=== PATIENT | male | born 1945 | race Caucasian/White ===

== ENCOUNTER → 2016-09-07 | Outpatient (CLI) | payer MEDICARE ==
--- NOTE | 2016-09-07 11:40 | MR ---
EXAMINATION TYPE: MR knee LT wo con DATE OF EXAM: 09/07/2016 11:31 AM COMPARISON: Outside left knee x-ray August 23, 2016. HISTORY: Left knee pain per order. Outer knee pain for 3 months after fall injury per patient. TECHNIQUE: Multiplanar, multisequence images of the knee is performed without IV contrast. FINDINGS: MEDIAL MENISCUS: Anterior and posterior horns are intact without tear. LATERAL MENISCUS: Anterior and posterior horns are intact without tear. CRUCIATE LIGAMENTS: The anterior and posterior cruciate ligaments are intact and unremarkable. COLLATERAL LIGAMENTS: The medial collateral ligament and lateral collateral ligament complex are inta ct and unremarkable. EXTENSOR MECHANISM: Visualized quadriceps and patellar tendons are intact. Some spurring from superio r anterior patellar pole at distal quadriceps tendon attachment is seen. Some increased signal is see n in distal quadriceps tendon and proximal patellar tendon. EFFUSION: No significant suprapatellar joint effusion. POPLITEAL CYST: There is small to moderate size popliteal/pizano cyst measuring 4.1 cm on long axis on sagittal image 26. Fluid is somewhat ill-defined inferiorly. 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 Articular cartilage is fairly well-maintained medial and lateral tibiofemoral compartments. BONE MARROW SIGNAL: No focal abnormal marrow signal is appreciated. OTHER: No additional significant abnormality is appreciated. IMPRESSION: 1. No meniscal or ligamentous tear is seen. 2. Small to moderate-sized possible leaking popliteal cyst. 3. 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 Consider focal osteochondral defect or injury. 4. Mild distal quadriceps and proximal patellar tendinosis/tendinitis.
== END | disposition home or self-care (01) ==
LOC: RADMRIMAIN 10:53
PROVIDERS: ATTEND Orthopaedic Surgery
DX: M25.862 Other specified joint disorders, left knee (principal); M22.42 Chondromalacia patellae, left knee; M25.562 Pain in left knee

== ENCOUNTER → 2016-11-30 | Outpatient (CLI) | payer MEDICARE ==
[2016-11-30 13:24] LABS: Basophils # (A) 0.1 k/uL (0-0.2); Basophils % (A) 1 %; CH 31.2; CHCM 33.6; Eosinophils # (A) 0.1 k/uL (0-0.7); Eosinophils % (A) 2 %; HDW 3.24; Luc # (Auto) 0.15; Luc % (Auto) 2; Lymphocytes # (A) 1.1 k/uL (1.0-4.8); Lymphocytes % (A) 14 %; MCH 31.1 pg (25.0-35.0); MCHC 33.3 g/dL (31.0-37.0); MCV 93.5 fL (80.0-100.0); Mean Platelet Volume 8.6; Monocytes # (A) 0.4 k/uL (0-1.0); Monocytes % (A) 5 %; Neutrophils # (A) 6.1 k/uL (1.3-7.7); Neutrophils % (A) 77 %; RBC 4.81 m/uL (4.30-5.90); WBC (Perox) 8.12
[2016-11-30 13:48] LABS: ALT 46 U/L (21-72); AST 31 U/L (17-59); Alkaline Phosphatase 59 U/L (38-126); Anion Gap 10 mmol/L; Blood Urea Nitrogen 33 mg/dL (9-20); Calcium 10.4 mg/dL (8.4-10.2); Carbon Dioxide 26 mmol/L (22-30); Chloride 103 mmol/L (98-107); Glucose 125 mg/dL (74-99); Non-African American GFR(MDRD) >60 (>60 ml/min/1.73 sqM); Sodium 139 mmol/L (137-145); Total Bilirubin 0.9 mg/dL (0.2-1.3); Total Protein 7.3 g/dL (6.3-8.2)
[2016-11-30 13:50] LABS: Potassium 4.9 mmol/L (3.5-5.1)
[2016-11-30 18:21] LABS: Hemoglobin A1C 5.9 % (4.2-6.1)
== END | disposition home or self-care (01) ==
LOC: LABWHC1 12:37
PROVIDERS: ATTEND Internal Medicine
DX: E11.21 Type 2 diabetes mellitus with diabetic nephropathy (principal)
CPT/HCPCS: 36415; 80053; 83036; 85025

== ENCOUNTER 2016-12-20 08:05 | Day surgery (SDC) | payer MEDICARE ==
[2016-12-13 15:14] VITALS: BMI 39.9
[~2016-12-20 08:05] MED LIST: LACTATED RINGERS 1,000 ML IV SCH
[2016-12-20] MEDS: FLURBIPROFEN 0.03% OPHTH DROPS 2.5 ML BTL OP ONE ×3 (09:20→09:41)
[2016-12-20] MEDS ORDERED: LIDOCAINE 1% 20 ML VIAL (10MG/ML) FOR IV START INTRADERMA ONE (09:22)
[2016-12-20] MEDS: PHENYLEPHRINE 10% OPHTH DROPS 5 ML BTL OP ONE ×3 (09:24→09:44)
[2016-12-20] MEDS: CYCLOPENTOLATE 1% OPHTH SOLN 2 ML BTL OP ONE ×3 (09:26→09:48)
[2016-12-20 09:34] LABS: Glucose,Whole Blood 204 mg/dL (75-99)
[2016-12-20 09:37] VITALS: RESP 16; TEMP 98
[2016-12-20] MEDS ORDERED: MIDAZOLAM 2 MG/2 ML VIAL ONE (10:02)
[2016-12-20] MEDS ORDERED: fentaNYL (PF) 50 MCG/ML 2 ML AMP ONE (10:02)
[2016-12-20] MEDS ORDERED: PROPOFOL 10 MG/ML 20 ML VIAL IV ONE (10:02)
[2016-12-20] MEDS ORDERED: EPINEPHrine (PF) 0.5 ML in BALANCED SALT IRRIG SOLN COMB2 500 ML IRRIGATION ONE (10:03)
[2016-12-20] MEDS ORDERED: HYALURONATE SODIUM INTRAOCULAR 1 EACH SYRINGE (10MG/ML) INTRAOCULA ONE (10:08)
[2016-12-20] MEDS ORDERED: BALANCED SALT IRRIG SOLN COMB2 15 ML IRRIG.SOLN IRRIGATION ONE (10:08)
--- NOTE | 2016-12-20 10:27 | P.OP ---
Date of Procedure: 12/20/16 Preoperative Diagnosis: Postoperative Diagnosis: Procedure(s) Performed: PREOPERATIVE DIAGNOSIS: Cataract, right eye. POSTOPERATIVE DIAGNOSIS: Cataract, right eye. OPERATION: Phacoemulsification cataract, right eye. DESCRIPTION OF PROCEDURE: The patient was taken to the preoperative holding area. Intravenous Propofol was given so as to bring about adequate sedation. The following mixture was given for local anesthesia: 5 mL of 2% lidocaine, 5 mL of 0.75% Marcaine, and 1 mL of Wydase. Approximately 4 mL was injected in the retrobulbar space of the surgical eye. Additional 1 mL was then directed to the temporal area of the surgical eye. This was performed to allow adequate neurological block of the facial muscles. The patient was revived and then taken into the operative room. The patient was prepped and draped in the usual sterile manner for the operative eye. A lid speculum was put into position. The conjunctiva was resected back from the limbus in the 12 o'clock position. Bleeding was controlled with electrocautery. A #69 blade was then used and a half-thickness scleral incision approximately 1-mm posterior to the limbus was made on bare sclera. This was shelved in the clear cornea using a crescent knife. Next a 15-degree blade was used to make a stab incision at the 3 o' clock position at the corneolimbal interface. Keratome blade was then used and the superior wound was extended into the anterior chamber. Viscoelastic was injected into the anterior chamber and to maintain its form. Next, a cystotome was used and a continuous anterior capsulotomy was made without difficulty. Hydrodissection using a blunt cannula and BSS was performed. Phaco probe was then employed and a groove extending from 12 to 6 o'clock in the lens was created. A Regis wand was used through the stab incision so as to perform a divide and conquer technique. Next an irrigation aspiration probe was utilized and any residual cortex was removed from the eye. Again, viscoelastic was injected into the anterior chamber. An Jesús posterior chamber lens implant was placed in the cartridge and injected into the anterior chamber without difficulty. The Optizen labsey hook was utilized to spin the lens into position and this was again performed without any difficulty. The irrigation and aspiration probe was again employed and any residual viscoelastic was removed from the eye. Then BSS was injected into the limbal stab incision and the anterior chamber re-inflated. The conjunctiva was reapproximated using electrocautery. One drop of 0.25% Timoptic was placed over the corneal along with TobraDex ophthalmic ointment. Two sterile patches and a Cisneros eye shield were taped into position. The patient was transported to the recovery room in stable condition. Implants: Pathology: none sent Condition: stable Disposition: same day Indications for Procedure: Operative Findings: Description of Procedure:
[2016-12-20 10:31] VITALS: PULSE 66
[2016-12-20] MEDS ORDERED: IBUPROFEN 200 MG TAB PO STA (10:36)
[2016-12-20] MEDS ORDERED: IBUPROFEN 600 MG TAB PO STA (10:36)
[2016-12-20 10:47] LABS: Glucose,Whole Blood 163 mg/dL (75-99)
[2016-12-20 10:57] VITALS: BP 165/65
[2016-12-20] MEDS ORDERED: GENTAMICIN/PREDNISOL AC OPHTH OINT 3.5GM OPHTHALMIC ONE (23:00)
[2016-12-20] MEDS ORDERED: BUPIVACAINE (PF) 0.75% 5 ML, LIDOCAINE 4% (PF) 5 ML, HYALURONIDASE, HUMAN RECOMB 150 UNIT MISCELLANE ONE ×3 (23:00)
[2016-12-20] MEDS ORDERED: TIMOLOL 0.5% OPHTH SOLN (PF) 0.2 ML DROPERETTE OP ONE (23:00)
== END 2016-12-20 11:39 | disposition home or self-care (01) ==
LOC: OR 08:05
PROVIDERS: ATTEND Ophthalmology
DX: H26.9 Unspecified cataract (principal); I25.10 Atherosclerotic heart disease of native coronary artery without angina pectoris; I10 Essential (primary) hypertension; I48.91 Unspecified atrial fibrillation; I47.2 Ventricular tachycardia; N42.9 Disorder of prostate, unspecified; E11.9 Type 2 diabetes mellitus without complications; Z79.84 Long term (current) use of oral hypoglycemic drugs; Z79.82 Long term (current) use of aspirin; Z79.891 Long term (current) use of opiate analgesic; Z79.899 Other long term (current) drug therapy; Z91.013 Allergy to seafood; Z91.09 Other allergy status, other than to drugs and biological substances
CPT/HCPCS: 66984; V2632; J2001; J2250; J3470; J0171; J3010; J2704

== ENCOUNTER 2017-01-31 12:14 | Day surgery (SDC) | payer MEDICARE ==
[2017-01-25 11:51] VITALS: BMI 40.6
[2017-01-31] MEDS: CYCLOPENTOLATE 1% OPHTH SOLN 2 ML BTL OP ONE ×3 (12:48→13:08)
[2017-01-31] MEDS: PHENYLEPHRINE 10% OPHTH DROPS 5 ML BTL OP ONE ×3 (12:51→13:11)
[2017-01-31] MEDS: FLURBIPROFEN 0.03% OPHTH DROPS 2.5 ML BTL OP ONE ×3 (12:53→13:14)
[2017-01-31 12:55] VITALS: PULSE 66; RESP 16; TEMP 98
[2017-01-31] MEDS ORDERED: LIDOCAINE 1% 20 ML VIAL (10MG/ML) FOR IV START INTRADERMA ONE (12:57)
[2017-01-31 12:59] LABS: Glucose,Whole Blood 177 mg/dL (75-99)
[2017-01-31] MEDS ORDERED: MIDAZOLAM 2 MG/2 ML VIAL ONE (13:42)
[2017-01-31] MEDS ORDERED: fentaNYL (PF) 50 MCG/ML 2 ML AMP ONE (13:42)
[2017-01-31] MEDS ORDERED: PROPOFOL 10 MG/ML 20 ML VIAL IV ONE (13:42)
[2017-01-31] MEDS ORDERED: EPINEPHrine (PF) 0.5 ML in BALANCED SALT IRRIG SOLN COMB2 500 ML IRRIGATION ONE (13:46)
[2017-01-31] MEDS ORDERED: HYALURONATE SODIUM INTRAOCULAR 1 EACH SYRINGE (10MG/ML) INTRAOCULA ONE (13:49)
[2017-01-31] MEDS ORDERED: BALANCED SALT IRRIG SOLN COMB2 15 ML IRRIG.SOLN IRRIGATION ONE (13:49)
[2017-01-31] MEDS ORDERED: TETRACAINE 0.5% OPHTH (PF) DROPS 4 ML BTL LEFT EYE ONE (13:53)
--- NOTE | 2017-01-31 14:11 | P.OP ---
Date of Procedure: 01/31/17 Preoperative Diagnosis: Postoperative Diagnosis: Procedure(s) Performed: PREOPERATIVE DIAGNOSIS: Cataract, left eye. POSTOPERATIVE DIAGNOSIS: Cataract, left eye. OPERATION: Phacoemulsification cataract, left eye. DESCRIPTION OF PROCEDURE: The patient was taken to the preoperative holding area. Intravenous Propofol was given so as to bring about adequate sedation. The following mixture was given for local anesthesia: 5 mL of 2% lidocaine, 5 mL of 0.75% Marcaine, and 1 mL of Wydase. Approximately 4 mL was injected in the retrobulbar space of the surgical eye. Additional 1 mL was then directed to the temporal area of the surgical eye. This was performed to allow adequate neurological block of the facial muscles. The patient was revived and then taken into the operative room. The patient was prepped and draped in the usual sterile manner for the operative eye. A lid speculum was put into position. The conjunctiva was resected back from the limbus in the 12 o'clock position. Bleeding was controlled with electrocautery. A #69 blade was then used and a half-thickness scleral incision approximately 1-mm posterior to the limbus was made on bare sclera. This was shelved in the clear cornea using a crescent knife. Next a 15-degree blade was used to make a stab incision at the 3 o' clock position at the corneolimbal interface. Keratome blade was then used and the superior wound was extended into the anterior chamber. Viscoelastic was injected into the anterior chamber and to maintain its form. Next, a cystotome was used and a continuous anterior capsulotomy was made without difficulty. Hydrodissection using a blunt cannula and BSS was performed. Phaco probe was then employed and a groove extending from 12 to 6 o'clock in the lens was created. A Regis wand was used through the stab incision so as to perform a divide and conquer technique. Next an irrigation aspiration probe was utilized and any residual cortex was removed from the eye. Again, viscoelastic was injected into the anterior chamber. An Jesús posterior chamber lens implant was placed in the cartridge and injected into the anterior chamber without difficulty. The Jianshuey hook was utilized to spin the lens into position and this was again performed without any difficulty. The irrigation and aspiration probe was again employed and any residual viscoelastic was removed from the eye. Then BSS was injected into the limbal stab incision and the anterior chamber re-inflated. The conjunctiva was reapproximated using electrocautery. One drop of 0.25% Timoptic was placed over the corneal along with TobraDex ophthalmic ointment. Two sterile patches and a Cisneros eye shield were taped into position. The patient was transported to the recovery room in stable condition. Implants: Pathology: none sent Condition: stable Disposition: same day Indications for Procedure: Operative Findings: Description of Procedure:
[2017-01-31 14:28] VITALS: BP 152/70
[2017-01-31] MEDS ORDERED: BUPIVACAINE (PF) 0.75% 5 ML, LIDOCAINE 4% (PF) 5 ML, HYALURONIDASE, HUMAN RECOMB 150 UNIT MISCELLANE ONE ×3 (23:00)
[2017-01-31] MEDS ORDERED: TIMOLOL 0.5% OPHTH SOLN (PF) 0.2 ML DROPERETTE OP ONE (23:00)
[2017-01-31] MEDS ORDERED: GENTAMICIN/PREDNISOL AC OPHTH OINT 3.5GM OPHTHALMIC ONE (23:00)
== END 2017-01-31 14:53 | disposition home or self-care (01) ==
LOC: OR 12:14
PROVIDERS: ATTEND Ophthalmology
DX: H26.9 Unspecified cataract (principal); I25.10 Atherosclerotic heart disease of native coronary artery without angina pectoris; I49.9 Cardiac arrhythmia, unspecified; I10 Essential (primary) hypertension; I48.91 Unspecified atrial fibrillation; E11.9 Type 2 diabetes mellitus without complications; C61 Malignant neoplasm of prostate; Z79.84 Long term (current) use of oral hypoglycemic drugs; Z79.82 Long term (current) use of aspirin; Z79.899 Other long term (current) drug therapy
CPT/HCPCS: 66984; V2632; J2001; J2250; J3470; J0171; J3010; J2704

== ENCOUNTER → 2017-09-11 | Outpatient (CLI) | payer MEDICARE ==
[2017-09-11 14:47] LABS: ALT 36 U/L (21-72); AST 23 U/L (17-59); Albumin 4.1 g/dL (3.5-5.0); Alkaline Phosphatase 62 U/L (38-126); Anion Gap 11 mmol/L; Blood Urea Nitrogen 22 mg/dL (9-20); Calcium 10.4 mg/dL (8.4-10.2); Carbon Dioxide 28 mmol/L (22-30); Chloride 102 mmol/L (98-107); Glucose 183 mg/dL (74-99); Potassium 4.8 mmol/L (3.5-5.1); Sodium 141 mmol/L (137-145); Total Bilirubin 0.7 mg/dL (0.2-1.3); Total Protein 6.4 g/dL (6.3-8.2)
[2017-09-11 15:21] LABS: Basophils % (A) 1 %; Eosinophils # (A) 0.1 k/uL (0-0.7); Eosinophils % (A) 2 %; HCT 38.6 % (39.0-53.0); HGB 12.1 gm/dL (13.0-17.5); Hypochromasia Slight; Lymphocytes # (A) 0.9 k/uL (1.0-4.8); Lymphocytes % (A) 13 %; MCH 27.9 pg (25.0-35.0); MCHC 31.3 g/dL (31.0-37.0); MCV 89.2 fL (80.0-100.0); Mean Platelet Volume 8.5; Monocytes # (A) 0.4 k/uL (0-1.0); Monocytes % (A) 6 %; Neutrophils # (A) 5.6 k/uL (1.3-7.7); Neutrophils % (A) 79 %; Platelet Count 191 k/uL (150-450); RBC 4.33 m/uL (4.30-5.90); RDW 15.4 % (11.5-15.5); WBC 7.1 k/uL (3.8-10.6)
[2017-09-11 23:01] LABS: Hemoglobin A1C 7.4 % (4.0-6.0)
== END | disposition home or self-care (01) ==
LOC: LABWHC1 13:50
PROVIDERS: ATTEND Internal Medicine
DX: E11.21 Type 2 diabetes mellitus with diabetic nephropathy (principal)
CPT/HCPCS: 36415; 80053; 83036; 85025

== ENCOUNTER → 2017-10-17 | Outpatient (CLI) | payer MEDICARE ==
--- NOTE | 2017-10-17 09:42 | XR ---
EXAMINATION TYPE: XR chest 2V DATE OF EXAM: 10/17/2017 COMPARISON: 07/28/2014 TECHNIQUE: PA and lateral views submitted. HISTORY: Shortness of breath FINDINGS: Heart is prominent there is atherosclerotic change aorta. Small bilateral pleural effusions. Mild kristina tral interstitial prominence. Biapical pleural thickening. Arthropathy of the shoulders. Hypertrophic and degenerative change of the spine. IMPRESSION: 1. Correlate for mild venous congestion with small bilateral pleural effusions. Interstitial pneumoni tis also the differential diagnosis.
== END | disposition home or self-care (01) ==
LOC: RADXRMAIN 09:20
PROVIDERS: ATTEND Internal Medicine
DX: J06.9 Acute upper respiratory infection, unspecified (principal)
CPT/HCPCS: 71046

== ENCOUNTER 2017-10-28 20:12 | Emergency (ER) | payer MEDICARE ==
[2017-10-28 20:32] VITALS: BP 180/77; PULSE 70; RESP 18; TEMP 99.3
--- NOTE | 2017-10-28 21:39 | XR ---
EXAMINATION TYPE: XR foot complete RT DATE OF EXAM: 10/28/2017 CLINICAL HISTORY: Injury with pain. TECHNIQUE: Frontal, lateral, and oblique images of the right foot are obtained. COMPARISON: None FINDINGS: There is acute transverse minimally displaced fracture at base of fifth metatarsal. There is roughly 2 mm separation. The joint spaces in the right foot appear within normal limits. Moderate diffuse subcutaneous edema is present. Moderate size inferior calcaneal spur is seen. There is small er superior calcaneal spur with ossification along the distal Achilles tendon. IMPRESSION: There is acute mildly displaced transverse fracture base of fifth metatarsal (Ty type fracture). (Initial encounter closed type posttraumatic fracture).
--- NOTE | 2017-10-28 22:14 | ED ---
General Adult HPI - General Chief complaint: Extremity Injury, Lower Stated complaint: foot pain Time Seen by Provider: 10/28/17 21:19 Source: patient, RN notes reviewed Mode of arrival: wheelchair Limitations: physical limitation - History of Present Illness Initial comments: 72-year-old male presents to the emergency department for a chief complaint of right foot pain. Patient states he stood up from the couch and took 3 steps and felt the pain in the lateral side of his right foot. Patient denies falling to the ground. Patient denies any other injuries. Patient denies twisting the foot or standing/stepping on it strangely. Patient is a diabetic. Patient has no other complaints at this time. Patient denies any shortness of breath, chest pain, pain in the knee or hip. Patient has no pain in the ankle. - Related Data Home Medications Medication Instructions Recorded Confirmed RX: Tamsulosin HCl [Flomax] 0.4 mg PO HS 09/25/14 01/31/17 RX: glipiZIDE XL [Glucotrol XL] 10 mg PO DAILY 09/25/14 01/31/17 RX: Baclofen [Lioresal] 10 mg PO BID 05/28/15 01/31/17 RX: Finasteride 5 mg PO DAILY 05/28/15 01/31/17 RX: Acetaminophen-Codeine 300-30mg 1 tab PO TID PRN 03/21/16 01/31/17 [Tylenol w/codeine #3] RX: Aspirin 81 mg PO DAILY 03/21/16 01/31/17 RX: Atorvastatin [Lipitor] 40 mg PO DAILY 03/21/16 01/31/17 RX: Flecainide [Tambocor] 50 mg PO BID 03/21/16 01/31/17 RX: Lisinopril [Zestril] 10 mg PO DAILY 03/21/16 01/31/17 RX: Metoprolol Tartrate [Lopressor] 25 mg PO BID 03/21/16 01/31/17 RX: Triamterene-Hctz 37.5-25Mg 1 cap PO DAILY 03/21/16 01/31/17 [Dyazide 37.5-25 Capsule] RX: metFORMIN HCL [metFORMIN HCL 1,000 mg PO AC-SUPPER 03/21/16 01/31/17 ER] Nitrofurantoin Monohyd/M-Cryst 100 mg PO DAILY 12/13/16 01/31/17 [Macrobid] Allergies Allergy/AdvReac Type Severity Reaction Status Date / Time Iodine and Iodide Containing Allergy Rash/Hives Verified 10/28/17 20:32 Produc shellfish derived [Shellfish] Allergy Rash/Hives Verified 10/28/17 20:32 Review of Systems ROS Statement: Those systems with pertinent positive or pertinent negative responses have been documented in the HPI. ROS Other: All systems not noted in ROS Statement are negative. Past Medical History Past Medical History: Atrial Fibrillation, Coronary Artery Disease (CAD), Diabetes Mellitus, Hypertension, Prostate Disorder Additional Past Medical History / Comment(s): enlarged prostate with stones, prostatitis in past and recently-on abx, episode of v-tach 20 yrs ago, mild CAD , NIDDM type II, 2007 syncope, chronic back pain, stomach ulcers in past, back pain, History of Any Multi-Drug Resistant Organisms: None Reported Past Surgical History: Appendectomy, Cholecystectomy, Heart Catheterization, Orthopedic Surgery Additional Past Surgical History / Comment(s): tibia plateau fracture right leg with plates/screws, 05/29/15 cardiac cath with mild CAD. Past Anesthesia/Blood Transfusion Reactions: No Reported Reaction Past Psychological History: No Psychological Hx Reported Smoking Status: Former smoker Past Alcohol Use History: None Reported Past Drug Use History: None Reported - Past Family History Mother Additional Family Medical History / Comment(s): Bowel problems and possible lung cancer. Mother in her 80's. She did not go to the doctors much. Brother(s) Family Medical History: Cancer Father Family Medical History: Cancer Additional Family Medical History / Comment(s): Father had palpitations. He at about age 78yrs. General Exam Limitations: physical limitation Respiratory exam: Present: normal lung sounds bilaterally. Absent: respiratory distress, wheezes, rales, rhonchi, stridor Cardiovascular Exam: Present: regular rate, normal rhythm, normal heart sounds. Absent: systolic murmur, diastolic murmur, rubs, gallop, clicks Extremities exam: Present: full ROM, tenderness (Of the lateral aspect of the right foot.), normal capillary refill, other (Right ankle and knee nontender and patient has full range of motion. Patient has full range of motion of the right foot. There is significant tenderness on the lateral aspect of the right foot. There is slight swelling as well. Capillary refill less than 2 seconds in all digits in the right foot. Pedal pulse 2+. Patient has intact sensation of the right foot. Neurovascular intact) Course Vital Signs 10/28/17 20:26 Temperature 99.3 F Pulse Rate 70 Respiratory 18 Rate Blood Pressure 180/77 O2 Sat by Pulse 98 Oximetry Procedures - Procedures Initial comment: Neurovascular intact before splint application Indication: Ty fracture of the right lower extremity Type: Short leg Wounds: no abrasions or lacerations underneath splint Neurovascular status: patient has sensation and movement of digits extending outside the splint, there is no cyanosis, capillary refill < 2 seconds Follow-up: patient given number for orthopedics and instructed to phone to make an appointment. Patient aware he can return to the Emergency Department if any difficulties. Medical Decision Making - Medical Decision Making 72-year-old male presents to the emergency department for pain in the lateral side of the right foot. No pain in the ankle or knee. No pain in the calf. Patient states she was walking when he heard a crack. He denies twisting his ankle or falling. X-ray of the foot demonstrates an acute mildly displaced transverse fracture base of the fifth metatarsal. This is a Ty-type fracture. A short leg cast was applied to the right foot. Patient should be nonweightbearing. He was given a prescription for crutches. He is to follow up with orthopedics in one to 2 days. He should also follow up with his primary care provider. He is to return to the emergency department if he has any worsening symptoms. He was educated that he can loosen the Marco Antonio wrap if it is too tight as well as readjust it if it is causing any uncomfortable pressure. Patient states he has Tylenol 3 at home and does not want anything else for pain. He was told to keep the foot elevated to help with the throbbing pain. Disposition Clinical Impression: Ty fracture Disposition: HOME SELF-CARE Condition: Good Instructions: Foot Fracture in Adults (ED) Additional Instructions: Please follow up with orthopedics in one to 2 days. Please feel free to loosen the rapid if it is too tight or uncomfortable as discussed. Please take Tylenol for pain relief. Keeping the foot elevated will help with the throbbing pain as well. Please remain non-weightbearing on the affected foot. Please return to the emergency department if you have any worsening symptoms. Referrals: José Busby MD [Primary Care Provider] - 1-2 days Sahil Shore MD [STAFF PHYSICIAN] - 1-2 days Time of Disposition: 22:13
== END 2017-10-28 22:28 | disposition home or self-care (01) ==
LOC: EC 20:12
DX: S92.351A Displaced fracture of fifth metatarsal bone, right foot, initial encounter for closed fracture (principal); I48.91 Unspecified atrial fibrillation; I25.10 Atherosclerotic heart disease of native coronary artery without angina pectoris; E11.9 Type 2 diabetes mellitus without complications; I10 Essential (primary) hypertension; N42.9 Disorder of prostate, unspecified; Z87.891 Personal history of nicotine dependence; Z79.82 Long term (current) use of aspirin; Z79.84 Long term (current) use of oral hypoglycemic drugs; Z79.899 Other long term (current) drug therapy; Z91.013 Allergy to seafood; Z88.8 Allergy status to other drugs, medicaments and biological substances; Z98.890 Other specified postprocedural states; X58.XXXA Exposure to other specified factors, initial encounter; Y93.01 Activity, walking, marching and hiking
CPT/HCPCS: 99283

== ENCOUNTER → 2017-11-03 | Outpatient (CLI) | payer MEDICARE ==
[2017-11-03 12:48] LABS: ALT 34 U/L (21-72); AST 21 U/L (17-59); Cholesterol 80 mg/dL (<200); HDL Cholesterol 35 mg/dL (40-60); LDL Cholesterol,Calculated 11 mg/dL (0-99); Triglycerides 171 mg/dL (<150)
== END | disposition home or self-care (01) ==
LOC: LABWHC1 11:48
PROVIDERS: ATTEND Nurse Practitioner Adult Health
DX: E78.2 Mixed hyperlipidemia (principal)
CPT/HCPCS: 36415; 80061; 84450; 84460

== ENCOUNTER → 2018-07-03 | Outpatient (CLI) | payer MEDICARE ==
[2018-07-03 12:02] LABS: Anisocytosis Slight; Basophils % (A) 0 %; Eosinophils # (A) 0.1 k/uL (0-0.7); Eosinophils % (A) 2 %; HCT 27.4 % (39.0-53.0); Hypochromasia Marked; Lymphocytes # (A) 0.6 k/uL (1.0-4.8); Lymphocytes % (A) 11 %; MCH 22.1 pg (25.0-35.0); MCHC 29.2 g/dL (31.0-37.0); MCV 75.6 fL (80.0-100.0); Mean Platelet Volume 7.5; Microcytosis Slight; Monocytes # (A) 0.3 k/uL (0-1.0); Monocytes % (A) 5 %; Neutrophils # (A) 4.8 k/uL (1.3-7.7); Neutrophils % (A) 80 %; Platelet Count 156 k/uL (150-450); Poikilocytosis Slight; RBC 3.62 m/uL (4.30-5.90); RDW 18.2 % (11.5-15.5); WBC 5.9 k/uL (3.8-10.6)
[2018-07-03 13:25] LABS: Erythrocyte Sedimentation Rate 21 mm/hr (0-15)
[2018-07-03 17:18] LABS: HIV 1 AB Non-Reactive (Non-Reactive); HIV AB P24 Non-Reactive (Non-Reactive); HIV P24 AG Non-Reactive (Non-Reactive)
[2018-07-06 09:47] LABS: Lyme IgG/IgM 0.1 Index
[2018-07-07 13:37] LABS: Lysozyme, Serum or Body Fluid 9.5 mcg/mL (5.0-11.0)
== END | disposition home or self-care (01) ==
LOC: LABWHC1 10:57
PROVIDERS: ATTEND Ophthalmology
DX: E11.3293 Type 2 diabetes mellitus with mild nonproliferative diabetic retinopathy without macular edema, bilateral (principal)
CPT/HCPCS: 36415; 82164; 85025; 85549; 85652; 86140; 86480; 86618; 86780; 87390

== ENCOUNTER → 2018-07-20 | Outpatient (CLI) | payer MEDICARE ==
--- NOTE | 2018-07-23 01:14 | MR ---
EXAMINATION TYPE: MR brain/orbits wo/w con DATE OF EXAM: 07/20/2018 COMPARISON: None HISTORY: optic neuropathy, disturbance of left eye vision TECHNIQUE: Multiplanar, multisequence images of the brain and brainstem is performed without and with IV contras t, utilizing 11.5 mL intravenous Gadavist . FINDINGS: There is mild cerebral cortical atrophy. There is no mass effect nor midline shift. There i s no sign of intracranial hemorrhage. There are multiple scattered foci of abnormal increased signal at the lee-white matter junction of both cerebral hemispheres on the T2 and FLAIR images. Total numb ers approximately 20 and these measure up to 6 mm. These are more concentrated in the frontal and par ietal lobes. The ventricles of normal size. Sella turcica appears normal. Corpus callosum appears nor mal. There is no evidence of cortical infarct. The globes are symmetric. There is no evidence of retro-orbital mass. The optic nerves have fairly no rmal signal pattern. There is no evidence of a mass. The contrast images show no pathologic orbital e nhancement. Contrast images show no cerebral pathologic parenchymal enhancement. The pituitary stock appears normal. Optic chiasm is normal. IMPRESSION: Cerebral atrophy. Multiple scattered white matter lesions probably related to chronic sma ll vessel ischemia. No evidence of orbital mass. No orbital abnormality identified.
== END | disposition home or self-care (01) ==
LOC: RADMRIMAIN 11:31
PROVIDERS: ATTEND Ophthalmology
DX: G31.9 Degenerative disease of nervous system, unspecified (principal); R90.89 Other abnormal findings on diagnostic imaging of central nervous system; H46.02 Optic papillitis, left eye
CPT/HCPCS: 82565; 84520; 70543; 70553; 36415; A9585

== ENCOUNTER → 2018-09-17 | Outpatient (CLI) | payer MEDICARE ==
[2018-09-17 18:39] LABS: Anion Gap 7.1 mmol/L (4.00-12.00); Calcium 8.7 mg/dL (8.7-10.3); Carbon Dioxide 26.9 mmol/L (21.6-31.8); Potassium 5.1 mmol/L (3.5-5.5)
== END ==
LOC: LABWHC1 13:21
PROVIDERS: ATTEND Nurse Practitioner Adult Health
DX: I10 Essential (primary) hypertension (principal)
CPT/HCPCS: 36415; 80048; 83735

== ENCOUNTER 2018-09-20 09:50 | Inpatient (IN) | payer MEDICARE ==
--- NOTE | 2018-09-20 10:38 | ED ---
General Adult HPI - General Chief complaint: Shortness of Breath Stated complaint: water retention Time Seen by Provider: 09/20/18 10:14 Source: patient Mode of arrival: wheelchair Limitations: no limitations - History of Present Illness Initial comments: This patient is a 73-year-old man who presents to be evaluated for bilateral lower extremity edema. The patient relates that this had been present for about one month. He states that he has been seeing his primary physician (Dr. Busby), and that he had been there in the clinic today and then was directed to come over here from the clinic. The patient relates that he has been taking Lasix for the edema without significant improvement. In addition to the leg swelling he has had some exertional dyspnea if he walks very far. He occasionally has some muscle cramping which has been going on since starting the Lasix. He states that it can affect the lower extremities and he also has had it though less commonly in the upper extremities. Patient denies chest pains. 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 Onset/Timin -: month(s) - Related Data Home Medications Medication Instructions Recorded Confirmed Tamsulosin HCl [Flomax] 0.4 mg PO HS 09/25/14 09/20/18 glipiZIDE XL [Glucotrol XL] 10 mg PO DAILY 09/25/14 09/20/18 Finasteride 5 mg PO DAILY 05/28/15 09/20/18 Aspirin 81 mg PO DAILY 03/21/16 09/20/18 Atorvastatin [Lipitor] 40 mg PO DAILY 03/21/16 09/20/18 Lisinopril [Zestril] 10 mg PO DAILY 03/21/16 09/20/18 Metoprolol Tartrate [Lopressor] 25 mg PO BID 03/21/16 09/20/18 metFORMIN HCL [metFORMIN HCL ER] 1,000 mg PO AC-SUPPER 03/21/16 09/20/18 Carisoprodol [Soma] 350 mg PO BID 09/20/18 09/20/18 Omeprazole 20 mg PO DAILY 09/20/18 09/20/18 Potassium Chloride ER [K-Dur 10] 20 meq PO DAILY 09/20/18 09/20/18 Sulfamethox-Tmp 800-160Mg [Bactrim 0.5 tab PO DAILY 09/20/18 09/20/18 DS 800-160 mg] Warfarin [Coumadin] 7.5 mg PO SUMOTUWETHSA 09/20/18 09/20/18 Warfarin [Coumadin] 10 mg PO FR 09/20/18 09/20/18 Previous Rx's Medication Instructions Recorded Ferrous Sulfate [Feosol] 325 mg PO BID #60 tab 09/24/18 Furosemide [Lasix] 60 mg PO BID #90 tablet 09/24/18 HYDROcodone/APAP 10-325MG [[place] 1 each PO Q6H PRN #7 tab 09/24/18 10-325] Allergies Allergy/AdvReac Type Severity Reaction Status Date / Time Iodine and Iodide Containing Allergy Rash/Hives Verified 09/20/18 11:11 Produc shellfish derived [Shellfish] Allergy Rash/Hives Verified 09/20/18 11:11 Review of Systems ROS Statement: Those systems with pertinent positive or pertinent negative responses have been documented in the HPI. ROS Other: All systems not noted in ROS Statement are negative. Constitutional: Denies: fever, chills, weakness Respiratory: Denies: cough, dyspnea, wheezes Cardiovascular: Reports: dyspnea on exertion, edema. Denies: chest pain, palpi tations, orthopnea, syncope Gastrointestinal: Denies: abdominal pain, vomiting, diarrhea Genitourinary: Denies: dysuria, hematuria Musculoskeletal: Reports: myalgia (Muscle cramps). Denies: back pain Skin: Denies: rash Neurological: Denies: headache, weakness, numbness Past Medical History Past Medical History: Atrial Fibrillation, Coronary Artery Disease (CAD), Diabetes Mellitus, Hypertension, Prostate Disorder Additional Past Medical History / Comment(s): enlarged prostate with stones, prostatitis in past and recently-on abx, episode of v-tach 20 yrs ago, mild CAD, NIDDM type II, 2008 syncope, chronic back pain, stomach ulcers in past, back pain, History of Any Multi-Drug Resistant Organisms: None Reported Past Surgical History: Appendectomy, Cholecystectomy, Heart Catheterization, Orthopedic Surgery Additional Past Surgical History / Comment(s): tibia plateau fracture right leg with plates/screws, 05/29/15 cardiac cath with mild CAD. Past Anesthesia/Blood Transfusion Reactions: No Reported Reaction Past Psychological History: No Psychological Hx Reported Smoking Status: Former smoker Past Alcohol Use History: None Reported Past Drug Use History: None Reported - Past Family History Mother Additional Family Medical History / Comment(s): Bowel problems and possible lung cancer. Mother in her 80's. She did not go to the doctors much. Brother(s) Family Medical History: Cancer Father Family Medical History: Cancer Additional Family Medical History / Comment(s): Father had palpitations. He at about age 78yrs. General Exam Limitations: no limitations General appearance: alert, in no apparent distress Head exam: Present: atraumatic, normocephalic Eye exam: Present: normal appearance. Absent: scleral icterus, conjunctival injection ENT exam: Present: normal oropharynx Respiratory exam: Present: normal lung sounds bilaterally. Absent: respiratory distress, wheezes, rales, rhonchi, stridor Cardiovascular Exam: Present: regular rate, normal rhythm, normal heart sounds. Absent: systolic murmur, diastolic murmur, rubs, gallop GI/Abdominal exam: Present: soft. Absent: distended, tenderness, guarding, r ebound, rigid Extremities exam: Present: normal capillary refill, pedal edema (Bilateral lower extremity edema to above the knees). Absent: calf tenderness Back exam: Present: normal inspection. Absent: CVA tenderness (R), CVA tenderness (L) Neurological exam: Present: alert Skin exam: Present: warm, dry, intact, normal color. Absent: rash Course Vital Signs 09/20/18 09/20/18 10:05 13:28 Temperature 99.2 F Pulse Rate 76 79 Respiratory 16 16 Rate Blood Pressure 139/93 148/56 O2 Sat by Pulse 100 100 Oximetry - Reevaluation(s) Reevaluation #1: 09/20/18 11:48 Further history reveals that the patient has had some underlying anemia going back, he believes about 5-[address] Busby had foulness on incidental labs, and had him follow with gastroenterology. He did have upper and lower endoscopy that did not reveal any bleeding at that time. He has not subsequently noticed any bloody stools or any dark tarry stools. The patient does take Coumadin for his atrial fibrillation. EKG Findings - EKG Results: EKG: interpreted by MENDEL, sinus rhythm (Sinus rhythm with one premature supraventricular complex, Rate approximate 75 bpm), normal axis, normal QRS, normal ST/T, no acute changes Medical Decision Making - Medical Decision Making Case discussed with the [facility] physician group doctor, who will admit patient for transfusion and further workup of this is profound anemia. - Lab Data Result diagrams: 09/24/18 08:05 09/24/18 08:05 Lab Results 09/20/18 09/20/18 09/20/18 Range/Units 10:55 10:55 10:55 WBC 8.2 (3.8-10.6) k/uL RBC 2.69 L (4.30-5.90) m/uL Hgb 5.5 L* (13.0-17.5) gm/dL Hct 18.8 L* (39.0-53.0) % MCV 69.7 L (80.0-100.0) fL MCH 20.3 L (25.0-35.0) pg MCHC 29.1 L (31.0-37.0) g/dL RDW 18.7 H (11.5-15.5) % Plt Count 268 (150-450) k/uL Neutrophils % 85 % Lymphocytes % 7 % Monocytes % 4 % Eosinophils % 2 % Basophils % 0 % Neutrophils # 7.0 (1.3-7.7) k/uL Lymphocytes # 0.6 L (1.0-4.8) k/uL Monocytes # 0.3 (0-1.0) k/uL Eosinophils # 0.2 (0-0.7) k/uL Basophils # 0.0 (0-0.2) k/uL Hypochromasia Marked Poikilocytosis Slight Anisocytosis Slight Microcytosis Marked PT (9.0-12.0) sec INR (<1.2) APTT (22.0-30.0) sec Sodium 134 L (137-145) mmol/L Potassium 5.0 (3.5-5.1) mmol/L Chloride 99 (98-107) mmol/L Carbon Dioxide 23 (22-30) mmol/L Anion Gap 12 mmol/L BUN 27 H (9-20) mg/dL Creatinine 1.07 (0.66-1.25) mg/dL Est GFR (CKD-EPI)AfAm 80 (>60 ml/min/1.73 sqM) Est GFR (CKD-EPI)NonAf 70 (>60 ml/min/1.73 sqM) Glucose 229 H (74-99) mg/dL Calcium 9.0 (8.4-10.2) mg/dL Magnesium 2.0 (1.6-2.3) mg/dL Total Bilirubin 0.2 (0.2-1.3) mg/dL AST 13 L (17-59) U/L ALT 33 (21-72) U/L Alkaline Phosphatase 63 (38-126) U/L Troponin I (0.000-0.034) ng/mL NT-Pro-B Natriuret Pep 1910 pg/mL Total Protein 5.5 L (6.3-8.2) g/dL Albumin 3.3 L (3.5-5.0) g/dL Urine Color Urine Appearance (Clear) Urine pH (5.0-8.0) Ur Specific [place] (1.001-1.035) Urine Protein (Negative) Urine Glucose (UA) (Negative) Urine Ketones (Negative) Urine Blood (Negative) Urine Nitrite (Negative) Urine Bilirubin (Negative) Urine Urobilinogen (<2.0) mg/dL Ur Leukocyte Esterase (Negative) Urine RBC (0-5) /hpf Urine WBC (0-5) /hpf Urine WBC Clumps (None) /hpf Ur Squamous Epith Cells (0-4) /hpf Urine Bacteria (None) /hpf Urine Mucus (None) /hpf Stool Occult Blood (Negative) Blood Type Blood Type Confirm Blood Type Recheck Antibody Screen Crossmatch Spec Expiration Date 09/20/18 09/20/18 09/20/18 Range/Units 10:55 10:55 10:55 WBC (3.8-10.6) k/uL RBC (4.30-5.90) m/uL Hgb (13.0-17.5) gm/dL Hct (39.0-53.0) % MCV (80.0-100.0) fL MCH (25.0-35.0) pg MCHC (31.0-37.0) g/dL RDW (11.5-15.5) % Plt Count (150-450) k/uL Neutrophils % % Lymphocytes % % Monocytes % % Eosinophils % % Basophils % % Neutrophils # (1.3-7.7) k/uL Lymphocytes # (1.0-4.8) k/uL Monocytes # (0-1.0) k/uL Eosinophils # (0-0.7) k/uL Basophils # (0-0.2) k/uL Hypochromasia Poikilocytosis Anisocytosis Microcytosis PT 17.9 H (9.0-12.0) sec INR 1.8 H (<1.2) APTT 29.9 (22.0-30.0) sec Sodium (137-145) mmol/L Potassium (3.5-5.1) mmol/L Chloride (98-107) mmol/L Carbon Dioxide (22-30) mmol/L Anion Gap mmol/L BUN (9-20) mg/dL Creatinine (0.66-1.25) mg/dL Est GFR (CKD-EPI)AfAm (>60 ml/min/1.73 sqM) Est GFR (CKD-EPI)NonAf (>60 ml/min/1.73 sqM) Glucose (74-99) mg/dL Calcium (8.4-10.2) mg/dL Magnesium (1.6-2.3) mg/dL Total Bilirubin (0.2-1.3) mg/dL AST (17-59) U/L ALT (21-72) U/L Alkaline Phosphatase (38-126) U/L Troponin I 0.027 (0.000-0.034) ng/mL NT-Pro-B Natriuret Pep pg/mL Total Protein (6.3-8.2) g/dL Albumin (3.5-5.0) g/dL Urine Color Urine Appearance (Clear) Urine pH (5.0-8.0) Ur Specific [place] (1.001-1.035) Urine Protein (Negative) Urine Glucose (UA) (Negative) Urine Ketones (Negative) Urine Blood (Negative) Urine Nitrite (Negative) Urine Bilirubin (Negative) Urine Urobilinogen (<2.0) mg/dL Ur Leukocyte Esterase (Negative) Urine RBC (0-5) /hpf Urine WBC (0-5) /hpf Urine WBC Clumps (None) /hpf Ur Squamous Epith Cells (0-4) /hpf Urine Bacteria (None) /hpf Urine Mucus (None) /hpf Stool Occult Blood (Negative) Blood Type Blood Type Confirm AB Positive Blood Type Recheck Antibody Screen Crossmatch Spec Expiration Date 09/20/18 09/20/18 09/20/18 Range/Units 11:46 11:46 11:46 WBC (3.8-10.6) k/uL RBC (4.30-5.90) m/uL Hgb (13.0-17.5) gm/dL Hct (39.0-53.0) % MCV (80.0-100.0) fL MCH (25.0-35.0) pg MCHC (31.0-37.0) g/dL RDW (11.5-15.5) % Plt Count (150-450) k/uL Neutrophils % % Lymphocytes % % Monocytes % % Eosinophils % % Basophils % % Neutrophils # (1.3-7.7) k/uL Lymphocytes # (1.0-4.8) k/uL Monocytes # (0-1.0) k/uL Eosinophils # (0-0.7) k/uL Basophils # (0-0.2) k/uL Hypochromasia Poikilocytosis Anisocytosis Microcytosis PT (9.0-12.0) sec INR (<1.2) APTT (22.0-30.0) sec Sodium (137-145) mmol/L Potassium (3.5-5.1) mmol/L Chloride (98-107) mmol/L Carbon Dioxide (22-30) mmol/L Anion Gap mmol/L BUN (9-20) mg/dL Creatinine (0.66-1.25) mg/dL Est GFR (CKD-EPI)AfAm (>60 ml/min/1.73 sqM) Est GFR (CKD-EPI)NonAf (>60 ml/min/1.73 sqM) Glucose (74-99) mg/dL Calcium (8.4-10.2) mg/dL Magnesium (1.6-2.3) mg/dL Total Bilirubin (0.2-1.3) mg/dL AST (17-59) U/L ALT (21-72) U/L Alkaline Phosphatase (38-126) U/L Troponin I (0.000-0.034) ng/mL NT-Pro-B Natriuret Pep pg/mL Total Protein (6.3-8.2) g/dL Albumin (3.5-5.0) g/dL Urine Color Light Yellow Urine Appearance Cloudy (Clear) Urine pH 6.0 (5.0-8.0) Ur Specific [place] 1.010 (1.001-1.035) Urine Protein Negative (Negative) Urine Glucose (UA) Negative (Negative) Urine Ketones Negative (Negative) Urine Blood Negative (Negative) Urine Nitrite Positive (Negative) Urine Bilirubin Negative (Negative) Urine Urobilinogen <2.0 (<2.0) mg/dL Ur Leukocyte Esterase Large H (Negative) Urine RBC 5 (0-5) /hpf Urine WBC >182 H (0-5) /hpf Urine WBC Clumps Few H (None) /hpf Ur Squamous Epith Cells <1 (0-4) /hpf Urine Bacteria Few H (None) /hpf Urine Mucus Rare H (None) /hpf Stool Occult Blood Positive (Negative) Blood Type AB Positive Blood Type Confirm Blood Type Recheck CABO Indicated Antibody Screen NEGATIVE Crossmatch See Detail Spec Expiration Date 09/23/2018 - 2245 Critical Care Time Critical Care Time: Yes (30 minutes) Disposition Clinical Impression: Anemia Disposition: ADMITTED IP TO THIS [facility] Condition: Fair
[2018-09-20 11:09] LABS: Anisocytosis Slight; Basophils % (A) 0 %; Eosinophils # (A) 0.2 k/uL (0-0.7); Eosinophils % (A) 2 %; Hypochromasia Marked; Lymphocytes # (A) 0.6 k/uL (1.0-4.8); Lymphocytes % (A) 7 %; MCH 20.3 pg (25.0-35.0); MCHC 29.1 g/dL (31.0-37.0); MCV 69.7 fL (80.0-100.0); Mean Platelet Volume 7.4; Microcytosis Marked; Monocytes # (A) 0.3 k/uL (0-1.0); Monocytes % (A) 4 %; Neutrophils % (A) 85 %; Platelet Count 268 k/uL (150-450); Poikilocytosis Slight; RBC 2.69 m/uL (4.30-5.90); RDW 18.7 % (11.5-15.5); WBC 8.2 k/uL (3.8-10.6)
[2018-09-20 11:15] LABS: HCT 18.8 % (39.0-53.0)
[2018-09-20 11:16] LABS: HGB 5.5 gm/dL (13.0-17.5)
[2018-09-20 11:20] LABS: INR 1.8 (<1.2); Partial Thromboplastin Time 29.9 sec (22.0-30.0); Prothrombin Time 17.9 sec (9.0-12.0)
--- NOTE | 2018-09-20 11:22 | XR ---
EXAMINATION TYPE: XR chest 2V DATE OF EXAM: 09/20/2018 COMPARISON: Chest x-ray October 17, 2017 HISTORY: Increasing leg swelling and shortness of breath TECHNIQUE: Frontal and lateral views of the chest are obtained. FINDINGS: Overlying EKG leads are seen. There is no focal air space opacity, pleural effusion, or pne umothorax seen. The cardiac silhouette size is enlarged. Mild central vascular congestion is felt pr esent on current study. The osseous structures are intact. IMPRESSION: Correlate for CHF exacerbation as there is cardiomegaly with suspected mild central vasc ular congestion similar to prior study.
[2018-09-20 11:25] LABS: Albumin 3.3 g/dL (3.5-5.0); Total Bilirubin 0.2 mg/dL (0.2-1.3); Total Protein 5.5 g/dL (6.3-8.2)
[2018-09-20] MEDS ORDERED: ACETAMINOPHEN TAB 325 MG TAB PO PRN (11:52)
[2018-09-20] MEDS ORDERED: NALOXONE 0.4 MG/ML 1 ML VIAL IV PRN (11:52)
[2018-09-20 12:24] LABS: Appearance,Urine Cloudy (Clear); Bacteria,Urine Few /hpf; Bilirubin,Urine Negative (Negative); Blood,Urine Negative (Negative); Color,Urine Light Yellow; Glucose,Urine (UA) Negative (Negative); Ketones,Urine Negative (Negative); Leukocyte Esterase,Urine Large (Negative); Mucus,Urine Rare /hpf; Nitrite,Urine Positive (Negative); Protein,Urine Negative (Negative); RBC,Urine 5 /hpf (0-5); Squamous Epithelial Cell,Urine <1 /hpf (0-4); Urobilinogen,Urine <2.0 mg/dL (<2.0); WBC,Urine >182 /hpf (0-5)
[2018-09-20] MEDS ORDERED: KETOROLAC 30 MG/ML 1 ML VIAL IVP STA (12:46)
[2018-09-20 15:15] VITALS: BMI 39.5
--- NOTE | 2018-09-20 15:30 | P.HPIM ---
History of Present Illness H&P Date: 09/20/18 Chief Complaint: Lower extremity swelling, shortness of breath 73-year-old male with PMH of atrial fibrillation, CAD, diabetes mellitus, hypertension, history of V. tach, history of prostatitis presents to the ED for shortness of breath and lower extremity swelling. Patient reports lower extremity swelling has been ongoing for the past 1 month. Patient reports never experiencing this previously. Patient states that the edema is not position dependent and does not resolve with lower extremity elevation. His edema is associated with cramping bilaterally in the lower extremities. He has tried Lasix through his PCP and metalozone without relief. He has tried potassium supplements for the cramping which has not given him relief. Along with his lower extremity swelling, patient complains of exertional shortness of breath. Patient is unable to effectively describe his exercise tolerance in the past but complains that he feels short of breath even taking a few steps. He denies any orthopnea. He denies any history of CHF. Patient does report a history of V. tach and A. fib for which he follows Dr. Madison. Patient reports a history of anemia that was discovered 4-5 months ago through his PCP. Patient reports having a hemoglobin around 7, underwent colonoscopy and EGD in April per patient which was normal. Patient reports seeing Dr. Percy Estrada for the above procedures. Of note, patient reports history of gastric ulcer and anemia 25-30 years ago, EGD at that time revealed a gastric ulcer. Patient denies any melena or gross blood in his stool. He also denies any hematuria or any obvious signs of bleeding. He denies any headaches, nausea, vomiting, fever, cough, chest pain, palpitations, changes in urination or bowel habits. No changes in appetite or weight. No numbness, weakness or tingling of the extremities. In the ED, CBC showed a severe anemia with a hemoglobin of 5.5. INR was 1.8. Troponin was 0.027. BNP was 1910. UA showed large leukocyte esterase. Chest x -ray shows CHF exacerbation cardiomegaly. Patient is admitted for severe anemia , requiring blood transfusion. Review of Systems All systems: negative Past Medical History Past Medical History: Atrial Fibrillation, Coronary Artery Disease (CAD), Diabetes Mellitus, Hypertension, Prostate Disorder Additional Past Medical History / Comment(s): enlarged prostate with stones, prostatitis in past and recently-on abx, episode of v-tach 20 yrs ago, mild CAD , NIDDM type II, 2008 syncope, chronic back pain, stomach ulcers in past, back pain, History of Any Multi-Drug Resistant Organisms: None Reported Past Surgical History: Appendectomy, Cholecystectomy, Heart Catheterization, Orthopedic Surgery Additional Past Surgical History / Comment(s): tibia plateau fracture right leg with plates/screws, 05/29/15 cardiac cath with mild CAD. Past Anesthesia/Blood Transfusion Reactions: No Reported Reaction Past Psychological History: No Psychological Hx Reported Smoking Status: Former smoker Past Alcohol Use History: None Reported Past Drug Use History: None Reported - Past Family History Mother Additional Family Medical History / Comment(s): Bowel problems and possible lung cancer. Mother in her 80's. She did not go to the doctors much. Brother(s) Family Medical History: Cancer Father Family Medical History: Cancer Additional Family Medical History / Comment(s): Father had palpitations. He at about age 78yrs. Medications and Allergies Home Medications Medication Instructions Recorded Confirmed Type Tamsulosin HCl [Flomax] 0.4 mg PO HS 09/25/14 09/20/18 History glipiZIDE XL [Glucotrol XL] 10 mg PO DAILY 09/25/14 09/20/18 History Finasteride 5 mg PO DAILY 05/28/15 09/20/18 History Aspirin 81 mg PO DAILY 03/21/16 09/20/18 History Atorvastatin [Lipitor] 40 mg PO DAILY 03/21/16 09/20/18 History Lisinopril [Zestril] 10 mg PO DAILY 03/21/16 09/20/18 History Metoprolol Tartrate [Lopressor] 25 mg PO BID 03/21/16 09/20/18 History metFORMIN HCL [metFORMIN HCL ER] 1,000 mg PO AC-SUPPER 03/21/16 09/20/18 History Carisoprodol [Soma] 350 mg PO BID 09/20/18 09/20/18 History Furosemide [Lasix] 40 mg PO BID 09/20/18 09/20/18 History Omeprazole 20 mg PO DAILY 09/20/18 09/20/18 History Potassium Chloride ER [K-Dur 10] 20 meq PO DAILY 09/20/18 09/20/18 History Sulfamethox-Tmp 800-160Mg [Bactrim 0.5 tab PO DAILY 09/20/18 09/20/18 History DS 800-160 mg] Warfarin [Coumadin] 7.5 mg PO SUMOTUWETHSA 09/20/18 09/20/18 History Warfarin [Coumadin] 10 mg PO FR 09/20/18 09/20/18 History Allergies Allergy/AdvReac Type Severity Reaction Status Date / Time Iodine and Iodide Containing Allergy Rash/Hives Verified 09/20/18 11:11 Produc shellfish derived [Shellfish] Allergy Rash/Hives Verified 09/20/18 11:11 Physical Exam Vitals: Vital Signs Temp Pulse Resp BP Pulse Ox 09/20/18 13:28 79 16 148/56 100 09/20/18 10:05 99.2 F 76 16 139/93 100 Intake and Output 09/19/18 09/20/18 09/20/18 22:59 06:59 14:59 Other: Weight 121.563 kg General: [non toxic], [no distress], [appears at stated age] Derm: [warm], [dry] Head: [atraumatic], [normocephalic], [symmetric] Eyes: [EOMI], [no lid lag], [pale conjunctiva] Mouth: [no lip lesion], [mucus membranes moist] Cardiovascular: [S1S2 reg], [no murmur], [positive DP pulse bilateral] Lungs: [CTA bilateral], [no rhonchi, no rales] , [no accessory muscle use] Abdominal: [soft], [ nontender to palpation], [no guarding], [no appreciable organomegaly] Ext: [no gross muscle atrophy], [2+ lower edema], [no contractures] Neuro: [ CN II-XI grossly intact], [no focal neuro deficits] Psych: [Alert], [oriented], [appropriate affect] Results CBC & Chem 7: 09/20/18 10:55 09/20/18 10:55 Labs: Abnormal Lab Results - Last 24 Hours (Table) 09/20/18 09/20/18 09/20/18 Range/Units 10:55 10:55 10:55 RBC 2.69 L (4.30-5.90) m/uL Hgb 5.5 L* (13.0-17.5) gm/dL Hct 18.8 L* (39.0-53.0) % MCV 69.7 L (80.0-100.0) fL MCH 20.3 L (25.0-35.0) pg MCHC 29.1 L (31.0-37.0) g/dL RDW 18.7 H (11.5-15.5) % Lymphocytes # 0.6 L (1.0-4.8) k/uL PT 17.9 H (9.0-12.0) sec INR 1.8 H (<1.2) Sodium 134 L (137-145) mmol/L BUN 27 H (9-20) mg/dL Glucose 229 H (74-99) mg/dL AST 13 L (17-59) U/L Total Protein 5.5 L (6.3-8.2) g/dL Albumin 3.3 L (3.5-5.0) g/dL Ur Leukocyte Esterase (Negative) Urine WBC (0-5) /hpf Urine WBC Clumps (None) /hpf Urine Bacteria (None) /hpf Urine Mucus (None) /hpf Crossmatch 09/20/18 09/20/18 Range/Units 11:46 11:46 RBC (4.30-5.90) m/uL Hgb (13.0-17.5) gm/dL Hct (39.0-53.0) % MCV (80.0-100.0) fL MCH (25.0-35.0) pg MCHC (31.0-37.0) g/dL RDW (11.5-15.5) % Lymphocytes # (1.0-4.8) k/uL PT (9.0-12.0) sec INR (<1.2) Sodium (137-145) mmol/L BUN (9-20) mg/dL Glucose (74-99) mg/dL AST (17-59) U/L Total Protein (6.3-8.2) g/dL Albumin (3.5-5.0) g/dL Ur Leukocyte Esterase Large H (Negative) Urine WBC >182 H (0-5) /hpf Urine WBC Clumps Few H (None) /hpf Urine Bacteria Few H (None) /hpf Urine Mucus Rare H (None) /hpf Crossmatch See Detail Thrombosis Risk Factor Assmnt - Choose All That Apply Any of the Below Risk Factors Present?: Yes Each Factor Represents 1 point: Obesity (BMI >25) Other Risk Factors: Yes Each Risk Factor Represents 2 Points: Age 61-74 years Thrombosis Risk Factor Assessment Total Risk Factor Score: 3 Thrombosis Risk Factor Assessment Level: Moderate Risk Assessment and Plan Assessment: Assessment and Plan 1. Dyspnea 2. Symptomatic anemia 3. Lower extremity edema 4. Atrial fibrillation with history of ventricular tachycardia 5. History of prostatitis 6. History of CAD 7. Diabetes mellitus 8. Hypertension 9. DVT and GI prophylaxis 1. Patient's shortness of breath is likely secondary to symptomatic anemia with possible component of CHF, rule out ACS. Hemoglobin 5.5, we will transfuse the patient today. BNP is 1910, elevated from baseline of 500's in 2016. Chest x-ray shows central vascular congestion with signs of CHF. Start Lasix 40 mg IV twice a day. Will follow echocardiogram results. Troponin is 0.027, EKG showing sinus rhythm. Will trend 2 Troponins and EKG to rule out ACS. Oxygen per nasal cannula to maintain an oxygen saturation greater than 92% . 2. Hemoglobin is 5.5, microcytic. Likely chronic blood loss from use of Coumadin. Patient reported EGD and colonoscopy in April which was negative. FOBT is positive. Will transfuse 2 units of PRBC. Hold Coumadin, heparin. Gastroenterology consulted for further recommendations. Daily CBC. 3. Likely secondary to probable CHF or anemia. Continue Lasix 40 mg IV twice a day. Transfuse 2 units PRBC. Strict ins and outs. Daily weights. Will continue to monitor her clinical progression. 4. Recent Holter monitor with Dr. Madison. Continue metoprolol 25 mg by mouth twice a day. Hold anticoagulation due to possible GI bleed. Telemetry monitoring. Potassium greater than 4 and magnesium greater than 2. 5. Continue Bactrim one half tablet by mouth daily. 6. Stable. Hold aspirin due to possible GI bleed. Continue Lipitor 40 mg by mouth daily. Continue beta kelley. 7. [id number] glucose 229. Start insulin sliding scale. Hypoglycemic precautions. Regular Accu-Cheks. Diabetic diet. 8. BP 148/87. Continue metoprolol and lisinopril. Her vitals, adjust medications as necessary. 9. SCD boots only. Protonix 40 mg IV daily. Patient admitted for symptomatic anemia, possible CHF exacerbation. Gastroenterology on consult. To be transfused 2 units PRBC.
--- NOTE | 2018-09-20 16:14 | ECHOF ---
Referral Reason:edema, exertional dyspnea MEASUREMENTS -------- HEIGHT: 175.3 cm WEIGHT: 121.6 kg BP: 148/56 RVIDd: 2.9 cm (< 3.3) IVSd: 1.1 cm (0.6 - 1.1) LVIDd: 5.7 cm (3.9 - 5.3) LVPWd: 1.1 cm (0.6 - 1.1) IVSs: 1.4 cm LVIDs: 3.8 cm LVPWs: 1.4 cm LAESV Index (A-L): 34.33 ml/m Ao Diam: 3.3 cm (2.0 - 3.7) AV Cusp: 1.9 cm (1.5 - 2.6) LA Diam: 3.9 cm (2.7 - 3.8) MV E Darvin: 1.80 m/s MV DecT: 161 ms MV A Darvin: 0.73 m/s MV E/A Ratio: 2.48 AV maxP.00 mmHg AV meanP.57 mmHg RAP: 10.00 mmHg RVSP: 75.88 mmHg MV EF SLOPE: 86.23 mm/s (70 - 150) MV EXCURSION: 1.99 cm (> 18.000) FINDINGS -------- Sinus rhythm. This was a technically adequate study. The left ventricular size is normal. There is borderline concentric left ventricular hypertrophy. Overall left ventricular systolic function is normal with, an EF between 55 - 60 %. The right ventricle is normal in size and function. LA is moderately dilated 34-39 ml/m2 RA appears enlarged. Aortic valve is trileaflet and is mildly thickened. Trace to mild aortic regurgitation. There is no evidence of aortic stenosis. The mitral valve leaflets are mildly thickened. [id number] mitral regurgitation is present. Moderate tricuspid regurgitation present. There is severe pulmonary hypertension. The right ventr icular systolic pressure, as measured by Doppler, is 75.88mmHg. Trace/mild (physiologic) pulmonic regurgitation. The aortic root size is normal. The IVC is dilated with normal collapse. There is no pericardial effusion. CONCLUSIONS -------- 1. Sinus rhythm. 2. This was a technically adequate study. 3. The left ventricular size is normal. 4. There is borderline concentric left ventricular hypertrophy. 5. Overall left ventricular systolic function is normal with, an EF between 55 - 60 %. 6. LA is moderately dilated 34-39 ml/m2 7. RA appears enlarged. 8. Aortic valve is trileaflet and is mildly thickened. 9. Trace to mild aortic regurgitation. 10. There is no evidence of aortic stenosis. 11. The mitral valve leaflets are mildly thickened. 12. Vyqg-eh-prodvixo mitral regurgitation is present. 13. Moderate tricuspid regurgitation present. 14. There is severe pulmonary hypertension. 15. The right ventricular systolic pressure, as measured by Doppler, is 75.88mmHg. 16. Trace/mild (physiologic) pulmonic regurgitation. 17. The aortic root size is normal. 18. The IVC is dilated with normal collapse. 19. There is no pericardial effusion. LABORER STORES: Carlos Short RDCS
[2018-09-20 16:18] LABS: Glucose,Whole Blood 115 mg/dL (75-99)
[2018-09-20] MEDS: SODIUM CHLORIDE 0.9% 1,000 ML IV SCH (17:39)
[2018-09-20] MEDS: METOPROLOL TARTRATE 25 MG TAB PO SCH (20:36)
[2018-09-20] MEDS: HYDROcodone/APAP 5-325MG 1 EACH TAB PO PRN (20:36)
[2018-09-20] MEDS: TAMSULOSIN 0.4 MG CAP.ER.24H PO SCH (20:36)
[2018-09-20] MEDS: FUROSEMIDE 10 MG/ML 4 ML VIAL IV SCH (20:37)
[2018-09-20 20:50] LABS: Glucose,Whole Blood 128 mg/dL (75-99)
[2018-09-21 05:45] LABS: Glucose,Whole Blood 178 mg/dL (75-99)
[2018-09-21 07:07] LABS: Anisocytosis Moderate; Basophils % (A) 1 %; Eosinophils # (A) 0.3 k/uL (0-0.7); Eosinophils % (A) 4 %; Hypochromasia Marked; Lymphocytes # (A) 0.6 k/uL (1.0-4.8); Lymphocytes % (A) 11 %; MCH 21.6 pg (25.0-35.0); MCHC 30.2 g/dL (31.0-37.0); MCV 71.3 fL (80.0-100.0); Mean Platelet Volume 8.6; Microcytosis Marked; Monocytes # (A) 0.3 k/uL (0-1.0); Monocytes % (A) 5 %; Neutrophils # (A) 4.7 k/uL (1.3-7.7); Neutrophils % (A) 78 %; Platelet Count 252 k/uL (150-450); Poikilocytosis Moderate; RBC 2.77 m/uL (4.30-5.90); RDW 20.1 % (11.5-15.5); WBC 6.1 k/uL (3.8-10.6)
[2018-09-21 07:10] LABS: ALT 36 U/L (21-72); AST 23 U/L (17-59); Albumin 3.3 g/dL (3.5-5.0); Alkaline Phosphatase 64 U/L (38-126); Anion Gap 9 mmol/L; Blood Urea Nitrogen 22 mg/dL (9-20); Calcium 8.9 mg/dL (8.4-10.2); Carbon Dioxide 24 mmol/L (22-30); Chloride 100 mmol/L (98-107); Glucose 150 mg/dL (74-99); Potassium 4.7 mmol/L (3.5-5.1); Sodium 133 mmol/L (137-145); Total Bilirubin 0.5 mg/dL (0.2-1.3); Total Protein 5.5 g/dL (6.3-8.2)
[2018-09-21 07:12] LABS: HCT 19.8 % (39.0-53.0)
[2018-09-21] MEDS: SULFAMETHOX-TMP 800-160MG 1 EACH TAB PO SCH (08:38)
[2018-09-21] MEDS: ATORVASTATIN 40 MG TAB PO SCH (08:38)
[2018-09-21] MEDS: LISINOPRIL 10 MG TAB PO SCH (08:38)
[2018-09-21] MEDS: FINASTERIDE 5 MG TAB PO SCH (08:38)
[2018-09-21] MEDS: METOPROLOL TARTRATE 25 MG TAB PO SCH ×2 (08:39→20:50)
[2018-09-21] MEDS: FUROSEMIDE 10 MG/ML 4 ML VIAL IV SCH ×2 (08:39→20:51)
[2018-09-21] MEDS: PANTOPRAZOLE 40 MG/10 ML VIAL IV SCH (08:39)
[2018-09-21] MEDS: MORPHINE SULFATE 2 MG/ML SYRINGE IV PRN ×4 (09:09→20:51)
[2018-09-21] MEDS: HYDROcodone/APAP 5-325MG 1 EACH TAB PO PRN ×4 (09:09→22:44)
[2018-09-21 11:16] LABS: Glucose,Whole Blood 238 mg/dL (75-99)
[2018-09-21 11:24] LABS: Iron Saturation 4.18 (15.00-50.00)
--- NOTE | 2018-09-21 11:30 | P.PN ---
Subjective Progress Note Date: 09/21/18 Principal diagnosis: symptomatically anemia Patient was seen and examined. No acute events overnight. Transfuse 1 unit of blood overnight hemoglobin from 5.5-6. Patient denies any chest pain, shortness of breath or palpitations. Lost around 1 kg overnight. Continues to complain of cramping in the right lower extremity.he does complain of fluttering sensation in his chest. States that he saw Dr. Madison in the past. Underwent Holter monitor, pending diagnostic read. Objective - Vital Signs Vital signs: Vital Signs Temp 98.2 F 09/21/18 08:00 Pulse 88 09/21/18 08:00 Resp 17 09/21/18 08:00 BP 167/71 09/21/18 08:00 Pulse Ox 96 09/21/18 08:42 Intake & Output 09/20/18 09/21/18 09/21/18 18:59 06:59 18:59 Intake Total 430 260 Output Total 2350 Balance 430 -2350 260 Weight 121.563 kg 120.2 kg Intake: IV 20 Invasive Line 1 10 Invasive Line 2 10 Oral 120 240 Blood Product 310 Rc As-1 Unit 310 [id number] Output: Urine 2350 Other: Voiding Method Urinal Urinal - Exam General: [non toxic], [no distress], [appears at stated age] Derm: [warm], [dry] Head: [atraumatic], [normocephalic], [symmetric] Eyes: [EOMI], [no lid lag], [pale conjunctiva] Mouth: [no lip lesion], [mucus membranes moist] Cardiovascular: [S1S2 reg], [no murmur], [positive DP pulse bilateral] Lungs: [CTA bilateral], [no rhonchi, no rales] , [no accessory muscle use] Abdominal: [soft], [ nontender to palpation], [no guarding], [no appreciable organomegaly] Ext: [no gross muscle atrophy], [2+ lowerextremity edema], [no contractures] Neuro: [no focal neuro deficits] Psych: [Alert], [oriented], [appropriate affect] - Labs CBC & Chem 7: 09/21/18 06:03 09/21/18 06:03 Labs: Abnormal Lab Results - Last 24 Hours (Table) 09/20/18 09/20/18 09/20/18 Range/Units 10:55 10:55 11:46 RBC (4.30-5.90) m/uL Hgb (13.0-17.5) gm/dL Hct (39.0-53.0) % MCV (80.0-100.0) fL MCH (25.0-35.0) pg MCHC (31.0-37.0) g/dL RDW (11.5-15.5) % Lymphocytes # (1.0-4.8) k/uL PT 17.9 H (9.0-12.0) sec INR 1.8 H (<1.2) Sodium 134 L (137-145) mmol/L BUN 27 H (9-20) mg/dL Glucose 229 H (74-99) mg/dL POC Glucose (mg/dL) (75-99) mg/dL AST 13 L (17-59) U/L Total Protein 5.5 L (6.3-8.2) g/dL Albumin 3.3 L (3.5-5.0) g/dL Ur Leukocyte Esterase (Negative) Urine WBC (0-5) /hpf Urine WBC Clumps (None) /hpf Urine Bacteria (None) /hpf Urine Mucus (None) /hpf Crossmatch See Detail 09/20/18 09/20/18 09/20/18 Range/Units 11:46 16:13 20:48 RBC (4.30-5.90) m/uL Hgb (13.0-17.5) gm/dL Hct (39.0-53.0) % MCV (80.0-100.0) fL MCH (25.0-35.0) pg MCHC (31.0-37.0) g/dL RDW (11.5-15.5) % Lymphocytes # (1.0-4.8) k/uL PT (9.0-12.0) sec INR (<1.2) Sodium (137-145) mmol/L BUN (9-20) mg/dL Glucose (74-99) mg/dL POC Glucose (mg/dL) 115 H 128 H (75-99) mg/dL AST (17-59) U/L Total Protein (6.3-8.2) g/dL Albumin (3.5-5.0) g/dL Ur Leukocyte Esterase Large H (Negative) Urine WBC >182 H (0-5) /hpf Urine WBC Clumps Few H (None) /hpf Urine Bacteria Few H (None) /hpf Urine Mucus Rare H (None) /hpf Crossmatch 09/21/18 09/21/18 09/21/18 Range/Units 05:41 06:03 06:03 RBC 2.77 L (4.30-5.90) m/uL Hgb 6.0 L* (13.0-17.5) gm/dL Hct 19.8 L* (39.0-53.0) % MCV 71.3 L (80.0-100.0) fL MCH 21.6 L (25.0-35.0) pg MCHC 30.2 L (31.0-37.0) g/dL RDW 20.1 H (11.5-15.5) % Lymphocytes # 0.6 L (1.0-4.8) k/uL PT (9.0-12.0) sec INR (<1.2) Sodium 133 L (137-145) mmol/L BUN 22 H (9-20) mg/dL Glucose 150 H (74-99) mg/dL POC Glucose (mg/dL) 178 H (75-99) mg/dL AST (17-59) U/L Total Protein 5.5 L (6.3-8.2) g/dL Albumin 3.3 L (3.5-5.0) g/dL Ur Leukocyte Esterase (Negative) Urine WBC (0-5) /hpf Urine WBC Clumps (None) /hpf Urine Bacteria (None) /hpf Urine Mucus (None) /hpf Crossmatch 09/21/18 Range/Units 11:15 RBC (4.30-5.90) m/uL Hgb (13.0-17.5) gm/dL Hct (39.0-53.0) % MCV (80.0-100.0) fL MCH (25.0-35.0) pg MCHC (31.0-37.0) g/dL RDW (11.5-15.5) % Lymphocytes # (1.0-4.8) k/uL PT (9.0-12.0) sec INR (<1.2) Sodium (137-145) mmol/L BUN (9-20) mg/dL Glucose (74-99) mg/dL POC Glucose (mg/dL) 238 H (75-99) mg/dL AST (17-59) U/L Total Protein (6.3-8.2) g/dL Albumin (3.5-5.0) g/dL Ur Leukocyte Esterase (Negative) Urine WBC (0-5) /hpf Urine WBC Clumps (None) /hpf Urine Bacteria (None) /hpf Urine Mucus (None) /hpf Crossmatch Assessment and Plan Assessment: Assessment and Plan 1. Dyspnea 2. Symptomatic anemia 3. Lower extremity edema 4. Atrial fibrillation with history of ventricular tachycardia 5. History of prostatitis 6. History of CAD 7. Diabetes mellitus 8. Hypertension 9. DVT and GI prophylaxis 1. Patient's shortness of breath is likely secondary to symptomatic anemia with possible component of CHF, rule out ACS. Hemoglobin 5.5 to 6.0, we will transfuse the patient today. BNP is 1910, elevated from baseline of 500's in 2016. Chest x-ray shows central vascular congestion with signs of CHF. Continue Lasix 40 mg IV twice a day. Echocardiogram shows normal EF with severe pulmonary hypertension. Troponin is 0.027, EKG showing sinus rhythm. Will trend Troponins and EKG to rule out ACS. Oxygen per nasal cannula to maintain an oxygen saturation greater than 92%. 2. Hemoglobin is 5.5 to 6.0, microcytic. Likely chronic blood loss from use of Coumadin. Patient reported EGD and colonoscopy in April which was negative. FOBT is positive. Will transfuse 2 units of PRBC. Hold Coumadin, heparin. Gastroenterology consulted for further recommendations. Daily CBC. 3. Likely secondary to severe anemia. Continue Lasix 40 mg IV twice a day. Transfuse 2 units PRBC. Strict ins and outs. Daily weights. Will continue to monitor her clinical progression. 4. Recent Holter monitor with Dr. Madison. Continue metoprolol 25 mg by mouth twice a day. Hold anticoagulation due to possible GI bleed. Telemetry monitoring. Potassium greater than 4 and magnesium greater than 2. Follow cardiology consult. 5. UA shows large leukocyte esterase. Continue Bactrim one half tablet by mouth daily. 6. Stable. Hold aspirin due to possible GI bleed. Continue Lipitor 40 mg by mouth daily. Continue beta kelley. 7. Tknji-ew-oujw glucose 238. Start insulin sliding scale. Hypoglycemic precautions. Regular Accu-Cheks. Diabetic diet. 8. BP 167/71. Continue metoprolol and lisinopril. Her vitals, adjust medications as necessary. 9. SCD boots only. Protonix 40 mg IV daily. Patient admitted for symptomatic anemia. Transfuse 1 unit PRBC. Gastroenterology consult.
--- NOTE | 2018-09-21 12:17 | P.CONS ---
History of Present Illness - Reason for Consult Consult date: 09/21/18 Anemia Requesting physician: Yana Francois - Chief Complaint Lower extremity edema dyspnea with exertion - History of Present Illness 73-year-old male with a history of remote bleeding peptic ulcer disease greater than 30 years ago, anemia, GERD, diabetes, hypertension, cholecystectomy atrial fibrillation maintained on warfarin admitted with bilateral lower extremity edema 1 month. Admission hemoglobin 5.5. MCV 69. Platelet 268. White count 8.2. Previous hemoglobin in June was 8 and in February 2018 was 11.7. INR 1.8. BUN 31. Creatinine 1.3. Received 1 unit of blood secondary no blood is scheduled today. Denies abdominal pain. Patient was placed on warfarin 6 weeks ago for atrial fibrillation. Guaiac stool positive. EGD colonoscopy performed in April 2018 in [place] by his [id number] Dr. Ray with unremarkable findings evidence of colonic diverticulosis. Patient has been taking 800 mg of Motrin sometimes on a daily basis for arthritic back pain. He is also been taking Tums on a daily basis with some mild indigestion lately. No excessive aspirin or EtOH. Denies overt bleeding such as hematemesis hematochezia melena. Previous EGD colonoscopy in the past for evaluation of iron deficiency anemia. Review of Systems Constitutional: Denies fever, chills, sweats, weight gain, or loss. HEENT: Negative for migraines, blurred vision or loss, earaches, drainage, tinnitus, oral mucosal lesions, dysphagia, or odynophagia. Cardiac: Negative for chest pain, arrhythmias, or palpitation. Respiratory: Negative for shortness of breath, hemoptysis, cough, or sputum production. Gastrointestinal: See HPI for pertinent findings. Genitourinary: Negative for hematuria, urgency, frequency, polyuria, dysuria, or penile discharge. Musculoskeletal: Negative for muscle aches, swelling, arthritis, and arthralgias. Neurologic: Negative for stroke or TIA. Endocrine: Negative for thyroid problems. Skin: Negative for rash or itching. Psychiatric: Negative history for depression and anxiety Past Medical History Past Medical History: Atrial Fibrillation, Coronary Artery Disease (CAD), Diabetes Mellitus, Hypertension, Prostate Disorder Additional Past Medical History / Comment(s): enlarged prostate with stones, prostatitis in past and recently-on abx, episode of v-tach 20 yrs ago, mild CAD , NIDDM type II, 2007 syncope, chronic back pain, stomach ulcers in past, back pain, Last Myocardial Infarction Date:: 05/28/15 History of Any Multi-Drug Resistant Organisms: None Reported Past Surgical History: Appendectomy, Cholecystectomy, Heart Catheterization, Orthopedic Surgery Additional Past Surgical History / Comment(s): tibia plateau fracture right leg with plates/screws, 05/29/15 cardiac cath with mild CAD. Past Anesthesia/Blood Transfusion Reactions: No Reported Reaction Past Psychological History: No Psychological Hx Reported Smoking Status: Former smoker Past Alcohol Use History: None Reported Past Drug Use History: None Reported - Past Family History Mother Additional Family Medical History / Comment(s): Bowel problems and possible lung cancer. Mother in her 80's. She did not go to the doctors much. Brother(s) Family Medical History: Cancer Father Family Medical History: Cancer Additional Family Medical History / Comment(s): Father had palpitations. He at about age 78yrs. Medications and Allergies Home Medications Medication Instructions Recorded Confirmed Type Tamsulosin HCl [Flomax] 0.4 mg PO HS 09/25/14 09/20/18 History glipiZIDE XL [Glucotrol XL] 10 mg PO DAILY 09/25/14 09/20/18 History Finasteride 5 mg PO DAILY 05/28/15 09/20/18 History Aspirin 81 mg PO DAILY 03/21/16 09/20/18 History Atorvastatin [Lipitor] 40 mg PO DAILY 03/21/16 09/20/18 History Lisinopril [Zestril] 10 mg PO DAILY 03/21/16 09/20/18 History Metoprolol Tartrate [Lopressor] 25 mg PO BID 03/21/16 09/20/18 History metFORMIN HCL [metFORMIN HCL ER] 1,000 mg PO AC-SUPPER 03/21/16 09/20/18 History Carisoprodol [Soma] 350 mg PO BID 09/20/18 09/20/18 History Furosemide [Lasix] 40 mg PO BID 09/20/18 09/20/18 History Omeprazole 20 mg PO DAILY 09/20/18 09/20/18 History Potassium Chloride ER [K-Dur 10] 20 meq PO DAILY 09/20/18 09/20/18 History Sulfamethox-Tmp 800-160Mg [Bactrim 0.5 tab PO DAILY 09/20/18 09/20/18 History DS 800-160 mg] Warfarin [Coumadin] 7.5 mg PO SUMOTUWETHSA 09/20/18 09/20/18 History Warfarin [Coumadin] 10 mg PO FR 09/20/18 09/20/18 History Allergies Allergy/AdvReac Type Severity Reaction Status Date / Time Iodine and Iodide Containing Allergy Rash/Hives Verified 09/20/18 11:11 Produc shellfish derived [Shellfish] Allergy Rash/Hives Verified 09/20/18 11:11 Physical Exam Vitals: Vital Signs Temp Pulse Pulse Resp BP BP Pulse Ox 09/21/18 08:00 98.2 F 88 17 167/71 99 09/21/18 04:00 97.6 F 83 18 149/65 99 09/20/18 23:44 74 18 09/20/18 23:43 97.7 F 74 18 151/62 98 09/20/18 21:30 151/70 09/20/18 20:00 98.1 F 99 18 190/70 99 09/20/18 16:39 98.0 F 90 14 174/61 09/20/18 16:09 99.2 F 92 16 165/77 09/20/18 16:00 98.4 F 90 14 160/72 99 09/20/18 15:59 98.5 F 90 16 160/72 09/20/18 15:07 98.6 F 70 18 148/87 98 09/20/18 13:28 79 16 148/56 100 09/20/18 10:05 99.2 F 76 16 139/93 100 Intake and Output 09/20/18 09/21/18 09/21/18 22:59 06:59 14:59 Intake Total 430 260 Output Total 1200 1150 Balance -770 -1150 260 Intake: IV 20 Invasive Line 1 10 Invasive Line 2 10 Oral 120 240 Blood Product 310 Rc As-1 Unit 310 [id number] Output: Urine 1200 1150 Other: Voiding Method Urinal Urinal Weight 120.2 kg General appearance: The patient is alert, oriented, in no acute distress. HET: Head is normocephalic and atraumatic. Pupils are equal and reactive. Oropharynx is clear without lesions. Neck: Supple without lymphadenopathy. Trachea midline. Heart: S1 S2. Lungs: No crackles or wheezes are heard. Abdomen: Soft, nontender, nondistended with bowel sounds. No peritoneal signs. No palpable organomegaly or masses. Extremities: Normal skin color and turgor. No cyanosis, rash, ulceration, clubbing, or edema. Radial and pedal pulses are 2/4 bilaterally. Neurological: No focal deficits. Strength and sensation are grossly intact. Results CBC & Chem 7: 09/21/18 06:03 09/21/18 06:03 Labs: Abnormal Lab Results - Last 24 Hours (Table) 09/20/18 09/20/18 09/20/18 Range/Units 10:55 10:55 10:55 RBC 2.69 L (4.30-5.90) m/uL Hgb 5.5 L* (13.0-17.5) gm/dL Hct 18.8 L* (39.0-53.0) % MCV 69.7 L (80.0-100.0) fL MCH 20.3 L (25.0-35.0) pg MCHC 29.1 L (31.0-37.0) g/dL RDW 18.7 H (11.5-15.5) % Lymphocytes # 0.6 L (1.0-4.8) k/uL PT 17.9 H (9.0-12.0) sec INR 1.8 H (<1.2) Sodium 134 L (137-145) mmol/L BUN 27 H (9-20) mg/dL Glucose 229 H (74-99) mg/dL POC Glucose (mg/dL) (75-99) mg/dL AST 13 L (17-59) U/L Total Protein 5.5 L (6.3-8.2) g/dL Albumin 3.3 L (3.5-5.0) g/dL Ur Leukocyte Esterase (Negative) Urine WBC (0-5) /hpf Urine WBC Clumps (None) /hpf Urine Bacteria (None) /hpf Urine Mucus (None) /hpf Crossmatch 09/20/18 09/20/18 09/20/18 Range/Units 11:46 11:46 16:13 RBC (4.30-5.90) m/uL Hgb (13.0-17.5) gm/dL Hct (39.0-53.0) % MCV (80.0-100.0) fL MCH (25.0-35.0) pg MCHC (31.0-37.0) g/dL RDW (11.5-15.5) % Lymphocytes # (1.0-4.8) k/uL PT (9.0-12.0) sec INR (<1.2) Sodium (137-145) mmol/L BUN (9-20) mg/dL Glucose (74-99) mg/dL POC Glucose (mg/dL) 115 H (75-99) mg/dL AST (17-59) U/L Total Protein (6.3-8.2) g/dL Albumin (3.5-5.0) g/dL Ur Leukocyte Esterase Large H (Negative) Urine WBC >182 H (0-5) /hpf Urine WBC Clumps Few H (None) /hpf Urine Bacteria Few H (None) /hpf Urine Mucus Rare H (None) /hpf Crossmatch See Detail 09/20/18 09/21/18 09/21/18 Range/Units 20:48 05:41 06:03 RBC 2.77 L (4.30-5.90) m/uL Hgb 6.0 L* (13.0-17.5) gm/dL Hct 19.8 L* (39.0-53.0) % MCV 71.3 L (80.0-100.0) fL MCH 21.6 L (25.0-35.0) pg MCHC 30.2 L (31.0-37.0) g/dL RDW 20.1 H (11.5-15.5) % Lymphocytes # 0.6 L (1.0-4.8) k/uL PT (9.0-12.0) sec INR (<1.2) Sodium (137-145) mmol/L BUN (9-20) mg/dL Glucose (74-99) mg/dL POC Glucose (mg/dL) 128 H 178 H (75-99) mg/dL AST (17-59) U/L Total Protein (6.3-8.2) g/dL Albumin (3.5-5.0) g/dL Ur Leukocyte Esterase (Negative) Urine WBC (0-5) /hpf Urine WBC Clumps (None) /hpf Urine Bacteria (None) /hpf Urine Mucus (None) /hpf Crossmatch 09/21/18 Range/Units 06:03 RBC (4.30-5.90) m/uL Hgb (13.0-17.5) gm/dL Hct (39.0-53.0) % MCV (80.0-100.0) fL MCH (25.0-35.0) pg MCHC (31.0-37.0) g/dL RDW (11.5-15.5) % Lymphocytes # (1.0-4.8) k/uL PT (9.0-12.0) sec INR (<1.2) Sodium 133 L (137-145) mmol/L BUN 22 H (9-20) mg/dL Glucose 150 H (74-99) mg/dL POC Glucose (mg/dL) (75-99) mg/dL AST (17-59) U/L Total Protein 5.5 L (6.3-8.2) g/dL Albumin 3.3 L (3.5-5.0) g/dL Ur Leukocyte Esterase (Negative) Urine WBC (0-5) /hpf Urine WBC Clumps (None) /hpf Urine Bacteria (None) /hpf Urine Mucus (None) /hpf Crossmatch Assessment and Plan (1) Symptomatic anemia Narrative/Plan: 73-year-old male with a history of atrial fibrillation maintained on warfarin presents with acute symptomatic acute blood loss iron deficiency anemia possible small bowel source possible peptic ulcer disease with history of NSAID therapy EGD colonoscopy April 2018 unremarkable evidence of colonic diverticulosis. Current Visit: Yes Status: Acute Code(s): D64.9 - ANEMIA, UNSPECIFIED SNOMED Code(s): 095088291 (2) Warfarin-induced coagulopathy Current Visit: Yes Status: Acute Code(s): D68.32 - HEMORRHAGIC DISORD D/T EXTRINSIC CIRCULATING ANTICOAGULANTS; T45.515A - ADVERSE EFFECT OF ANTICOAGULANTS, INITIAL ENCOUNTER SNOMED Code(s): 82832666 (3) Atrial fibrillation Current Visit: Yes Status: Acute Code(s): I48.91 - UNSPECIFIED ATRIAL FIBRILLATION SNOMED Code(s): 81453291 (4) Acute blood loss anemia Current Visit: Yes Status: Acute Code(s): D62 - ACUTE POSTHEMORRHAGIC ANEMIA SNOMED Code(s): 707616667 Plan: 1. Warfarin on hold. PT/INR in a.m. CBC monitoring. Protonix 40 mg daily. We'll proceed with EGD possible small bowel capsule endoscopy in a.m. Clear liquid diet tonight. Blood transfusion as indicated. The banking attorney has discussed the risks, benefits and alternative therapies for the above-mentioned procedure and for both sedation/analgesia as well as necessary blood product administration, if indicated, as they pertain to this patient. The patient has indicated understanding and acceptance of the risks and procedures discussed. Thank you for this kind referral and the opportunity to participate in the care of your patient. This consultation was discussed with Dr. Newell. The impression and plan of care have been directed as dictated.
[2018-09-21] MEDS: guaiFENesin 600 MG TABLET.ER PO SCH ×2 (13:18→20:50)
[2018-09-21] MEDS: SODIUM CHLORIDE 0.9% 1,000 ML IV SCH (13:28)
[2018-09-21 16:58] LABS: Glucose,Whole Blood 163 mg/dL (75-99)
[2018-09-21] MEDS ORDERED: MAGNESIUM CITRATE 296 ML BOTTLE PO ONE (17:00)
[2018-09-21] MEDS: INSULIN ASPART (NovoLOG) 100 UNIT/ML VIAL SQ SCH ×2 (17:13→21:09)
[2018-09-21] MEDS: LACTATED RINGERS 1,000 ML IV SCH (19:47)
[2018-09-21] MEDS: TAMSULOSIN 0.4 MG CAP.ER.24H PO SCH (20:50)
[2018-09-21 21:07] LABS: Glucose,Whole Blood 140 mg/dL (75-99)
[2018-09-22] MEDS: MORPHINE SULFATE 2 MG/ML SYRINGE IV PRN (02:43)
[2018-09-22 06:18] LABS: Glucose,Whole Blood 192 mg/dL (75-99)
[2018-09-22 06:25] LABS: Anisocytosis Moderate; HCT 24.8 % (39.0-53.0); Hypochromasia Marked; MCH 21.8 pg (25.0-35.0); MCHC 30.3 g/dL (31.0-37.0); Mean Platelet Volume 8.1; Microcytosis Marked; Platelet Count 299 k/uL (150-450); Poikilocytosis Moderate; RBC 3.44 m/uL (4.30-5.90); RDW 20.6 % (11.5-15.5); WBC 7.1 k/uL (3.8-10.6)
[2018-09-22 06:30] LABS: HGB 7.5 gm/dL (13.0-17.5)
[2018-09-22] MEDS: INSULIN ASPART (NovoLOG) 100 UNIT/ML VIAL SQ SCH ×4 (06:33→21:41)
[2018-09-22 06:34] LABS: INR 1.5 (<1.2); Prothrombin Time 14.7 sec (9.0-12.0)
[2018-09-22 06:42] LABS: Anion Gap 9 mmol/L; Blood Urea Nitrogen 15 mg/dL (9-20); Carbon Dioxide 27 mmol/L (22-30); Chloride 97 mmol/L (98-107); Creatine Kinase 144 U/L (55-170); Glucose 159 mg/dL (74-99); Potassium 3.9 mmol/L (3.5-5.1); Sodium 133 mmol/L (137-145)
[2018-09-22 06:54] LABS: Creatine Kinase MB 3.4 ng/mL (0.0-2.4); Troponin I <0.012 ng/mL (0.000-0.034)
[2018-09-22] MEDS ORDERED: KETAMINE 10 MG/ML 20 ML VIAL ONE (07:25)
[2018-09-22] MEDS ORDERED: PROPOFOL 10 MG/ML 20 ML VIAL IV ONE (07:25)
[2018-09-22] MEDS ORDERED: LIDOCAINE 1% INJ 10MG/ML (20 ML MDV) ONE (07:25)
[2018-09-22] MEDS ORDERED: MIDAZOLAM 2 MG/2 ML VIAL ONE (07:25)
[2018-09-22] MEDS ORDERED: IV FLUID CONTINUATION 200 ML IV ONE (07:28)
--- NOTE | 2018-09-22 07:48 | P.PCN ---
Date of Procedure: 09/22/18 Procedure(s) Performed: BRIEF HISTORY: Patient is a 73-year-old, pleasant, at female, scheduled for an upper endoscopy as a part of evaluation of severe symptomatic anemia with a hemoglobin of 5 g/dL. He was diagnosed with A. fib and has been on Coumadin for the last 1 month. He had an upper endoscopy as well as colonoscopy 6 months ago in [facility] as a part of evaluation of severe symptomatic anemia which was unremarkable. Because of the persistent anemia and Hemoccult positive stool he scheduled for an upper endoscopy today and if negative proceed with a small bowel capsule endoscopy. PROCEDURE PERFORMED: Esophagogastroduodenoscopy with biopsy. PREOPERATIVE DIAGNOSIS: Severe symptomatic anemia and Hemoccult-positive stool. IV sedation per anesthesia. PROCEDURE: After informed consent was obtained, the patient was brought into the endoscopy unit. IV sedation was administered by Anesthesia under continuous monitoring. Initially the Olympus GIF-140 video endoscope was inserted into the mouth. Esophagus intubated without any difficulty. It was gradually advanced into the stomach and duodenum and carefully examined. The bulb and the second part of the duodenum had changes with paucity of the duodenal folds and somewhat atrophic appearing mucosa suspicious for celiac disease and multiple biopsies were done from this area. The scope at this time was withdrawn to the stomach, adequately insufflated with air, and upon careful examination, mucosa of the antrum, had scattered erosions but no active bleeding. The body, cardia and the fundus appeared normal. The scope was then withdrawn into the esophagus. The GE junction was located at 39 cm from the incisors. The esophagus appeared normal. There were no erosions or ulcerations seen and the patient tolerated the procedure well. IMPRESSION: 1. Positive the duodenal folds with somewhat atrophic appearing mucosa involving the duodenum suspicious for celiac disease status post multiple biopsies. 2. Minimal antral gastritis. RECOMMENDATIONS: The findings of this examination were discussed with the patient. At this time will await the biopsy results. We will also proceed with a small bowel capsule endoscopy today to evaluate for small bowel source of occult GI blood loss...
[2018-09-22] MEDS ORDERED: SIMETHICONE 40 MG/0.6 ML DROPS 2,000 MG/30 ML BOTTLE PO ONE (08:24)
--- NOTE | 2018-09-22 11:03 | P.CRDCN ---
History of Present Illness Consult date: 09/22/18 Requesting physician: Yana Francois Consult reason: shortness of breath Chief complaint: Shortness of breath and bilateral lower extremity edema History of present illness: This is a pleasant 73-year-old with known history of paroxysmal atrial fibrillation, mild coronary artery disease by cardiac cath performed in 2014, hypertension, diabetes, hyperlipidemia, history of GI bleed in the past, history of prostate disorder and recurrent UTIs. Prior history of smoking. He presented to the hospital on this occasion with symptoms of shortness of breath with seated lower extremity edema. Patient is known to have anemia, he underwent a colonoscopy and EGD in April according to the patient which was reported to be normal. He also has a remote history of a gastric ulcer in the past. In the emergency room here his CBC showed severe anemia with a hemoglobin of 5.5, INR 1.8, troponin 0.0-7, BNP 1910. UA showed large leukocyte Estrace. His chest x-ray showed congestive heart failure and cardiomegaly. He was admitted to the hospital for severe anemia requiring a blood transfusion. His initial chest x-ray on admission here which was September 20 showed congestive heart failure exacerbation with cardiomegaly and suspected mild central venous congestion. EKG on admission showed a normal sinus rhythm with no acute changes. Echocardiogram with Doppler study revealed an ejection fraction of 55-60%, mild to moderate mitral regurg, moderate tricuspid regurg, severe pulmonary hypertension. Blood pressure 157/72 heart rate in the 70s, 99% on room air. Lab data from this morning, white blood cell count 7.1, hemoglobin 7.5, platelet count 299. INR 1.5, Coumadin is on hold, sodium 133, potassium 3.9, BUN 15 and creatinine 0.9. Troponin 0.012. Patient did undergo an EGD with biopsy this morning which was positive for somewhat atrophic appearing mucosa involving the duodenum suspicious for celiac disease, minimal antral gastritis, currently patient is undergoing small bowel Capsule Procedure. At the Time of My Examination This Morning, He Denies Any Shortness of Breath, No Palpitations, No Chest Discomfort, no black stools or blood in his stool noted this morning. Past Medical History Past Medical History: Atrial Fibrillation, Coronary Artery Disease (CAD), Diabetes Mellitus, Hypertension, Prostate Disorder Additional Past Medical History / Comment(s): enlarged prostate with stones, prostatitis in past and recently-on abx, episode of v-tach 20 yrs ago, mild CAD , NIDDM type II, 2008 syncope, chronic back pain, stomach ulcers in past, back pain, Last Myocardial Infarction Date:: 05/28/15 History of Any Multi-Drug Resistant Organisms: None Reported Past Surgical History: Appendectomy, Cholecystectomy, Heart Catheterization, Orthopedic Surgery Additional Past Surgical History / Comment(s): tibia plateau fracture right leg with plates/screws, 05/29/15 cardiac cath with mild CAD. Past Anesthesia/Blood Transfusion Reactions: No Reported Reaction Past Psychological History: No Psychological Hx Reported Smoking Status: Former smoker Past Alcohol Use History: None Reported Past Drug Use History: None Reported - Past Family History Mother Additional Family Medical History / Comment(s): Bowel problems and possible lung cancer. Mother in her 80's. She did not go to the doctors much. Brother(s) Family Medical History: Cancer Father Family Medical History: Cancer Additional Family Medical History / Comment(s): Father had palpitations. He at about age 78yrs. Medications and Allergies Home Medications Medication Instructions Recorded Confirmed Type Tamsulosin HCl [Flomax] 0.4 mg PO HS 09/25/14 09/20/18 History glipiZIDE XL [Glucotrol XL] 10 mg PO DAILY 09/25/14 09/20/18 History Finasteride 5 mg PO DAILY 05/28/15 09/20/18 History Aspirin 81 mg PO DAILY 03/21/16 09/20/18 History Atorvastatin [Lipitor] 40 mg PO DAILY 03/21/16 09/20/18 History Lisinopril [Zestril] 10 mg PO DAILY 03/21/16 09/20/18 History Metoprolol Tartrate [Lopressor] 25 mg PO BID 03/21/16 09/20/18 History metFORMIN HCL [metFORMIN HCL ER] 1,000 mg PO AC-SUPPER 03/21/16 09/20/18 History Carisoprodol [Soma] 350 mg PO BID 09/20/18 09/20/18 History Furosemide [Lasix] 40 mg PO BID 09/20/18 09/20/18 History Omeprazole 20 mg PO DAILY 09/20/18 09/20/18 History Potassium Chloride ER [K-Dur 10] 20 meq PO DAILY 09/20/18 09/20/18 History Sulfamethox-Tmp 800-160Mg [Bactrim 0.5 tab PO DAILY 09/20/18 09/20/18 History DS 800-160 mg] Warfarin [Coumadin] 7.5 mg PO SUMOTUWETHSA 09/20/18 09/20/18 History Warfarin [Coumadin] 10 mg PO FR 09/20/18 09/20/18 History Allergies Allergy/AdvReac Type Severity Reaction Status Date / Time Iodine and Iodide Containing Allergy Rash/Hives Verified 09/20/18 11:11 Produc shellfish derived [Shellfish] Allergy Rash/Hives Verified 09/20/18 11:11 Physical Exam Vitals: Vital Signs Temp Pulse Pulse Resp BP BP Pulse Ox 09/22/18 08:08 77 17 157/72 99 09/22/18 07:32 95 09/22/18 03:14 84 18 09/22/18 03:13 97.7 F 84 18 173/76 96 09/21/18 23:10 71 18 09/21/18 23:09 98.0 F 71 18 136/63 98 09/21/18 20:00 97.6 F 80 18 185/77 99 09/21/18 16:00 76 17 09/21/18 15:50 98.5 F 76 17 136/61 98 09/21/18 14:46 98.5 F 76 17 136/61 98 09/21/18 13:48 98.2 F 76 17 133/65 96 09/21/18 13:18 98.1 F 75 17 135/65 95 09/21/18 13:08 98.2 F 76 17 133/68 09/21/18 12:00 98.2 F 76 17 133/68 99 Intake and Output 09/21/18 09/22/18 09/22/18 22:59 06:59 14:59 Intake Total 920 100 Output Total 1775 1800 Balance -855 -1800 100 Intake: IV 10 100 Invasive Line 1 10 Oral 600 Blood Product 310 Rc As-1 Unit 310 [id number] Output: Urine 1775 1800 Other: Voiding Method Urinal Urinal Urinal Weight 116.6 kg PHYSICAL EXAMINATION: GENERAL: 73-year-old gentleman in no acute distress at the time of my examination HEENT: Head is atraumatic, normocephalic. Pupils equal, round. Sclera anicteric. Conjunctiva are clear. Mucous membranes of the mouth are moist. Neck is supple. There is no elevated jugular venous pressure. No carotid bruit is heard. HEART EXAMINATION: Heart S1 S2 1 systolic murmur is heard CHEST EXAMINATION: Lungs are clear with mild diminished air entry to the bases. ABDOMEN: Soft, nontender. Bowel sounds are heard. No organomegaly noted. EXTREMITIES:[ 2+ peripheral pulses with 1+ evidence of peripheral edema NEUROLOGIC patient is awake, alert and oriented X3. . Results 09/22/18 06:12 09/22/18 06:12 Cardiac Enzymes 09/22/18 Range/Units 06:12 CK-MB (CK-2) 3.4 H (0.0-2.4) ng/mL Troponin I <0.012 (0.000-0.034) ng/mL Coagulation 09/22/18 Range/Units 06:12 PT 14.7 H (9.0-12.0) sec CBC 09/22/18 Range/Units 06:12 WBC 7.1 (3.8-10.6) k/uL RBC 3.44 L (4.30-5.90) m/uL Hgb 7.5 L D (13.0-17.5) gm/dL Hct 24.8 L (39.0-53.0) % Plt Count 299 (150-450) k/uL Comprehensive Metabolic Panel 09/22/18 Range/Units 06:12 Sodium 133 L (137-145) mmol/L Potassium 3.9 (3.5-5.1) mmol/L Chloride 97 L (98-107) mmol/L Carbon Dioxide 27 (22-30) mmol/L BUN 15 (9-20) mg/dL Creatinine 0.95 (0.66-1.25) mg/dL Glucose 159 H (74-99) mg/dL Calcium 9.0 (8.4-10.2) mg/dL Current Medications Generic Name Dose Route Start Last Admin Trade Name Freq PRN Reason Stop Dose Admin Acetaminophen 650 mg 09/20/18 11:52 Tylenol Tab PO Q6HR PRN Mild Pain or Fever > 100.5 Hydrocodone Bitart/Acetaminophen 1 each 09/20/18 14:29 09/21/18 22:44 [place] 5-325 PO 1 each Q4HR PRN Administration Moderate Pain Atorvastatin Calcium 40 mg 09/21/18 09:00 09/21/18 08:38 Lipitor PO 40 mg DAILY RIKI Administration Finasteride 5 mg 09/21/18 09:00 09/21/18 08:38 Proscar PO 5 mg DAILY RIKI Administration Furosemide 40 mg 09/22/18 09:00 Lasix PO BID RIKI Guaifenesin 1,200 mg 09/21/18 11:45 09/21/18 20:50 Mucinex PO 1,200 mg Q12HR RIKI Administration Sodium Chloride 1,000 mls @ 20 mls/hr 09/20/18 12:00 09/21/18 13:28 Saline 0.9% IV 20 mls/hr .Q24H RIKI Administration Lactated Ringer's 1,000 mls @ 20 mls/hr 09/21/18 18:45 09/21/18 19:47 Lactated Ringers IV Not Given .Q24H RIKI Insulin Aspart 0 unit 09/21/18 17:30 09/22/18 06:33 Novolog SQ 3 unit ACHS RIKI Administration Protocol Lisinopril 10 mg 09/21/18 09:00 09/21/18 08:38 Zestril PO 10 mg DAILY RIKI Administration Metoprolol Tartrate 25 mg 09/20/18 21:00 09/21/18 20:50 Lopressor PO 25 mg BID RIKI Administration Morphine Sulfate 2 mg 09/20/18 14:29 09/22/18 02:43 Morphine Sulfate (Inj) IV 2 mg Q4HR PRN Administration Severe Pain Naloxone HCl 0.2 mg 09/20/18 11:52 Narcan IV Q2M PRN Opioid Reversal Pantoprazole Sodium 40 mg 09/21/18 09:00 09/21/18 08:39 Protonix IV 40 mg DAILY RIKI Administration Tamsulosin HCl 0.4 mg 09/20/18 21:00 09/21/18 20:50 Flomax PO 0.4 mg HS RIKI Administration Trimethoprim/Sulfamethoxazole 0.5 each 09/21/18 09:00 09/21/18 08:38 Bactrim Ds PO 0.5 each DAILY RIKI Administration Intake and Output 09/21/18 09/22/18 09/22/18 22:59 06:59 14:59 Intake Total 920 100 Output Total 1775 1800 Balance -855 -1800 100 Intake: IV 10 100 Invasive Line 1 10 Oral 600 Blood Product 310 Rc As-1 Unit 310 [id number] Output: Urine 1775 1800 Other: Voiding Method Urinal Urinal Urinal Weight 116.6 kg 09/22/18 06:12 09/22/18 06:12 EKG Interpretations (text) EKG shows normal sinus rhythm with no acute changes Assessment and Plan Plan: Assessment and plan #1 symptoms of shortness of breath with associated bilateral peripheral edema, congestive heart failure exacerbation, diastolic acute on chronic #2 mild coronary artery disease by cardiac catheterization performed in 2014 #3 Severe anemia requiring blood transfusion #4 paroxysmal atrial fibrillation on Coumadin for anticoagulation #5 diabetes #6 hypertension #7 hyperlipidemia #8 chronic UTI on Bactrim at home #9 History of prostate disorder #10 History of prior GI bleed Plan Echocardiogram with Doppler study revealed a normal left ventricular systolic function, mild to moderate MR, moderate TR, severe pulmonary hypertension. We will repeat a chest x-ray today. Continue Current medications. Await results of Endoscopy. Further Recommendations to Follow. DNP note has been reviewed, I agree with a documented findings and plan of care. Patient was seen and examined.
[2018-09-22 11:23] LABS: Glucose,Whole Blood 189 mg/dL (75-99)
--- NOTE | 2018-09-22 12:53 | P.PN ---
Subjective Progress Note Date: 09/22/18 Principal diagnosis: Symptomatic anemia Patient was seen and examined. No acute events overnight. Patient reports improvement in his fatigue and shortness of breath. He denies any chest pain or dizziness. No nausea or vomiting. No fever or chills. Underwent EGD this morning, seen atrophic mucosa suspicious for celiac disease, antral gastritis. Gastroenterology recommendations appreciated, capsule endoscopy this evening. Objective - Vital Signs Vital signs: Vital Signs Temp 97.7 F 09/22/18 03:13 Pulse 77 09/22/18 08:08 Resp 17 09/22/18 08:08 BP 157/72 09/22/18 08:08 Pulse Ox 99 09/22/18 08:08 Intake & Output 09/21/18 09/22/18 09/22/18 18:59 06:59 18:59 Intake Total 590 600 100 Output Total 1500 3575 Balance -910 -2975 100 Weight 116.6 kg Intake: IV 40 100 Invasive Line 1 30 Invasive Line 2 10 Oral 240 600 Blood Product 310 Rc As-1 Unit 310 [id number] Output: Urine 1500 3575 Other: Voiding Method Urinal Urinal Urinal - Exam General: [non toxic], [no distress], [appears at stated age] Derm: [warm], [dry] Head: [atraumatic], [normocephalic], [symmetric] Eyes: [EOMI], [no lid lag], [pale conjunctiva] Mouth: [no lip lesion], [mucus membranes moist] Cardiovascular: [S1S2 reg], [no murmur], [positive DP pulse bilateral] Lungs: [CTA bilateral], [no rhonchi, no rales] , [no accessory muscle use] Abdominal: [soft], [ nontender to palpation], [no guarding], [no appreciable organomegaly] Ext: [no gross muscle atrophy], [2+ lowerextremity edema], [no contractures] Neuro: [no focal neuro deficits] Psych: [Alert], [oriented], [appropriate affect] - Labs CBC & Chem 7: 09/22/18 06:12 09/22/18 06:12 Labs: Abnormal Lab Results - Last 24 Hours (Table) 09/20/18 09/21/18 09/21/18 Range/Units 11:46 16:54 20:58 RBC (4.30-5.90) m/uL Hgb (13.0-17.5) gm/dL Hct (39.0-53.0) % MCV (80.0-100.0) fL MCH (25.0-35.0) pg MCHC (31.0-37.0) g/dL RDW (11.5-15.5) % PT (9.0-12.0) sec INR (<1.2) Sodium (137-145) mmol/L Chloride (98-107) mmol/L Glucose (74-99) mg/dL POC Glucose (mg/dL) 163 H 140 H (75-99) mg/dL CK-MB (CK-2) (0.0-2.4) ng/mL Crossmatch See Detail 09/22/18 09/22/18 09/22/18 Range/Units 06:12 06:12 06:12 RBC 3.44 L (4.30-5.90) m/uL Hgb 7.5 L D (13.0-17.5) gm/dL Hct 24.8 L (39.0-53.0) % MCV 72.0 L (80.0-100.0) fL MCH 21.8 L (25.0-35.0) pg MCHC 30.3 L (31.0-37.0) g/dL RDW 20.6 H (11.5-15.5) % PT (9.0-12.0) sec INR (<1.2) Sodium 133 L (137-145) mmol/L Chloride 97 L (98-107) mmol/L Glucose 159 H (74-99) mg/dL POC Glucose (mg/dL) (75-99) mg/dL CK-MB (CK-2) 3.4 H (0.0-2.4) ng/mL Crossmatch 09/22/18 09/22/18 09/22/18 Range/Units 06:12 06:13 11:20 RBC (4.30-5.90) m/uL Hgb (13.0-17.5) gm/dL Hct (39.0-53.0) % MCV (80.0-100.0) fL MCH (25.0-35.0) pg MCHC (31.0-37.0) g/dL RDW (11.5-15.5) % PT 14.7 H (9.0-12.0) sec INR 1.5 H (<1.2) Sodium (137-145) mmol/L Chloride (98-107) mmol/L Glucose (74-99) mg/dL POC Glucose (mg/dL) 192 H 189 H (75-99) mg/dL CK-MB (CK-2) (0.0-2.4) ng/mL Crossmatch Assessment and Plan Assessment: Assessment and Plan 1. Dyspnea 2. Symptomatic anemia 3. Acute on chronic diastolic CHF 4. Atrial fibrillation with history of ventricular tachycardia 5. History of prostatitis 6. History of CAD 7. Diabetes mellitus 8. Hypertension 9. DVT and GI prophylaxis 1. Patient's shortness of breath is likely secondary to symptomatic anemia with possible component of diastolic CHF, rule out ACS. Hemoglobin 5.5 to 6.0, we will transfuse the patient today. BNP is 1910, elevated from baseline of 500 's in 2015. Chest x-ray shows central vascular congestion with signs of CHF. Transition IV Lasix to 40 mg by mouth twice a day. Echocardiogram shows normal EF with severe pulmonary hypertension. Troponin is 0.027, 0.012, EKG showing sinus rhythm, ACS ruled out. Oxygen per nasal cannula to maintain an oxygen saturation greater than 92%. 2. Hemoglobin is 5.5 to 6.0 to 7.5, microcytic status post 2 units PRBC. Likely chronic blood loss from use of Coumadin. Patient reported EGD and colonoscopy in April which was negative. FOBT is positive. Hold Coumadin, heparin. Gastroenterology consulted, recommends capsule endoscopy. EGD performed today shows antral gastritis, some concerns for celiac disease, no obvious source of bleeding. Daily CBC. 3. Likely secondary to severe anemia and diastolic CHF. Transition Lasix from IV to by mouth. Status post 2 units PRBC. Strict ins and outs. Daily weights. Lower alfred elevation. Will continue to monitor her clinical progression. 4. Recent Holter monitor with Dr. Madison. Continue metoprolol 25 mg by mouth twice a day. Hold anticoagulation due to possible GI bleed. Telemetry monitoring. Potassium greater than 4 and magnesium greater than 2. Follow cardiology consult. 5. UA shows large leukocyte esterase. Continue Bactrim one half tablet by mouth daily. 6. Stable. Hold aspirin due to possible GI bleed. Continue Lipitor 40 mg by mouth daily. Continue beta kelley. 7. Eatus-rv-cqol glucose 189. Start insulin sliding scale. Hypoglycemic precautions. Regular Accu-Cheks. Diabetic diet. 8. BP 157/72. Continue metoprolol and lisinopril. Her vitals, adjust medications as necessary. 9. SCD boots only. Protonix 40 mg IV daily. Patient admitted for symptomatic anemia. Transfused 2 units of PRBC. Gastroenterology consulted, EGD nondiagnostic for source of bleed, capsule endoscopy pending. Pending cardiology evaluation.
[2018-09-22 14:25] LABS: Hemoglobin A1C 6.2 % (4.0-6.0)
[2018-09-22] MEDS: ATORVASTATIN 40 MG TAB PO SCH (16:23)
[2018-09-22] MEDS: METOPROLOL TARTRATE 25 MG TAB PO SCH ×2 (16:23→21:41)
[2018-09-22] MEDS: FINASTERIDE 5 MG TAB PO SCH (16:23)
[2018-09-22] MEDS: LISINOPRIL 10 MG TAB PO SCH (16:23)
[2018-09-22] MEDS: SULFAMETHOX-TMP 800-160MG 1 EACH TAB PO SCH (16:23)
[2018-09-22] MEDS: guaiFENesin 600 MG TABLET.ER PO SCH ×2 (16:23→21:41)
[2018-09-22] MEDS: FUROSEMIDE 40 MG TAB PO SCH ×2 (16:24→21:41)
[2018-09-22] MEDS: HYDROcodone/APAP 5-325MG 1 EACH TAB PO PRN ×2 (16:24→21:44)
[2018-09-22 16:29] LABS: Glucose,Whole Blood 176 mg/dL (75-99)
[2018-09-22] MEDS: PANTOPRAZOLE 40 MG/10 ML VIAL IV SCH (16:56)
[2018-09-22] MEDS: SODIUM CHLORIDE 0.9% 1,000 ML IV SCH (17:06)
[2018-09-22] MEDS: LACTATED RINGERS 1,000 ML IV SCH (17:16)
[2018-09-22 20:45] LABS: Glucose,Whole Blood 175 mg/dL (75-99)
[2018-09-22] MEDS: MELATONIN 3 MG TABLET PO SCH (21:41)
[2018-09-22] MEDS: TAMSULOSIN 0.4 MG CAP.ER.24H PO SCH (21:41)
[2018-09-23] MEDS: HYDROcodone/APAP 5-325MG 1 EACH TAB PO PRN ×4 (02:40→20:10)
[2018-09-23 06:36] LABS: Glucose,Whole Blood 173 mg/dL (75-99)
[2018-09-23] MEDS: INSULIN ASPART (NovoLOG) 100 UNIT/ML VIAL SQ SCH ×4 (06:42→21:06)
[2018-09-23] MEDS: PANTOPRAZOLE 40 MG/10 ML VIAL IV SCH (09:10)
[2018-09-23] MEDS: SULFAMETHOX-TMP 800-160MG 1 EACH TAB PO SCH (09:11)
[2018-09-23] MEDS: METOPROLOL TARTRATE 25 MG TAB PO SCH ×2 (09:11→20:09)
[2018-09-23] MEDS: ATORVASTATIN 40 MG TAB PO SCH (09:11)
[2018-09-23] MEDS: FINASTERIDE 5 MG TAB PO SCH (09:11)
[2018-09-23] MEDS: LISINOPRIL 10 MG TAB PO SCH (09:11)
[2018-09-23] MEDS: guaiFENesin 600 MG TABLET.ER PO SCH ×2 (09:12→21:01)
[2018-09-23] MEDS: FUROSEMIDE 40 MG TAB PO SCH (09:12)
[2018-09-23 09:15] LABS: Calcium 8.8 mg/dL (8.4-10.2); Potassium 3.9 mmol/L (3.5-5.1)
[2018-09-23 09:16] LABS: Anisocytosis Moderate; HCT 22.9 % (39.0-53.0); Hypochromasia Marked; MCH 21.9 pg (25.0-35.0); MCHC 30.1 g/dL (31.0-37.0); MCV 72.7 fL (80.0-100.0); Mean Platelet Volume 7.7; Microcytosis Marked; Platelet Count 270 k/uL (150-450); Poikilocytosis Moderate; RBC 3.15 m/uL (4.30-5.90); RDW 20.3 % (11.5-15.5); WBC 5.7 k/uL (3.8-10.6)
[2018-09-23 09:21] LABS: HGB 6.9 gm/dL (13.0-17.5)
[2018-09-23 10:39] LABS: Reticulocyte % 4.2 % (0.5-2.0)
--- NOTE | 2018-09-23 11:19 | P.PN ---
Subjective Progress Note Date: 09/23/18 Principal diagnosis: Anemia symptomatic 73-year-old male with PMH of atrial fibrillation, CAD, diabetes mellitus, hypertension, history of V. tach, history of prostatitis presents to the ED for shortness of breath and lower extremity swelling. In the ED, CBC showed a severe anemia with a hemoglobin of 5.5. INR was 1.8. Troponin was 0.027. BNP was 1910. UA showed large leukocyte esterase. Chest x-ray shows CHF exacerbation cardiomegaly. Patient is admitted for severe anemia, requiring blood transfusion. He is received 2 units of PRBCs bringing his hemoglobin from 5.5-7.5. This morning his hemoglobin was 6.9 so he will be transfused again. He underwent EGD on 09/22/2018 which showed concerns for celiac disease and mild gastritis, source of bleed not found. He also underwent capsule endoscopy, the results of which are pending. Patient was seen and examined. No acute events overnight. Patient reports improvement in his breathing, states he is back to baseline. Slight improvement in his lower extremity swelling. Has gone from 121 kg 112 kg this morning. Reports good urine output. He denies dizziness, shortness of breath, chest pain or palpitations. Objective - Vital Signs Vital signs: Vital Signs Temp 98.1 F 09/23/18 03:12 Pulse 76 09/23/18 09:28 Resp 18 09/23/18 09:28 BP 155/65 09/23/18 09:28 Pulse Ox 100 09/23/18 09:28 Intake & Output 09/22/18 09/23/18 09/23/18 18:59 06:59 18:59 Intake Total 700 360 Output Total 2225 1000 Balance 700 -2225 -640 Weight 112.6 kg Intake: IV 100 Oral 600 360 Output: Urine 2225 1000 Other: Voiding Method Urinal Urinal Urinal # Voids 1 - Exam General: [non toxic], [no distress], [appears at stated age] Derm: [warm], [dry] Head: [atraumatic], [normocephalic], [symmetric] Eyes: [EOMI], [no lid lag], [pale conjunctiva] Mouth: [no lip lesion], [mucus membranes moist] Cardiovascular: [S1S2 reg], [no murmur], [positive DP pulse bilateral] Lungs: [CTA bilateral], [no rhonchi, no rales] , [no accessory muscle use] Abdominal: [soft], [ nontender to palpation], [no guarding], [no appreciable organomegaly] Ext: [no gross muscle atrophy], [2+ lowerextremity edema], [no contractures] Neuro: [no focal neuro deficits] Psych: [Alert], [oriented], [appropriate affect] - Labs CBC & Chem 7: 09/23/18 08:52 09/23/18 08:52 Labs: Abnormal Lab Results - Last 24 Hours (Table) 09/20/18 09/22/18 09/22/18 Range/Units 11:46 06:12 11:20 RBC (4.30-5.90) m/uL Hgb (13.0-17.5) gm/dL Hct (39.0-53.0) % MCV (80.0-100.0) fL MCH (25.0-35.0) pg MCHC (31.0-37.0) g/dL RDW (11.5-15.5) % Retic Count (0.5-2.0) % Sodium (137-145) mmol/L Glucose (74-99) mg/dL POC Glucose (mg/dL) 189 H (75-99) mg/dL Hemoglobin A1c 6.2 H (4.0-6.0) % Crossmatch See Detail 09/22/18 09/22/18 09/23/18 Range/Units 16:13 20:43 06:34 RBC (4.30-5.90) m/uL Hgb (13.0-17.5) gm/dL Hct (39.0-53.0) % MCV (80.0-100.0) fL MCH (25.0-35.0) pg MCHC (31.0-37.0) g/dL RDW (11.5-15.5) % Retic Count (0.5-2.0) % Sodium (137-145) mmol/L Glucose (74-99) mg/dL POC Glucose (mg/dL) 176 H 175 H 173 H (75-99) mg/dL Hemoglobin A1c (4.0-6.0) % Crossmatch 09/23/18 09/23/18 09/23/18 Range/Units 08:52 08:52 08:52 RBC 3.15 L (4.30-5.90) m/uL Hgb 6.9 L* (13.0-17.5) gm/dL Hct 22.9 L (39.0-53.0) % MCV 72.7 L (80.0-100.0) fL MCH 21.9 L (25.0-35.0) pg MCHC 30.1 L (31.0-37.0) g/dL RDW 20.3 H (11.5-15.5) % Retic Count 4.2 H (0.5-2.0) % Sodium 135 L (137-145) mmol/L Glucose 216 H (74-99) mg/dL POC Glucose (mg/dL) (75-99) mg/dL Hemoglobin A1c (4.0-6.0) % Crossmatch Assessment and Plan Assessment: Assessment and Plan 1. Dyspnea 2. Symptomatic anemia 3. Acute on chronic diastolic CHF 4. Atrial fibrillation with history of ventricular tachycardia 5. History of prostatitis 6. History of CAD 7. Diabetes mellitus 8. Hypertension 9. DVT and GI prophylaxis 1. Patient's shortness of breath is likely secondary to symptomatic anemia with possible component of diastolic CHF, rule out ACS. Hemoglobin 5.5 to 6.0 to 7.5-6.9, we will transfuse the patient today. BNP is 1910, elevated from baseline of 500's in 2016. Chest x-ray shows central vascular congestion with signs of CHF. We will change the patient back to Lasix 40 mg IV twice a day. Echocardiogram shows normal EF with severe pulmonary hypertension. Troponin is 0.027, 0.012, EKG showing sinus rhythm, ACS ruled out. Oxygen per nasal cannula to maintain an oxygen saturation greater than 92%. 2. Hemoglobin is 5.5 to 6.0 to 7.5 to 6.9, microcytic status post 2 units PRBC. We'll transfuse today. Likely chronic blood loss from use of Coumadin. Patient reported EGD and colonoscopy in April which was negative. FOBT is positive. Hold Coumadin, heparin. Gastroenterology consulted, recommends capsule endoscopy. EGD performed today shows antral gastritis, some concerns for celiac disease, no obvious source of bleeding. Daily CBC. Reticulocyte count is elevated. Follow hematology recommendations. 3. Echocardiogram shows EF of 55-60% with borderline concentric LVH. Continue Lasix IV. Strict ins and outs. Daily weights. Lower extremity elevation. Keep potassium greater than 4 and magnesium greater than 2. Telemetry monitoring. Will follow cardiology recommendations. 4. Recent Holter monitor with Dr. Madison. Continue metoprolol 25 mg by mouth twice a day. Hold anticoagulation due to possible GI bleed. Telemetry monitoring. Follow cardiology consult. 5. UA shows large leukocyte esterase. Continue Bactrim one half tablet by mouth daily. 6. Stable. Hold aspirin due to possible GI bleed. Continue Lipitor 40 mg by mouth daily. Continue beta kelley. 7. [id number] glucose 216. Start insulin sliding scale. Hypoglycemic precautions. Regular Accu-Cheks. Diabetic diet. Resume metformin and glipizide as per patient request. 8. BP 155/65. Continue metoprolol and lisinopril. Her vitals, adjust medications as necessary. 9. SCD boots only. Protonix 40 mg IV daily. Patient admitted for symptomatic anemia. Transfused 2 units of PRBC, repeat hemoglobin 6.9, 1 unit will be transfused today. Gastroenterology consulted, EGD nondiagnostic for source of bleed, capsule endoscopy pending. Cardiology consulted for A. fib and diastolic CHF exacerbation.
[2018-09-23 11:45] LABS: Glucose,Whole Blood 209 mg/dL (75-99)
--- NOTE | 2018-09-23 11:45 | P.PN ---
Subjective this is a pleasant 73-year-old male past medical history significant for paroxysmal atrial fibrillation, mild nonobstructive coronary artery disease , hypertension, diabetes, dyslipidemia and history of GI bleeding in the past. He presented to the hospital initially with a hemoglobin of 5.5 and has undergone transfusion with 2 units of packed red blood cells. Hemoglobin this morning6.9. Coumadin still on hold. He is seen and examined sitting up in the chair in no acute distress. He denies symptoms of chest pain, shortness of breath, dizziness or palpitations. Blood pressure 155/65 heart rate 75 afebrile maintaining oxygen saturation on room air. He underwent EGD with Dr. Reyes yesterday revealing gastritis and atrophic duodenal folds suggestive of celiac disease with no sites of active bleeding. Capsule study performed, results pending. GENERAL: Well-appearing, well-nourished and in no acute distress. NECK: Supple without JVD or thyromegaly. LUNGS: Breath sounds clear to auscultation bilaterally. Respiration equal and unlabored. No wheezes, rales or rhonchi. HEART: Regular rate and rhythm with systolic ejection murmur at the base, no rubs or gallops. S1 and S2 heard. EXTREMITIES: Normal range of motion, 1+ bilateral lower extremity edema. No clubbing or cyanosis. Peripheral pulses intact. ASSESSMENT Paroxysmal atrial fibrillation on half-way anticoagulation, currently maintaining sinus mechanism. Acute on chronic diastolic heart failure, improved. Severe anemia requiring blood transfusion Hypertension Dyslipidemia PLAN Continue to hold anti-coagulation until results of capsule study known. Further recommendations to follow. Nurse Practitioner note has been reviewed, I agree with a documented findings and plan of care. Patient was seen and examined. Objective - Vital Signs Vital signs: Vital Signs Temp 98.1 F 09/23/18 03:12 Pulse 76 09/23/18 09:28 Resp 18 09/23/18 09:28 BP 155/65 09/23/18 09:28 Pulse Ox 100 09/23/18 09:28 Intake & Output 09/22/18 09/23/18 09/23/18 18:59 06:59 18:59 Intake Total 700 360 Output Total 2225 1000 Balance 700 -2225 -640 Weight 112.6 kg Intake: IV 100 Oral 600 360 Output: Urine 2225 1000 Other: Voiding Method Urinal Urinal Urinal # Voids 1 - Labs CBC & Chem 7: 09/23/18 08:52 09/23/18 08:52 Labs: Abnormal Lab Results - Last 24 Hours (Table) 09/20/18 09/22/18 09/22/18 Range/Units 11:46 06:12 16:13 RBC (4.30-5.90) m/uL Hgb (13.0-17.5) gm/dL Hct (39.0-53.0) % MCV (80.0-100.0) fL MCH (25.0-35.0) pg MCHC (31.0-37.0) g/dL RDW (11.5-15.5) % Retic Count (0.5-2.0) % Sodium (137-145) mmol/L Glucose (74-99) mg/dL POC Glucose (mg/dL) 176 H (75-99) mg/dL Hemoglobin A1c 6.2 H (4.0-6.0) % Crossmatch See Detail 09/22/18 09/23/18 09/23/18 Range/Units 20:43 06:34 08:52 RBC 3.15 L (4.30-5.90) m/uL Hgb 6.9 L* (13.0-17.5) gm/dL Hct 22.9 L (39.0-53.0) % MCV 72.7 L (80.0-100.0) fL MCH 21.9 L (25.0-35.0) pg MCHC 30.1 L (31.0-37.0) g/dL RDW 20.3 H (11.5-15.5) % Retic Count (0.5-2.0) % Sodium (137-145) mmol/L Glucose (74-99) mg/dL POC Glucose (mg/dL) 175 H 173 H (75-99) mg/dL Hemoglobin A1c (4.0-6.0) % Crossmatch 09/23/18 09/23/18 Range/Units 08:52 08:52 RBC (4.30-5.90) m/uL Hgb (13.0-17.5) gm/dL Hct (39.0-53.0) % MCV (80.0-100.0) fL MCH (25.0-35.0) pg MCHC (31.0-37.0) g/dL RDW (11.5-15.5) % Retic Count 4.2 H (0.5-2.0) % Sodium 135 L (137-145) mmol/L Glucose 216 H (74-99) mg/dL POC Glucose (mg/dL) (75-99) mg/dL Hemoglobin A1c (4.0-6.0) % Crossmatch
--- NOTE | 2018-09-23 12:52 | PN ---
PROGRESS NOTE Patient is a 73-year-old pleasant white male admitted to the hospital with severe symptomatic anemia and hemoglobin of 5 requiring blood transfusion, the patient received a total of 3 units of blood transfusion. His hemoglobin dropped to 6.4 today. He underwent an upper endoscopy yesterday that showed some duodenitis and changes in the duodenum suspicious for celiac disease and multiple biopsies were obtained from the area. He had a prior EGD and colonoscopy about 4 months ago in [facility] that was unremarkable according to the patient. Today, he denies any symptoms. No abdominal pain. No nausea, vomiting. PHYSICAL EXAMINATION: Appears comfortable in no apparent distress. Vital signs stable. Blood pressure 122/86, pulse rate 71, temperature 98.4. HEENT examination unremarkable. Conjunctivae pink. Sclerae anicteric. Oral cavity no lesions. Neck: No jugular venous distention or lymph node enlargement. Chest was clear to auscultation. HEART: Regular rate and rhythm. ABDOMEN: Soft. Bowel sounds are positive. No organomegaly. Extremities: No pedal edema. Skin no rashes. NEUROLOGIC: Alert and oriented x3. No focal deficits. LABS: From today hemoglobin is 6.9, yesterday was 7.5, platelets 270. BUN and creatinine normal. IMPRESSION: Severe symptomatic anemia with no active gastrointestinal bleed. Upper endoscopy done yesterday showed changes in the duodenum suspicious for celiac disease status post multiple biopsies and celiac panel is pending. He had a colonoscopy 4 months ago that was unremarkable. Small bowel capsule endoscopy was done yesterday and results are still pending at the time of this dictation. RECOMMENDATION: 1. Agree with 1 more unit of blood transfusion. 2. We will await the biopsy results and small bowel capsule endoscopy results. 3. We will follow the patient closely during his hospital stay. Thank you for this consultation. MMODL / IJN: [id number] /
[2018-09-23] MEDS: metFORMIN 500 MG TAB PO SCH ×2 (13:07→17:18)
[2018-09-23 16:23] LABS: Glucose,Whole Blood 161 mg/dL (75-99)
[2018-09-23] MEDS: LACTATED RINGERS 1,000 ML IV SCH (19:02)
[2018-09-23] MEDS: FUROSEMIDE 10 MG/ML 4 ML VIAL IV SCH (20:09)
[2018-09-23] MEDS: TAMSULOSIN 0.4 MG CAP.ER.24H PO SCH (20:09)
[2018-09-23 20:56] LABS: Glucose,Whole Blood 191 mg/dL (75-99)
[2018-09-23] MEDS: MELATONIN 3 MG TABLET PO SCH (21:06)
[2018-09-24] MEDS: HYDROcodone/APAP 5-325MG 1 EACH TAB PO PRN ×2 (01:38→06:36)
[2018-09-24 05:54] LABS: Glucose,Whole Blood 196 mg/dL (75-99)
[2018-09-24] MEDS: metFORMIN 500 MG TAB PO SCH (06:36)
[2018-09-24] MEDS: INSULIN ASPART (NovoLOG) 100 UNIT/ML VIAL SQ SCH ×2 (06:37→12:05)
[2018-09-24] MEDS ORDERED: glipiZIDE 5 MG TAB PO SCH (07:30)
[2018-09-24 08:46] LABS: Anion Gap 10 mmol/L; Anisocytosis Moderate; Basophils # (A) 0.1 k/uL (0-0.2); Basophils % (A) 1 %; Blood Urea Nitrogen 15 mg/dL (9-20); Calcium 9.4 mg/dL (8.4-10.2); Carbon Dioxide 27 mmol/L (22-30); Chloride 101 mmol/L (98-107); Eosinophils # (A) 0.2 k/uL (0-0.7); Eosinophils % (A) 2 %; Glucose 121 mg/dL (74-99); HCT 28.1 % (39.0-53.0); HGB 8.2 gm/dL (13.0-17.5); Hypochromasia Marked; Lymphocytes % (A) 9 %; MCH 21.7 pg (25.0-35.0); MCHC 29.3 g/dL (31.0-37.0); MCV 73.9 fL (80.0-100.0); Microcytosis Marked; Monocytes # (A) 0.4 k/uL (0-1.0); Monocytes % (A) 4 %; Neutrophils # (A) 8.7 k/uL (1.3-7.7); Neutrophils % (A) 83 %; Platelet Count 305 k/uL (150-450); Poikilocytosis Moderate; RBC 3.81 m/uL (4.30-5.90); RDW 21.1 % (11.5-15.5); Sodium 138 mmol/L (137-145); WBC 10.4 k/uL (3.8-10.6)
[2018-09-24] MEDS ORDERED: HYDROcodone/APAP 10-325MG 1 EACH TAB PO PRN (09:20)
[2018-09-24] MEDS: LISINOPRIL 10 MG TAB PO SCH (09:59)
[2018-09-24] MEDS: FINASTERIDE 5 MG TAB PO SCH (10:00)
[2018-09-24] MEDS: ATORVASTATIN 40 MG TAB PO SCH (10:00)
[2018-09-24] MEDS: PANTOPRAZOLE 40 MG/10 ML VIAL IV SCH (10:00)
[2018-09-24] MEDS: FUROSEMIDE 10 MG/ML 4 ML VIAL IV SCH (10:00)
[2018-09-24] MEDS: METOPROLOL TARTRATE 25 MG TAB PO SCH (10:00)
[2018-09-24] MEDS: SULFAMETHOX-TMP 800-160MG 1 EACH TAB PO SCH (10:00)
[2018-09-24] MEDS: guaiFENesin 600 MG TABLET.ER PO SCH (10:02)
[2018-09-24 10:11] LABS: Folate, Serum 17.1 ng/mL
[2018-09-24 10:22] VITALS: RESP 16
[2018-09-24 11:22] LABS: Gliadin AB IgA, Unit >250.0 U/mL
[2018-09-24 11:33] LABS: Glucose,Whole Blood 129 mg/dL (75-99)
[2018-09-24 13:11] VITALS: BP 168/66; PULSE 77; TEMP 98.4
--- NOTE | 2018-09-24 14:36 | P.PN ---
Subjective Progress Note Date: 09/24/18 (delayed charting patient seen at 0915) Principal diagnosis: weakness Patient is a 73-year-old male with a past medical history of A. fib currently on Coumadin therapy, gastritis, coronary artery disease, diabetes mellitus, and V. tach who presented to the ER with complaints of generalized weakness, shortness of breath, and lower extremity edema. In the ER he underwent an extensive evaluation. His son have a severe anemia with a hemoglobin of 5.5, INR was 1.8, troponin and BNP were negative. UA showed large leukocyte Estrace however patient did not have any symptoms of UTI. Chest x-ray showed cardiomegaly and cephalization. Patient was ordered 1 unit of packed red blood cells and was admitted for further monitoring. GI was consulted and he underwent an upper endoscopy on 09/22 which showed gastritis and possible celiac changes. Biopsy was obtained. He was seen by cardiology and echocardiogram showed severe pulmonary hypertension but preserved ejection fraction. He was started on IV Lasix and diuresed well. His hemoglobin dropped from 7.5-6.9 who was given 1 additional unit of packed red blood cells. He also had a capsule endoscopy performed on 09/22. His hemoglobin remained stable after 3 units of packed red blood cells. Outpatient laboratory analysis was reviewed and ferritin was 6.1 coming for his anemia. Patient seen and examined at bedside. His energy is much better, shortness of breath is resolved has been walking the hallways. He has lost a significant amount of weight in his lower extremity edema has improved greatly but is not yet back to baseline. He complains of the sugars being slightly high during his hospitalization up to the 180s and he typically runs 110 at home. Discussed with patient progress throughout hospitalization as well as current ongoing diagnoses. We did discuss the importance of following up with GI. Objective - Vital Signs Vital signs: Vital Signs Temp 98.4 F 09/24/18 12:00 Pulse 77 09/24/18 12:00 Resp 16 09/24/18 12:00 BP 168/66 09/24/18 12:00 Pulse Ox 98 09/24/18 12:00 Intake & Output 09/23/18 09/24/18 09/24/18 18:59 06:59 18:59 Intake Total 1030 800 240 Output Total 2700 2175 Balance -1670 -1375 240 Weight 112.3 kg Intake: Oral 720 800 240 Blood Product 310 Rc As-1 Unit 310 [id number] Output: Urine 3240 2175 Other: Voiding Method Urinal Urinal Urinal # Voids 4 3 - Exam General: non toxic, no distress, appears at stated age, he'll Derm: warm, dry Head: atraumatic, normocephalic, symmetric Eyes: EOMI, no lid lag, anicteric sclera Mouth: no lip lesion, mucus membranes moist Cardiovascular: S1S2 reg, no murmur, positive posterior tibial pulse bilateral, Lungs: CTA bilateral, no rhonchi, no rales , no accessory muscle use Abdominal: soft, nontender to palpation, no guarding, no appreciable organomegaly Ext: no gross muscle atrophy, 2+ edema, no contractures Neuro: CN II-XI grossly intact, no focal neuro deficits Psych: Alert, oriented, appropriate affect - Labs CBC & Chem 7: 09/24/18 08:05 09/24/18 08:05 Labs: Abnormal Lab Results - Last 24 Hours (Table) 09/20/18 09/22/18 09/23/18 Range/Units 11:46 06:12 16:16 RBC (4.30-5.90) m/uL Hgb (13.0-17.5) gm/dL Hct (39.0-53.0) % MCV (80.0-100.0) fL MCH (25.0-35.0) pg MCHC (31.0-37.0) g/dL RDW (11.5-15.5) % Neutrophils # (1.3-7.7) k/uL Glucose (74-99) mg/dL POC Glucose (mg/dL) 161 H (75-99) mg/dL Tis Transglut IgA Intrp POSITIVE H (NEGATIVE) Gliadin (Deam) IgG Int POSITIVE H (NEGATIVE) Gliadin (Deam) IgA Int POSITIVE H (NEGATIVE) Crossmatch See Detail 09/23/18 09/24/18 09/24/18 Range/Units 20:55 05:53 08:05 RBC 3.81 L (4.30-5.90) m/uL Hgb 8.2 L (13.0-17.5) gm/dL Hct 28.1 L (39.0-53.0) % MCV 73.9 L (80.0-100.0) fL MCH 21.7 L (25.0-35.0) pg MCHC 29.3 L (31.0-37.0) g/dL RDW 21.1 H (11.5-15.5) % Neutrophils # 8.7 H (1.3-7.7) k/uL Glucose (74-99) mg/dL POC Glucose (mg/dL) 191 H 196 H (75-99) mg/dL Tis Transglut IgA Intrp (NEGATIVE) Gliadin (Deam) IgG Int (NEGATIVE) Gliadin (Deam) IgA Int (NEGATIVE) Crossmatch 09/24/18 09/24/18 Range/Units 08:05 11:31 RBC (4.30-5.90) m/uL Hgb (13.0-17.5) gm/dL Hct (39.0-53.0) % MCV (80.0-100.0) fL MCH (25.0-35.0) pg MCHC (31.0-37.0) g/dL RDW (11.5-15.5) % Neutrophils # (1.3-7.7) k/uL Glucose 121 H (74-99) mg/dL POC Glucose (mg/dL) 129 H (75-99) mg/dL Tis Transglut IgA Intrp (NEGATIVE) Gliadin (Deam) IgG Int (NEGATIVE) Gliadin (Deam) IgA Int (NEGATIVE) Crossmatch Assessment and Plan Assessment: Iron deficiency anemia, symptomatic - Status post 3 units of packed red blood cells - Ferritin 6.1 - Suggest outpatient follow-up with Dr. Matamoros for further evaluation - retic index of 1.15 due to low ferritin - Had negative EGD and colonoscopy - Awaiting capsule endoscopy results - If no signs of active bleeding then resume coumadin - awaiting bx for celiac disease A fib - off coumadin with low hgb - metoprolol - follow tele Acute on chronic diastolic CHF - Continue with lasix - lisinopril, metoprolol DM 2 - continue on oral medications - well controlled as outpatient with A1C 6.2 Obesity - structured outpatient weight loss HTN, controlled - continue current medications - follow BP Likely home today or tomorrow pending GI review DVT prophylaxis: SCDs
--- NOTE | 2018-09-24 15:03 | P.PN ---
Subjective Progress Note Date: 09/24/18 This is a pleasant 73-year-old with known history of paroxysmal atrial fibrillation, mild coronary artery disease by cardiac cath performed in 2014, hypertension, diabetes, hyperlipidemia, history of GI bleed in the past, history of prostate disorder and recurrent UTIs. Prior history of smoking. He presented to the hospital on this occasion with symptoms of shortness of breath with seated lower extremity edema. Patient is known to have anemia, he underwent a colonoscopy and EGD in April according to the patient which was reported to be normal. He also has a remote history of a gastric ulcer in the past. In the emergency room here his CBC showed severe anemia with a hemoglobin of 5.5, INR 1.8, troponin 0.0-7, BNP 1910. UA showed large leukocyte Estrace. His chest x-ray showed congestive heart failure and cardiomegaly. He was admitted to the hospital for severe anemia requiring a blood transfusion. His initial chest x-ray on admission here which was September 20 showed congestive heart failure exacerbation with cardiomegaly and suspected mild central venous congestion. EKG on admission showed a normal sinus rhythm with no acute changes. Echocardiogram with Doppler study revealed an ejection fraction of 55-60%, mild to moderate mitral regurg, moderate tricuspid regurg, severe pulmonary hypertension. Blood pressure 157/72 heart rate in the 70s, 99% on room air. Lab data from this morning, white blood cell count 7.1, hemoglobin 7.5, platelet count 299. INR 1.5, Coumadin is on hold, sodium 133, potassium 3.9, BUN 15 and creatinine 0.9. Troponin 0.012. Patient did undergo an EGD with biopsy this morning which was positive for somewhat atrophic appearing mucosa involving the duodenum suspicious for celiac disease, minimal antral gastritis, currently patient is undergoing small bowel Capsule Procedure. At the Time of My Examination This Morning, He Denies Any Shortness of Breath, No Palpitations, No Chest Discomfort, no black stools or blood in his stool noted this morning. 09/24/2018 Patient was seen and examined this morning, awaiting results of the capsule study. Hemoglobin stable at 8.2. Blood pressure 113/50 with a heart rate in the 60s. Objective - Vital Signs Vital signs: Vital Signs Temp 98.4 F 09/24/18 12:00 Pulse 77 09/24/18 12:00 Resp 16 09/24/18 12:00 BP 168/66 09/24/18 12:00 Pulse Ox 98 09/24/18 12:00 Intake & Output 09/23/18 09/24/18 09/24/18 18:59 06:59 18:59 Intake Total 1030 800 240 Output Total 2700 2175 Balance -1670 -1375 240 Weight 112.3 kg Intake: Oral 720 800 240 Blood Product 310 Rc As-1 Unit 310 [id number] Output: Urine 2700 2175 Other: Voiding Method Urinal Urinal Urinal # Voids 4 3 - Exam PHYSICAL EXAMINATION: GENERAL: 73-year-old gentleman in no acute distress at the time of my examination HEENT: Head is atraumatic, normocephalic. Pupils equal, round. Sclera anicteric. Conjunctiva are clear. Mucous membranes of the mouth are moist. Neck is supple. There is no elevated jugular venous pressure. No carotid bruit is heard. HEART EXAMINATION: Heart S1 S2 1 systolic murmur is heard CHEST EXAMINATION: Lungs are clear with mild diminished air entry to the bases. ABDOMEN: Soft, nontender. Bowel sounds are heard. No organomegaly noted. EXTREMITIES:[ 2+ peripheral pulses with 1+ evidence of peripheral edema NEUROLOGIC patient is awake, alert and oriented X3. - Labs CBC & Chem 7: 09/24/18 08:05 09/24/18 08:05 Labs: Abnormal Lab Results - Last 24 Hours (Table) 09/20/18 09/22/18 09/23/18 Range/Units 11:46 06:12 16:16 RBC (4.30-5.90) m/uL Hgb (13.0-17.5) gm/dL Hct (39.0-53.0) % MCV (80.0-100.0) fL MCH (25.0-35.0) pg MCHC (31.0-37.0) g/dL RDW (11.5-15.5) % Neutrophils # (1.3-7.7) k/uL Glucose (74-99) mg/dL POC Glucose (mg/dL) 161 H (75-99) mg/dL Tis Transglut IgA Intrp POSITIVE H (NEGATIVE) Gliadin (Deam) IgG Int POSITIVE H (NEGATIVE) Gliadin (Deam) IgA Int POSITIVE H (NEGATIVE) Crossmatch See Detail 09/23/18 09/24/18 09/24/18 Range/Units 20:55 05:53 08:05 RBC 3.81 L (4.30-5.90) m/uL Hgb 8.2 L (13.0-17.5) gm/dL Hct 28.1 L (39.0-53.0) % MCV 73.9 L (80.0-100.0) fL MCH 21.7 L (25.0-35.0) pg MCHC 29.3 L (31.0-37.0) g/dL RDW 21.1 H (11.5-15.5) % Neutrophils # 8.7 H (1.3-7.7) k/uL Glucose (74-99) mg/dL POC Glucose (mg/dL) 191 H 196 H (75-99) mg/dL Tis Transglut IgA Intrp (NEGATIVE) Gliadin (Deam) IgG Int (NEGATIVE) Gliadin (Deam) IgA Int (NEGATIVE) Crossmatch 09/24/18 09/24/18 Range/Units 08:05 11:31 RBC (4.30-5.90) m/uL Hgb (13.0-17.5) gm/dL Hct (39.0-53.0) % MCV (80.0-100.0) fL MCH (25.0-35.0) pg MCHC (31.0-37.0) g/dL RDW (11.5-15.5) % Neutrophils # (1.3-7.7) k/uL Glucose 121 H (74-99) mg/dL POC Glucose (mg/dL) 129 H (75-99) mg/dL Tis Transglut IgA Intrp (NEGATIVE) Gliadin (Deam) IgG Int (NEGATIVE) Gliadin (Deam) IgA Int (NEGATIVE) Crossmatch Assessment and Plan Plan: Assessment and plan #1 symptoms of shortness of breath with associated bilateral peripheral edema, congestive heart failure exacerbation, diastolic acute on chronic #2 mild coronary artery disease by cardiac catheterization performed in 2014 #3 Severe anemia requiring blood transfusion #4 paroxysmal atrial fibrillation on Coumadin for anticoagulation #5 diabetes #6 hypertension #7 hyperlipidemia #8 chronic UTI on Bactrim at home #9 History of prostate disorder #10 History of prior GI bleed Plan Echocardiogram with Doppler study revealed a normal left ventricular systolic function, mild to moderate MR, moderate TR, severe pulmonary hypertension. We will await the results of the capsule study, and recommendations regarding reinitiating anticoagulation. DNP note has been reviewed, I agree with a documented findings and plan of care. Patient was seen and examined.
--- NOTE | 2018-09-24 16:17 | P.DS ---
Providers Date of admission: 09/20/18 11:52 Expected date of discharge: 09/24/18 Attending physician: Yana Francois MD Consults: 09/20/18 14:41 Consult Physician Routine Consulting Provider: Jaime Newell Consult Reason/Comments: FOBT + Hg 5, on coumadin no GI complaints previous h /o anemia gastric ulcer Do you want consulting provider notified?: Yes 09/21/18 08:10 Consult Physician Routine Consulting Provider: Minh Madison Consult Reason/Comments: h/o v tach, seen by Dr. Madison outPT, recent Holter monitor without follow Do you want consulting provider notified?: Yes 09/23/18 10:11 Consult Physician Routine Consulting Provider: Justin Matamoros Consult Reason/Comments: Anemia Do you want consulting provider notified?: Yes Primary care physician: [facility] Course: Discharge Diagnosis: Symptomatic anemia Iron deficiency anemia Probable celiac disease-biopsy pending but immunologic markers positive Acute exacerbation of diastolic congestive heart failure with cor pulmonale Venous insufficiency-patient will establish with Dr. [place] Diabetes mellitus type 2, on orals Paroxysmal atrial fibrillation Obesity with BMI 36.6 and Hypertension Coronary artery disease HLD Chronic UTI on bactrim at baseline Hospital Course: Patient is a 73-year-old male with a past medical history of A. fib currently on Coumadin therapy, gastritis, coronary artery disease, diabetes mellitus, and V. tach who presented to the ER with complaints of generalized weakness, shortness of breath, and lower extremity edema. In the ER he underwent an extensive evaluation. He was found to have a severe anemia with a hemoglobin of 5.5, INR was 1.8, troponin and BNP were negative. UA showed large leukocyte esterase however patient did not have any symptoms of UTI. Chest x-ray showed cardiomegaly and cephalization. Patient was ordered 2 units of packed red blood cells and was admitted for further monitoring. GI was consulted and he underwent an upper endoscopy on 09/22 which showed gastritis and possible celiac changes. Biopsy was obtained. He was seen by cardiology and echocardiogram showed severe pulmonary hypertension but preserved ejection fraction. He was started on IV Lasix and diuresed well. His hemoglobin dropped from 7.5-6.9 who was given 1 additional unit of packed red blood cells. He also had a capsule endoscopy performed on 09/22 which showed celiac changes but no signs of bleeding per verbal report. His transglutamin and gliagian were positive. It was felt he likely has celiac disease though biopsy was pending. His hemoglobin remained stable after 3 units of packed red blood cells. Outpatient laboratory analysis was reviewed and ferritin was 6.1 coming for his anemia, Retic index is 1.15 consistent with hypoproliferative anemia. This was felt to be due to his low ferritin from malabsorption from celiac disease. He will establish with Dr. Matamoros to see if he would benefit from IV iron infusion and monitoring of his hemoglobin, chronic bactrim use could also be contributing with aplastic anemia. His edema improved greatly with IV lasix. He was determined stable for discharge home. He will start on oral iron twice daily. He was given information on celiac disease and a gluten free diet. He would like to see a dietitian as an outpatient. He will follow with Dr. Reyes for results of his biopsy in 1 week, Dr. Busby in 1 week. He was given an order for repeat CBC and INR in 1 week. He will resume his coumadin therapy on . He was given education on celiac disease. Patient seen and examined at bedside. No chest pain, sob, nausea or vomiting. Vital signs reviewed and stable. For physical exam see progress note same date. A total of 55 minutes of time were spent preparing this complex discharge summary . Pertinent Studies: Echocardiogram 09/20-ejection fraction 50-55%, severe pulmonary hypertension Procedures: 09/22-EGD with gastritis and possible celiac disease Endoscopy-Probable Celiac Disease, No Signs of Bleeding, Delayed Gastric Emptying Patient Condition at Discharge: Fair Plan - Discharge Summary Discharge Rx Participant: No New Discharge Prescriptions: New Ferrous Sulfate [Feosol] 325 mg PO BID #60 tab Furosemide [Lasix] 60 mg PO BID #90 tablet HYDROcodone/APAP 10-325MG [Ozone 10-325] 1 each PO Q6H PRN #7 tab PRN Reason: Pain Continue glipiZIDE XL [Glucotrol XL] 10 mg PO DAILY Tamsulosin HCl [Flomax] 0.4 mg PO HS Finasteride 5 mg PO DAILY Aspirin 81 mg PO DAILY Metoprolol Tartrate [Lopressor] 25 mg PO BID Atorvastatin [Lipitor] 40 mg PO DAILY Lisinopril [Zestril] 10 mg PO DAILY metFORMIN HCL [metFORMIN HCL ER] 1,000 mg PO AC-SUPPER Potassium Chloride ER [K-Dur 10] 20 meq PO DAILY Carisoprodol [Soma] 350 mg PO BID Warfarin [Coumadin] 7.5 mg PO SUMOTUWETHSA Warfarin [Coumadin] 10 mg PO FR Omeprazole 20 mg PO DAILY Sulfamethox-Tmp 800-160Mg [Bactrim DS 800-160 mg] 0.5 tab PO DAILY Discontinued Furosemide [Lasix] 40 mg PO BID Discharge Medication List Tamsulosin HCl [Flomax] 0.4 mg PO HS 09/25/14 [History] glipiZIDE XL [Glucotrol XL] 10 mg PO DAILY 09/25/14 [History] Finasteride 5 mg PO DAILY 05/28/15 [History] Aspirin 81 mg PO DAILY 03/21/16 [History] Atorvastatin [Lipitor] 40 mg PO DAILY 03/21/16 [History] Lisinopril [Zestril] 10 mg PO DAILY 03/21/16 [History] Metoprolol Tartrate [Lopressor] 25 mg PO BID 03/21/16 [History] metFORMIN HCL [metFORMIN HCL ER] 1,000 mg PO AC-SUPPER 03/21/16 [History] Carisoprodol [Soma] 350 mg PO BID 09/20/18 [History] Omeprazole 20 mg PO DAILY 09/20/18 [History] Potassium Chloride ER [K-Dur 10] 20 meq PO DAILY 09/20/18 [History] Sulfamethox-Tmp 800-160Mg [Bactrim DS 800-160 mg] 0.5 tab PO DAILY 09/20/18 [ History] Warfarin [Coumadin] 7.5 mg PO SUMOTUWETHSA 09/20/18 [History] Warfarin [Coumadin] 10 mg PO FR 09/20/18 [History] Ferrous Sulfate [Feosol] 325 mg PO BID #60 tab 09/24/18 [Rx] Furosemide [Lasix] 60 mg PO BID #90 tablet 09/24/18 [Rx] HYDROcodone/APAP 10-325MG [Ozone 10-325] 1 each PO Q6H PRN #7 tab 09/24/18 [Rx] Follow up Appointment(s)/Referral(s): Minh Madison MD [STAFF PHYSICIAN] - 2 Weeks Linda Reyes MD [STAFF PHYSICIAN] - 10/04/18 11:30 am (- office -in hospital [address] [place] [address] ) José Busby MD [Primary Care Provider] - 10/01/18 9:30 am (Monday) Massimo Colorado MD [STAFF PHYSICIAN] - 1 Week Ambulatory/Diagnostic Orders: Complete Blood Count w/diff [LAB.AMB] Time Frame: 1 Week, Location: None Selected Prothrombin Time INR [LAB.AMB] Time Frame: 1 Week, Location: None Selected Patient Instructions/Handouts: Celiac Disease (DC), Gluten-Free Diet (DC), Anemia (DC) Activity/Diet/Wound Care/Special Instructions: gluten free diet, low sodium, 1500 mL fluid restriction activity as tolerated Tissue trangslutamin IgA + (158.3), Gliadin IgG (56.4) and IgA (>250) + Ferritin 6.1 Discharge Disposition: HOME SELF-CARE Pending Studies Pending Results: biopsy results pending
--- NOTE | 2018-09-24 18:10 | P.CONS ---
History of Present Illness - Reason for Consult Consult date: 09/24/18 anemia Requesting physician: Yana Francois - Chief Complaint bilateral lower extremity swelling - History of Present Illness Mr. Mendoza is a very pleasant 73-year-old male who we have been asked to see for anemia. Patient states history of anemia with bleed many years ago. Had a bleeding ulcer and was diagnosed with peptic ulcer disease at that time, he had black tarry stools at that time, was treated and has not had recurrence. Patient denied any recent changes in his stool color, nausea, vomiting, appetite changes, abd pain or other bleeding. He was referred for colonoscopy/EGD recently by his primary care physician due to anemia found on routine lab work. Patient was also started on Coumadin with his bookkeeping manager about 4-5 weeks ago due to new onset A. fib. What brought patient to the hospital was progressive shortness of breath, weakness in the legs and swelling. Patient has had an EGD with Dr. Reyes with biopsy, capsule endoscopy is pending. Patient denies any other acute changes in his health. Review of Systems 14 point review of systems is negative except stated in HPI Past Medical History Past Medical History: Atrial Fibrillation, Coronary Artery Disease (CAD), Diabetes Mellitus, Hypertension, Prostate Disorder Additional Past Medical History / Comment(s): enlarged prostate with stones, prostatitis in past and recently-on abx, episode of v-tach 20 yrs ago, mild CAD , NIDDM type II, 2007 syncope, chronic back pain, stomach ulcers in past, back pain, Last Myocardial Infarction Date:: 05/28/15 History of Any Multi-Drug Resistant Organisms: None Reported Past Surgical History: Appendectomy, Cholecystectomy, Heart Catheterization, Orthopedic Surgery Additional Past Surgical History / Comment(s): tibia plateau fracture right leg with plates/screws, 05/29/15 cardiac cath with mild CAD. Past Anesthesia/Blood Transfusion Reactions: No Reported Reaction Past Psychological History: No Psychological Hx Reported Smoking Status: Former smoker Past Alcohol Use History: None Reported Past Drug Use History: None Reported - Past Family History Mother Additional Family Medical History / Comment(s): Bowel problems and possible lung cancer. Mother in her 80's. She did not go to the doctors much. Brother(s) Family Medical History: Cancer Father Family Medical History: Cancer Additional Family Medical History / Comment(s): Father had palpitations. He at about age 78yrs. Medications and Allergies Home Medications Medication Instructions Recorded Confirmed Type Tamsulosin HCl [Flomax] 0.4 mg PO HS 09/25/14 09/20/18 History glipiZIDE XL [Glucotrol XL] 10 mg PO DAILY 09/25/14 09/20/18 History Finasteride 5 mg PO DAILY 05/28/15 09/20/18 History Aspirin 81 mg PO DAILY 03/21/16 09/20/18 History Atorvastatin [Lipitor] 40 mg PO DAILY 03/21/16 09/20/18 History Lisinopril [Zestril] 10 mg PO DAILY 03/21/16 09/20/18 History Metoprolol Tartrate [Lopressor] 25 mg PO BID 03/21/16 09/20/18 History metFORMIN HCL [metFORMIN HCL ER] 1,000 mg PO AC-SUPPER 03/21/16 09/20/18 History Carisoprodol [Soma] 350 mg PO BID 09/20/18 09/20/18 History Omeprazole 20 mg PO DAILY 09/20/18 09/20/18 History Potassium Chloride ER [K-Dur 10] 20 meq PO DAILY 09/20/18 09/20/18 History Sulfamethox-Tmp 800-160Mg [Bactrim 0.5 tab PO DAILY 09/20/18 09/20/18 History DS 800-160 mg] Warfarin [Coumadin] 7.5 mg PO SUMOTUWETHSA 09/20/18 09/20/18 History Warfarin [Coumadin] 10 mg PO FR 09/20/18 09/20/18 History Ferrous Sulfate [Feosol] 325 mg PO BID #60 tab 09/24/18 Rx Furosemide [Lasix] 60 mg PO BID #90 tablet 09/24/18 Rx HYDROcodone/APAP 10-325MG [Jeff 1 each PO Q6H PRN #7 tab 09/24/18 Rx 10-325] Allergies Allergy/AdvReac Type Severity Reaction Status Date / Time Iodine and Iodide Containing Allergy Rash/Hives Verified 09/20/18 11:11 Produc shellfish derived [Shellfish] Allergy Rash/Hives Verified 09/20/18 11:11 Physical Exam Vitals: Vital Signs Temp Pulse Pulse Pulse Resp BP BP 09/24/18 12:00 98.4 F 77 16 168/66 09/24/18 08:00 98.3 F 99 99 16 156/74 09/24/18 04:00 98 F 82 17 157/67 09/24/18 00:00 98.2 F 85 17 137/57 09/23/18 20:00 98.1 F 85 18 157/67 09/23/18 19:03 97.7 F 80 12 136/68 Pulse Ox 09/24/18 12:00 98 09/24/18 08:00 95 09/24/18 04:00 97 09/24/18 00:00 97 09/23/18 20:00 99 09/23/18 19:03 Intake and Output 09/24/18 09/24/18 09/24/18 06:59 14:59 22:59 Intake Total 480 Output Total 2175 Balance -2175 480 Intake: Oral 480 Output: Urine 2175 Other: Voiding Method Urinal Urinal # Voids 3 Weight 112.3 kg - Constitutional General appearance: cooperative, no acute distress, obese - EENT Eyes: anicteric sclerae, EOMI ENT: hearing grossly normal, normal oropharynx - Neck Neck: no lymphadenopathy - Respiratory Respiratory: bilateral: CTA, diminished - Cardiovascular 1irregular beat noted at 1 minute auscultation Heart sounds: normal: S1, S2 Abnormal Heart Sounds: no systolic murmur, no diastolic murmur, no rub, no S3 Gallop, no S4 Gallop, no click, no other - Gastrointestinal General gastrointestinal: no absent bowel sounds, no decreased bowel sounds, no distended, no hepatomegaly, no hyperactive bowel sounds, normal bowel sounds, no organomegaly, no rigid, no scaphoid, soft, no splenomegaly, no tenderness, no umbilical hernia, no ventral hernia - Integumentary Integumentary: normal - Neurologic Neurologic: CNII-XII intact - Musculoskeletal Musculoskeletal: strength equal bilaterally - Psychiatric Psychiatric: A&O x's 3, appropriate affect, intact judgment & insight Results CBC & Chem 7: 09/24/18 08:05 09/24/18 08:05 Labs: Abnormal Lab Results - Last 24 Hours (Table) 09/20/18 09/22/18 09/23/18 Range/Units 11:46 06:12 20:55 RBC (4.30-5.90) m/uL Hgb (13.0-17.5) gm/dL Hct (39.0-53.0) % MCV (80.0-100.0) fL MCH (25.0-35.0) pg MCHC (31.0-37.0) g/dL RDW (11.5-15.5) % Neutrophils # (1.3-7.7) k/uL Glucose (74-99) mg/dL POC Glucose (mg/dL) 191 H (75-99) mg/dL Tis Transglut IgA Intrp POSITIVE H (NEGATIVE) Gliadin (Deam) IgG Int POSITIVE H (NEGATIVE) Gliadin (Deam) IgA Int POSITIVE H (NEGATIVE) Crossmatch See Detail 09/24/18 09/24/18 09/24/18 Range/Units 05:53 08:05 08:05 RBC 3.81 L (4.30-5.90) m/uL Hgb 8.2 L (13.0-17.5) gm/dL Hct 28.1 L (39.0-53.0) % MCV 73.9 L (80.0-100.0) fL MCH 21.7 L (25.0-35.0) pg MCHC 29.3 L (31.0-37.0) g/dL RDW 21.1 H (11.5-15.5) % Neutrophils # 8.7 H (1.3-7.7) k/uL Glucose 121 H (74-99) mg/dL POC Glucose (mg/dL) 196 H (75-99) mg/dL Tis Transglut IgA Intrp (NEGATIVE) Gliadin (Deam) IgG Int (NEGATIVE) Gliadin (Deam) IgA Int (NEGATIVE) Crossmatch 09/24/18 Range/Units 11:31 RBC (4.30-5.90) m/uL Hgb (13.0-17.5) gm/dL Hct (39.0-53.0) % MCV (80.0-100.0) fL MCH (25.0-35.0) pg MCHC (31.0-37.0) g/dL RDW (11.5-15.5) % Neutrophils # (1.3-7.7) k/uL Glucose (74-99) mg/dL POC Glucose (mg/dL) 129 H (75-99) mg/dL Tis Transglut IgA Intrp (NEGATIVE) Gliadin (Deam) IgG Int (NEGATIVE) Gliadin (Deam) IgA Int (NEGATIVE) Crossmatch Assessment and Plan (1) Anemia Narrative/Plan: Iron deficiency on lab workup. Suspect multifactorial including history of peptic ulcer disease, chronic Motrin use several times a week and recent addition of Coumadin in the last 4-5 weeks secondary to A-fib. Plan is for patient to follow up in the office where we will administer parenteral iron. Cardiology following patient for A-fib. Patient seen by GI, workup, capsule and biopsy pending Status: Acute Priority: High Code(s): D64.9 - ANEMIA, UNSPECIFIED SNOMED Code(s): 882766383
[2018-09-24] MEDS ORDERED: TEMAZEPAM 7.5 MG CAP PO PRN (21:00)
== END 2018-09-24 17:14 | disposition home or self-care (01) | DRG 391 ==
LOC: EC 09:50 → 3SCARD 11:52
PROVIDERS: ADMIT Family Medicine; ATTEND Family Medicine
PROC: 0DB98ZX Excision of Duodenum, Via Natural or Artificial Opening Endoscopic, Diagnostic (ICD-10-PCS; principal; 2018-09-20)
PROC: 30233N1 Transfusion of Nonautologous Red Blood Cells into Peripheral Vein, Percutaneous Approach (ICD-10-PCS; 2018-09-20)
DX: K90.0 Celiac disease (principal); I50.33 Acute on chronic diastolic (congestive) heart failure; N39.0 Urinary tract infection, site not specified; D50.9 Iron deficiency anemia, unspecified; I11.0 Hypertensive heart disease with heart failure; I27.29 Other secondary pulmonary hypertension; I27.81 Cor pulmonale (chronic); I08.1 Rheumatic disorders of both mitral and tricuspid valves; I48.0 Paroxysmal atrial fibrillation; E11.9 Type 2 diabetes mellitus without complications; E66.9 Obesity, unspecified; E78.5 Hyperlipidemia, unspecified; I25.10 Atherosclerotic heart disease of native coronary artery without angina pectoris; I25.2 Old myocardial infarction; I87.2 Venous insufficiency (chronic) (peripheral); K21.9 Gastro-esophageal reflux disease without esophagitis; K29.70 Gastritis, unspecified, without bleeding; K29.80 Duodenitis without bleeding; K57.30 Diverticulosis of large intestine without perforation or abscess without bleeding; N40.0 Benign prostatic hyperplasia without lower urinary tract symptoms; R79.1 Abnormal coagulation profile; G89.29 Other chronic pain; M47.9 Spondylosis, unspecified; Z68.36 Body mass index [BMI] 36.0-36.9, adult; Z79.01 Long term (current) use of anticoagulants; Z79.82 Long term (current) use of aspirin; Z79.84 Long term (current) use of oral hypoglycemic drugs; Z79.899 Other long term (current) drug therapy; Z87.11 Personal history of peptic ulcer disease; Z87.891 Personal history of nicotine dependence; Z90.49 Acquired absence of other specified parts of digestive tract; Z91.041 Radiographic dye allergy status; Z91.013 Allergy to seafood
CPT/HCPCS: 36415; 43239; 71046; 80048; 80053; 81001; 82272; 82550; 82553; 82607; 82728; 82746; 83036; 83516; 83540; 83550; 83735; 83880; 84484; 85025; 85027; 85045; 85610; 85730; 86850; 86900; 86901; 86920; 88305; 91110; 93005; 93306; 94760; 96374; 99285

== ENCOUNTER 2018-10-18 19:21 | Observation (INO) | payer MEDICARE ==
[2018-10-18] MEDS ORDERED: MORPHINE SULFATE 4 MG/ML SYRINGE IVP STA (19:38)
[2018-10-18] MEDS ORDERED: ONDANSETRON 4 MG/2 ML VIAL IVP STA (19:38)
--- NOTE | 2018-10-18 19:42 | ED ---
General Adult HPI - General Chief complaint: Urogenital Stated complaint: Male Time Seen by Provider: 10/18/18 19:28 Source: patient Mode of arrival: ambulatory Limitations: no limitations - History of Present Illness Initial comments: Patient is a 73-year-old male with a history of anemia from a GI source, diabetes, and atrial fibrillation who presents with a chief complaint of right- sided testicular pain. This started today. She cannot identify an inciting incident states that yesterday he was working on his car and states that he may twisted the wrong way. The pain gradually got worse throughout the day. He characterizes it as an ache. The symptoms are aggravated by walking and sitting down, there are no alleviating factors. Timing is constant. He has tried Tylenol 3, and Motrin without relief. - Related Data Home Medications Medication Instructions Recorded Confirmed Tamsulosin HCl [Flomax] 0.4 mg PO HS 09/25/14 10/18/18 glipiZIDE XL [Glucotrol XL] 10 mg PO DAILY 09/25/14 10/18/18 Finasteride 5 mg PO DAILY 05/28/15 10/18/18 Aspirin 81 mg PO DAILY 03/21/16 10/18/18 Atorvastatin [Lipitor] 40 mg PO DAILY 03/21/16 10/18/18 Lisinopril [Zestril] 10 mg PO DAILY 03/21/16 10/18/18 Metoprolol Tartrate [Lopressor] 25 mg PO BID 03/21/16 10/18/18 metFORMIN HCL [metFORMIN HCL ER] 1,000 mg PO AC-SUPPER 03/21/16 10/18/18 Carisoprodol [Soma] 350 mg PO BID 09/20/18 10/18/18 Omeprazole 20 mg PO DAILY 09/20/18 10/18/18 Potassium Chloride ER [K-Dur 10] 20 meq PO DAILY 09/20/18 10/18/18 Sulfamethox-Tmp 800-160Mg [Bactrim 0.5 tab PO DAILY 09/20/18 10/18/18 DS 800-160 mg] Warfarin [Coumadin] 7.5 mg PO SUTUTH 09/20/18 10/18/18 Warfarin [Coumadin] 10 mg PO MOWEFRSA 09/20/18 10/18/18 Furosemide [Lasix] 80 mg PO BID 10/18/18 10/18/18 Previous Rx's Medication Instructions Recorded Ferrous Sulfate [Feosol] 325 mg PO BID #60 tab 09/24/18 Allergies Allergy/AdvReac Type Severity Reaction Status Date / Time Iodine and Iodide Containing Allergy Rash/Hives Verified 10/18/18 19:54 Produc shellfish derived [Shellfish] Allergy Rash/Hives Verified 10/18/18 19:54 Review of Systems ROS Statement: Those systems with pertinent positive or pertinent negative responses have been documented in the HPI. ROS Other: All systems not noted in ROS Statement are negative. Genitourinary: Reports: testicular pain, testicular mass Past Medical History Past Medical History: Atrial Fibrillation, Coronary Artery Disease (CAD), Diabetes Mellitus, Hypertension, Prostate Disorder Additional Past Medical History / Comment(s): enlarged prostate with stones, prostatitis in past and recently-on abx, episode of v-tach 20 yrs ago, mild CAD, NIDDM type II, 2008 syncope, chronic back pain, stomach ulcers in past, back pain, Last Myocardial Infarction Date:: 05/28/15 History of Any Multi-Drug Resistant Organisms: None Reported Past Surgical History: Appendectomy, Cholecystectomy, Heart Catheterization, Orthopedic Surgery Additional Past Surgical History / Comment(s): tibia plateau fracture right leg with plates/screws, 05/29/15 cardiac cath with mild CAD. Past Anesthesia/Blood Transfusion Reactions: No Reported Reaction Past Psychological History: No Psychological Hx Reported Smoking Status: Former smoker Past Alcohol Use History: None Reported Past Drug Use History: None Reported - Past Family History Mother Additional Family Medical History / Comment(s): Bowel problems and possible lung cancer. Mother in her 80's. She did not go to the doctors much. Brother(s) Family Medical History: Cancer Father Family Medical History: Cancer Additional Family Medical History / Comment(s): Father had palpitations. He at about age 78yrs. General Exam Limitations: no limitations General appearance: alert, in no apparent distress Head exam: Present: atraumatic, normocephalic Eye exam: Present: normal appearance ENT exam: Present: normal exam Neck exam: Present: normal inspection Respiratory exam: Present: normal lung sounds bilaterally. Absent: respiratory distress, wheezes Cardiovascular Exam: Present: regular rate, irregular rhythm GI/Abdominal exam: Present: soft. Absent: distended, tenderness Rectal exam: Present: deferred exam: Present: testicular tenderness (Patient has tenderness to palpation of the right testicle, the scrotum is edematous and erythematous. There is a decreased cremasteric reflex on the right, there is tenderness and fullness to palpation of the testicle), scrotal swelling, circumcision Extremities exam: Present: normal inspection Back exam: Present: normal inspection Neurological exam: Present: alert, oriented X3 Psychiatric exam: Present: normal affect, normal mood Skin exam: Present: warm, dry, intact Course Vital Signs 10/18/18 10/18/18 19:24 22:09 Temperature 99 F Pulse Rate 78 78 Respiratory 18 18 Rate Blood Pressure 151/62 143/60 O2 Sat by Pulse 99 96 Oximetry Medical Decision Making - Medical Decision Making Patient presented with a chief complaint of testicular pain. On initial evaluation, vitals are stable, patient is in no acute distress. He'll be evaluated with basic labs including lactic acid, he will be sent for a computed tomography scan of the abdomen and pelvis with IV contrast and an ultrasound of the scrotum. UA and urine culture sent. Patient given morphine and Zofran for pain control. 8:50 PM Lab evaluation of this patient is remarkable for a creatinine of 1.35, elevated AST, AST, and alk phos. When compared to previous values, these are all elevated. Patient also showing evidence of urinary tract infection. I was informed that the patient has a contrast ALLERGY, he was given Pepcid, Solu- Medrol, and IV Benadryl prior to computed tomography scan. 10:39 PM Lab evaluation of the patient shows white blood cell count of 9.2. Patient has a transaminitis with an AST of 131, nail T of 202, and an alk phos of 168. There is evidence of a urinary tract infection for which the patient was started on Rocephin. Ultrasound shows adequate blood flow to the testicles, there is a mass on the right testicle that also has vascularity. Follow-up computed tomography scan shows a complex fluid collection in the right hemiscrotum, no evidence of air or necrotic tissue. This case was discussed with Dr. Dove who states that the patient does not require surgery at this moment. On reevaluation, the patient is having continued pain, he was given a second dose of pain medication. This case was discussed with Dr. Wu who accepts ad mission. Consult was placed to urology. Patient family agreeable with the care plan. - Lab Data Result diagrams: 10/18/18 20:00 10/18/18 20:00 Lab Results 10/18/18 10/18/18 10/18/18 Range/Units 19:38 20:00 20:00 WBC 9.2 (3.8-10.6) k/uL RBC 4.23 L (4.30-5.90) m/uL Hgb 10.2 L (13.0-17.5) gm/dL Hct 35.4 L (39.0-53.0) % MCV 83.6 D (80.0-100.0) fL MCH 24.0 L (25.0-35.0) pg MCHC 28.8 L (31.0-37.0) g/dL RDW 25.4 H (11.5-15.5) % Plt Count 209 (150-450) k/uL Neutrophils % 90 % Lymphocytes % 4 % Monocytes % 3 % Eosinophils % 1 % Basophils % 0 % Neutrophils # 8.3 H (1.3-7.7) k/uL Lymphocytes # 0.4 L (1.0-4.8) k/uL Monocytes # 0.3 (0-1.0) k/uL Eosinophils # 0.1 (0-0.7) k/uL Basophils # 0.0 (0-0.2) k/uL Manual Slide Review Performed Toxic Granulation Present Large Platelets Present Polychromasia Present Hypochromasia Marked Poikilocytosis Slight Poikilocytosis (manual Present Anisocytosis Marked Microcytosis Slight Macrocytosis Slight Sodium 136 L (137-145) mmol/L Potassium 4.7 (3.5-5.1) mmol/L Chloride 98 (98-107) mmol/L Carbon Dioxide 27 (22-30) mmol/L Anion Gap 11 mmol/L BUN 38 H (9-20) mg/dL Creatinine 1.35 H (0.66-1.25) mg/dL Est GFR (CKD-EPI)AfAm 60 (>60 ml/min/1.73 sqM) Est GFR (CKD-EPI)NonAf 52 (>60 ml/min/1.73 sqM) Glucose 219 H (74-99) mg/dL Plasma Lactic Acid [place] (0.7-2.0) mmol/L Calcium 9.3 (8.4-10.2) mg/dL Total Bilirubin 0.5 (0.2-1.3) mg/dL AST 131 H (17-59) U/L ALT 202 H (21-72) U/L Alkaline Phosphatase 168 H (38-126) U/L Total Protein 6.4 (6.3-8.2) g/dL Albumin 4.1 (3.5-5.0) g/dL Urine Color Yellow Urine Appearance Cloudy (Clear) Urine pH 6.0 (5.0-8.0) Ur Specific [place] 1.010 (1.001-1.035) Urine Protein Negative (Negative) Urine Glucose (UA) Negative (Negative) Urine Ketones Negative (Negative) Urine Blood Negative (Negative) Urine Nitrite Negative (Negative) Urine Bilirubin Negative (Negative) Urine Urobilinogen <2.0 (<2.0) mg/dL Ur Leukocyte Esterase Large H (Negative) Urine RBC 1 (0-5) /hpf Urine WBC 124 H (0-5) /hpf Urine WBC Clumps Occasional H (None) /hpf Ur Squamous Epith Cells 1 (0-4) /hpf Urine Bacteria Occasional H (None) /hpf Hyaline Casts 6 H (0-2) /lpf Urine Mucus Rare H (None) /hpf 10/18/18 Range/Units 20:00 WBC (3.8-10.6) k/uL RBC (4.30-5.90) m/uL Hgb (13.0-17.5) gm/dL Hct (39.0-53.0) % MCV (80.0-100.0) fL MCH (25.0-35.0) pg MCHC (31.0-37.0) g/dL RDW (11.5-15.5) % Plt Count (150-450) k/uL Neutrophils % % Lymphocytes % % Monocytes % % Eosinophils % % Basophils % % Neutrophils # (1.3-7.7) k/uL Lymphocytes # (1.0-4.8) k/uL Monocytes # (0-1.0) k/uL Eosinophils # (0-0.7) k/uL Basophils # (0-0.2) k/uL Manual Slide Review Toxic Granulation Large Platelets Polychromasia Hypochromasia Poikilocytosis Poikilocytosis (manual Anisocytosis Microcytosis Macrocytosis Sodium (137-145) mmol/L Potassium (3.5-5.1) mmol/L Chloride (98-107) mmol/L Carbon Dioxide (22-30) mmol/L Anion Gap mmol/L BUN (9-20) mg/dL Creatinine (0.66-1.25) mg/dL Est GFR (CKD-EPI)AfAm (>60 ml/min/1.73 sqM) Est GFR (CKD-EPI)NonAf (>60 ml/min/1.73 sqM) Glucose (74-99) mg/dL Plasma Lactic Acid [place] 1.6 (0.7-2.0) mmol/L Calcium (8.4-10.2) mg/dL Total Bilirubin (0.2-1.3) mg/dL AST (17-59) U/L ALT (21-72) U/L Alkaline Phosphatase (38-126) U/L Total Protein (6.3-8.2) g/dL Albumin (3.5-5.0) g/dL Urine Color Urine Appearance (Clear) Urine pH (5.0-8.0) Ur Specific [place] (1.001-1.035) Urine Protein (Negative) Urine Glucose (UA) (Negative) Urine Ketones (Negative) Urine Blood (Negative) Urine Nitrite (Negative) Urine Bilirubin (Negative) Urine Urobilinogen (<2.0) mg/dL Ur Leukocyte Esterase (Negative) Urine RBC (0-5) /hpf Urine WBC (0-5) /hpf Urine WBC Clumps (None) /hpf Ur Squamous Epith Cells (0-4) /hpf Urine Bacteria (None) /hpf Hyaline Casts (0-2) /lpf Urine Mucus (None) /hpf Disposition Clinical Impression: UTI (urinary tract infection), Intractable abdominal pain, Testicular mass, Hydrocele, Testicular pain, right Disposition: ADMITTED IP TO THIS HOSP Condition: Fair Is patient prescribed a controlled substance at d/c from ED?: No Referrals: José Busby MD [Primary Care Provider] - 1-2 days Decision to Admit Reason: Admit from EC - Out of Hospital Transfer - Req. Specs Out of Hospital Transfer - Requested Specifics: Other Non-Acute
[2018-10-18 19:53] LABS: Appearance,Urine Cloudy (Clear); Bacteria,Urine Occasional /hpf; Bilirubin,Urine Negative (Negative); Blood,Urine Negative (Negative); Color,Urine Yellow; Glucose,Urine (UA) Negative (Negative); Hyaline Casts,Urine 6 /lpf (0-2); Ketones,Urine Negative (Negative); Leukocyte Esterase,Urine Large (Negative); Mucus,Urine Rare /hpf; Nitrite,Urine Negative (Negative); Protein,Urine Negative (Negative); RBC,Urine 1 /hpf (0-5); Squamous Epithelial Cell,Urine 1 /hpf (0-4); Urobilinogen,Urine <2.0 mg/dL (<2.0); WBC,Urine 124 /hpf (0-5)
[2018-10-18 20:25] LABS: Anisocytosis Marked; Basophils % (A) 0 %; Eosinophils # (A) 0.1 k/uL (0-0.7); Eosinophils % (A) 1 %; HCT 35.4 % (39.0-53.0); HGB 10.2 gm/dL (13.0-17.5); Hypochromasia Marked; Lymphocytes # (A) 0.4 k/uL (1.0-4.8); Lymphocytes % (A) 4 %; MCHC 28.8 g/dL (31.0-37.0); MCV 83.6 fL (80.0-100.0); Macrocytosis Slight; Mean Platelet Volume 7.7; Microcytosis Slight; Monocytes # (A) 0.3 k/uL (0-1.0); Monocytes % (A) 3 %; Neutrophils # (A) 8.3 k/uL (1.3-7.7); Neutrophils % (A) 90 %; Platelet Count 209 k/uL (150-450); Poikilocytosis Slight; RBC 4.23 m/uL (4.30-5.90); RDW 25.4 % (11.5-15.5); WBC 9.2 k/uL (3.8-10.6)
[2018-10-18 20:27] LABS: Albumin 4.1 g/dL (3.5-5.0); Calcium 9.3 mg/dL (8.4-10.2); Potassium 4.7 mmol/L (3.5-5.1); Total Bilirubin 0.5 mg/dL (0.2-1.3); Total Protein 6.4 g/dL (6.3-8.2)
[2018-10-18 20:39] LABS: Large Platelets Present; Poikilocytosis (M) Present; Polychromasia Present
[2018-10-18 20:40] LABS: Toxic Granulation Present
[2018-10-18] MEDS ORDERED: methylPREDNISolone SOD SUCCI 125 MG/2 ML VIAL IV STA (20:47)
[2018-10-18] MEDS ORDERED: diphenhydrAMINE 50 MG/ML 1 ML VIAL IVP STA (20:47)
[2018-10-18] MEDS ORDERED: FAMOTIDINE 20 MG/2 ML VIAL IV STA (20:47)
--- NOTE | 2018-10-18 21:32 | US ---
EXAMINATION TYPE: US scrotum with doppler. Grayscale and color Doppler Duplex imaging performed of gauri briggs scrotum. DATE OF EXAM: 10/18/2018 COMPARISON: NONE CLINICAL HISTORY: Pain. Right testicle pain and swelling. EXAM MEASUREMENTS: TESTICLES: Right Testicle: 2.6 x 2.3 x 2.5 cm Left Testicle: 2.3 x 2.0 x 2.4 cm EPIDIDYMIS HEAD: Right Epididymis: 1.3 x 2.0 cm Left Epididymis: 3.0 x 2.3 x 2.7 cm Doppler performed to assess for testicular vascularity; good bilateral color flow and waveforms are s een. There is no evidence of testicular torsion. Presence of hydroceles: Yes complex loculated fluid collection right side. Presence of varicoceles: Yes Right lower pole heterogenous area measuring 3.0 x 2.5 x 2.5cm with vascularity. Loculated fluid jolly ection inferior right testicle. Right epididymal cyst 1cm. Left rete testis seen measuring 1cm, Left epididymal cyst seen 2.1 x 2.0 x 1.5 cm. IMPRESSION: Right-sided complex scrotal mass with blood flow and also right-sided complex hydrocele. This could be scrotal hernia. No testicular torsion. There is 8 mm hyperechoic focus within the right testicle but could be a tumor. Bilateral epididymal cysts.
--- NOTE | 2018-10-18 21:58 | CT ---
EXAMINATION TYPE: CT abdomen pelvis w con DATE OF EXAM: 10/18/2018 COMPARISON: None HISTORY: Right testicular swelling. CT DLP: 2199.6 mGycm Automated exposure control for dose reduction was used. TECHNIQUE: Helical acquisition of images was performed from the lung bases through the pelvis. CONTRAST: Performed without Oral Contrast and with IV Contrast, patient injected with 100 mL of Isovue 300. FINDINGS: Lung bases are clear of consolidation. There is no pleural effusion. There is no pericardial effusion . Heart appears normal. Stomach appears normal. There are clips from cholecystectomy. Liver appears normal with no focal defe ct. Bile ducts are not dilated. Spleen is enlarged and measures 15 cm. There is no pancreatic mass. There is no adrenal mass. There are bilateral renal cortical cysts that measure up to 2 cm. There is no hydronephrosis. Abdominal aorta is atheromatous. There is no retroperitoneal adenopathy. Bladder d istends smoothly. There is no inguinal hernia. There is bilateral scrotal fluid and right-sided hydro leslie. There is no free fluid in the pelvis. There is prostatic calcification. Prostate is enlarged an d measures 5.5 cm. Appendix is not seen. There is no sign of appendicitis. There is no mesenteric edema. There is no asc ites. There is no sign of free air. There is no evidence of bowel obstruction. The lumbar vertebra nielsen ve normal alignment. There is narrowing of disc spaces. There is no compression fracture. Bony pelvis is intact. IMPRESSION: COMPLEX FLUID IN THE SCROTUM AND MORE ON THE RIGHT SIDE ALSO EVALUATED BY ULTRASOUND. NO EVIDENCE OF A SCROTAL HERNIA. THERE IS A VASCULAR 3 CM SOLID MASS ON THE RIGHT SIDE OF THE SCROTUM BY ULTRASOUND AND THIS COULD BE A TUMOR NOT IN THE TESTICLE. MILD SIGMOID DIVERTICULOSIS WITHOUT DIVERTICULITIS.
[2018-10-18] MEDS ORDERED: cefTRIAXone IN SWFI 1,000 MG/10 ML SYRINGE IVP STA (22:05)
[2018-10-18] MEDS ORDERED: oxyCODONE ER 10 MG TAB.ER.12H PO STA (22:05)
[2018-10-18] MEDS ORDERED: ACETAMINOPHEN TAB 325 MG TAB PO PRN (22:33)
[2018-10-18] MEDS ORDERED: NALOXONE 0.4 MG/ML 1 ML VIAL IV PRN (22:33)
[2018-10-18] MEDS ORDERED: ONDANSETRON 4 MG/2 ML VIAL IVP PRN (22:33)
[2018-10-18] MEDS ORDERED: HYDROmorphone 0.5 MG/0.5 ML SYRINGE IVP PRN (22:33)
[2018-10-18] MEDS ORDERED: SODIUM CHLORIDE 0.9% 1,000 ML IV SCH (23:45)
[2018-10-19] MEDS: HYDROmorphone 0.5 MG/0.5 ML SYRINGE IVP PRN ×5 (00:08→11:20)
--- NOTE | 2018-10-19 00:10 | P.HPIM ---
History of Present Illness H&P Date: 10/18/18 Chief Complaint: Right testicular pain 73-year-old male with history of diabetes and hypertension and A. fib \ Patient presented with one-day history of right testicular pain described as dull achy pain 10 out of 10 in severity started upon waking up in the morning he felt that his right testicle is bigger than the left one tender to palpation denies any fevers or chills denies any penile drainage denies any skin changes denies any hematuria dysuria frequency or changes in urinary habits. She recalls history of UTI and prostatitis in the past he is on chronic low-dose Bactrim. Patient's pain got worse during the day not responding to Tylenol 3 or ibuprofen for which she decided to call his doctor who recommended that he goes to the hospital Patient denies any similar pain in the past he reports that states it gets worse with movement and sitting he denies any associated fevers or chills nausea or vomiting abdominal pain or any other urinary symptoms. The in the ED further testing with ultrasound showed no torsion of testicle good blood flow but suggested complex fluid-filled mass. Computed tomography scan showed vascular mass and hydrocele Urology was notified the patient admitted for further urologic evaluation Patient reported history of chronic anemia, due to malabsorption from possible underlying celiac disease is currently undergoing further testing with GI, recent EGD and C scope were negative Review of Systems Pertinent positives as noted in HPI. All other systems were reviewed and are negative Past Medical History Past Medical History: Atrial Fibrillation, Coronary Artery Disease (CAD), Diabetes Mellitus, Hypertension, Prostate Disorder Additional Past Medical History / Comment(s): enlarged prostate with stones, prostatitis in past and recently-on abx, episode of v-tach 20 yrs ago, mild CAD, NIDDM type II, 2008 syncope, chronic back pain, stomach ulcers in past, back pain, Last Myocardial Infarction Date:: 05/28/15 History of Any Multi-Drug Resistant Organisms: None Reported Past Surgical History: Appendectomy, Cholecystectomy, Heart Catheterization, O rthopedic Surgery Additional Past Surgical History / Comment(s): tibia plateau fracture right leg with plates/screws, 05/29/15 cardiac cath with mild CAD. Past Anesthesia/Blood Transfusion Reactions: No Reported Reaction Past Psychological History: No Psychological Hx Reported Smoking Status: Former smoker Past Alcohol Use History: None Reported Past Drug Use History: None Reported - Past Family History Mother Additional Family Medical History / Comment(s): Bowel problems and possible lung cancer. Mother in her 80's. She did not go to the doctors much. Brother(s) Family Medical History: Cancer Father Family Medical History: Cancer Additional Family Medical History / Comment(s): Father had palpitations. He at about age 78yrs. Medications and Allergies Home Medications Medication Instructions Recorded Confirmed Type Tamsulosin HCl [Flomax] 0.4 mg PO HS 09/25/14 10/18/18 History glipiZIDE XL [Glucotrol XL] 10 mg PO DAILY 09/25/14 10/18/18 History Finasteride 5 mg PO DAILY 05/28/15 10/18/18 History Aspirin 81 mg PO DAILY 03/21/16 10/18/18 History Atorvastatin [Lipitor] 40 mg PO DAILY 03/21/16 10/18/18 History Lisinopril [Zestril] 10 mg PO DAILY 03/21/16 10/18/18 History Metoprolol Tartrate [Lopressor] 25 mg PO BID 03/21/16 10/18/18 History metFORMIN HCL [metFORMIN HCL ER] 1,000 mg PO AC-SUPPER 03/21/16 10/18/18 History Carisoprodol [Soma] 350 mg PO BID 09/20/18 10/18/18 History Omeprazole 20 mg PO DAILY 09/20/18 10/18/18 History Potassium Chloride ER [K-Dur 10] 20 meq PO DAILY 09/20/18 10/18/18 History Sulfamethox-Tmp 800-160Mg [Bactrim 0.5 tab PO DAILY 09/20/18 10/18/18 History DS 800-160 mg] Warfarin [Coumadin] 7.5 mg PO SUTUTH 09/20/18 10/18/18 History Warfarin [Coumadin] 10 mg PO MOWEFRSA 09/20/18 10/18/18 History Ferrous Sulfate [Feosol] 325 mg PO BID #60 tab 09/24/18 10/18/18 Rx Furosemide [Lasix] 80 mg PO BID 10/18/18 10/18/18 History Allergies Allergy/AdvReac Type Severity Reaction Status Date / Time Iodine and Iodide Containing Allergy Rash/Hives Verified 10/18/18 19:54 Produc shellfish derived [Shellfish] Allergy Rash/Hives Verified 10/18/18 19:54 Physical Exam Vitals: Vital Signs Temp Pulse Resp BP Pulse Ox 10/18/18 22:09 78 18 143/60 96 10/18/18 19:24 99 F 78 18 151/62 99 Intake and Output 10/18/18 10/18/18 10/18/18 06:59 14:59 22:59 Other: Weight 114.305 kg Constitutional: No acute distress, conversant, pleasant Eyes: Anicteric sclerae, moist conjunctiva, no lid-lag Pupils equal round reactive to light ENMT: NC/AT Oropharynx clear, no erythema, exudates Neck: Supple, FROM, no masses, or JVD No carotid bruits No thyromegaly Lungs: Clear to auscultation Clear to percussion Normal respiratory effort, no accessory muscle use Cardiovascular: Heart regular in rate and rhythm, No murmurs, gallops, or rubs No peripheral edema Abdominal: Soft, obese Nontender, no guarding, rebound or rigidity Abdomen moving with respiration Normoactive bowel sounds No hepatomegaly, No splenomegaly No palpable mass No abdominal wall hernia noted scrotal exam revealed no skin changes, no ulcers, palpable right testicular mass, firm/rubbery , smooth, and hydrocele on the right side tender to palpation Skin: Normal temperature, tone, texture, turgor No induration No subcutaneous nodules No rash, lesions No ulcers Extremities: No digital cyanosis No clubbing Pedal pulses intact and symmetrical Radial pulses intact and symmetrical No calf tenderness Psychiatric: Alert and oriented to person, place and time Appropriate affect fair judgment Neuro Muscles Strength 5/5 in all 4 extremities Sensation to light touch grossly present throughout Cranial nerves II-XII grossly intact No focal sensory deficits Lymphatics: no palpable cervical or supraclavicular , or inguinal lymph nodes Results CBC & Chem 7: 10/18/18 20:00 10/18/18 20:00 Labs: Abnormal Lab Results - Last 24 Hours (Table) 10/18/18 10/18/18 10/18/18 Range/Units 19:38 20:00 20:00 RBC 4.23 L (4.30-5.90) m/uL Hgb 10.2 L (13.0-17.5) gm/dL Hct 35.4 L (39.0-53.0) % MCH 24.0 L (25.0-35.0) pg MCHC 28.8 L (31.0-37.0) g/dL RDW 25.4 H (11.5-15.5) % Neutrophils # 8.3 H (1.3-7.7) k/uL Lymphocytes # 0.4 L (1.0-4.8) k/uL Sodium 136 L (137-145) mmol/L BUN 38 H (9-20) mg/dL Creatinine 1.35 H (0.66-1.25) mg/dL Glucose 219 H (74-99) mg/dL AST 131 H (17-59) U/L ALT 202 H (21-72) U/L Alkaline Phosphatase 168 H (38-126) U/L Ur Leukocyte Esterase Large H (Negative) Urine WBC 124 H (0-5) /hpf Urine WBC Clumps Occasional H (None) /hpf Urine Bacteria Occasional H (None) /hpf Hyaline Casts 6 H (0-2) /lpf Urine Mucus Rare H (None) /hpf Microbiology - Last 24 Hours (Table) 10/18/18 19:38 Urine Culture - Preliminary Urine,Voided Assessment and Plan Assessment: 73 year old male with histroy of afib, DM, HTN. admitted as inpatient with anticipated length of stay >48 hours for right testicular mass suspicious for cancer, and severe right testicular pain to rule out infectious process. US of the testicle rules out testicular torsion , but suggested complex mass and hydrocele, CT showed vascular mass and hydrocele await urology evaluation Plan: right testicular mass and intractable pain concerning for malignancy check tumor markers (AFP, Beta HCG, LDH) follow up urology recommendations hold coumadin for possible Radical inguinal orchiectomy IVF hydration NPO pain control patient received one dose of ABx in the ED for possible UTI, will hold for now , await urology recs, and urine culture results transaminitis unknown underlying cause monitor closely , follow up labs CT showed unremarkable gall bladder paroxysmal afib, on coumadin hold coumadin hold aspirin for possible surgery continue metoprolol chronic conditions that are stable chronic diastolic heart failure DM hypertension anemia possible underlying malabsorption from celiac disease DVT PPx heparin sc tid Surrogate decision-maker: patient CODE STATUS:full code Discussed with: Patient, ER Anticipated discharge: 48-[address]: home A total of 60 minutes was spent on the care of this complex patient more than 50% of the time was spent in counseling and care coordination.
[2018-10-19 00:49] VITALS: BMI 39.5
[2018-10-19] MEDS: KETOROLAC 30 MG/ML 1 ML VIAL IVP SCH ×3 (01:14→12:44)
[2018-10-19] MEDS ORDERED: TEMAZEPAM 15 MG CAP PO PRN ×2 (01:46→02:25)
[2018-10-19 01:48] VITALS: RESP 16
[2018-10-19 06:56] LABS: Glucose,Whole Blood 320 mg/dL (75-99)
[2018-10-19] MEDS: INSULIN ASPART (NovoLOG) 100 UNIT/ML VIAL SQ SCH ×2 (07:07→12:44)
[2018-10-19] MEDS ORDERED: PANTOPRAZOLE 40 MG TABLET PO SCH (07:30)
[2018-10-19 07:58] LABS: INR 1.4 (<1.2); Prothrombin Time 14.6 sec (9.0-12.0)
[2018-10-19] MEDS ORDERED: HEPARIN SODIUM,PORCINE 5,000 UNIT/ML 1 ML VIAL SQ SCH (08:00)
[2018-10-19 08:04] LABS: Albumin 3.7 g/dL (3.5-5.0); Calcium 9.2 mg/dL (8.4-10.2); Magnesium 2.3 mg/dL (1.6-2.3); Total Bilirubin 0.4 mg/dL (0.2-1.3)
[2018-10-19 08:06] VITALS: BP 131/66; PULSE 78; TEMP 98.4
[2018-10-19 08:12] LABS: Anisocytosis Marked; Basophils % (A) 0 %; Eosinophils % (A) 0 %; HCT 32.6 % (39.0-53.0); HGB 9.7 gm/dL (13.0-17.5); Hypochromasia Marked; Lymphocytes # (A) 0.3 k/uL (1.0-4.8); Lymphocytes % (A) 4 %; MCH 24.3 pg (25.0-35.0); MCHC 29.7 g/dL (31.0-37.0); MCV 81.6 fL (80.0-100.0); Mean Platelet Volume 8.2; Microcytosis Moderate; Monocytes # (A) 0.1 k/uL (0-1.0); Monocytes % (A) 2 %; Neutrophils # (A) 6.7 k/uL (1.3-7.7); Neutrophils % (A) 94 %; Platelet Count 188 k/uL (150-450); Poikilocytosis Slight; RBC 3.99 m/uL (4.30-5.90)
[2018-10-19 08:16] LABS: RDW 25.8 % (11.5-15.5)
[2018-10-19 08:35] LABS: WBC 7.1 k/uL (3.8-10.6)
[2018-10-19 08:37] LABS: Polychromasia Present
[2018-10-19] MEDS ORDERED: METOPROLOL TARTRATE 25 MG TAB PO SCH (09:00)
[2018-10-19] MEDS ORDERED: ATORVASTATIN 40 MG TAB PO SCH (09:00)
[2018-10-19] MEDS ORDERED: LISINOPRIL 10 MG TAB PO SCH (09:00)
[2018-10-19] MEDS ORDERED: CARISOPRODOL 350 MG TAB PO SCH (09:00)
[2018-10-19] MEDS ORDERED: FERROUS SULFATE 325 MG TAB PO SCH (09:00)
[2018-10-19 11:33] LABS: Glucose,Whole Blood 287 mg/dL (75-99)
--- NOTE | 2018-10-19 12:23 | P.GSCN ---
History of Present Illness Consult date: 10/19/18 Reason for Consult: Right testicular pain and swelling History of present illness: the patient is a 73-year-old male admitted through the emergency room yesterday evening for evaluation of testicular pain and swelling. The patient is well known to me and was last seen by me in 02/2017. Yesterday the patient woke up with some aching in the region of the right testicle. He says that the pain in the region of the right testicle increased and he noted some swelling of the testicle and superior to the testicle. He had no fever or chills and noted no change in his normal voiding pattern. I spoke with him yesterday afternoon around 5:30 in told him that his symptoms were suggestive of acute right epididymitis related to his history of chronic prostatitis. I told him that he should have a urine culture obtained prior to beginning antibiotics and that because our office was closed he would need to go to an emergency room for evaluation. He was seen in the emergency room last night and was noted to be afebrile with a white blood count of 9200. Urinalysis suggested a urinary tract infection. Scrotal ultrasound and computed tomography scan of the pelvis were obtained and the showed increased blood flow to the region of the right testicle and a soft tissue mass adjacent to the testicle and possibly within the testicle. The patient was admitted and has been started on antibiotics. There was apparently concerned that he had an underlying testicular malignancy as alpha-fetoprotein, beta hCG and LDH were obtained. The patient has remained afebrile. White blood count is decreased at 7100. He continues to have discomfort and swelling in the region of the right testicle. As previously noted the patient has a history of chronic prostatitis and had been maintained on Bactrim DS one half tablet daily for several years with no recent episodes of an infection. He has a history of bilateral epididymal cysts and an abnormality in the right testicle measuring 8-10 mm in size with increased echogenicity which was first noted on ultrasound in 2006. The ultrasound findings remained stable and it was felt that the abnormality was benign.the patient usually voids every 2-3 hours during the day and 3-4 times at night. He attributes his nocturia to pedal edema and taking diuretics twice daily. He describes a good urinary flow and feels he voids completely. He has had no recent dysuria. Review of Systems - Constitutional Reports chronic pain, Denies chills, Denies fever - Gastrointestinal Denies abdominal pain, Denies change in bowel habits - Genitourinary Reports as per HPI Past Medical History Past Medical History: Atrial Fibrillation, Coronary Artery Disease (CAD), Diabetes Mellitus, Hypertension, Prostate Disorder Additional Past Medical History / Comment(s): enlarged prostate with stones, prostatitis in past and treated with Bactrim DS one half daily for suppression, episode of v-tach 20 yrs ago, mild CAD, NIDDM type II, 2007 syncope, chronic back pain, stomach ulcers in past, back pain, Last Myocardial Infarction Date:: 05/28/15 History of Any Multi-Drug Resistant Organisms: None Reported Past Surgical History: Appendectomy, Cholecystectomy, Heart Catheterization, Orthopedic Surgery Additional Past Surgical History / Comment(s): tibia plateau fracture right leg with plates/screws, 05/29/15 cardiac cath with mild CAD. Past Anesthesia/Blood Transfusion Reactions: No Reported Reaction Past Psychological History: No Psychological Hx Reported Additional Psychological History / Comment(s): Pt resides with his spouse. He drives. He is independent. Smoking Status: Former smoker Past Alcohol Use History: None Reported Additional Past Alcohol Use History / Comment(s): smoked [id number] 1ppd Past Drug Use History: None Reported - Past Family History Mother Additional Family Medical History / Comment(s): Bowel problems and possible lung cancer. Mother in her 80's. She did not go to the doctors much. Brother(s) Family Medical History: Cancer Father Family Medical History: Cancer Additional Family Medical History / Comment(s): Father had palpitations. He at about age 78yrs. Medications and Allergies Home Medications Medication Instructions Recorded Confirmed Type Tamsulosin HCl [Flomax] 0.4 mg PO HS 09/25/14 10/18/18 History glipiZIDE XL [Glucotrol XL] 10 mg PO DAILY 09/25/14 10/18/18 History Finasteride 5 mg PO DAILY 05/28/15 10/18/18 History Aspirin 81 mg PO DAILY 03/21/16 10/18/18 History Atorvastatin [Lipitor] 40 mg PO DAILY 03/21/16 10/18/18 History Lisinopril [Zestril] 10 mg PO DAILY 03/21/16 10/18/18 History Metoprolol Tartrate [Lopressor] 25 mg PO BID 03/21/16 10/18/18 History metFORMIN HCL [metFORMIN HCL ER] 1,000 mg PO AC-SUPPER 03/21/16 10/18/18 History Carisoprodol [Soma] 350 mg PO BID 09/20/18 10/18/18 History Omeprazole 20 mg PO DAILY 09/20/18 10/18/18 History Potassium Chloride ER [K-Dur 10] 20 meq PO DAILY 09/20/18 10/18/18 History Sulfamethox-Tmp 800-160Mg [Bactrim 0.5 tab PO DAILY 09/20/18 10/18/18 History DS 800-160 mg] Warfarin [Coumadin] 7.5 mg PO SUTUTH 09/20/18 10/18/18 History Warfarin [Coumadin] 10 mg PO MOWEFRSA 09/20/18 10/18/18 History Ferrous Sulfate [Feosol] 325 mg PO BID #60 tab 09/24/18 10/18/18 Rx Furosemide [Lasix] 80 mg PO BID 10/18/18 10/18/18 History Allergies Allergy/AdvReac Type Severity Reaction Status Date / Time Iodine and Iodide Containing Allergy Rash/Hives Verified 10/18/18 19:54 Produc shellfish derived [Shellfish] Allergy Rash/Hives Verified 10/18/18 19:54 Surgical - Exam Vital Signs Temp Pulse Resp BP Pulse Ox 99 F 78 18 151/62 99 10/18/18 19:24 10/18/18 19:24 10/18/18 19:24 10/18/18 19:24 10/18/18 19:24 - General no distress, obese - Neck no masses, no lymphadectomy - Respiratory normal respiratory effort - Abdomen Abdomen: soft, non tender, no organomegaly - Genitourinary normal penis with no external lesions, other (there is slight edema of the right scrotal skin. The right testicle is slightly enlarged and tender. There is a soft tissue mass superior to the right testicle which is tender to palpation and is consistent with acute epididymitis. No hernias noted) Results - Labs 10/19/18 07:24 10/19/18 07:24 Abnormal Lab Results - Last 24 Hours (Table) 10/18/18 10/18/18 10/18/18 Range/Units 19:38 20:00 20:00 RBC 4.23 L (4.30-5.90) m/uL Hgb 10.2 L (13.0-17.5) gm/dL Hct 35.4 L (39.0-53.0) % MCH 24.0 L (25.0-35.0) pg MCHC 28.8 L (31.0-37.0) g/dL RDW 25.4 H (11.5-15.5) % Neutrophils # 8.3 H (1.3-7.7) k/uL Lymphocytes # 0.4 L (1.0-4.8) k/uL PT (9.0-12.0) sec INR (<1.2) Sodium 136 L (137-145) mmol/L BUN 38 H (9-20) mg/dL Creatinine 1.35 H (0.66-1.25) mg/dL Glucose 219 H (74-99) mg/dL POC Glucose (mg/dL) (75-99) mg/dL AST 131 H (17-59) U/L ALT 202 H (21-72) U/L Alkaline Phosphatase 168 H (38-126) U/L Total Protein (6.3-8.2) g/dL Ur Leukocyte Esterase Large H (Negative) Urine WBC 124 H (0-5) /hpf Urine WBC Clumps Occasional H (None) /hpf Urine Bacteria Occasional H (None) /hpf Hyaline Casts 6 H (0-2) /lpf Urine Mucus Rare H (None) /hpf 10/19/18 10/19/18 10/19/18 Range/Units 06:54 07:24 07:24 RBC 3.99 L (4.30-5.90) m/uL Hgb 9.7 L (13.0-17.5) gm/dL Hct 32.6 L (39.0-53.0) % MCH 24.3 L (25.0-35.0) pg MCHC 29.7 L (31.0-37.0) g/dL RDW 25.8 H (11.5-15.5) % Neutrophils # (1.3-7.7) k/uL Lymphocytes # 0.3 L (1.0-4.8) k/uL PT (9.0-12.0) sec INR (<1.2) Sodium (137-145) mmol/L BUN 39 H (9-20) mg/dL Creatinine 1.35 H (0.66-1.25) mg/dL Glucose 289 H (74-99) mg/dL POC Glucose (mg/dL) 320 H (75-99) mg/dL AST 61 H (17-59) U/L ALT 160 H (21-72) U/L Alkaline Phosphatase 134 H (38-126) U/L Total Protein 6.0 L (6.3-8.2) g/dL Ur Leukocyte Esterase (Negative) Urine WBC (0-5) /hpf Urine WBC Clumps (None) /hpf Urine Bacteria (None) /hpf Hyaline Casts (0-2) /lpf Urine Mucus (None) /hpf 10/19/18 10/19/18 Range/Units 07:24 11:32 RBC (4.30-5.90) m/uL Hgb (13.0-17.5) gm/dL Hct (39.0-53.0) % MCH (25.0-35.0) pg MCHC (31.0-37.0) g/dL RDW (11.5-15.5) % Neutrophils # (1.3-7.7) k/uL Lymphocytes # (1.0-4.8) k/uL PT 14.6 H (9.0-12.0) sec INR 1.4 H (<1.2) Sodium (137-145) mmol/L BUN (9-20) mg/dL Creatinine (0.66-1.25) mg/dL Glucose (74-99) mg/dL POC Glucose (mg/dL) 287 H (75-99) mg/dL AST (17-59) U/L ALT (21-72) U/L Alkaline Phosphatase (38-126) U/L Total Protein (6.3-8.2) g/dL Ur Leukocyte Esterase (Negative) Urine WBC (0-5) /hpf Urine WBC Clumps (None) /hpf Urine Bacteria (None) /hpf Hyaline Casts (0-2) /lpf Urine Mucus (None) /hpf Microbiology - Last 24 Hours (Table) 10/18/18 19:38 Urine Culture - Preliminary Urine,Voided Diabetes panel 10/18/18 10/19/18 Range/Units 20:00 07:24 Sodium 136 L 137 (137-145) mmol/L Potassium 4.7 5.0 (3.5-5.1) mmol/L Chloride 98 100 (98-107) mmol/L Carbon Dioxide 27 26 (22-30) mmol/L BUN 38 H 39 H (9-20) mg/dL Creatinine 1.35 H 1.35 H (0.66-1.25) mg/dL Glucose 219 H 289 H (74-99) mg/dL Calcium 9.3 9.2 (8.4-10.2) mg/dL AST 131 H 61 H (17-59) U/L ALT 202 H 160 H (21-72) U/L Alkaline Phosphatase 168 H 134 H (38-126) U/L Total Protein 6.4 6.0 L (6.3-8.2) g/dL Albumin 4.1 3.7 (3.5-5.0) g/dL Calcium panel 10/18/18 10/19/18 Range/Units 20:00 07:24 Calcium 9.3 9.2 (8.4-10.2) mg/dL Albumin 4.1 3.7 (3.5-5.0) g/dL Pituitary panel 10/18/18 10/19/18 Range/Units 20:00 07:24 Sodium 136 L 137 (137-145) mmol/L Potassium 4.7 5.0 (3.5-5.1) mmol/L Chloride 98 100 (98-107) mmol/L Carbon Dioxide 27 26 (22-30) mmol/L BUN 38 H 39 H (9-20) mg/dL Creatinine 1.35 H 1.35 H (0.66-1.25) mg/dL Glucose 219 H 289 H (74-99) mg/dL Calcium 9.3 9.2 (8.4-10.2) mg/dL Adrenal panel 10/18/18 10/19/18 Range/Units 20:00 07:24 Sodium 136 L 137 (137-145) mmol/L Potassium 4.7 5.0 (3.5-5.1) mmol/L Chloride 98 100 (98-107) mmol/L Carbon Dioxide 27 26 (22-30) mmol/L BUN 38 H 39 H (9-20) mg/dL Creatinine 1.35 H 1.35 H (0.66-1.25) mg/dL Glucose 219 H 289 H (74-99) mg/dL Calcium 9.3 9.2 (8.4-10.2) mg/dL Total Bilirubin 0.5 0.4 (0.2-1.3) mg/dL AST 131 H 61 H (17-59) U/L ALT 202 H 160 H (21-72) U/L Alkaline Phosphatase 168 H 134 H (38-126) U/L Total Protein 6.4 6.0 L (6.3-8.2) g/dL Albumin 4.1 3.7 (3.5-5.0) g/dL Assessment and Plan (1) Right epididymitis Narrative/Plan: The patient's pain and physical examination are consistent with acute right epididymitis which is most likely related to the patient's chronic prostatitis. It is possible that the patient was straining while working on his car 2 days ago and that while straining infected urine refluxed from the prostatic urethra through the vas to the epididymis. The likelihood of testicular malignancy is extremely remote at the patient's age and with the presentation of acute pain and swelling. The patient can be discharged from my standpoint. He should elevate his scrotum on an ice pack. I would suggest he resume Bactrim DS 1 twice a day pending results of the urine culture. I can contact him after the weekend once the culture results are finalized. He should be seen by me in 7-10 days for follow-up. Current Visit: Yes Status: Acute Code(s): N45.1 - EPIDIDYMITIS SNOMED Code(s): 01953313
--- NOTE | 2018-10-19 17:31 | P.DS ---
Providers Date of admission: 10/18/18 22:33 Expected date of discharge: 10/19/18 Attending physician: Maranda Davis MD Consults: 10/18/18 22:35 Consult Physician Routine Consulting Provider: Cornelio Dove Consult Reason/Comments: testicular mass, fluid collection Do you want consulting provider notified?: Already Contacted Primary care physician: [facility] Course: Patient is 73-year-old male with a PMH of hypertension, chronic prostatitis (on maintenance Bactrim therapy), diabetes mellitus, atrial fibrillation on Coumadin, and coronary artery disease who presented to the ED for testicular pain and swelling. The patient notes that he woke up the day prior with aching in the right testicle and the pain gradually worsened and he then noticed a swelling of the area. The patient denied fevers, chills, dysuria, or any other urinary complaints. The patient was seen in the urology clinic by Dr. Coto who recommended that the patient go to the ED to undergo urine cultures prior to initiation of antibiotics. The patient presented to the ED and was noted to have a UA consistent with a UTI. He underwent scrotal ultrasound along with a CT of the pelvis, both of which revealed a soft tissue mass along with swelling. The patient was subsequently admitted to the medicine service for concerns of possible malignancy. Urology was consulted and recommended that the patient likely has an acute epididymitis and is very unlikely to have a testicular malignancy. Discussed the case with Dr. Coto from urology will recommended that the patient may be initiated on Levaquin and is cleared for discharge from his standpoint. He noted that he will follow up the urine cultures on Monday and will adjust the antibiotics as needed. Patient was seen and examined at the day of discharge at the bedside. He reported continued scrotal pain and swelling. He further denied any dysuria, fever, chills, or other urinary abnormalities. Patient was advised that since the Levaquin can interfere with his Coumadin levels, that he should get his INR checked on Monday and continue to do so every 2-3 days while he is taking the Levaquin. Physical Examination General: Non-toxic, in no acute distress, appears stated age, obese HEENT: NC/AT, anicteric sclerae, moist conjunctiva, no lid-lag, PERRLA Cardiovascular: S1/S2 wnl, no murmurs, rubs, or gallops Lungs: Clear to auscultation, normal respiratory effort, no accessory muscle use Abdominal: Soft, non-tender, non-distended, no guarding, rebound, or rigidity Skin: Warm, dry, right scrotal swelling and tenderness Extremities: No edema or contractures Psychiatric: Alert and oriented to person, place and time, appropriate affect Neuro: CN II-XII grossly intact, Strength 5/5 in all 4 extremities, Speech intact, Sensation to light touch grossly intact throughout Discharge diagnosis: Right epididymitis; chronic prostatitis; hypertension; diabetes mellitus; atrial fibrillation; coronary artery disease A total of 35 minutes of time were spent preparing this complex discharge summary. Patient Condition at Discharge: Fair Plan - Discharge Summary Discharge Rx Participant: Yes New Discharge Prescriptions: New Levofloxacin [Levaquin] 750 mg PO DAILY 7 Days #7 tab HYDROcodone/APAP 10-325MG [Walker 10-325] 1 tab PO Q6HR PRN 3 Days #12 tab PRN Reason: Pain Continue glipiZIDE XL [Glucotrol XL] 10 mg PO DAILY Tamsulosin HCl [Flomax] 0.4 mg PO HS Finasteride 5 mg PO DAILY Aspirin 81 mg PO DAILY Metoprolol Tartrate [Lopressor] 25 mg PO BID Atorvastatin [Lipitor] 40 mg PO DAILY Lisinopril [Zestril] 10 mg PO DAILY metFORMIN HCL [metFORMIN HCL ER] 1,000 mg PO AC-SUPPER Potassium Chloride ER [K-Dur 10] 20 meq PO DAILY Carisoprodol [Soma] 350 mg PO BID Warfarin [Coumadin] 7.5 mg PO SUTUTH Warfarin [Coumadin] 10 mg PO MOWEFRSA Omeprazole 20 mg PO DAILY Ferrous Sulfate [Feosol] 325 mg PO BID #60 tab Furosemide [Lasix] 80 mg PO BID Discontinued Sulfamethox-Tmp 800-160Mg [Bactrim DS 800-160 mg] 0.5 tab PO DAILY Discharge Medication List Tamsulosin HCl [Flomax] 0.4 mg PO HS 09/25/14 [History] glipiZIDE XL [Glucotrol XL] 10 mg PO DAILY 09/25/14 [History] Finasteride 5 mg PO DAILY 05/28/15 [History] Aspirin 81 mg PO DAILY 03/21/16 [History] Atorvastatin [Lipitor] 40 mg PO DAILY 03/21/16 [History] Lisinopril [Zestril] 10 mg PO DAILY 03/21/16 [History] Metoprolol Tartrate [Lopressor] 25 mg PO BID 03/21/16 [History] metFORMIN HCL [metFORMIN HCL ER] 1,000 mg PO AC-SUPPER 03/21/16 [History] Carisoprodol [Soma] 350 mg PO BID 09/20/18 [History] Omeprazole 20 mg PO DAILY 09/20/18 [History] Potassium Chloride ER [K-Dur 10] 20 meq PO DAILY 09/20/18 [History] Warfarin [Coumadin] 7.5 mg PO SUTUTH 09/20/18 [History] Warfarin [Coumadin] 10 mg PO MOWEFRSA 09/20/18 [History] Ferrous Sulfate [Feosol] 325 mg PO BID #60 tab 09/24/18 [Rx] Furosemide [Lasix] 80 mg PO BID 10/18/18 [History] HYDROcodone/APAP 10-325MG [Walker 10-325] 1 tab PO Q6HR PRN 3 Days #12 tab 10/19/18 [Rx] Levofloxacin [Levaquin] 750 mg PO DAILY 7 Days #7 tab 10/19/18 [Rx] Follow up Appointment(s)/Referral(s): Luca Coto MD [STAFF PHYSICIAN] - 10/31/18 10:00 am José Busby MD [Primary Care Provider] - 10/22/18 9:45 am Patient Instructions/Handouts: Epididymitis (ED), Urinary Tract Infection in Men (DC) Discharge Disposition: HOME SELF-CARE
[2018-10-19] MEDS ORDERED: TAMSULOSIN 0.4 MG CAP.ER.24H PO SCH (21:00)
== END 2018-10-19 14:30 | disposition home or self-care (01) ==
LOC: EC 19:21 → 4SSUR 22:33
PROVIDERS: ADMIT Internal Medicine; ATTEND Internal Medicine
DX: N45.1 Epididymitis (principal); N39.0 Urinary tract infection, site not specified; D64.9 Anemia, unspecified; E11.9 Type 2 diabetes mellitus without complications; I11.0 Hypertensive heart disease with heart failure; I25.10 Atherosclerotic heart disease of native coronary artery without angina pectoris; I48.0 Paroxysmal atrial fibrillation; N40.0 Benign prostatic hyperplasia without lower urinary tract symptoms; N43.3 Hydrocele, unspecified; N41.1 Chronic prostatitis; I50.32 Chronic diastolic (congestive) heart failure; E66.9 Obesity, unspecified; Z68.39 Body mass index [BMI] 39.0-39.9, adult; Z91.041 Radiographic dye allergy status; Z87.891 Personal history of nicotine dependence; Z87.440 Personal history of urinary (tract) infections; Z79.2 Long term (current) use of antibiotics; Z79.899 Other long term (current) drug therapy; Z79.84 Long term (current) use of oral hypoglycemic drugs; Z79.82 Long term (current) use of aspirin; Z79.01 Long term (current) use of anticoagulants; I25.2 Old myocardial infarction; Z87.11 Personal history of peptic ulcer disease
CPT/HCPCS: 96375 ×2; 96374; 99285; 36415; 80053 ×2; 83605; 83615; 83735; 85025 ×2; 85610; 81001; 87040; 84702; 82105; 87086; 87077; 87186; 93975; 76870; 74177; G0378 ×2; J2270; J1200; J2930; J2405; J0696; J1885; J1170; Q9967; 96376

== ENCOUNTER 2018-10-25 17:52 | Inpatient (IN) | payer MEDICARE ==
[2018-10-25 19:41] VITALS: BMI 40.1
[2018-10-25 20:55] LABS: Glucose,Whole Blood 135 mg/dL (75-99)
[2018-10-25 21:04] LABS: Anisocytosis Moderate; Basophils % (A) 0 %; Eosinophils # (A) 0.2 k/uL (0-0.7); Eosinophils % (A) 2 %; HCT 33.6 % (39.0-53.0); HGB 10.2 gm/dL (13.0-17.5); Hypochromasia Marked; Lymphocytes # (A) 0.6 k/uL (1.0-4.8); Lymphocytes % (A) 7 %; MCHC 30.3 g/dL (31.0-37.0); MCV 85.6 fL (80.0-100.0); Mean Platelet Volume 7.7; Microcytosis Slight; Monocytes # (A) 0.3 k/uL (0-1.0); Monocytes % (A) 4 %; Neutrophils # (A) 6.8 k/uL (1.3-7.7); Neutrophils % (A) 85 %; Platelet Count 284 k/uL (150-450); Poikilocytosis Moderate; RBC 3.93 m/uL (4.30-5.90); RDW 22.8 % (11.5-15.5)
[2018-10-25 21:15] LABS: Prothrombin Time 10.6 sec (9.0-12.0)
[2018-10-25 21:20] LABS: ALT 55 U/L (21-72); AST 17 U/L (17-59); Albumin 3.5 g/dL (3.5-5.0); Alkaline Phosphatase 108 U/L (38-126); Anion Gap 10 mmol/L; Blood Urea Nitrogen 8 mg/dL (9-20); Calcium 9.3 mg/dL (8.4-10.2); Carbon Dioxide 23 mmol/L (22-30); Chloride 109 mmol/L (98-107); Glucose 132 mg/dL (74-99); Potassium 4.2 mmol/L (3.5-5.1); Sodium 142 mmol/L (137-145); Total Bilirubin 0.5 mg/dL (0.2-1.3); Total Protein 5.9 g/dL (6.3-8.2)
[2018-10-25] MEDS ORDERED: HYDROmorphone 1 MG/ML 1 ML SYRINGE IVP STA (21:43)
[2018-10-25] MEDS ORDERED: HYDROmorphone 1 MG/ML 1 ML SYRINGE IVP PRN (22:42)
[2018-10-25] MEDS ORDERED: WARFARIN 10 MG TAB PO SCH (22:45)
--- NOTE | 2018-10-25 22:47 | P.HPIM ---
History of Present Illness H&P Date: 10/25/18 Patient is 73-year-old male with a PMH of hypertension, chronic prostatitis (on maintenance Bactrim therapy), diabetes mellitus, atrial fibrillation on Coumadin, and coronary artery disease who presented to the ED for worsening testicular pain and swelling. The patient was recently discharged from [facility] on 10/19/18 when he was admitted for similar symptoms, was evaluated by urology, and was discharged on oral Levaquin for acute epididymitis. The patient subsequently followed up with urology (Dr Coto) on 10/22/2018 and he was subsequently switched to Augmentin as per the urine culture results from the hospitalization. Patient reports that he has been taking the Augmentin as pre scribed though his pain and swelling gradually worsened. At time of interview, the patient reported 10 out of 10 scrotal pain, gradually worsening over the past few days. He otherwise denied fevers, chills, dysuria, hematuria, chest pain, shortness of breath. The patient was seen at his PCP Dr. Busby's office and was subsequently sent for direct admission. The patient underwent laboratory evaluation upon admission with WBC count 8.0, hemoglobin 10.2, platelets 284, and INR 1.0. Review of Systems Pertinent positives and negatives as discussed in HPI, a complete review of systems was performed and all other systems are negative. Past Medical History Past Medical History: Atrial Fibrillation, Coronary Artery Disease (CAD), Diabetes Mellitus, Hypertension, Prostate Disorder Additional Past Medical History / Comment(s): enlarged prostate with stones, prostatitis in past and treated with Bactrim DS one half daily for suppression, episode of v-tach 20 yrs ago, mild CAD, NIDDM type II, 2008 syncope, chronic back pain, stomach ulcers in past, back pain, Last Myocardial Infarction Date:: 05/28/15 History of Any Multi-Drug Resistant Organisms: None Reported Past Surgical History: Appendectomy, Cholecystectomy, Heart Catheterization, Orthopedic Surgery Additional Past Surgical History / Comment(s): tibia plateau fracture right leg with plates/screws, 05/29/15 cardiac cath with mild CAD. Past Anesthesia/Blood Transfusion Reactions: No Reported Reaction Past Psychological History: No Psychological Hx Reported Additional Psychological History / Comment(s): Pt resides with his spouse. He drives. He is independent. Smoking Status: Former smoker Past Alcohol Use History: None Reported Additional Past Alcohol Use History / Comment(s): smoked [id number] 1ppd Past Drug Use History: None Reported - Past Family History Mother Additional Family Medical History / Comment(s): Bowel problems and possible lung cancer. Mother in her 80's. She did not go to the doctors much. Brother(s) Family Medical History: Cancer Father Family Medical History: Cancer Additional Family Medical History / Comment(s): Father had palpitations. He at about age 78yrs. Medications and Allergies Home Medications Medication Instructions Recorded Confirmed Type Tamsulosin HCl [Flomax] 0.4 mg PO HS 09/25/14 10/25/18 History glipiZIDE XL [Glucotrol XL] 10 mg PO DAILY 09/25/14 10/25/18 History Finasteride 5 mg PO DAILY 05/28/15 10/25/18 History Aspirin 81 mg PO DAILY 03/21/16 10/25/18 History Atorvastatin [Lipitor] 40 mg PO DAILY 03/21/16 10/25/18 History Lisinopril [Zestril] 10 mg PO DAILY 03/21/16 10/25/18 History Metoprolol Tartrate [Lopressor] 25 mg PO BID 03/21/16 10/25/18 History metFORMIN HCL [metFORMIN HCL ER] 1,000 mg PO AC-SUPPER 03/21/16 10/25/18 History Carisoprodol [Soma] 350 mg PO BID 09/20/18 10/25/18 History Omeprazole 20 mg PO DAILY 09/20/18 10/25/18 History Potassium Chloride ER [K-Dur 10] 20 meq PO DAILY 09/20/18 10/25/18 History Warfarin [Coumadin] 5 mg PO MOWEFR 09/20/18 10/25/18 History Warfarin [Coumadin] 7.5 mg PO SUSA 09/20/18 10/25/18 History Ferrous Sulfate [Feosol] 325 mg PO BID #60 tab 09/24/18 10/25/18 Rx Furosemide [Lasix] 80 mg PO BID 10/18/18 10/25/18 History Warfarin [Coumadin] 10 mg PO TUTH 10/25/18 10/25/18 History Allergies Allergy/AdvReac Type Severity Reaction Status Date / Time Iodine and Iodide Containing Allergy Rash/Hives Verified 10/25/18 20:00 Produc shellfish derived [Shellfish] Allergy Rash/Hives Verified 10/25/18 20:00 Physical Exam Vitals: Vital Signs Temp Pulse Resp BP Pulse Ox 10/25/18 08:00 98 F 76 18 183/71 100 Intake and Output 10/25/18 10/25/18 10/25/18 06:59 14:59 22:59 Other: Weight 116.12 kg General: non toxic, in moderate distress due to pain, appears at stated age, morbidly obese Derm: Scrotal induration, and warmth, with tenderness Head: atraumatic, normocephalic, symmetric Eyes: EOMI, no lid lag, anicteric sclera, pupils equal round reactive to light ENT: Nose and ears atraumatic, no thrush, no pharyngeal erythema Neck: No thyromegaly, no cervical lymphadenopathy, trachea midline, supple Mouth: no lip lesion, mucus membranes moist Cardiovascular: S1S2 reg, no murmur, positive posterior tibial pulse bilateral, no edema, capillary refill less than 2 seconds Lungs: CTA bilateral, no rhonchi, no rales , no accessory muscle use Abdominal: soft, nontender to palpation, no guarding, no appreciable organomegaly, normal bowel sounds Pelvis: Scrotal swelling, induration, with significant tenderness to palpation, and right testicular enlargement Ext: no gross muscle atrophy, muscle strength 5 out of 5 in all 4 extremities grossly, no contractures, Neuro: CN II-XI grossly intact, light touch intact all 4 extremities, finger to nose within normal limits, Psych: Alert, oriented, appropriate affect Results CBC & Chem 7: 10/25/18 20:45 10/25/18 20:45 Labs: Abnormal Lab Results - Last 24 Hours (Table) 10/25/18 10/25/18 10/25/18 Range/Units 20:45 20:45 20:54 RBC 3.93 L (4.30-5.90) m/uL Hgb 10.2 L (13.0-17.5) gm/dL Hct 33.6 L (39.0-53.0) % MCHC 30.3 L (31.0-37.0) g/dL RDW 22.8 H (11.5-15.5) % Lymphocytes # 0.6 L (1.0-4.8) k/uL Chloride 109 H (98-107) mmol/L BUN 8 L (9-20) mg/dL Glucose 132 H (74-99) mg/dL POC Glucose (mg/dL) 135 H (75-99) mg/dL Total Protein 5.9 L (6.3-8.2) g/dL Thrombosis Risk Factor Assmnt - Choose All That Apply Any of the Below Risk Factors Present?: Yes Each Factor Represents 1 point: Obesity (BMI >25) Each Risk Factor Represents 2 Points: Age 61-74 years Thrombosis Risk Factor Assessment Total Risk Factor Score: 3 Thrombosis Risk Factor Assessment Level: Moderate Risk Assessment and Plan Plan: Right testicular swelling and pain, acute epididymitis failed outpatient therapy -Started on ceftriaxone 1 g every 24-hour -Urology and infectious disease consulted -Drawn repeat blood and urine cultures -IV fluids 100 mL an hour -Pain control A. fib, on Coumadin, subtherapeutic INR -Continue with home dose of Coumadin -Patient reports noncompliance Diabetes mellitus -Insulin with blood glucose monitoring Chronic anemia -Monitor CBC DVT//GI prophylaxis -Heparin -Protonix The patient is admitted with an anticipated greater than 2 midnight stay for evaluation of acute epididymitis. CODE STATUS: Full code Discussed with: Patient Anticipated discharge date: 10/28/[address]: Home A total of 35 minutes was spent on the care of this complex patient more than 50% of the time was spent in counseling and care coordination.
[2018-10-25] MEDS: METOPROLOL TARTRATE 25 MG TAB PO SCH (23:46)
[2018-10-25] MEDS: FUROSEMIDE 40 MG TAB PO SCH (23:46)
[2018-10-25] MEDS: SODIUM CHLORIDE 0.9% 1,000 ML IV SCH (23:46)
[2018-10-25] MEDS: HEPARIN SODIUM,PORCINE 5,000 UNIT/ML 1 ML VIAL SQ SCH (23:48)
[2018-10-26] MEDS: HYDROmorphone 1 MG/ML 1 ML SYRINGE IVP PRN ×8 (00:28→21:56)
[2018-10-26 07:04] LABS: Glucose,Whole Blood 162 mg/dL (75-99)
[2018-10-26] MEDS: POTASSIUM CHLORIDE ER 20 MEQ TAB.ER PO SCH (07:23)
[2018-10-26] MEDS: FUROSEMIDE 40 MG TAB PO SCH ×2 (07:24→16:08)
[2018-10-26] MEDS: METOPROLOL TARTRATE 25 MG TAB PO SCH ×2 (07:25→21:30)
[2018-10-26] MEDS: ASPIRIN 81 MG PO SCH (07:26)
[2018-10-26] MEDS: PANTOPRAZOLE 40 MG TABLET PO SCH (07:26)
[2018-10-26] MEDS: HEPARIN SODIUM,PORCINE 5,000 UNIT/ML 1 ML VIAL SQ SCH ×2 (07:26→16:21)
[2018-10-26] MEDS: LISINOPRIL 10 MG TAB PO SCH (07:26)
[2018-10-26] MEDS: ATORVASTATIN 40 MG TAB PO SCH (07:26)
[2018-10-26] MEDS: FINASTERIDE 5 MG TAB PO SCH (07:27)
[2018-10-26] MEDS: INSULIN ASPART (NovoLOG) 100 UNIT/ML VIAL SQ SCH ×4 (07:28→21:30)
[2018-10-26 09:17] LABS: Anisocytosis Moderate; HGB 10.4 gm/dL (13.0-17.5); Hypochromasia Marked; MCH 25.1 pg (25.0-35.0); MCHC 30.5 g/dL (31.0-37.0); MCV 82.2 fL (80.0-100.0); Mean Platelet Volume 9.3; Microcytosis Moderate; Platelet Count 348 k/uL (150-450); Poikilocytosis Slight; RBC 4.13 m/uL (4.30-5.90); RDW 23.3 % (11.5-15.5); WBC 12.4 k/uL (3.8-10.6)
[2018-10-26 09:18] LABS: Prothrombin Time 10.8 sec (9.0-12.0)
[2018-10-26 09:34] LABS: Anion Gap 11 mmol/L; Blood Urea Nitrogen 7 mg/dL (9-20); Calcium 9.6 mg/dL (8.4-10.2); Carbon Dioxide 24 mmol/L (22-30); Chloride 107 mmol/L (98-107); Glucose 180 mg/dL (74-99); Potassium 4.4 mmol/L (3.5-5.1); Sodium 142 mmol/L (137-145)
[2018-10-26 11:34] LABS: Glucose,Whole Blood 204 mg/dL (75-99)
--- NOTE | 2018-10-26 13:12 | P.PN ---
Subjective Progress Note Date: 10/26/18 Principal diagnosis: Testicular swelling Patient seen and examined. No acute events overnight. Patient reports 10 out of 10 pain in his right testicle. He also reports that it's been severely swollen since his discharge left-sided. His antibiotics were switched from Levaquin to Augmentin, despite that symptoms have been getting worse. He denies any nausea or vomiting. No fever or chills. Increased urinary frequency but no dysuria or hematuria. No penile discharge. Objective - Vital Signs Vital signs: Vital Signs Temp 98.1 F 10/26/18 12:24 Pulse 81 10/26/18 12:24 Resp 17 10/26/18 12:24 BP 155/62 10/26/18 12:24 Pulse Ox 98 10/26/18 12:24 Intake & Output 10/25/18 10/26/18 10/26/18 18:59 06:59 18:59 Weight 116.12 kg Other: Voiding Method Toilet Toilet # Voids 2 - Exam General: [non toxic], [no distress], [appears at stated age] Derm: [warm], [dry] Head: [atraumatic], [normocephalic], [symmetric] Eyes: [EOMI], [no lid lag], [anicteric sclera] Mouth: [no lip lesion], [mucus membranes moist] Cardiovascular: [S1S2 reg], [no murmur], [positive posterior tibial pulse bilateral], Lungs: [CTA bilateral], [no rhonchi, no rales] , [no accessory muscle use] Abdominal: [soft], [ nontender to palpation], [no guarding], [no appreciable organomegaly], [right-sided testicular swelling with mild tenderness to palpation.], [Inguinal lymph nodes swollen on the right side] Ext: [no gross muscle atrophy], [no edema], [no contractures] Neuro: [no focal neuro deficits] Psych: [Alert], [oriented], [appropriate affect] - Labs CBC & Chem 7: 10/26/18 08:34 10/26/18 08:34 Labs: Abnormal Lab Results - Last 24 Hours (Table) 10/25/18 10/25/18 10/25/18 Range/Units 20:45 20:45 20:54 WBC (3.8-10.6) k/uL RBC 3.93 L (4.30-5.90) m/uL Hgb 10.2 L (13.0-17.5) gm/dL Hct 33.6 L (39.0-53.0) % MCHC 30.3 L (31.0-37.0) g/dL RDW 22.8 H (11.5-15.5) % Lymphocytes # 0.6 L (1.0-4.8) k/uL Chloride 109 H (98-107) mmol/L BUN 8 L (9-20) mg/dL Glucose 132 H (74-99) mg/dL POC Glucose (mg/dL) 135 H (75-99) mg/dL Total Protein 5.9 L (6.3-8.2) g/dL 10/26/18 10/26/18 10/26/18 Range/Units 07:03 08:34 08:34 WBC 12.4 H (3.8-10.6) k/uL RBC 4.13 L (4.30-5.90) m/uL Hgb 10.4 L (13.0-17.5) gm/dL Hct 34.0 L (39.0-53.0) % MCHC 30.5 L (31.0-37.0) g/dL RDW 23.3 H (11.5-15.5) % Lymphocytes # (1.0-4.8) k/uL Chloride (98-107) mmol/L BUN 7 L (9-20) mg/dL Glucose 180 H (74-99) mg/dL POC Glucose (mg/dL) 162 H (75-99) mg/dL Total Protein (6.3-8.2) g/dL 10/26/18 Range/Units 11:33 WBC (3.8-10.6) k/uL RBC (4.30-5.90) m/uL Hgb (13.0-17.5) gm/dL Hct (39.0-53.0) % MCHC (31.0-37.0) g/dL RDW (11.5-15.5) % Lymphocytes # (1.0-4.8) k/uL Chloride (98-107) mmol/L BUN (9-20) mg/dL Glucose (74-99) mg/dL POC Glucose (mg/dL) 204 H (75-99) mg/dL Total Protein (6.3-8.2) g/dL Microbiology - Last 24 Hours (Table) 10/25/18 22:04 Urine Culture - Preliminary Urine,Clean Catch Assessment and Plan Assessment: Assessment and Plan 1. Right testicular swelling, previous history of epididymitis 2. Atrial fibrillation, on Coumadin 3. Diabetes mellitus 4. Anemia 5. DVT and GI prophylaxis 1. History of epididymitis during previous admission. Patient is afebrile with a leukocytosis of 12.4. Previous urine culture grew out E. coli sensitive to Augmentin. Continue IV Rocephin. Start Dilaudid 2 mg IV every 2 hours for uncontrolled pain. Continue normal saline at 100 mL per hour. Continue Flomax. Follow ID consult. Follow urology consult. Follow UA, urine culture, blood cultures. 2. Rate controlled on metoprolol. Anticoagulation on hold, patient has been noncompliant. Potassium greater than 4 and magnesium greater than 2. 3. Hjenp-ke-fcks glucose 204. Insulin sliding scale. Hypoglycemic precautions. Regular Accu-Cheks. 4. Hemoglobin 10.4. Stable from yesterday. Daily CBC. Transfuse if hemoglobin under 7. 5. Heparin subcutaneously. Continue Protonix. Patient admitted for right testicular swelling, failed outpatient antibiotics for treatment of epididymitis, urology and ID on consult.
[2018-10-26] MEDS: FUROSEMIDE 80 MG TAB PO SCH (16:08)
[2018-10-26] MEDS: SODIUM CHLORIDE 0.9% 1,000 ML IV SCH ×2 (16:10→17:58)
[2018-10-26 16:58] LABS: Glucose,Whole Blood 188 mg/dL (75-99)
--- NOTE | 2018-10-26 17:46 | P.GSCN ---
History of Present Illness Consult date: 10/26/18 Reason for Consult: Right testicular pain and swelling Requesting physician: Eduardo Sanon History of present illness: The patient is a 73-year-old white male well known to Dr. Coto. He was recently hospitalized with right testicular pain and swelling. He had no fever or chills and noted no change in his normal voiding pattern. He has a history of chronic prostatitis. Scrotal ultrasound and computed tomography scan of the pelvis were obtained and the showed increased blood flow to the region of the right testicle and a soft tissue mass adjacent to the testicle and possibly within the testicle. The patient was treated with antibiotics. He was discharged home on Levaquin, but the urine culture showed E. coli resistant to quinolones. He was seen in the office by Dr. Coto on October 22, and Augmentin was prescribed. He was admitted yesterday with persistent pain. Upon questioning, he states that his scrotal pain is somewhat diminished. His primary pain at this time is localized to the right lower back. He states that the swelling is somewhat increased. Review of Systems - Constitutional Denies chills, Denies fever - Cardiovascular Denies chest pain - Respiratory Denies dyspnea - Gastrointestinal Denies nausea, Denies vomiting - Genitourinary Reports urinary frequency, Denies dysuria, Denies hematuria Past Medical History Past Medical History: Atrial Fibrillation, Coronary Artery Disease (CAD), Di abetes Mellitus, Hypertension, Prostate Disorder Additional Past Medical History / Comment(s): enlarged prostate with stones, prostatitis in past and treated with Bactrim DS one half daily for suppression, episode of v-tach 20 yrs ago, mild CAD, NIDDM type II, 2007 syncope, chronic back pain, stomach ulcers in past, back pain, Last Myocardial Infarction Date:: 05/28/15 History of Any Multi-Drug Resistant Organisms: None Reported Past Surgical History: Appendectomy, Cholecystectomy, Heart Catheterization, Orthopedic Surgery Additional Past Surgical History / Comment(s): tibia plateau fracture right leg with plates/screws, 05/29/15 cardiac cath with mild CAD. Past Anesthesia/Blood Transfusion Reactions: No Reported Reaction Past Psychological History: No Psychological Hx Reported Additional Psychological History / Comment(s): Pt resides with his spouse. He drives. He is independent. Smoking Status: Former smoker Past Alcohol Use History: None Reported Additional Past Alcohol Use History / Comment(s): smoked [id number] 1ppd Past Drug Use History: None Reported - Past Family History Mother Additional Family Medical History / Comment(s): Bowel problems and possible lung cancer. Mother in her 80's. She did not go to the doctors much. Brother(s) Family Medical History: Cancer Father Family Medical History: Cancer Additional Family Medical History / Comment(s): Father had palpitations. He at about age 78yrs. Medications and Allergies Home Medications Medication Instructions Recorded Confirmed Type Tamsulosin HCl [Flomax] 0.4 mg PO HS 09/25/14 10/25/18 History glipiZIDE XL [Glucotrol XL] 10 mg PO DAILY 09/25/14 10/25/18 History Finasteride 5 mg PO DAILY 05/28/15 10/25/18 History Aspirin 81 mg PO DAILY 03/21/16 10/25/18 History Atorvastatin [Lipitor] 40 mg PO DAILY 03/21/16 10/25/18 History Lisinopril [Zestril] 10 mg PO DAILY 03/21/16 10/25/18 History Metoprolol Tartrate [Lopressor] 25 mg PO BID 03/21/16 10/25/18 History metFORMIN HCL [metFORMIN HCL ER] 1,000 mg PO AC-SUPPER 03/21/16 10/25/18 History Carisoprodol [Soma] 350 mg PO BID 09/20/18 10/25/18 History Omeprazole 20 mg PO DAILY 09/20/18 10/25/18 History Potassium Chloride ER [K-Dur 10] 20 meq PO DAILY 09/20/18 10/25/18 History Warfarin [Coumadin] 5 mg PO MOWEFR 09/20/18 10/25/18 History Warfarin [Coumadin] 7.5 mg PO SUSA 09/20/18 10/25/18 History Ferrous Sulfate [Feosol] 325 mg PO BID #60 tab 09/24/18 10/25/18 Rx Furosemide [Lasix] 80 mg PO BID 10/18/18 10/25/18 History Warfarin [Coumadin] 10 mg PO TUTH 10/25/18 10/25/18 History Allergies Allergy/AdvReac Type Severity Reaction Status Date / Time Iodine and Iodide Containing Allergy Rash/Hives Verified 10/25/18 20:00 Produc shellfish derived [Shellfish] Allergy Rash/Hives Verified 10/25/18 20:00 Surgical - Exam Vital Signs Temp Pulse Resp BP Pulse Ox 98 F 76 18 183/71 100 10/25/18 08:00 10/25/18 08:00 10/25/18 08:00 10/25/18 08:00 10/25/18 08:00 - General well developed, well nourished, no distress - Respiratory normal respiratory effort - Abdomen Abdomen: soft, non tender, no guarding, no rigid, no rebound - Genitourinary normal penis with no external lesions, other (The right testicle is enlarged and tender, consistent with epididymo-orchitis.) - Psychiatric oriented to time, oriented to person, oriented to place, speech is normal, memory intact Results - Labs 10/26/18 08:34 10/26/18 08:34 Abnormal Lab Results - Last 24 Hours (Table) 10/25/18 10/25/18 10/25/18 Range/Units 20:45 20:45 20:54 WBC (3.8-10.6) k/uL RBC 3.93 L (4.30-5.90) m/uL Hgb 10.2 L (13.0-17.5) gm/dL Hct 33.6 L (39.0-53.0) % MCHC 30.3 L (31.0-37.0) g/dL RDW 22.8 H (11.5-15.5) % Lymphocytes # 0.6 L (1.0-4.8) k/uL Chloride 109 H (98-107) mmol/L BUN 8 L (9-20) mg/dL Glucose 132 H (74-99) mg/dL POC Glucose (mg/dL) 135 H (75-99) mg/dL Total Protein 5.9 L (6.3-8.2) g/dL 10/26/18 10/26/18 10/26/18 Range/Units 07:03 08:34 08:34 WBC 12.4 H (3.8-10.6) k/uL RBC 4.13 L (4.30-5.90) m/uL Hgb 10.4 L (13.0-17.5) gm/dL Hct 34.0 L (39.0-53.0) % MCHC 30.5 L (31.0-37.0) g/dL RDW 23.3 H (11.5-15.5) % Lymphocytes # (1.0-4.8) k/uL Chloride (98-107) mmol/L BUN 7 L (9-20) mg/dL Glucose 180 H (74-99) mg/dL POC Glucose (mg/dL) 162 H (75-99) mg/dL Total Protein (6.3-8.2) g/dL 10/26/18 Range/Units 11:33 WBC (3.8-10.6) k/uL RBC (4.30-5.90) m/uL Hgb (13.0-17.5) gm/dL Hct (39.0-53.0) % MCHC (31.0-37.0) g/dL RDW (11.5-15.5) % Lymphocytes # (1.0-4.8) k/uL Chloride (98-107) mmol/L BUN (9-20) mg/dL Glucose (74-99) mg/dL POC Glucose (mg/dL) 204 H (75-99) mg/dL Total Protein (6.3-8.2) g/dL Microbiology - Last 24 Hours (Table) 10/25/18 22:04 Urine Culture - Preliminary Urine,Clean Catch Diabetes panel 10/25/18 10/26/18 Range/Units 20:45 08:34 Sodium 142 142 (137-145) mmol/L Potassium 4.2 4.4 (3.5-5.1) mmol/L Chloride 109 H 107 (98-107) mmol/L Carbon Dioxide 23 24 (22-30) mmol/L BUN 8 L 7 L (9-20) mg/dL Creatinine 0.75 0.68 (0.66-1.25) mg/dL Glucose 132 H 180 H (74-99) mg/dL Calcium 9.3 9.6 (8.4-10.2) mg/dL AST 17 (17-59) U/L ALT 55 (21-72) U/L Alkaline Phosphatase 108 (38-126) U/L Total Protein 5.9 L (6.3-8.2) g/dL Albumin 3.5 (3.5-5.0) g/dL Calcium panel 10/25/18 10/26/18 Range/Units 20:45 08:34 Calcium 9.3 9.6 (8.4-10.2) mg/dL Albumin 3.5 (3.5-5.0) g/dL Pituitary panel 10/25/18 10/26/18 Range/Units 20:45 08:34 Sodium 142 142 (137-145) mmol/L Potassium 4.2 4.4 (3.5-5.1) mmol/L Chloride 109 H 107 (98-107) mmol/L Carbon Dioxide 23 24 (22-30) mmol/L BUN 8 L 7 L (9-20) mg/dL Creatinine 0.75 0.68 (0.66-1.25) mg/dL Glucose 132 H 180 H (74-99) mg/dL Calcium 9.3 9.6 (8.4-10.2) mg/dL Adrenal panel 10/25/18 10/26/18 Range/Units 20:45 08:34 Sodium 142 142 (137-145) mmol/L Potassium 4.2 4.4 (3.5-5.1) mmol/L Chloride 109 H 107 (98-107) mmol/L Carbon Dioxide 23 24 (22-30) mmol/L BUN 8 L 7 L (9-20) mg/dL Creatinine 0.75 0.68 (0.66-1.25) mg/dL Glucose 132 H 180 H (74-99) mg/dL Calcium 9.3 9.6 (8.4-10.2) mg/dL Total Bilirubin 0.5 (0.2-1.3) mg/dL AST 17 (17-59) U/L ALT 55 (21-72) U/L Alkaline Phosphatase 108 (38-126) U/L Total Protein 5.9 L (6.3-8.2) g/dL Albumin 3.5 (3.5-5.0) g/dL Assessment and Plan (1) Epididymitis Current Visit: Yes Status: Acute Code(s): N45.1 - EPIDIDYMITIS SNOMED Code(s): 14692233 Plan: Mr. Mendoza is currently receiving Rocephin. I explained to him that his urine culture showed E. coli, and that this is sensitive to Rocephin. I also explained to him that when there is a response to antibiotic therapy in this setting, the pain typically resolves within several days but the swelling will persist for 4-6 weeks. In view of his urinary frequency, postvoid residual will be checked. It would be my recommendation that he be discharged home on appropriate oral antibiotics (such as Augmentin) once his condition has improved. Time with Patient: Greater than 30
[2018-10-26 20:35] LABS: Glucose,Whole Blood 179 mg/dL (75-99)
[2018-10-26] MEDS: TAMSULOSIN 0.4 MG CAP.ER.24H PO SCH (21:30)
[2018-10-26 21:56] LABS: Appearance,Urine Clear (Clear); Bilirubin,Urine Negative (Negative); Blood,Urine Negative (Negative); Color,Urine Colorless; Glucose,Urine (UA) Negative (Negative); Ketones,Urine Negative (Negative); Leukocyte Esterase,Urine Negative (Negative); Nitrite,Urine Negative (Negative); Protein,Urine Negative (Negative); Specific Gravity,Urine 1.007 (1.001-1.035); Urobilinogen,Urine <2.0 mg/dL (<2.0)
[2018-10-26] MEDS ORDERED: WARFARIN 5 MG TAB PO SCH (22:45)
[2018-10-27] MEDS: HYDROmorphone 1 MG/ML 1 ML SYRINGE IVP PRN ×10 (00:12→23:23)
[2018-10-27] MEDS: HEPARIN SODIUM,PORCINE 5,000 UNIT/ML 1 ML VIAL SQ SCH ×3 (00:13→17:03)
[2018-10-27] MEDS: SODIUM CHLORIDE 0.9% 1,000 ML IV SCH ×2 (02:18→19:23)
[2018-10-27 07:01] LABS: Glucose,Whole Blood 178 mg/dL (75-99)
[2018-10-27] MEDS: LISINOPRIL 10 MG TAB PO SCH (09:45)
[2018-10-27] MEDS: ASPIRIN 81 MG PO SCH (09:45)
[2018-10-27] MEDS: PANTOPRAZOLE 40 MG TABLET PO SCH ×2 (09:46→09:47)
[2018-10-27] MEDS: FUROSEMIDE 80 MG TAB PO SCH ×2 (09:46→17:00)
[2018-10-27] MEDS: ATORVASTATIN 40 MG TAB PO SCH (09:46)
[2018-10-27] MEDS: METOPROLOL TARTRATE 25 MG TAB PO SCH ×2 (09:46→20:08)
[2018-10-27] MEDS: POTASSIUM CHLORIDE ER 20 MEQ TAB.ER PO SCH (09:46)
[2018-10-27] MEDS: FINASTERIDE 5 MG TAB PO SCH (09:47)
[2018-10-27] MEDS: INSULIN ASPART (NovoLOG) 100 UNIT/ML VIAL SQ SCH ×4 (09:47→20:07)
--- NOTE | 2018-10-27 10:18 | P.PN ---
Progress Note - Text Progress Note Date: 10/27/18 Mr. Keyes states that his pain is somewhat improved today, though he still rates it as a "9". His pain is most prominent when he is standing, which she believes may be due to the weight of the swollen testicle. On examination, the right testicle remains enlarged and indurated. It is tender to palpation. There is no evidence of cellulitis or fluctuance. It would be my recommendation that he be discharged home once his pain can be controlled with oral analgesics. He was advised to continue taking the Augmentin prescribed earlier this week by Dr. Coto, and contact Dr. Coto early next week regarding follow-up.
[2018-10-27 11:38] LABS: Glucose,Whole Blood 254 mg/dL (75-99)
[2018-10-27] MEDS ORDERED: HYDROcodone/APAP 10-325MG 1 EACH TAB PO ONE (14:53)
--- NOTE | 2018-10-27 14:56 | P.PN ---
Subjective Progress Note Date: 10/27/18 Principal diagnosis: Right testicular swelling Patient was seen and examined. No acute events overnight. Patient reports slight improvement in his testicular swelling. Able to urinate more freely today. Pain is controlled with IV Dilaudid. Seen by urology today, states able to go home tomorrow. No fever or chills. No nausea or vomiting. Objective - Vital Signs Vital signs: Vital Signs Temp 97.7 F 10/27/18 12:33 Pulse 69 10/27/18 12:33 Resp 18 10/27/18 12:33 BP 148/68 10/27/18 12:33 Pulse Ox 100 10/27/18 12:33 Intake & Output 10/26/18 10/27/18 10/27/18 18:59 06:59 18:59 Intake Total 800 2280 1400 Output Total 125 1100 Balance 675 1180 1400 Intake: Intake, IV Titration 800 1200 800 Amount Sodium Chloride 0.9% 1, 800 1200 800 000 ml @ 100 mls/hr IV . Q10H [facility] Rx#:[id number] Oral 1080 600 Output: Urine 125 1100 Other: Voiding Method Toilet Toilet Toilet Urinal Urinal Urinal # Voids 1 4 - Exam General: [non toxic], [no distress], [appears at stated age] Derm: [warm], [dry] Head: [atraumatic], [normocephalic], [symmetric] Eyes: [EOMI], [no lid lag], [anicteric sclera] Mouth: [no lip lesion], [mucus membranes moist] Cardiovascular: [S1S2 reg], [no murmur], [positive posterior tibial pulse bilateral], Lungs: [CTA bilateral], [no rhonchi, no rales] , [no accessory muscle use] Abdominal: [soft], [ nontender to palpation], [no guarding], [no appreciable organomegaly], [right-sided testicular swelling with mild tenderness to palpation, slightly improved.], [Inguinal lymph nodes swollen on the right side] Ext: [no gross muscle atrophy], [no edema], [no contractures] Neuro: [no focal neuro deficits] Psych: [Alert], [oriented], [appropriate affect] - Labs CBC & Chem 7: 10/26/18 08:34 10/26/18 08:34 Labs: Abnormal Lab Results - Last 24 Hours (Table) 10/26/18 10/26/18 10/27/18 Range/Units 16:56 20:34 06:59 POC Glucose (mg/dL) 188 H 179 H 178 H (75-99) mg/dL 10/27/18 Range/Units 11:36 POC Glucose (mg/dL) 254 H (75-99) mg/dL Microbiology - Last 24 Hours (Table) 10/25/18 22:04 Urine Culture - Final Urine,Clean Catch 10/25/18 20:30 Blood Culture - Preliminary Blood No Growth after 24 hours Assessment and Plan Assessment: Assessment and Plan 1. Right testicular swelling, previous history of epididymitis 2. Atrial fibrillation, on Coumadin 3. Diabetes mellitus 4. Anemia 5. DVT and GI prophylaxis 1. History of epididymitis during previous admission. Patient is afebrile with a leukocytosis of 12.4. Previous urine culture grew out E. coli sensitive to Augmentin. Continue IV Rocephin. Continue Dilaudid 2 mg IV every 2 hours for uncontrolled pain. We'll start Blodgett 10 every 4 hours. Continue normal saline at 100 mL per hour. Continue Flomax. Follow ID consult. Seen by urology, recommends continue present management. UA negative, urine culture negative, blood culture negative at 24 hours. 2. Rate controlled on metoprolol. Restart anticoagulation. Potassium greater than 4 and magnesium greater than 2. 3. [id number] glucose 254. Insulin sliding scale. Hypoglycemic precautions. Regular Accu-Cheks. 4. Hemoglobin 10.4. Stable from yesterday. Daily CBC. Transfuse if hemoglobin under 7. 5. Heparin subcutaneously. Continue Protonix. Patient receiving IV antibiotics for treatment of epididymitis. Pending clinical improvement. Transition from IV Dilaudid to Blodgett by mouth. Likely discharge tomorrow.
[2018-10-27 17:13] LABS: Glucose,Whole Blood 181 mg/dL (75-99)
[2018-10-27] MEDS ORDERED: WARFARIN 5 MG TAB PO SCH ×2 (18:00→22:45)
[2018-10-27 20:02] LABS: Glucose,Whole Blood 179 mg/dL (75-99)
[2018-10-27] MEDS: TAMSULOSIN 0.4 MG CAP.ER.24H PO SCH (20:08)
[2018-10-27] MEDS: HYDROcodone/APAP 10-325MG 1 EACH TAB PO PRN (22:08)
[2018-10-28] MEDS: HEPARIN SODIUM,PORCINE 5,000 UNIT/ML 1 ML VIAL SQ SCH ×2 (00:22→07:41)
[2018-10-28] MEDS: SODIUM CHLORIDE 0.9% 1,000 ML IV SCH (00:23)
[2018-10-28] MEDS: HYDROmorphone 1 MG/ML 1 ML SYRINGE IVP PRN ×4 (01:23→07:43)
[2018-10-28] MEDS: HYDROcodone/APAP 10-325MG 1 EACH TAB PO PRN ×3 (01:49→09:49)
[2018-10-28 06:24] VITALS: BP 166/74; PULSE 90; RESP 18; TEMP 98.5
[2018-10-28 07:10] LABS: Glucose,Whole Blood 165 mg/dL (75-99)
[2018-10-28 07:34] LABS: Anion Gap 9 mmol/L; Blood Urea Nitrogen 10 mg/dL (9-20); Calcium 8.9 mg/dL (8.4-10.2); Carbon Dioxide 26 mmol/L (22-30); Chloride 104 mmol/L (98-107); Glucose 143 mg/dL (74-99); Potassium 3.8 mmol/L (3.5-5.1); Sodium 139 mmol/L (137-145)
[2018-10-28] MEDS: PANTOPRAZOLE 40 MG TABLET PO SCH (07:40)
[2018-10-28] MEDS: ASPIRIN 81 MG PO SCH (07:40)
[2018-10-28] MEDS: LISINOPRIL 10 MG TAB PO SCH (07:40)
[2018-10-28] MEDS: METOPROLOL TARTRATE 25 MG TAB PO SCH (07:40)
[2018-10-28] MEDS: ATORVASTATIN 40 MG TAB PO SCH (07:40)
[2018-10-28] MEDS: POTASSIUM CHLORIDE ER 20 MEQ TAB.ER PO SCH (07:41)
[2018-10-28] MEDS: INSULIN ASPART (NovoLOG) 100 UNIT/ML VIAL SQ SCH (07:41)
[2018-10-28] MEDS: FUROSEMIDE 80 MG TAB PO SCH (07:42)
[2018-10-28] MEDS: FINASTERIDE 5 MG TAB PO SCH (07:42)
[2018-10-28 07:46] LABS: Anisocytosis Moderate; Basophils % (A) 0 %; Eosinophils # (A) 0.1 k/uL (0-0.7); Eosinophils % (A) 1 %; HCT 28.3 % (39.0-53.0); HGB 9.1 gm/dL (13.0-17.5); Hypochromasia Marked; Lymphocytes # (A) 0.6 k/uL (1.0-4.8); Lymphocytes % (A) 9 %; MCH 25.8 pg (25.0-35.0); MCHC 32.3 g/dL (31.0-37.0); MCV 79.9 fL (80.0-100.0); Mean Platelet Volume 9.6; Microcytosis Moderate; Monocytes # (A) 0.4 k/uL (0-1.0); Monocytes % (A) 6 %; Neutrophils # (A) 5.2 k/uL (1.3-7.7); Neutrophils % (A) 83 %; Platelet Count 233 k/uL (150-450); Poikilocytosis Slight; RBC 3.54 m/uL (4.30-5.90); RDW 23.6 % (11.5-15.5); WBC 6.3 k/uL (3.8-10.6)
--- NOTE | 2018-10-28 09:07 | P.DS ---
Providers Date of admission: 10/25/18 18:26 Expected date of discharge: 10/28/18 Attending physician: Yana Francois MD Consults: 10/25/18 22:43 Consult Physician Urgent Consulting Provider: Chidi Tabares Consult Reason/Comments: Acute epididymitis failed outpt therapy Do you want consulting provider notified?: Yes 10/25/18 22:44 Consult Physician Urgent Consulting Provider: Luca Coto Consult Reason/Comments: Acute epididymitis Do you want consulting provider notified?: Yes Primary care physician: José kemar [facility] Course: Patient is 73-year-old male with a PMH of hypertension, chronic prostatitis (on maintenance Bactrim therapy), diabetes mellitus, atrial fibrillation on Coumadin, and coronary artery disease who presented to the ED for worsening ada ticular pain and swelling. The patient was recently discharged from [facility] on 10/19/18 when he was admitted for similar symptoms, was evaluated by urology, and was discharged on oral Levaquin for acute epididymitis. The patient subsequently followed up with urology (Dr Coto) on 10/22/2018 and he was subsequently switched to Augmentin as per the urine culture results from the hospitalization. Patient reports that he has been taking the Augmentin as prescribed though his pain and swelling gradually worsened. At time of interview, the patient reported 10 out of 10 scrotal pain, gradually worsening over the past few days. He otherwise denied fevers, chills, dysuria, hematuria, chest pain, shortness of breath. The patient was seen at his PCP Dr. Busby's office and was subsequently sent for direct admission. The patient underwent laboratory evaluation upon admission with WBC count 8.0, hemoglobin 10.2, platelets 284, and INR 1.0. Patient was seen by urology and recommended continuation of Augmentin. He was advised that testicular swelling may be present for a number of weeks after treatment of infection. Patient was seen and examined prior to discharge. No acute events overnight. Started on Moffit 10 every 4 hours but continues to take Dilaudid IV.patient complains of testicular pain, especially with movement and standing. He denies any fever or chills. No nausea or vomiting. No chest pain, shortness of breath or palpitations.complains of right foot pain, associated with Achilles tendinitis, requesting prednisone Dosepak on discharge. General: [non toxic], [no distress], [appears at stated age] Derm: [warm], [dry] Head: [atraumatic], [normocephalic], [symmetric] Eyes: [EOMI], [no lid lag], [anicteric sclera] Mouth: [no lip lesion], [mucus membranes moist] Cardiovascular: [S1S2 reg], [no murmur], [positive posterior tibial pulse bilateral], Lungs: [CTA bilateral], [no rhonchi, no rales] , [no accessory muscle use] Abdominal: [soft], [ nontender to palpation], [no guarding], [no appreciable organomegaly], [right-sided testicular swelling with mild tenderness to palpation, slightly improved, No erythema], [Inguinal lymph nodes swollen on the right side, improved] Ext: [no gross muscle atrophy], [no edema], [no contractures] Neuro: [no focal neuro deficits] Psych: [Alert], [oriented], [appropriate affect] Assessment and Plan 1. Right testicular swelling, previous history of epididymitis 2. Atrial fibrillation, on Coumadin 3. Diabetes mellitus 4. Anemia 5. DVT and GI prophylaxis 1. History of epididymitis during previous admission. Patient is afebrile with a leukocytosis of 12.4 which has since resolved. Previous urine culture grew out E. coli sensitive to Augmentin. Continue IV Rocephin. Continue Dilaudid 2 mg IV every 2 hours for uncontrolled pain. We'll start Moffit 10 every 4 hours. Continue normal saline at 100 mL per hour. Continue Flomax. Follow ID consult. Seen by urology, recommends continue present management. UA negative, urine culture negative, blood culture negative at 48 hours. 2. Rate controlled on metoprolol. Restart anticoagulation. Potassium greater than 4 and magnesium greater than 2. 3. [id number] glucose 165. Insulin sliding scale. Hypoglycemic precautions. Regular Accu-Cheks. 4. Hemoglobin 10.4 to 9.1. Stable from yesterday. Daily CBC. Transfuse if hemoglobin under 7. 5. Heparin subcutaneously. Continue Protonix. Patient cleared from urology standpoint. He is to be discharged today. Follow- up with PCP and urology. Patient Condition at Discharge: Stable Plan - Discharge Summary New Discharge Prescriptions: New Amoxic-Pot Clav 875-125Mg [Augmentin 875-125] 1 tab PO Q12HR #14 tablet HYDROcodone/APAP 10-325MG [Moffit 10-325] 1 each PO Q4HR PRN #18 tab PRN Reason: Pain methylPREDNISolone Dose Pack [Medrol Dose Pack] 4 mg PO DIRECTED #21 package Continue glipiZIDE XL [Glucotrol XL] 10 mg PO DAILY Tamsulosin HCl [Flomax] 0.4 mg PO HS Finasteride 5 mg PO DAILY Aspirin 81 mg PO DAILY Metoprolol Tartrate [Lopressor] 25 mg PO BID Atorvastatin [Lipitor] 40 mg PO DAILY Lisinopril [Zestril] 10 mg PO DAILY metFORMIN HCL [metFORMIN HCL ER] 1,000 mg PO AC-SUPPER Potassium Chloride ER [K-Dur 10] 20 meq PO DAILY Carisoprodol [Soma] 350 mg PO BID Warfarin [Coumadin] 7.5 mg PO SUSA Warfarin [Coumadin] 5 mg PO MOWEFR Omeprazole 20 mg PO DAILY Ferrous Sulfate [Feosol] 325 mg PO BID #60 tab Furosemide [Lasix] 80 mg PO BID Warfarin [Coumadin] 10 mg PO TUTH Discharge Medication List Tamsulosin HCl [Flomax] 0.4 mg PO HS 09/25/14 [History] glipiZIDE XL [Glucotrol XL] 10 mg PO DAILY 09/25/14 [History] Finasteride 5 mg PO DAILY 05/28/15 [History] Aspirin 81 mg PO DAILY 03/21/16 [History] Atorvastatin [Lipitor] 40 mg PO DAILY 03/21/16 [History] Lisinopril [Zestril] 10 mg PO DAILY 03/21/16 [History] Metoprolol Tartrate [Lopressor] 25 mg PO BID 03/21/16 [History] metFORMIN HCL [metFORMIN HCL ER] 1,000 mg PO AC-SUPPER 03/21/16 [History] Carisoprodol [Soma] 350 mg PO BID 09/20/18 [History] Omeprazole 20 mg PO DAILY 09/20/18 [History] Potassium Chloride ER [K-Dur 10] 20 meq PO DAILY 09/20/18 [History] Warfarin [Coumadin] 5 mg PO MOWEFR 09/20/18 [History] Warfarin [Coumadin] 7.5 mg PO SUSA 09/20/18 [History] Ferrous Sulfate [Feosol] 325 mg PO BID #60 tab 09/24/18 [Rx] Furosemide [Lasix] 80 mg PO BID 10/18/18 [History] Warfarin [Coumadin] 10 mg PO TUTH 10/25/18 [History] Amoxic-Pot Clav 875-125Mg [Augmentin 875-125] 1 tab PO Q12HR #14 tablet 10/28/18 [Rx] HYDROcodone/APAP 10-325MG [Moffit 10-325] 1 each PO Q4HR PRN #18 tab 10/28/18 [Rx] methylPREDNISolone Dose Pack [Medrol Dose Pack] 4 mg PO DIRECTED #21 package 10/28/18 [Rx] Follow up Appointment(s)/Referral(s): Cornelio Dove MD [STAFF PHYSICIAN] - 1 Week José Busby MD [Primary Care Provider] - 1-2 Days Activity/Diet/Wound Care/Special Instructions: Diet: Diabetic Follow-up with PCP within 1-2 days of discharge. Follow-up with urology within 1 week of discharge. Take all medications as advised. Discharge Disposition: HOME SELF-CARE
--- NOTE | 2018-10-28 10:43 | P.PN ---
Progress Note - Text Progress Note Date: 10/28/18 Mr. Mendoza continues to feel better. His pain is improved, and he also reports diminished right testicular swelling. He is afebrile with stable vital signs. His WBC count is normal. On examination, the right testicle has decreased in size. There is no evidence of cellulitis or fluctuance, and the testicle is less tender to palpation. He has had a favorable response to antibiotics and will be discharged home. He was advised to resume Augmentin, and to follow up with Dr. Coto in 1-2 weeks.
== END 2018-10-28 12:05 | disposition home or self-care (01) | DRG 729 ==
LOC: 3NMEDONC 18:26
PROVIDERS: ADMIT Family Medicine; ATTEND Family Medicine
DX: N50.89 Other specified disorders of the male genital organs (principal); Z68.41 Body mass index [BMI] 40.0-44.9, adult; I48.91 Unspecified atrial fibrillation; E66.01 Morbid (severe) obesity due to excess calories; D64.9 Anemia, unspecified; D72.829 Elevated white blood cell count, unspecified; E11.9 Type 2 diabetes mellitus without complications; I10 Essential (primary) hypertension; I25.10 Atherosclerotic heart disease of native coronary artery without angina pectoris; I25.2 Old myocardial infarction; N40.1 Benign prostatic hyperplasia with lower urinary tract symptoms; R79.1 Abnormal coagulation profile; G89.29 Other chronic pain; N41.1 Chronic prostatitis; M54.9 Dorsalgia, unspecified; R35.0 Frequency of micturition; Z79.01 Long term (current) use of anticoagulants; Z79.82 Long term (current) use of aspirin; Z79.84 Long term (current) use of oral hypoglycemic drugs; Z79.899 Other long term (current) drug therapy; Z87.11 Personal history of peptic ulcer disease; Z87.891 Personal history of nicotine dependence; Z91.041 Radiographic dye allergy status; Z91.013 Allergy to seafood; Z90.49 Acquired absence of other specified parts of digestive tract; Z91.19 Patient's noncompliance with other medical treatment and regimen; Z80.1 Family history of malignant neoplasm of trachea, bronchus and lung; Z80.9 Family history of malignant neoplasm, unspecified
CPT/HCPCS: 80048; 80053; 81003; 83605; 83735; 85025; 85027; 85610; 87040; 87086

== ENCOUNTER 2018-10-31 22:56 | Inpatient (IN) | payer MEDICARE ==
[2018-10-31] MEDS ORDERED: DILTIAZEM DRIP BOLUS FROM BAG 1 MG SOLN IV ONE (23:18)
--- NOTE | 2018-10-31 23:20 | ED ---
Arrhythmia/Palpitations HPI - General Chief Complaint: Arrhythmia/Palpitations Stated Complaint: Chest Pain Time Seen by Provider: 10/31/18 23:18 Source: patient Mode of arrival: wheelchair Limitations: no limitations - History of Present Illness Initial Comments: This patient is a 73-year-old man with history of previous atrial fibrillation, who states that this evening he was watching television when following his heart started racing. He states that he checked his home blood pressure monitor and saw that the rate was very rapid. He watched for a little while at home sitting resolve and he states he may have gone in and out of the rapid rate a couple times but it Persisting so he should be evaluated here. Patient also had some associated diaphoresis and some pains to the right side of his neck. He states that he is not currently having the pain. MD Complaint: "heart racing" -: hour(s) Context: occurred during rest Arrhythmia History: atrial fibrillation Associated Symptoms: shortness of breath, diaphoresis - Related Data Home Medications Medication Instructions Recorded Confirmed Tamsulosin HCl [Flomax] 0.4 mg PO HS 09/25/14 10/31/18 glipiZIDE XL [Glucotrol XL] 10 mg PO DAILY 09/25/14 10/31/18 Finasteride 5 mg PO DAILY 05/28/15 10/31/18 Aspirin 81 mg PO DAILY 03/21/16 10/31/18 Atorvastatin [Lipitor] 40 mg PO DAILY 03/21/16 10/31/18 Lisinopril [Zestril] 10 mg PO DAILY 03/21/16 10/31/18 Metoprolol Tartrate [Lopressor] 25 mg PO BID 03/21/16 10/31/18 metFORMIN HCL [metFORMIN HCL ER] 1,000 mg PO AC-SUPPER 03/21/16 10/31/18 Carisoprodol [Soma] 350 mg PO BID 09/20/18 10/31/18 Omeprazole 20 mg PO DAILY 09/20/18 10/31/18 Potassium Chloride ER [K-Dur 10] 20 meq PO DAILY 09/20/18 10/31/18 Warfarin [Coumadin] 7.5 mg PO SUTUTHSA 09/20/18 10/31/18 Warfarin [Coumadin] 10 mg PO MOWEFR 09/20/18 10/31/18 Furosemide [Lasix] 80 mg PO BID 10/18/18 10/31/18 HYDROcodone/APAP 10-325MG [[place] 1 tab PO Q4HR PRN 10/31/18 10/31/18 10-325] Previous Rx's Medication Instructions Recorded Ferrous Sulfate [Feosol] 325 mg PO BID #60 tab 09/24/18 Amoxic-Pot Clav 875-125Mg 1 tab PO Q12HR #14 tablet 10/28/18 [Augmentin 875-125] methylPREDNISolone Dose Pack 4 mg PO DIRECTED #21 package 10/28/18 [Medrol Dose Pack] Allergies Allergy/AdvReac Type Severity Reaction Status Date / Time Iodine and Iodide Containing Allergy Rash/Hives Verified 10/31/18 23:20 Produc shellfish derived [Shellfish] Allergy Rash/Hives Verified 10/31/18 23:20 levofloxacin [From Levaquin] AdvReac DOES NOT Verified 10/31/18 23:20 WORK sulfamethoxazole AdvReac DOES NOT Verified 10/31/18 23:20 [From Bactrim] WORK trimethoprim [From Bactrim] AdvReac DOES NOT Verified 10/31/18 23:20 WORK Review of Systems ROS Statement: Those systems with pertinent positive or pertinent negative responses have been documented in the HPI. ROS Other: All systems not noted in ROS Statement are negative. Constitutional: Denies: fever, chills Respiratory: Reports: dyspnea. Denies: cough, wheezes Cardiovascular: Reports: chest pain, palpitations. Denies: orthopnea, edema, syncope Gastrointestinal: Denies: abdominal pain, nausea, vomiting Genitourinary: Reports: testicular pain (Patient states he is currently being treated for testicular infection). Denies: dysuria, hematuria Musculoskeletal: Denies: back pain Skin: Denies: rash Neurological: Denies: headache, weakness, numbness Hematological/Lymphatic: Denies: easy bleeding Past Medical History Past Medical History: Atrial Fibrillation, Coronary Artery Disease (CAD), Diabetes Mellitus, Hypertension, Prostate Disorder Additional Past Medical History / Comment(s): enlarged prostate with stones, prostatitis in past and treated with Bactrim DS one half daily for suppression, episode of v-tach 20 yrs ago, mild CAD, NIDDM type II, 2007 syncope, chronic back pain, stomach ulcers in past, back pain, Last Myocardial Infarction Date:: 05/28/15 History of Any Multi-Drug Resistant Organisms: None Reported Past Surgical History: Appendectomy, Cholecystectomy, Heart Catheterization, O rthopedic Surgery Additional Past Surgical History / Comment(s): tibia plateau fracture right leg with plates/screws, 05/29/15 cardiac cath with mild CAD. Past Anesthesia/Blood Transfusion Reactions: No Reported Reaction Past Psychological History: No Psychological Hx Reported Smoking Status: Former smoker Past Alcohol Use History: None Reported Past Drug Use History: None Reported - Past Family History Mother Additional Family Medical History / Comment(s): Bowel problems and possible lung cancer. Mother in her 80's. She did not go to the doctors much. Brother(s) Family Medical History: Cancer Father Family Medical History: Cancer Additional Family Medical History / Comment(s): Father had palpitations. He at about age 78yrs. General Exam Limitations: no limitations General appearance: alert, in no apparent distress Head exam: Present: atraumatic, normocephalic Eye exam: Present: normal appearance. Absent: scleral icterus, conjunctival injection ENT exam: Present: normal oropharynx Neck exam: Present: normal inspection Respiratory exam: Present: normal lung sounds bilaterally. Absent: respiratory distress, wheezes, rales, rhonchi, stridor, accessory muscle use, decreased breath sounds Cardiovascular Exam: Present: tachycardia (Rate currently approximately 1 56 bpm), irregular rhythm, normal heart sounds. Absent: systolic murmur, diastolic murmur, rubs, gallop GI/Abdominal exam: Present: soft. Absent: distended, tenderness, guarding, rebound, rigid, mass Extremities exam: Present: normal inspection, normal capillary refill. Absent: pedal edema, calf tenderness Back exam: Present: normal inspection. Absent: CVA tenderness (R), CVA tenderness (L) Neurological exam: Present: alert Skin exam: Present: warm, dry, intact, normal color. Absent: rash Course Vital Signs 10/31/18 10/31/18 10/31/18 22:58 23:09 23:15 Temperature 98 F Pulse Rate 86 146 H 161 H Pulse Rate [ Pulse Oximetery ] Respiratory 20 15 16 Rate Blood Pressure 108/72 123/112 90/70 Blood Pressure [Left Arm] O2 Sat by Pulse 98 99 99 Oximetry 10/31/18 10/31/18 10/31/18 23:30 23:45 23:49 Temperature Pulse Rate 165 H 172 H 165 H Pulse Rate [ Pulse Oximetery ] Respiratory 16 16 12 Rate Blood Pressure 112/97 86/70 95/70 Blood Pressure [Left Arm] O2 Sat by Pulse 99 99 99 Oximetry 11/01/18 11/01/18 11/01/18 00:00 00:30 01:00 Temperature Pulse Rate 156 H 156 H 141 H Pulse Rate [ Pulse Oximetery ] Respiratory 14 8 L 19 Rate Blood Pressure 95/70 121/87 121/87 Blood Pressure [Left Arm] O2 Sat by Pulse 97 99 96 Oximetry 11/01/18 11/01/18 11/01/18 01:30 04:11 04:44 Temperature 97.3 F L Pulse Rate 165 H Pulse Rate [ 152 H 94 Pulse Oximetery ] Respiratory 18 18 Rate Blood Pressure 106/73 Blood Pressure 104/92 [Left Arm] O2 Sat by Pulse 98 98 Oximetry EKG Findings - EKG Results: EKG: interpreted by ERMD, normal axis, normal QRS, normal ST/T EKG shows: atrial fibrillation (With rapid ventricular rate, approximately 158 bpm) Medical Decision Making - Medical Decision Making Patient 73-year-old man who presents with atrial fibrillation and rapid ventricu lar rate. Patient started on Cardizem. Labs reviewed with the patient. Patient is admitted under [facility]. Case is discussed with Dr. Tapia cardiology on-call. He does recommend at this point titrating the patient's Cardizem up to control the rate. Should the patient's blood pressure fell below he then would recommend amiodarone. - Lab Data Result diagrams: 10/31/18 23:15 10/31/18 23:15 Lab Results 10/31/18 10/31/18 10/31/18 Range/Units 23:15 23:15 23:15 WBC 11.7 H (3.8-10.6) k/uL RBC 4.85 (4.30-5.90) m/uL Hgb 12.2 L D (13.0-17.5) gm/dL Hct 41.6 (39.0-53.0) % MCV 85.8 D (80.0-100.0) fL MCH 25.1 (25.0-35.0) pg MCHC 29.3 L (31.0-37.0) g/dL RDW 22.6 H (11.5-15.5) % Plt Count 426 (150-450) k/uL Neutrophils % 82 % Lymphocytes % 11 % Monocytes % 4 % Eosinophils % 2 % Basophils % 1 % Neutrophils # 9.6 H (1.3-7.7) k/uL Lymphocytes # 1.3 (1.0-4.8) k/uL Monocytes # 0.5 (0-1.0) k/uL Eosinophils # 0.2 (0-0.7) k/uL Basophils # 0.1 (0-0.2) k/uL Hypochromasia Marked Poikilocytosis Slight Anisocytosis Moderate Microcytosis Slight PT 10.6 (9.0-12.0) sec INR 1.0 (<1.2) APTT 24.7 (22.0-30.0) sec Sodium 142 (137-145) mmol/L Potassium 4.0 (3.5-5.1) mmol/L Chloride 102 (98-107) mmol/L Carbon Dioxide 28 (22-30) mmol/L Anion Gap 12 mmol/L BUN 22 H (9-20) mg/dL Creatinine 0.88 (0.66-1.25) mg/dL Est GFR (CKD-EPI)AfAm >90 (>60 ml/min/1.73 sqM) Est GFR (CKD-EPI)NonAf 86 (>60 ml/min/1.73 sqM) Glucose 147 H (74-99) mg/dL Calcium 9.9 (8.4-10.2) mg/dL Magnesium 1.8 (1.6-2.3) mg/dL Total Bilirubin 0.3 (0.2-1.3) mg/dL AST 47 (17-59) U/L ALT 91 H (21-72) U/L Alkaline Phosphatase 225 H (38-126) U/L Troponin I (0.000-0.034) ng/mL Total Protein 6.5 (6.3-8.2) g/dL Albumin 3.9 (3.5-5.0) g/dL TSH 1.380 (0.465-4.680) mIU/L 10/31/18 Range/Units 23:15 WBC (3.8-10.6) k/uL RBC (4.30-5.90) m/uL Hgb (13.0-17.5) gm/dL Hct (39.0-53.0) % MCV (80.0-100.0) fL MCH (25.0-35.0) pg MCHC (31.0-37.0) g/dL RDW (11.5-15.5) % Plt Count (150-450) k/uL Neutrophils % % Lymphocytes % % Monocytes % % Eosinophils % % Basophils % % Neutrophils # (1.3-7.7) k/uL Lymphocytes # (1.0-4.8) k/uL Monocytes # (0-1.0) k/uL Eosinophils # (0-0.7) k/uL Basophils # (0-0.2) k/uL Hypochromasia Poikilocytosis Anisocytosis Microcytosis PT (9.0-12.0) sec INR (<1.2) APTT (22.0-30.0) sec Sodium (137-145) mmol/L Potassium (3.5-5.1) mmol/L Chloride (98-107) mmol/L Carbon Dioxide (22-30) mmol/L Anion Gap mmol/L BUN (9-20) mg/dL Creatinine (0.66-1.25) mg/dL Est GFR (CKD-EPI)AfAm (>60 ml/min/1.73 sqM) Est GFR (CKD-EPI)NonAf (>60 ml/min/1.73 sqM) Glucose (74-99) mg/dL Calcium (8.4-10.2) mg/dL Magnesium (1.6-2.3) mg/dL Total Bilirubin (0.2-1.3) mg/dL AST (17-59) U/L ALT (21-72) U/L Alkaline Phosphatase (38-126) U/L Troponin I <0.012 (0.000-0.034) ng/mL Total Protein (6.3-8.2) g/dL Albumin (3.5-5.0) g/dL TSH (0.465-4.680) mIU/L Critical Care Time Critical Care Time: Yes (40 minutes) Disposition Clinical Impression: Atrial fibrillation with RVR Disposition: ADMITTED IP TO THIS [facility] Condition: Serious
[2018-10-31 23:32] LABS: Anisocytosis Moderate; Basophils # (A) 0.1 k/uL (0-0.2); Basophils % (A) 1 %; Eosinophils # (A) 0.2 k/uL (0-0.7); Eosinophils % (A) 2 %; HCT 41.6 % (39.0-53.0); Hypochromasia Marked; Lymphocytes # (A) 1.3 k/uL (1.0-4.8); Lymphocytes % (A) 11 %; MCH 25.1 pg (25.0-35.0); MCHC 29.3 g/dL (31.0-37.0); Mean Platelet Volume 7.5; Microcytosis Slight; Monocytes # (A) 0.5 k/uL (0-1.0); Monocytes % (A) 4 %; Neutrophils # (A) 9.6 k/uL (1.3-7.7); Neutrophils % (A) 82 %; Platelet Count 426 k/uL (150-450); Poikilocytosis Slight; RBC 4.85 m/uL (4.30-5.90); RDW 22.6 % (11.5-15.5); WBC 11.7 k/uL (3.8-10.6)
[2018-10-31] MEDS: DILTIAZEM 125 MG in SODIUM CHLORIDE 0.9% 100 ML IV SCH (23:37)
[2018-10-31 23:40] LABS: ALT 91 U/L (21-72); AST 47 U/L (17-59); Albumin 3.9 g/dL (3.5-5.0); Alkaline Phosphatase 225 U/L (38-126); Anion Gap 12 mmol/L; Blood Urea Nitrogen 22 mg/dL (9-20); Calcium 9.9 mg/dL (8.4-10.2); Carbon Dioxide 28 mmol/L (22-30); Chloride 102 mmol/L (98-107); Glucose 147 mg/dL (74-99); Magnesium 1.8 mg/dL (1.6-2.3); Sodium 142 mmol/L (137-145); Total Bilirubin 0.3 mg/dL (0.2-1.3); Total Protein 6.5 g/dL (6.3-8.2)
[2018-10-31 23:41] LABS: HGB 12.2 gm/dL (13.0-17.5); MCV 85.8 fL (80.0-100.0)
[2018-10-31 23:43] LABS: Partial Thromboplastin Time 24.7 sec (22.0-30.0); Prothrombin Time 10.6 sec (9.0-12.0)
[2018-10-31] MEDS ORDERED: MORPHINE SULFATE 4 MG/ML SYRINGE IV STA (23:57)
[2018-11-01] MEDS ORDERED: DILTIAZEM DRIP BOLUS FROM BAG 1 MG SOLN IV ONE (00:46)
[2018-11-01] MEDS ORDERED: ENOXAPARIN 120 MG/0.8 ML SYRINGE SQ STA (01:26)
[2018-11-01] MEDS ORDERED: HYDROmorphone 1 MG/ML 1 ML SYRINGE IVP STA (01:29)
[2018-11-01] MEDS: DILTIAZEM DRIP BOLUS FROM BAG 1 MG SOLN IV ONE ×2 (01:43→02:17)
[2018-11-01] MEDS ORDERED: NITROGLYCERIN SL TABS 0.4 MG TAB SUBLINGUAL PRN (02:13)
[2018-11-01] MEDS ORDERED: INSULIN ASPART (NovoLOG) 100 UNIT/ML VIAL SQ PRN (02:35)
[2018-11-01] MEDS ORDERED: ACETAMINOPHEN TAB 325 MG TAB PO PRN (02:37)
--- NOTE | 2018-11-01 02:43 | P.HPIM ---
History of Present Illness H&P Date: 11/01/18 Chief Complaint: Heart is racing right-sided neck pain The patient is a pleasant 73-year-old obese male with a past medical history of paroxysmal A. fib on anticoagulation with Coumadin, congestive heart failure unknown type, type 2 diabetes, essential hypertension and coronary artery disease who presents to the ER via private vehicle with chief complaint of heart fluttering and heart racing that began earlier this evening while watching TV. The patient denies any chest pain, shortness of breath, denies any lightheadedness dizziness or presyncopal episode. The patient does report some right-sided neck discomfort and diaphoresis. The patient reports being followed by Dr. Madison in cardiology clinic, the patient reports compliance with all of his medications. The patient does complain of leg cramps intermittently but otherwise has no other complaints. Review of his of records indicates the patient had a 2-D echocardiogram 09/20 which showed a preserved LVEF of 55-60%, moderately dilated left atrium, and enlarged right atrium, mild to moderate MR and moderate TR. Patient reports recently being discharged here less than a week ago with scrotal swelling secondary to epididymitis and was apparently seen by urology at that time, patient reports there is still some discomfort but reports that the swelling is slowly improving. The patient denies any fevers chills or night sweats. In the ER the patient was noted to be in A. fib with RVR with a heart rate of 158, was also noted to be hypotensive with systolic blood pressure in the mid 80s was given a liter normal saline and given several boluses of Cardizem and initiated on Cardizem drip. The patient received a comprehensive workup, white count was 11.7 hemoglobin 12.2, sodium 142 potassium 4.0, magnesium 1.8, creatinine 0.88, PT INR 10.6 and 1. Troponin was negative at less than 0.012. The patient was recommended for admission for A. fib with RVR Review of Systems Pertinent positives per HPI all other systems otherwise negative Past Medical History Past Medical History: Atrial Fibrillation, Coronary Artery Disease (CAD), Diabetes Mellitus, Hypertension, Prostate Disorder Additional Past Medical History / Comment(s): enlarged prostate with stones, prostatitis in past and treated with Bactrim DS one half daily for suppression, episode of v-tach 20 yrs ago, mild CAD, NIDDM type II, 2008 syncope, chronic back pain, stomach ulcers in past, back pain, Last Myocardial Infarction Date:: 05/28/15 History of Any Multi-Drug Resistant Organisms: None Reported Past Surgical History: Appendectomy, Cholecystectomy, Heart Catheterization, Orthopedic Surgery Additional Past Surgical History / Comment(s): tibia plateau fracture right leg with plates/screws, 05/29/15 cardiac cath with mild CAD. Past Anesthesia/Blood Transfusion Reactions: No Reported Reaction Past Psychological History: No Psychological Hx Reported Smoking Status: Former smoker Past Alcohol Use History: None Reported Past Drug Use History: None Reported - Past Family History Mother Additional Family Medical History / Comment(s): Bowel problems and possible lung cancer. Mother in her 80's. She did not go to the doctors much. Brother(s) Family Medical History: Cancer Father Family Medical History: Cancer Additional Family Medical History / Comment(s): Father had palpitations. He at about age 78yrs. Medications and Allergies Home Medications Medication Instructions Recorded Confirmed Type Tamsulosin HCl [Flomax] 0.4 mg PO HS 09/25/14 10/31/18 History glipiZIDE XL [Glucotrol XL] 10 mg PO DAILY 09/25/14 10/31/18 History Finasteride 5 mg PO DAILY 05/28/15 10/31/18 History Aspirin 81 mg PO DAILY 03/21/16 10/31/18 History Atorvastatin [Lipitor] 40 mg PO DAILY 03/21/16 10/31/18 History Lisinopril [Zestril] 10 mg PO DAILY 03/21/16 10/31/18 History Metoprolol Tartrate [Lopressor] 25 mg PO BID 03/21/16 10/31/18 History metFORMIN HCL [metFORMIN HCL ER] 1,000 mg PO AC-SUPPER 03/21/16 10/31/18 History Carisoprodol [Soma] 350 mg PO BID 09/20/18 10/31/18 History Omeprazole 20 mg PO DAILY 09/20/18 10/31/18 History Potassium Chloride ER [K-Dur 10] 20 meq PO DAILY 09/20/18 10/31/18 History Warfarin [Coumadin] 7.5 mg PO SUTUTHSA 09/20/18 10/31/18 History Warfarin [Coumadin] 10 mg PO MOWEFR 09/20/18 10/31/18 History Ferrous Sulfate [Feosol] 325 mg PO BID #60 tab 09/24/18 10/31/18 Rx Furosemide [Lasix] 80 mg PO BID 10/18/18 10/31/18 History Amoxic-Pot Clav 875-125Mg 1 tab PO Q12HR #14 tablet 10/28/18 10/31/18 Rx [Augmentin 875-125] methylPREDNISolone Dose Pack 4 mg PO DIRECTED #21 package 10/28/18 10/31/18 Rx [Medrol Dose Pack] HYDROcodone/APAP 10-325MG [[place] 1 tab PO Q4HR PRN 10/31/18 10/31/18 History 10-325] Allergies Allergy/AdvReac Type Severity Reaction Status Date / Time Iodine and Iodide Containing Allergy Rash/Hives Verified 10/31/18 23:20 Produc shellfish derived [Shellfish] Allergy Rash/Hives Verified 10/31/18 23:20 levofloxacin [From Levaquin] AdvReac DOES NOT Verified 10/31/18 23:20 WORK sulfamethoxazole AdvReac DOES NOT Verified 10/31/18 23:20 [From Bactrim] WORK trimethoprim [From Bactrim] AdvReac DOES NOT Verified 10/31/18 23:20 WORK Physical Exam Vitals: Vital Signs Temp Pulse Resp BP Pulse Ox 11/01/18 01:30 165 H 18 106/73 98 11/01/18 01:00 141 H 19 121/87 96 11/01/18 00:30 156 H 8 L 121/87 99 11/01/18 00:00 156 H 14 95/70 97 10/31/18 23:49 165 H 12 95/70 99 10/31/18 23:45 172 H 16 86/70 99 10/31/18 23:30 165 H 16 112/97 99 10/31/18 23:15 161 H 16 90/70 99 10/31/18 23:09 146 H 15 123/112 99 10/31/18 22:58 98 F 86 20 108/72 98 Intake and Output 10/31/18 10/31/18 11/01/18 14:59 22:59 06:59 Intake Total 13 Balance 13 Intake: Intake, IV Titration 13 Amount Diltiazem 125 mg In 13 Sodium Chloride 0.9% 100 ml @ 5 MG/HR 5 mls/hr IV .Q24H RIKI Rx#:[id number] Other: Weight 109.769 kg Constitutional: No acute distress, conversant, pleasant Eyes: Anicteric sclerae, moist conjunctiva, no lid-lag, PERRLA ENMT: NC/AT,Oropharynx clear, no erythema, exudates Neck:Supple, FROM, no masses, or JVD, No carotid bruits; No thyromegaly Lungs: Clear to auscultation, Clear to percussion, Normal respiratory effort, no accessory muscle use Cardiovascular: Irregularly irregular tachycardic, No murmurs, gallops, or rubs, +2 pitting peripheral edema Abdominal/: Right testicular swelling, Soft Nontender, nom distended, no guarding, no rebound or rigidity, Normoactive bowel sounds No hepatomegaly, No splenomegaly, No palpable mass No abdominal wall hernia noted Skin: Normal temperature, tone, texture, turgor, No induration No subcutaneous nodules, No rash, lesions, No ulcers Extremities:No digital cyanosis No clubbing, Pedal pulses intact and symmetrical Radial pulses intact and symmetrical Normal gait and station, No calf tenderness Psychiatric: Alert and oriented to person, place and time, Appropriate affect Intact judgement Neuro: Muscles Strength 5/5 in all 4 extremities, Sensation to light touch grossly present throughout, Cranial nerves II-XII grossly intact. No focal sensory deficits Results CBC & Chem 7: 10/31/18 23:15 10/31/18 23:15 Labs: Abnormal Lab Results - Last 24 Hours (Table) 10/31/18 10/31/18 Range/Units 23:15 23:15 WBC 11.7 H (3.8-10.6) k/uL Hgb 12.2 L D (13.0-17.5) gm/dL MCHC 29.3 L (31.0-37.0) g/dL RDW 22.6 H (11.5-15.5) % Neutrophils # 9.6 H (1.3-7.7) k/uL BUN 22 H (9-20) mg/dL Glucose 147 H (74-99) mg/dL ALT 91 H (21-72) U/L Alkaline Phosphatase 225 H (38-126) U/L Assessment and Plan Assessment: Chronic medical conditions Chronic prostatitis (1) Atrial fibrillation with RVR Current Visit: No Status: Acute Code(s): I48.91 - UNSPECIFIED ATRIAL FIBRILLATION SNOMED Code(s): 553764557925657 (2) Type 2 diabetes mellitus with hyperglycemia Current Visit: Yes Status: Acute Code(s): E11.65 - TYPE 2 DIABETES MELLITUS WITH HYPERGLYCEMIA SNOMED Code(s): 493503982787276 (3) Coronary artery disease Current Visit: Yes Status: Acute Code(s): I25.10 - ATHSCL HEART DISEASE OF [place] CORONARY ARTERY W/O ANG PCTRS SNOMED Code(s): 57304319 (4) Congestive heart failure (CHF) Current Visit: Yes Status: Chronic Code(s): I50.9 - HEART FAILURE, UNSPECIFIED SNOMED Code(s): 56937961 Plan: The patient is admitted anticipated greater than 2 midnight stay to telemetry unit with A. fib with RVR with a history of paroxysmal A. fib and congestive he art failure of unknown type, patient's blood pressure was initially borderline is given a liter of fluids and also given boluses of Cardizem in the ER and is currently on a Cardizem drip, will plan to optimize his electrolytes as his magnesium was 1.8 over placed the target of greater than 2 his potassium is 4. The patient recently had echocardiogram done August of this year and has a preserved LVEF. Patient noted to have a subtherapeutic INR 1 and is resumed on his home Coumadin regimen along with IV heparin drip per protocol. Cardiology is consulted for further recommendations Patient is noted to be hyperglycemic apparently was previously on steroids will monitor Accu-Cheks qachs with correctional scale insulin coverage. Will continue to follow patient's clinical course CODE STATUS: Limited code, DO NOT INTUBATE Discussed plan of care with: Patient and his Anticipate discharge: 1-2 days
[2018-11-01 02:57] LABS: Glucose,Whole Blood 176 mg/dL (75-99)
[2018-11-01] MEDS: MAGNESIUM SULFATE-D5W PMX 1 GM in DEXTROSE/WATER 1 100ML.BAG IVPB SCH ×2 (04:01→05:07)
[2018-11-01] MEDS: SODIUM CHLORIDE 0.9% 1,000 ML IV SCH (04:03)
[2018-11-01 04:20] VITALS: BMI 37.9
[2018-11-01] MEDS: PANTOPRAZOLE 40 MG TABLET PO SCH (06:37)
[2018-11-01 08:23] LABS: Glucose,Whole Blood 188 mg/dL (75-99)
[2018-11-01 08:45] LABS: Anisocytosis Moderate; Basophils # (A) 0.1 k/uL (0-0.2); Basophils % (A) 1 %; Eosinophils # (A) 0.1 k/uL (0-0.7); Eosinophils % (A) 2 %; HCT 36.1 % (39.0-53.0); HGB 10.3 gm/dL (13.0-17.5); Hypochromasia Marked; Lymphocytes % (A) 12 %; MCH 24.8 pg (25.0-35.0); MCHC 28.6 g/dL (31.0-37.0); MCV 86.8 fL (80.0-100.0); Mean Platelet Volume 7.4; Microcytosis Slight; Monocytes # (A) 0.3 k/uL (0-1.0); Monocytes % (A) 4 %; Neutrophils # (A) 6.5 k/uL (1.3-7.7); Neutrophils % (A) 81 %; Platelet Count 336 k/uL (150-450); Poikilocytosis Slight; RBC 4.16 m/uL (4.30-5.90); RDW 22.5 % (11.5-15.5); WBC 8.1 k/uL (3.8-10.6)
[2018-11-01 08:49] LABS: Anion Gap 7 mmol/L; Blood Urea Nitrogen 23 mg/dL (9-20); Calcium 9.5 mg/dL (8.4-10.2); Carbon Dioxide 30 mmol/L (22-30); Chloride 104 mmol/L (98-107); Glucose 182 mg/dL (74-99); Magnesium 2.3 mg/dL (1.6-2.3); Potassium 3.9 mmol/L (3.5-5.1); Sodium 141 mmol/L (137-145)
[2018-11-01] MEDS ORDERED: MORPHINE SULFATE 2 MG/ML SYRINGE IVP PRN (08:52)
[2018-11-01] MEDS ORDERED: METOPROLOL TARTRATE 25 MG TAB PO SCH (09:00)
[2018-11-01] MEDS: HEPARIN SOD,PORK IN 0.45% NACL 25,000 UNIT in 0.45% NACL 1 250ML.BAG IV SCH (09:32)
[2018-11-01] MEDS: AMOXIC-POT CLAV 875-125MG 1 EACH TAB PO SCH ×2 (09:38→23:11)
[2018-11-01] MEDS: FERROUS SULFATE 325 MG TAB PO SCH ×2 (09:39→21:37)
[2018-11-01] MEDS: ATORVASTATIN 40 MG TAB PO SCH (09:39)
[2018-11-01] MEDS: FUROSEMIDE 40 MG TAB PO SCH ×2 (09:40→21:21)
[2018-11-01] MEDS: FINASTERIDE 5 MG TAB PO SCH (09:40)
[2018-11-01] MEDS: HYDROcodone/APAP 10-325MG 1 EACH TAB PO PRN ×4 (09:41→23:11)
[2018-11-01] MEDS: METOPROLOL TARTRATE 50 MG TAB PO SCH ×2 (09:41→21:37)
[2018-11-01] MEDS: POTASSIUM CHLORIDE ER 10 MEQ TAB.ER.PRT PO SCH (09:41)
[2018-11-01] MEDS: LISINOPRIL 10 MG TAB PO SCH (09:41)
--- NOTE | 2018-11-01 10:42 | P.PN ---
Progress Note - Text Progress Note Date: 11/01/18 Hospitalist Interval Note Patient seen and examined at bedside. Patient states that his off feeling is getting better. He denies any palpitations, chest pain or shortness of breath. No nausea or vomiting. He complains of testicular pain and is requesting something for pain. He denies any recent changes in medications or missing doses of medications. Vital signs reviewed General: non toxic, no distress, appears at stated age Derm: warm, dry Head: atraumatic, normocephalic, symmetric Eyes: EOMI, no lid lag, anicteric sclera Mouth: no lip lesion, mucus membranes moist Cardiovascular: S1S2 reg, no murmur, positive posterior tibial pulse bilateral, Lungs: decreased bs bilateral, no rhonchi, no rales , no accessory muscle use Abdominal: soft, nontender to palpation, no guarding, no appreciable organomegaly Ext: no gross muscle atrophy, no edema, no contractures Neuro: CN II-XI grossly intact, no focal neuro deficits Psych: Alert, oriented, appropriate affect Assessment/Plan: A. fib with RVR-continue with heparin drip, increase Lopressor to 50 twice daily, shut off Cardizem drip, Coumadin 10 mg tonight with pharmacy to dose Elevated troponin, secondary to demand ischemia from prolonged A. fib-repeat troponin in 6 hours, aspirin, await cardiology recommendations Recent epididymitis-following with Dr. Coto as outpatient, continue with Augmentin for an additional 2 days Leukoctyosis- likely due to recent steroid pack, ? also epididymitis, repeat in AM Compensated chronic diastolic congestive heart failure with ejection fraction 50-55%-continue with MARLENE inhibitor, beta kelley, Lasix DM 2- A1c 5.8, SSI, follow BS This is an update note for patient , for full note on 11/01 see H and P. There is no charge associated with this note.
[2018-11-01] MEDS: CARISOPRODOL 350 MG TAB PO SCH ×2 (11:00→23:11)
[2018-11-01 11:48] LABS: Glucose,Whole Blood 232 mg/dL (75-99)
[2018-11-01] MEDS: INSULIN ASPART (NovoLOG) 100 UNIT/ML VIAL SQ SCH ×3 (12:07→21:37)
[2018-11-01 16:46] LABS: Glucose,Whole Blood 160 mg/dL (75-99)
[2018-11-01] MEDS ORDERED: WARFARIN 10 MG TAB PO ONE (18:00)
[2018-11-01] MEDS ORDERED: WARFARIN 5 MG TAB PO SCH (18:00)
[2018-11-01 20:41] LABS: Glucose,Whole Blood 147 mg/dL (75-99)
[2018-11-01] MEDS ORDERED: TAMSULOSIN 0.4 MG CAP.ER.24H PO SCH (21:00)
[2018-11-02] MEDS ORDERED: HEPARIN SODIUM,PORCINE 5,000 UNIT/ML 1 ML VIAL IV STA (01:30)
[2018-11-02] MEDS: SODIUM CHLORIDE 0.9% 1,000 ML IV SCH (02:00)
[2018-11-02] MEDS: HYDROcodone/APAP 10-325MG 1 EACH TAB PO PRN ×3 (03:00→11:40)
[2018-11-02 03:44] LABS: Cholesterol 77 mg/dL (<200); HDL Cholesterol 25 mg/dL (40-60); LDL Cholesterol,Calculated 3 mg/dL (0-99); Triglycerides 243 mg/dL (<150)
[2018-11-02] MEDS: PANTOPRAZOLE 40 MG TABLET PO SCH (07:09)
[2018-11-02] MEDS: HEPARIN SOD,PORK IN 0.45% NACL 25,000 UNIT in 0.45% NACL 1 250ML.BAG IV SCH (07:09)
[2018-11-02 07:12] LABS: Glucose,Whole Blood 164 mg/dL (75-99)
[2018-11-02] MEDS: DILTIAZEM 125 MG in SODIUM CHLORIDE 0.9% 100 ML IV SCH (07:13)
[2018-11-02] MEDS: INSULIN ASPART (NovoLOG) 100 UNIT/ML VIAL SQ SCH ×2 (07:17→12:16)
[2018-11-02 08:43] LABS: INR 1.2 (<1.2); Partial Thromboplastin Time 33.6 sec (22.0-30.0); Prothrombin Time 12.8 sec (9.0-12.0)
[2018-11-02] MEDS ORDERED: ASPIRIN 325 MG TAB PO SCH (09:00)
[2018-11-02] MEDS ORDERED: HEPARIN SODIUM,PORCINE 5,000 UNIT/ML 1 ML VIAL IV PRN (09:31)
[2018-11-02] MEDS: FERROUS SULFATE 325 MG TAB PO SCH (09:34)
[2018-11-02] MEDS: METOPROLOL TARTRATE 50 MG TAB PO SCH (09:34)
[2018-11-02] MEDS: ATORVASTATIN 40 MG TAB PO SCH (09:34)
[2018-11-02] MEDS: FUROSEMIDE 40 MG TAB PO SCH (09:34)
[2018-11-02] MEDS: LISINOPRIL 10 MG TAB PO SCH (09:34)
[2018-11-02] MEDS: POTASSIUM CHLORIDE ER 10 MEQ TAB.ER.PRT PO SCH (09:35)
[2018-11-02] MEDS: AMOXIC-POT CLAV 875-125MG 1 EACH TAB PO SCH (09:43)
[2018-11-02] MEDS: FINASTERIDE 5 MG TAB PO SCH (10:45)
[2018-11-02 11:47] LABS: Glucose,Whole Blood 179 mg/dL (75-99)
[2018-11-02 12:11] VITALS: BP 166/73; PULSE 69; RESP 16; TEMP 97.7
--- NOTE | 2018-11-02 12:40 | P.DS ---
Providers Date of admission: 11/01/18 02:13 Expected date of discharge: 11/02/18 Attending physician: Grant Yanes MD Consults: 11/01/18 02:15 Consult Physician Stat Consulting Provider: Rhett Tapia Consult Reason/Comments: Atrial fibrillation with rapid ventricular rate Do you want consulting provider notified?: Already Contacted Primary care physician: [facility] Course: final diagnosis at discharge Paroxysmal afib with RVR elevated troponins secondary to demand ischemia secondary to above chronic conditions DM2 epidydymitis recent diagnosis , OP follow up with urology , continue outpatient antibiotics chronic diastolic chf with LVEF 50-55% consults [facility] hospital course The patient is a pleasant 73-year-old obese male with a past medical history of paroxysmal A. fib on anticoagulation with Coumadin, diastolic congestive heart failure, type 2 diabetes, essential hypertension who presents to the ER via private vehicle with chief complaint of heart fluttering and heart racing that began earlier this evening while watching TV. The patient denies any associated symptoms or precepitating factors. The patient does report some right-sided neck discomfort and diaphoresis. The patient reports being followed by Dr. Madison in cardiology clinic, the patient reports compliance with all of his medications. Review of his of records indicates the patient had a 2-D echocardiogram 09/20 which showed a preserved LVEF of 55-60%, moderately dilated left atrium, and enlarged right atrium, mild to moderate MR and moderate TR. Patient reports recently being discharged here less than a week ago with scrotal swelling secondary to epididymitis and was apparently seen by urology at that time, patient reports there is still some discomfort but reports that the swelling is slowly improving. The patient denies any fevers chills or night sweats. In the ER the patient was noted to be in A. fib with RVR with a heart rate of 158, was also noted to be hypotensive with systolic blood pressure in the mid 80s was given a liter normal saline and given several boluses of Cardizem and initiated on Cardizem drip. The patient received a comprehensive workup, white count was 11.7 hemoglobin 12.2, sodium 142 potassium 4.0, magnesium 1.8, creatinine 0.88, PT INR 10.6 and 1. Troponin was negative at less than 0.012. The patient was recommended for admission for A. fib with RVR he was evaluated by cardiology for afib and elevated troponin, plan was for OP follow up and stress test as outpatient . Constitutional: vital signs stable, Not in acute distress, pleasant, conversant Lungs: Clear to auscultation bilaterally, clear to percussion, normal respiratory effort no use of accessory muscles Cardiovascular: Regular rate and rhythm, with skipped beats at times , no murmurs, no gallops, no rubs, no peripheral edema Gastrointestinal: Soft, no tenderness to palpation, no palpable hepatosplenomegally, bowel sounds positive, no abdominal wall hernias Skin: Unremarkable temperature, tone, texture, and turgor, no induration or subcutaneous nodule, no rashes, no lesions, no ulcers Extremities: No digital cyanosis or clubbing, peripheral pulses palpable and equal over bilateral radial arteries and dorsalis pedis artery, no calf muscle tenderness Psych: Alert, oriented to place, person and time, appropriate affect, intact judgment patient cleared for discharge by cardiology , with OP follow up follow up with PCP and urology discharge in stable clinical condition metoprolol dose adjusted up to 50 mg bid continue with coumadin , no bridging needed at this time , OP follow up on INR/PT 40 minutes were spent discharging this patient, and more than 50% of the time was spent in counseling the patient and family and in coordinating care. Patient Condition at Discharge: Stable Plan - Discharge Summary Discharge Rx Participant: Yes New Discharge Prescriptions: New Metoprolol Tartrate [Lopressor] 50 mg PO BID #60 tab Continue glipiZIDE XL [Glucotrol XL] 10 mg PO AC-SUPPER Tamsulosin HCl [Flomax] 0.4 mg PO HS Finasteride 5 mg PO DAILY Aspirin 81 mg PO DAILY Atorvastatin [Lipitor] 40 mg PO DAILY Lisinopril [Zestril] 10 mg PO DAILY metFORMIN HCL [metFORMIN HCL ER] 1,000 mg PO AC-BRKFST Potassium Chloride ER [K-Dur 10] 20 meq PO DAILY Carisoprodol [Soma] 350 mg PO BID Warfarin [Coumadin] 7.5 mg PO SUTUTHSA Warfarin [Coumadin] 10 mg PO MOWEFR Omeprazole 20 mg PO DAILY Ferrous Sulfate [Feosol] 325 mg PO BID #60 tab Furosemide [Lasix] 80 mg PO BID Amoxic-Pot Clav 875-125Mg [Augmentin 875-125] 1 tab PO Q12HR #14 tablet methylPREDNISolone Dose Pack [Medrol Dose Pack] 4 mg PO DIRECTED #21 package HYDROcodone/APAP 10-325MG [[place] 10-325] 1 tab PO Q4HR PRN PRN Reason: Pain Discontinued Metoprolol Tartrate [Lopressor] 25 mg PO BID Discharge Medication List Tamsulosin HCl [Flomax] 0.4 mg PO HS 09/25/14 [History] glipiZIDE XL [Glucotrol XL] 10 mg PO AC-SUPPER 09/25/14 [History] Finasteride 5 mg PO DAILY 05/28/15 [History] Aspirin 81 mg PO DAILY 03/21/16 [History] Atorvastatin [Lipitor] 40 mg PO DAILY 03/21/16 [History] Lisinopril [Zestril] 10 mg PO DAILY 03/21/16 [History] metFORMIN HCL [metFORMIN HCL ER] 1,000 mg PO AC-BRKFST 03/21/16 [History] Carisoprodol [Soma] 350 mg PO BID 09/20/18 [History] Omeprazole 20 mg PO DAILY 09/20/18 [History] Potassium Chloride ER [K-Dur 10] 20 meq PO DAILY 09/20/18 [History] Warfarin [Coumadin] 7.5 mg PO SUTUTHSA 09/20/18 [History] Warfarin [Coumadin] 10 mg PO MOWEFR 09/20/18 [History] Ferrous Sulfate [Feosol] 325 mg PO BID #60 tab 09/24/18 [Rx] Furosemide [Lasix] 80 mg PO BID 10/18/18 [History] Amoxic-Pot Clav 875-125Mg [Augmentin 875-125] 1 tab PO Q12HR #14 tablet 10/28/18 [Rx] methylPREDNISolone Dose Pack [Medrol Dose Pack] 4 mg PO DIRECTED #21 package 10/28/18 [Rx] HYDROcodone/APAP 10-325MG [[place] 10-325] 1 tab PO Q4HR PRN 10/31/18 [History] Metoprolol Tartrate [Lopressor] 50 mg PO BID #60 tab 11/02/18 [Rx] Follow up Appointment(s)/Referral(s): Minh Madison MD [STAFF PHYSICIAN] - 1 Week José Busby MD [Primary Care Provider] - 1-2 days Patient Instructions/Handouts: Warfarin (By mouth), A-fib (Atrial Fibrillation) (ED) Care Plan Goals (MU): schedule outpatient stress test as discussed with cardiology Discharge Disposition: HOME SELF-CARE
[2018-11-02] MEDS: CARISOPRODOL 350 MG TAB PO SCH (12:47)
--- NOTE | 2018-11-02 14:14 | P.CRDCN ---
History of Present Illness History of present illness: This is Dr. Madison dictating a consult on this patient The patient was interviewed and examined by me IMPRESSION / ASSESSMENT: Paroxysmal atrial tachycardia/atrial flutter fibrillation heart rate from 50 beats a minute, symptomatic Known coronary artery disease with a 30% eccentric stenosis in the LAD Borderline troponins but no typical angina. He had a very rapid atrial tachycardia which was sustained Recent history of acute anemia probably secondary to GI bleeding did so far the workup has not revealed any clear cut cause although celiac disease is being considered PLAN: This patient presents some complex issues regarding memantine management of atrial fibrillation/atrial tachycardia He does need anticoagulation but given the significant drop in hemoglobin to 5.5 and recording 3 packed units red cells in month of August, and granulation becomes very problematic. He is unable to afford any newer agent and is on Coumadin Hypertension management. We'll be watching his blood pressure in the office His blood Troponins occurred in the setting of RVR most likely myocardial injury secondary to demand ischemia. He does not have any typical anginal-like symptoms But he does have known coronary artery disease, nonobstructive, and therefore an outpatient stress test will be ordered If the stress test is normal and I may treat him with flecainide for suppressive therapy for symptomatic atrial fibrillation/atrial tachycardia Hypertension management HPI patient started experiencing palpitations and vague discomfort on the right upper chest. He felt his heart beat and looked at his monitor and he found that his heart was racing. He was also diaphoretic and a bit dizzy His first 12-lead ECG shows atrial tachycardia 4/atrial fibrillation at 158 beats a minute He started on a Cardizem drip and he converted spontaneously to sinus rhythm His blood pressure has been elevated in the hospital line ROS: No fever chills or rigors, no cough, phlegm or expectoration, no nausea, vomiting or diarrhea, no hematuria, dysuria, no musculoskeletal complaints, no strokes or seizures, no skin lesions. EXAMINATION: Elevated blood pressure readings, afebrile normal respirations Breath sounds are clear no rhonchi no crackles Heart sounds are regular no murmurs or gallops or rub Increased BMI noted Mild bilateral lower extremity edema Abdomen soft REVIEW OF LABS, ECG & MEDICAL DATA Hemoglobin 10.3 Electrolytes normal BUN 23 creatinine 0.95 Mildly abnormal troponin 0.012, 0.01, 0.03 and 0.02 normal TSH Past Medical History Past Medical History: Atrial Fibrillation, Coronary Artery Disease (CAD), Diabetes Mellitus, Hypertension, Prostate Disorder Additional Past Medical History / Comment(s): enlarged prostate with stones, prostatitis in past and treated with Bactrim DS one half daily for suppression, episode of v-tach 20 yrs ago, mild CAD, NIDDM type II, 2008 syncope, chronic back pain, stomach ulcers in past, back pain, Last Myocardial Infarction Date:: 05/28/15 History of Any Multi-Drug Resistant Organisms: None Reported Past Surgical History: Appendectomy, Cholecystectomy, Heart Catheterization, Orthopedic Surgery Additional Past Surgical History / Comment(s): tibia plateau fracture right leg with plates/screws, 05/29/15 cardiac cath with mild CAD. Past Anesthesia/Blood Transfusion Reactions: No Reported Reaction Past Psychological History: No Psychological Hx Reported Smoking Status: Former smoker Past Alcohol Use History: None Reported Past Drug Use History: None Reported - Past Family History Mother Additional Family Medical History / Comment(s): Bowel problems and possible lung cancer. Mother in her 80's. She did not go to the doctors much. Brother(s) Family Medical History: Cancer Father Family Medical History: Cancer Additional Family Medical History / Comment(s): Father had palpitations. He at about age 78yrs. Medications and Allergies Home Medications Medication Instructions Recorded Confirmed Type Tamsulosin HCl [Flomax] 0.4 mg PO HS 09/25/14 10/31/18 History glipiZIDE XL [Glucotrol XL] 10 mg PO AC-SUPPER 09/25/14 11/01/18 History Finasteride 5 mg PO DAILY 05/28/15 10/31/18 History Aspirin 81 mg PO DAILY 03/21/16 10/31/18 History Atorvastatin [Lipitor] 40 mg PO DAILY 03/21/16 10/31/18 History Lisinopril [Zestril] 10 mg PO DAILY 03/21/16 10/31/18 History metFORMIN HCL [metFORMIN HCL ER] 1,000 mg PO AC-BRKFST 03/21/16 11/01/18 History Carisoprodol [Soma] 350 mg PO BID 09/20/18 10/31/18 History Omeprazole 20 mg PO DAILY 09/20/18 10/31/18 History Potassium Chloride ER [K-Dur 10] 20 meq PO DAILY 09/20/18 10/31/18 History Warfarin [Coumadin] 7.5 mg PO SUTUTHSA 09/20/18 10/31/18 History Warfarin [Coumadin] 10 mg PO MOWEFR 09/20/18 10/31/18 History Ferrous Sulfate [Feosol] 325 mg PO BID #60 tab 09/24/18 10/31/18 Rx Furosemide [Lasix] 80 mg PO BID 10/18/18 10/31/18 History Amoxic-Pot Clav 875-125Mg 1 tab PO Q12HR #14 tablet 10/28/18 10/31/18 Rx [Augmentin 875-125] methylPREDNISolone Dose Pack 4 mg PO DIRECTED #21 package 10/28/18 10/31/18 Rx [Medrol Dose Pack] HYDROcodone/APAP 10-325MG [[place] 1 tab PO Q8HR PRN #9 tab 11/02/18 Rx 10-325] Metoprolol Tartrate [Lopressor] 50 mg PO BID #60 tab 11/02/18 Rx Allergies Allergy/AdvReac Type Severity Reaction Status Date / Time Iodine and Iodide Containing Allergy Rash/Hives Verified 10/31/18 23:20 Produc shellfish derived [Shellfish] Allergy Rash/Hives Verified 10/31/18 23:20 levofloxacin [From Levaquin] AdvReac DOES NOT Verified 10/31/18 23:20 WORK sulfamethoxazole AdvReac DOES NOT Verified 10/31/18 23:20 [From Bactrim] WORK trimethoprim [From Bactrim] AdvReac DOES NOT Verified 10/31/18 23:20 WORK Physical Exam Vitals: Vital Signs Temp Pulse Pulse Resp BP BP Pulse Ox 11/02/18 12:00 97.7 F 69 16 166/73 96 11/02/18 11:00 71 11/02/18 09:00 70 14 154/54 11/02/18 08:00 98.3 F 65 23 148/65 97 11/02/18 07:00 61 11 L 148/65 97 11/02/18 06:00 61 20 154/60 96 11/02/18 05:00 59 L 19 129/52 11/02/18 04:00 98.6 F 61 15 121/48 11/02/18 03:00 60 16 151/73 96 11/02/18 02:00 64 20 150/59 87 L 11/02/18 01:00 64 28 H 130/56 85 L 11/02/18 00:00 98.4 F 62 17 117/49 97 11/01/18 23:22 57 L 13 149/68 96 11/01/18 23:00 60 13 149/68 95 11/01/18 22:00 62 13 152/87 96 11/01/18 21:00 98.5 F 66 14 163/68 97 11/01/18 15:05 66 18 147/59 95 Intake and Output 11/01/18 11/02/18 11/02/18 22:59 06:59 14:59 Intake Total 77.221 372.779 522.535 Balance 77.221 372.779 522.535 Intake: IV 200 Sodium Chloride 0.9% 1, 200 000 ml @ 20 mls/hr IV . Q24H [facility] Rx#:[id number] Intake, IV Titration 77.221 172.779 42.535 Amount Heparin Sod,Pork in 0.45% 77.221 172.779 42.535 NaCl 25,000 unit In 0.45 % NaCl 1 250ml.bag @ 9 UNITS/KG/HR 9.879 mls/hr IV .Q24H [facility] Rx#: [id number] Oral 480 Other: # Voids 2 4 # Bowel Movements 2 1 Weight 108.9 kg Results 11/01/18 08:12 11/01/18 08:12 Cardiac Enzymes 11/01/18 Range/Units 16:24 Troponin I 0.209 H* (0.000-0.034) ng/mL Coagulation 11/01/18 11/01/18 11/02/18 Range/Units 16:24 23:57 08:16 PT 12.8 H (9.0-12.0) sec APTT 27.9 31.2 H 33.6 H (22.0-30.0) sec Lipids 11/01/18 Range/Units 08:12 Triglycerides 243 H (<150) mg/dL Cholesterol 77 (<200) mg/dL HDL Cholesterol 25 L (40-60) mg/dL Current Medications Generic Name Dose Route Start Last Admin Trade Name Freq PRN Reason Stop Dose Admin Acetaminophen 650 mg 11/01/18 02:37 Tylenol Tab PO Q4HR PRN Pain Hydrocodone Bitart/Acetaminophen 1 each 11/01/18 08:52 11/02/18 11:40 [place] 10 PO 1 each Q4HR PRN Administration Pain Amoxicillin/Clavulanate Potassium 1 each 11/01/18 09:00 11/02/18 09:43 Augmentin 875-125 PO 1 each Q12HR [facility]IK[facility] Administration Aspirin 325 mg 11/02/18 09:00 11/02/18 09:33 Aspirin PO 325 mg DAILY RIKI Administration Atorvastatin Calcium 40 mg 11/01/18 09:00 11/02/18 09:34 Lipitor PO 40 mg DAILY RIKI Administration Carisoprodol 350 mg 11/01/18 09:00 11/02/18 12:47 Soma PO 350 mg BID RIKI Administration Ferrous Sulfate 325 mg 11/01/18 09:00 11/02/18 09:34 Feosol PO 325 mg BID RIKI Administration Finasteride 5 mg 11/01/18 09:00 11/02/18 10:45 Proscar PO 5 mg DAILY RIKI Administration Furosemide 80 mg 11/01/18 09:00 11/02/18 09:34 Lasix PO 80 mg BID RIKI Administration Heparin Sodium (Porcine) 0 unit 11/02/18 09:31 11/02/18 09:44 Heparin IV 4,000 unit PER PROTOCOL PRN Administration Low PTT Protocol Sodium Chloride 1,000 mls @ 20 mls/hr 11/01/18 02:15 11/02/18 02:00 Saline 0.9% IV 20 mls/hr .Q24H RIKI Administration Heparin Sodium/Sodium Chloride 250 mls @ 9.879 mls/hr 11/01/18 09:00 11/02/18 09:44 25,000 unit/ Sodium Chloride IV 18 units/kg/hr .Q24H RIKI 19.758 mls/hr Titration Protocol 9 UNITS/KG/HR Insulin Aspart 0 unit 11/01/18 12:30 11/02/18 12:16 Novolog SQ 3 unit ACHS RIKI Administration Protocol Lisinopril 10 mg 11/01/18 09:00 11/02/18 09:34 Zestril PO 10 mg DAILY RIKI Administration Metoprolol Tartrate 50 mg 11/01/18 09:00 11/02/18 09:34 Lopressor PO 50 mg BID RIKI Administration Miscellaneous Information 1 each 11/01/18 08:57 Coumadin Per Pharmacy MISCELLANE DIRECTED PRN Per Protocol Morphine Sulfate 2 mg 11/01/18 08:52 Morphine Sulfate (Inj) IVP Q4H PRN Pain/Discomfort Nitroglycerin 0.4 mg 11/01/18 02:13 Nitrostat SUBLINGUAL Q5M PRN Chest Pain Pantoprazole Sodium 40 mg 11/01/18 07:30 11/02/18 07:09 Protonix PO 40 mg DAILY@0730 RIKI Administration Potassium Chloride 20 meq 11/01/18 09:00 11/02/18 09:35 K-Dur 10 PO 20 meq DAILY RIKI Administration Tamsulosin HCl 0.4 mg 11/01/18 21:00 11/01/18 21:37 Flomax PO 0.4 mg HS RIKI Administration Warfarin Sodium 10 mg 11/02/18 18:00 Coumadin PO 11/02/18 18:01 ONCE@1800 ONE Intake and Output 11/01/18 11/02/18 11/02/18 22:59 06:59 14:59 Intake Total 77.221 372.779 522.535 Balance 77.221 372.779 522.535 Intake: IV 200 Sodium Chloride 0.9% 1, 200 000 ml @ 20 mls/hr IV . Q24H [facility] Rx#:[id number] Intake, IV Titration 77.221 172.779 42.535 Amount Heparin Sod,Pork in 0.45% 77.221 172.779 42.535 NaCl 25,000 unit In 0.45 % NaCl 1 250ml.bag @ 9 UNITS/KG/HR 9.879 mls/hr IV .Q24H [facility] Rx#: [id number] Oral 480 Other: # Voids 2 4 # Bowel Movements 2 1 Weight 108.9 kg 11/01/18 08:12 11/01/18 08:12
[2018-11-02] MEDS ORDERED: WARFARIN 10 MG TAB PO ONE (18:00)
[2018-11-02] MEDS ORDERED: WARFARIN 5 MG TAB PO SCH (18:00)
== END 2018-11-02 15:09 | disposition home or self-care (01) | DRG 309 ==
LOC: EC 22:56 → 3SCARD 11-01 02:13 → 2SICU 11-01 20:44
PROVIDERS: ADMIT Family Medicine; ATTEND Family Medicine
DX: I48.0 Paroxysmal atrial fibrillation (principal); I50.32 Chronic diastolic (congestive) heart failure; I24.8 Other forms of acute ischemic heart disease; E66.9 Obesity, unspecified; I48.92 Unspecified atrial flutter; I47.1 Supraventricular tachycardia; I11.0 Hypertensive heart disease with heart failure; E11.65 Type 2 diabetes mellitus with hyperglycemia; M54.9 Dorsalgia, unspecified; G89.29 Other chronic pain; I25.10 Atherosclerotic heart disease of native coronary artery without angina pectoris; I08.1 Rheumatic disorders of both mitral and tricuspid valves; N45.1 Epididymitis; I95.9 Hypotension, unspecified; N40.0 Benign prostatic hyperplasia without lower urinary tract symptoms; R79.1 Abnormal coagulation profile; N41.1 Chronic prostatitis; Z87.891 Personal history of nicotine dependence; Z79.82 Long term (current) use of aspirin; Z79.84 Long term (current) use of oral hypoglycemic drugs; Z79.899 Other long term (current) drug therapy; Z79.01 Long term (current) use of anticoagulants; Z87.11 Personal history of peptic ulcer disease; I25.2 Old myocardial infarction
CPT/HCPCS: 36415; 80048; 80053; 80061; 83735; 84443; 84484; 85025; 85610; 85730; 93005; 96365; 96366; 96368; 96372; 96375; 96376; 99291

== ENCOUNTER → 2018-12-24 | Outpatient (CLI) | payer MEDICARE ==
[2018-12-25 08:58] VITALS: BMI 37.5
== END ==
LOC: DBWHC3 12:32
PROVIDERS: ATTEND Internal Medicine
DX: Z71.3 Dietary counseling and surveillance (principal); K90.0 Celiac disease
CPT/HCPCS: 97802

== ENCOUNTER → 2019-06-25 | Outpatient (CLI) | payer MEDICARE ==
--- NOTE | 2019-06-25 10:23 | USB ---
Reason for exam: clinical finding. History: Family history of breast cancer in maternal aunt. Indicated problem(s): lump or thickening in the left breast. Physical Findings: Nurse Summary: Patient complains of left breast lump, pain x 2 months, asymmetrical left upper quadrant thickening, movable, circumscribed, questionable lipoma (nurse mj). US Breast LT Left complete breast ultrasound includes all four quadrants, the retroareolar region and axilla. Finding demonstrates a 12.8 x 3.6cm oval, solid lesion at 9-4 o'clock, a 0.4 x 0.6 x 0.3cm oval, hyperechoic, stable lesion at 7 o'clock, a 0.7 x 0.8 x 0.5cm oval, solid, hyperechoic lesion at 8 o'clock and a 4.0 x 4.4 x 1.5cm possible enlarged lymph node at the axilla. These results were verbally communicated with the patient and result sheet given to the patient on 06/25/19. ASSESSMENT: Suspicious, BI-RAD 4 RECOMMENDATION: Ultrasound core biopsy of the left breast. Called Dr. Busby's office with mammographic findings and has scheduled an appointment for the patient for 07/08/19 at 10:[address] Busby. Patient to talk with Dr. Busby before scheduling biopsy. PRELIMINARY REPORT CALLED AND FAXED TO DR. BUSBY ON 06/25/19.
== END | disposition home or self-care (01) ==
LOC: RADUSWWP 08:30
PROVIDERS: ATTEND Internal Medicine
DX: N63.20 Unspecified lump in the left breast, unspecified quadrant (principal)

== ENCOUNTER → 2019-07-10 | Outpatient (CLI) | payer MEDICARE ==
[2019-07-10 15:35] VITALS: BP 167/82; PULSE 82; RESP 18; TEMP 97.9
--- NOTE | 2019-07-10 16:25 | P.GSHP ---
History of Present Illness H&P Date: 07/10/19 Chief Complaint: mass left breast Maurilio is seen in consultation for Dr. José Busby regarding a left breast mass and ultrasound abnormality of the left breast.Maurilio is a 73 year old white male who noted a fullness in the left breast which has increased in size over the last several months. It is not painful. [place] [address] of the left breast. This revealed a 12.8 x 3.6 cm solid lesion at 9:00. He also was noted to have a 0.7 x 0.8 cm solid lesion at 8:00. He has a possible enlarged lymph node in the axilla. The patient does not complain of pain in the right breast. He had a mammogram done in 2003 for nodularity in the breast, it was benign. The patient follows with Dr. Coto for prostatitis in the past. He has had testicular swelling related to the prostatitis. He has had ultrasounds and not noted to have any masses in the testicles. Patient is on finastrade Family history: maternal cousin: breast cancer father: Lung cancer brother: colon cancer Paternal grandmother: Colon cancer Patient had a colonoscopy a year and a half ago and nothing of concern was noted. Past Surgical History: 1. appy 2. tibial plateau fracture right knee 3. gallbladder 4. cardiac cath Medical History: 1. prostatitis at one time 2. diabetes 3. a fib Social History: smoke: stopped 40 years ago alcohol: none drugs: none - Constitutional Constitutional: Reports sweats - EENT Eyes: denies blurred vision, denies pain Ears: bilateral: decreased hearing, deny: tinnitus Ears, nose, mouth and throat: Denies headache, Denies sore throat - Breasts Breasts: bilateral: as per HPI - Cardiovascular Comment: a fib Cardiovascular: Reports high blood pressure - Respiratory Respiratory: Denies cough, Denies 7 - Gastrointestinal Gastrointestinal: Denies abdominal pain, Denies diarrhea, Denies nausea, Denies vomiting - Genitourinary (Male) Comment: inflamed prostate in the past and swollen testicle follow with urology Genitourinary: Denies dysuria, Denies hematuria - Musculoskeletal Comment: arthritis - Integumentary Integumentary: Denies pruritus, Denies rash - Neurological Neurological: Denies numbness, Denies weakness - Psychiatric Psychiatric: Denies anxiety, Denies depression - Endocrine Comment: diabetes - Hematologic/Lymphatic Comment: coumadin - Allergic/Immunologic Allergic/Immunologic: Reports as per HPI Past Medical History Past Medical History: Atrial Fibrillation, Coronary Artery Disease (CAD), Diabetes Mellitus, Hypertension, Prostate Disorder Additional Past Medical History / Comment(s): enlarged prostate with stones, prostatitis in past and treated with Bactrim DS one half daily for suppression, episode of v-tach 20 yrs ago, mild CAD, NIDDM type II, 2007 syncope, chronic back pain, stomach ulcers in past, Last Myocardial Infarction Date:: 05/28/15 History of Any Multi-Drug Resistant Organisms: ESBL Date of last positivie culture/infection: 05/29/19 ESBL E.coli MDRO Source:: Urine Past Surgical History: Appendectomy, Cholecystectomy, Heart Catheterization, Orthopedic Surgery Additional Past Surgical History / Comment(s): tibia plateau fracture right leg with plates/screws, 05/29/15 cardiac cath with mild CAD. Past Anesthesia/Blood Transfusion Reactions: No Reported Reaction Past Psychological History: No Psychological Hx Reported Additional Psychological History / Comment(s): Pt resides with his spouse. He drives. He is independent. Smoking Status: Former smoker Past Alcohol Use History: None Reported Additional Past Alcohol Use History / Comment(s): smoked [id number] 1ppd Past Drug Use History: None Reported - Past Family History Mother Additional Family Medical History / Comment(s): Bowel problems and possible lung cancer. Mother in her 80's. She did not go to the doctors much. Brother(s) Family Medical History: Cancer Father Family Medical History: Cancer Additional Family Medical History / Comment(s): Father had palpitations. He at about age 78yrs. Medications and Allergies Home Medications Medication Instructions Recorded Confirmed Type Tamsulosin HCl [Flomax] 0.4 mg PO HS 09/25/14 10/31/18 History glipiZIDE XL [Glucotrol XL] 10 mg PO AC-SUPPER 09/25/14 11/01/18 History Finasteride 5 mg PO DAILY 05/28/15 10/31/18 History Aspirin 81 mg PO DAILY 03/21/16 10/31/18 History Atorvastatin [Lipitor] 40 mg PO DAILY 03/21/16 10/31/18 History Lisinopril [Zestril] 10 mg PO DAILY 03/21/16 10/31/18 History metFORMIN HCL [metFORMIN HCL ER] 1,000 mg PO AC-BRKFST 03/21/16 11/01/18 History Carisoprodol [Soma] 350 mg PO BID 09/20/18 10/31/18 History Omeprazole 20 mg PO DAILY 09/20/18 10/31/18 History Potassium Chloride ER [K-Dur 10] 20 meq PO DAILY 09/20/18 10/31/18 History Warfarin [Coumadin] 7.5 mg PO SUTUTHSA 09/20/18 10/31/18 History Warfarin [Coumadin] 10 mg PO MOWEFR 09/20/18 10/31/18 History Ferrous Sulfate [Feosol] 325 mg PO BID #60 tab 09/24/18 10/31/18 Rx Furosemide [Lasix] 80 mg PO BID 10/18/18 10/31/18 History Amoxic-Pot Clav 875-125Mg 1 tab PO Q12HR #14 tablet 10/28/18 10/31/18 Rx [Augmentin 875-125] methylPREDNISolone Dose Pack 4 mg PO DIRECTED #21 package 10/28/18 10/31/18 Rx [Medrol Dose Pack] HYDROcodone/APAP 10-325MG [[place] 1 tab PO Q8HR PRN #9 tab 11/02/18 Rx 10-325] Metoprolol Tartrate [Lopressor] 50 mg PO BID #60 tab 11/02/18 Rx Allergies Allergy/AdvReac Type Severity Reaction Status Date / Time gluten Allergy Unknown Verified 07/10/19 15:29 Iodine and Iodide Containing Allergy Rash/Hives Verified 07/10/19 15:29 Produc shellfish derived [Shellfish] Allergy Rash/Hives Verified 07/10/19 15:29 levofloxacin [From Levaquin] AdvReac DOES NOT Verified 10/31/18 23:20 WORK sulfamethoxazole AdvReac DOES NOT Verified 10/31/18 23:20 [From Bactrim] WORK trimethoprim [From Bactrim] AdvReac DOES NOT Verified 10/31/18 23:20 WORK Surgical - Exam Vital Signs Temp Pulse Resp BP Pulse Ox 97.9 F 82 18 167/82 99 07/10/19 15:29 07/10/19 15:29 07/10/19 15:29 07/10/19 15:29 07/10/19 15:29 BMI 38.5 - General obese - Eyes normal ocular movement - ENT normal pinna, normal nares, no hearing loss, no congestion - Neck no masses, trachea midline, no lymphadectomy, no venous distension - Respiratory normal expansion - Cardiovascular Rhythm: regular Heart Sounds: normal: S1, S2 - Abdomen Abdomen: soft, non tender, no guarding, no rigid, no rebound - Genitourinary right testicle tender, slightly erythematous, firmer than the contralateral side and smaller than the other side Left testicle no masses no abnormality noted - Integumentary normal turgor - Neurologic no disoriented, no combative - Musculoskeletal normal gait, normal posture - Psychiatric oriented to time, oriented to person, oriented to place, speech is normal, keenan ry intact breast exam: right breast: multiple positional exam no dominant masses or nodules of concern rright axilla: No adenopathy of concern Left breast: multiple positional exam form was approximately 12 cm x 5 cm in size, this is not firm but rose than the other side Left axilla: No adenopathy of concern Results ultrasound results reviewed Assessment and Plan Assessment: Impression: 1. 73-year-old white male with fullness of the left breast 2. Abnormal ultrasound of the left breast 3. Right testicle tender/erythematous being followed by urology 4. Patient on finasteride may contribute to breast swelling 5. History of atrial fibrillation presently on Coumadin Plan: 1. core biopsy of the left breast 2. Stop Coumadin prior to biopsy as cleared by cardiology 3. PT/INR morning of biopsy to assure that this is safe for biopsy CC: DR. Busby we have discussed the ultrasound core biopsy of the left breast. We've discussed if this is gynecomastia we will most likely follow conservatively. Further recommendation will be depending on results of the biopsy. Encounter 35 minutes, > 50% of time in counselling and planning. Time with Patient: Greater than 30
== END ==
LOC: WWCWWP 14:18
PROVIDERS: ATTEND Surgery
DX: Z53.9 Procedure and treatment not carried out, unspecified reason (principal)

== ENCOUNTER → 2019-07-30 | Day surgery (SDC) | payer MEDICARE ==
[2019-07-30 13:37] LABS: Partial Thromboplastin Time 25.4 sec (22.0-30.0); Prothrombin Time 10.3 sec (9.0-12.0)
[2019-07-30 13:49] VITALS: RESP 16
[2019-07-30 14:56] VITALS: BP 158/74; PULSE 69; TEMP 98.7
--- NOTE | 2019-07-30 15:14 | USB ---
EXAMINATION TYPE: US biopsy breast VAD LT DATE OF EXAM: 07/30/2019 CLINICAL HISTORY: N63 Breast Lump. TECHNIQUE: Ultrasound guided core biopsy of left breast. COMPARISON: Recent left breast ultrasound. FINDINGS: The procedure of ultrasound guided core biopsy was explained to the patient. Benefits, alternatives, and risks were discussed. An informed consent was then obtained. Preprocedural timeout was performed. The patient was placed in supine positioning for imaging and for the procedure. The overlying skin was prepped and draped in usual sterile fashion. 10 cc of 1% lidocaine was used as anesthetic into the skin and subcutaneous tissue up to the 12.8 cm mass spanning the 9:00 to the 4:00 positions of the left breast. Under ultrasound guidance, a 12-gauge vacuum assisted biopsy gun device was used to obtain 5 core samples. No biopsy marker was left as this is clearly visible on ultrasound.. The patient tolerated the procedure well without any immediate complication. The patient was kept in the radiology department for short stay after the procedure and then discharged home in stable condition. IMPRESSION: Successful, uncomplicated ultrasound guided core biopsy of a palpable mass, likely a lipoma with biopsy performed given the large size of 12.8 cm to exclude much less likely considerations such as liposarcoma, full pathology results to follow. Pathology Results: Benign LEFT BREAST AT TWO O'CLOCK, ULTRASOUND GUIDED CORE BIOPSY: Lobulated benign adipose tissue consistent with lipoma in the appropriate clinical context. Breast elements are not identified. Recommendation Follow up ultrasound of the left breast in 6 months. MTDD
== END ==
LOC: RADUSWWP 13:01
PROVIDERS: ATTEND Surgery
DX: N63.20 Unspecified lump in the left breast, unspecified quadrant (principal)
CPT/HCPCS: 88305; 85610; 85730; 19083; J2001

== ENCOUNTER → 2019-08-08 | Outpatient (CLI) | payer MEDICARE ==
[2019-08-08 11:27] VITALS: BP 151/78; PULSE 68; RESP 18; TEMP 97.3
--- NOTE | 2019-08-08 12:22 | P.PN ---
Subjective Progress Note Date: 08/08/19 Principal diagnosis: biopsy results of the left breast Maurilio is seen in consultation for Dr. José Busby regarding a left breast mass and ultrasound abnormality of the left breast.Maurilio is a 73 year old white male who noted a fullness in the left breast which has increased in size over the last several months. It is not painful. [place] [id number] of the left breast. This revealed a 12.8 x 3.6 cm solid lesion at 9:00. He also was noted to have a 0.7 x 0.8 cm solid lesion at 8:00. He has a possible enlarged lymph node in the axilla. The patient does not complain of pain in the right breast. He had a mammogram done in 2003 for nodularity in the breast, it was benign. The patient follows with Dr. Coto for prostatitis in the past. He has had testicular swelling related to the prostatitis. He has had ultrasounds and not noted to have any masses in the testicles. Patient is on finastrade Biopsy of the left bresat at 2 OClock revelaed lobulated adipose tissue. The patient developed some brusing at the site of the biopsy and mild tenderness. Family history: maternal cousin: breast cancer father: Lung cancer brother: colon cancer Paternal grandmother: Colon cancer Patient had a colonoscopy a year and a half ago and nothing of concern was noted. Past Surgical History: 1. appy 2. tibial plateau fracture right knee 3. gallbladder 4. cardiac cath Medical History: 1. prostatitis at one time 2. diabetes 3. a fib Social History: smoke: stopped 40 years ago alcohol: none drugs: none - Constitutional Constitutional: Reports sweats - EENT Eyes: denies blurred vision, denies pain Ears: bilateral: decreased hearing, deny: tinnitus Ears, nose, mouth and throat: Denies headache, Denies sore throat - Breasts Breasts: bilateral: as per HPI - Cardiovascular Comment: a fib Cardiovascular: Reports high blood pressure - Respiratory Respiratory: Denies cough, Denies 7 - Gastrointestinal Gastrointestinal: Denies abdominal pain, Denies diarrhea, Denies nausea, Denies vomiting - Genitourinary (Male) Comment: inflamed prostate in the past and swollen testicle follow with urology Genitourinary: Denies dysuria, Denies hematuria - Musculoskeletal Comment: arthritis - Integumentary Integumentary: Denies pruritus, Denies rash - Neurological Neurological: Denies numbness, Denies weakness - Psychiatric Psychiatric: Denies anxiety, Denies depression - Endocrine Comment: diabetes - Hematologic/Lymphatic Comment: coumadin - Allergic/Immunologic Allergic/Immunologic: Reports as per HPI Past Medical History Past Medical History: Atrial Fibrillation, Coronary Artery Disease (CAD), Diabetes Mellitus, Hypertension, Prostate Disorder Additional Past Medical History / Comment(s): enlarged prostate with stones, prostatitis in past and treated with Bactrim DS one half daily for suppression, episode of v-tach 20 yrs ago, mild CAD, NIDDM type II, 2008 syncope, chronic back pain, stomach ulcers in past, Last Myocardial Infarction Date:: 05/28/15 History of Any Multi-Drug Resistant Organisms: ESBL Date of last positivie culture/infection: 05/29/19 ESBL E.coli MDRO Source:: Urine Past Surgical History: Appendectomy, Cholecystectomy, Heart Catheterization, Orthopedic Surgery Additional Past Surgical History / Comment(s): tibia plateau fracture right leg with plates/screws, 05/29/15 cardiac cath with mild CAD. Past Anesthesia/Blood Transfusion Reactions: No Reported Reaction Past Psychological History: No Psychological Hx Reported Additional Psychological History / Comment(s): Pt resides with his spouse. He drives. He is independent. Smoking Status: Former smoker Past Alcohol Use History: None Reported Additional Past Alcohol Use History / Comment(s): smoked [id number] 1ppd Past Drug Use History: None Reported Objective - Vital Signs Vital signs: Vital Signs Temp 97.3 F L 08/08/19 11:22 Pulse 68 08/08/19 11:22 Resp 18 08/08/19 11:22 BP 151/78 08/08/19 11:22 Pulse Ox 98 08/08/19 11:22 Intake & Output 08/07/19 08/08/19 08/08/19 18:59 06:59 18:59 Weight 115.666 kg - Exam BMI 39.9 - Constitutional General appearance: Present: obese - EENT Eyes: Present: EOMI ENT: Present: hearing grossly normal - Neck Neck: Present: normal ROM - Respiratory Respiratory: bilateral: CTA - Cardiovascular Rhythm: regular Heart sounds: normal: S1, S2 - Integumentary Integumentary Comment(s): Dark nevus right breast Mild ecchymosis left breast at core biopsy site - Musculoskeletal Musculoskeletal: Present: gait normal - Psychiatric Psychiatric: Present: A&O x's 3, appropriate affect, intact judgment & insight Assessment and Plan Assessment: Impression: 1. 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 Dark nevus right breast 3. Atrial fibrillation 4. Diabetes 5. Prostatitis Plan: 1. Repeat left breast ultrasound in 6 months with a physician exam at that time 2. Removal of dark nevus right breast/patient will stop Coumadin prior to this CC: Dr. Busby We have discussed that the lesion in the left breast is not a cancer. We have talked about the option of surgical resection and the patient is not interested at this time. The patient is a good candidate to be followed conservatively. We would recommend a repeat ultrasound in 6 months with physician exam at that time. The patient is however noted to have a dark nevus on the right breast and I have recommended excision of this nevus. CC: Dr. Busby encounter 20 minutes, > 50% of time planning and counselling Time with Patient: Less than 30
== END | disposition home or self-care (01) ==
LOC: WWCWWP 11:05
PROVIDERS: ATTEND Surgery
DX: Z53.9 Procedure and treatment not carried out, unspecified reason (principal)

== ENCOUNTER → 2019-10-02 | Outpatient (CLI) | payer MEDICARE ==
[2019-10-02 12:29] LABS: Anisocytosis Slight; Basophils % (A) 1 %; Eosinophils # (A) 0.1 k/uL (0-0.7); Eosinophils % (A) 2 %; HGB 8.3 gm/dL (13.0-17.5); Hypochromasia Marked; Lymphocytes # (A) 0.6 k/uL (1.0-4.8); Lymphocytes % (A) 8 %; MCH 29.1 pg (25.0-35.0); MCHC 31.9 g/dL (31.0-37.0); MCV 91.5 fL (80.0-100.0); Mean Platelet Volume 9.9; Monocytes # (A) 0.4 k/uL (0-1.0); Monocytes % (A) 5 %; Neutrophils # (A) 5.7 k/uL (1.3-7.7); Neutrophils % (A) 83 %; Platelet Count 178 k/uL (150-450); Poikilocytosis Marked; RBC 2.84 m/uL (4.30-5.90); RDW 16.2 % (11.5-15.5); WBC 6.8 k/uL (3.8-10.6)
[2019-10-02 16:42] LABS: African American GFR (CKD) 86.2 (60.0-200.0); Anion Gap 10.1 mmol/L (4.00-12.00); Calcium 8.8 mg/dL (8.7-10.3); Carbon Dioxide 21.9 mmol/L (21.6-31.8); Non-African American GFR(CKD) 74.3 (60.0-200.0); Potassium 4.5 mmol/L (3.5-5.5)
[2019-10-02 18:55] LABS: Hemoglobin A1C 5.5 % (4.0-6.0)
== END | disposition home or self-care (01) ==
LOC: LABWHC1 11:00
PROVIDERS: ATTEND Internal Medicine
DX: I10 Essential (primary) hypertension (principal); E11.21 Type 2 diabetes mellitus with diabetic nephropathy; E55.9 Vitamin D deficiency, unspecified
CPT/HCPCS: 36415; 80048; 82306; 83036; 85025

== ENCOUNTER 2021-05-08 09:53 | Emergency (ER) | payer MEDICARE ==
[2021-05-08 10:02] VITALS: TEMP 97
--- NOTE | 2021-05-08 10:27 | ED ---
Arrhythmia/Palpitations HPI - General Chief Complaint: Arrhythmia/Palpitations Stated Complaint: racing heart Time Seen by Provider: 05/08/21 10:05 Source: patient, RN notes reviewed Mode of arrival: ambulatory Limitations: no limitations - History of Present Illness Initial Comments: 75-year-old male with a prior history of atrial fibrillation who presents with complaints of the onset last evening of not feeling well he's had pounding heart rate He feel that his chest since he is sure moving also some exertional dyspnea with this. No overt chest pain. Is feeling somewhat better now though he states that he could hear a whooshing sound in his ear is also what was occurring. No fevers chills nausea vomiting sweats or other symptoms at this time MD Complaint: rapid heart beat, "heart racing" - Related Data Home Medications Medication Instructions Recorded Confirmed Tamsulosin HCl [Flomax] 0.4 mg PO 09/25/14 08/08/19 glipiZIDE XL [Glucotrol XL] 10 mg PO 09/25/14 08/08/19 Finasteride 5 mg PO QAM 05/28/15 08/08/19 Atorvastatin [Lipitor] 40 mg PO QAM 03/21/16 08/08/19 lisinopriL [Zestril] 10 mg PO QAM 03/21/16 08/08/19 metFORMIN HCL [metFORMIN HCL ER] 1,000 mg PO QAM 03/21/16 08/08/19 Potassium Chloride ER [K-Dur 10] 10 meq PO QAM 09/20/18 08/08/19 Warfarin [Coumadin] 7.5 mg PO 09/20/18 08/08/19 Furosemide [Lasix] 40 mg PO BID 10/18/18 08/08/19 Acetaminophen-Codeine 300-30mg 1 tab PO Q6H PRN 07/11/19 08/08/19 [Tylenol w/codeine #3] Ferrous Sulfate [Feosol] 2 tab PO BID 07/11/19 08/08/19 Flecainide [Tambocor] 50 mg PO BID 07/11/19 08/08/19 Metoprolol Tartrate [Lopressor] 25 mg PO QAM 07/11/19 08/08/19 Sulfamethoxazole/Trimethoprim 1 each PO QAM 07/11/19 08/08/19 [Bactrim DS 800-160 mg] Vit C/E/Zn/Coppr/Lutein/Zeaxan 2 each PO QAM 07/11/19 08/08/19 [Preservision Areds 2 Softgel] Allergies Allergy/AdvReac Type Severity Reaction Status Date / Time gluten Allergy Unknown Verified 05/08/21 10:01 Iodine and Iodide Containing Allergy Rash/Hives Verified 05/08/21 10:01 Produc shellfish derived [Shellfish] Allergy Rash/Hives Verified 05/08/21 10:01 Review of Systems ROS Statement: Those systems with pertinent positive or pertinent negative responses have been documented in the HPI. ROS Other: All systems not noted in ROS Statement are negative. Past Medical History Past Medical History: Atrial Fibrillation, Coronary Artery Disease (CAD), Diabetes Mellitus, Hyperlipidemia, Hypertension, Prostate Disorder Additional Past Medical History / Comment(s): enlarged prostate with stones, prostatitis in past and treated with Bactrim DS one half daily for suppression, episode of v-tach 20 yrs ago, mild CAD, NIDDM type II, 2007 syncope, chronic back pain, hx. stomach ulcers Last Myocardial Infarction Date:: 05/28/15 History of Any Multi-Drug Resistant Organisms: ESBL Date of last positivie culture/infection: 05/29/19 ESBL E.coli MDRO Source:: Urine Past Surgical History: Appendectomy, Cholecystectomy, Heart Catheterization, Orthopedic Surgery Additional Past Surgical History / Comment(s): tibia plateau fracture right leg with plates/screws, 05/29/15 cardiac cath with mild CAD. Past Anesthesia/Blood Transfusion Reactions: No Reported Reaction Past Psychological History: No Psychological Hx Reported Smoking Status: Never smoker Past Alcohol Use History: None Reported Past Drug Use History: None Reported - Past Family History Mother Additional Family Medical History / Comment(s): Bowel problems and possible lung cancer. Mother in her 80's. She did not go to the doctors much. Brother(s) Family Medical History: Cancer Father Family Medical History: Cancer Additional Family Medical History / Comment(s): Father had palpitations. He at about age 78yrs. General Exam - General Exam Comments Initial Comments: This is a well-developed well-nourished awake alert oriented 3 male Limitations: no limitations General appearance: alert, anxious Head exam: Present: atraumatic, normocephalic, normal inspection Eye exam: Present: normal appearance, PERRL, EOMI. Absent: scleral icterus, conjunctival injection, periorbital swelling ENT exam: Present: normal exam, mucous membranes moist Neck exam: Present: normal inspection, full ROM, other (No stridor JVD or bruits). Absent: tenderness, meningismus, lymphadenopathy Respiratory exam: Present: normal lung sounds bilaterally. Absent: respiratory distress, wheezes, rales, rhonchi, stridor Cardiovascular Exam: Present: regular rate, normal rhythm, normal heart sounds. Absent: systolic murmur, diastolic murmur, rubs, gallop, clicks GI/Abdominal exam: Present: soft, normal bowel sounds. Absent: distended, tenderness, guarding, rebound, rigid Extremities exam: Present: normal inspection, full ROM, normal capillary refill. Absent: tenderness, pedal edema, joint swelling, calf tenderness Back exam: Present: normal inspection Neurological exam: Present: alert, oriented X3, CN II-XII intact Psychiatric exam: Present: normal affect, normal mood Skin exam: Present: warm, dry, intact, normal color. Absent: rash Course Vital Signs 05/08/21 09:57 Temperature 97 F L Pulse Rate 68 Respiratory 18 Rate Blood Pressure 151/67 O2 Sat by Pulse 98 Oximetry EKG Findings - EKG Results: EKG: interpreted by MENDEL, sinus rhythm (Sinus rhythm first-degree AV block occasional PVC rate 68. We'll 242 QRS duration 100 QT since QTC 390/414) Medical Decision Making - Medical Decision Making I did discuss findings with patient family patient will be discharged no further episodes he does demonstrate some evidence of I'm depletion - Lab Data Result diagrams: 05/08/21 10:31 05/08/21 10:31 Lab Results 05/08/21 05/08/21 05/08/21 Range/Units 10:31 10:31 10:31 WBC 4.7 (3.8-10.6) k/uL RBC 4.45 (4.30-5.90) m/uL Hgb 14.8 (13.0-17.5) gm/dL Hct 43.1 (39.0-53.0) % MCV 96.9 (80.0-100.0) fL MCH 33.3 (25.0-35.0) pg MCHC 34.4 (31.0-37.0) g/dL RDW 13.9 (11.5-15.5) % Plt Count 169 (150-450) k/uL MPV 10.2 Neutrophils % 79 % Lymphocytes % 12 % Monocytes % 5 % Eosinophils % 2 % Basophils % 1 % Neutrophils # 3.7 (1.3-7.7) k/uL Lymphocytes # 0.6 L (1.0-4.8) k/uL Monocytes # 0.3 (0-1.0) k/uL Eosinophils # 0.1 (0-0.7) k/uL Basophils # 0.0 (0-0.2) k/uL PT 30.8 H (9.0-12.0) sec INR 3.2 H (<1.2) APTT 39.4 H (22.0-30.0) sec D-Dimer 0.34 (<0.60) mg/L FEU Sodium 137 (137-145) mmol/L Potassium 4.5 (3.5-5.1) mmol/L Chloride 102 (98-107) mmol/L Carbon Dioxide 21 L (22-30) mmol/L Anion Gap 14 mmol/L BUN 52 H (9-20) mg/dL Creatinine 1.71 H (0.66-1.25) mg/dL Est GFR (CKD-EPI)AfAm 45 (>60 ml/min/1.73 sqM) Est GFR (CKD-EPI)NonAf 39 (>60 ml/min/1.73 sqM) Glucose 130 H (74-99) mg/dL Calcium 9.7 (8.4-10.2) mg/dL Magnesium 2.3 (1.6-2.3) mg/dL Total Bilirubin 0.6 (0.2-1.3) mg/dL AST 27 (17-59) U/L ALT 26 (4-49) U/L Alkaline Phosphatase 52 (38-126) U/L Troponin I (0.000-0.034) ng/mL Total Protein 7.0 (6.3-8.2) g/dL Albumin 4.6 (3.5-5.0) g/dL TSH 2.130 (0.465-4.680) mIU/L 05/08/21 Range/Units 10:31 WBC (3.8-10.6) k/uL RBC (4.30-5.90) m/uL Hgb (13.0-17.5) gm/dL Hct (39.0-53.0) % MCV (80.0-100.0) fL MCH (25.0-35.0) pg MCHC (31.0-37.0) g/dL RDW (11.5-15.5) % Plt Count (150-450) k/uL MPV Neutrophils % % Lymphocytes % % Monocytes % % Eosinophils % % Basophils % % Neutrophils # (1.3-7.7) k/uL Lymphocytes # (1.0-4.8) k/uL Monocytes # (0-1.0) k/uL Eosinophils # (0-0.7) k/uL Basophils # (0-0.2) k/uL PT (9.0-12.0) sec INR (<1.2) APTT (22.0-30.0) sec D-Dimer (<0.60) mg/L FEU Sodium (137-145) mmol/L Potassium (3.5-5.1) mmol/L Chloride (98-107) mmol/L Carbon Dioxide (22-30) mmol/L Anion Gap mmol/L BUN (9-20) mg/dL Creatinine (0.66-1.25) mg/dL Est GFR (CKD-EPI)AfAm (>60 ml/min/1.73 sqM) Est GFR (CKD-EPI)NonAf (>60 ml/min/1.73 sqM) Glucose (74-99) mg/dL Calcium (8.4-10.2) mg/dL Magnesium (1.6-2.3) mg/dL Total Bilirubin (0.2-1.3) mg/dL AST (17-59) U/L ALT (4-49) U/L Alkaline Phosphatase (38-126) U/L Troponin I <0.012 (0.000-0.034) ng/mL Total Protein (6.3-8.2) g/dL Albumin (3.5-5.0) g/dL TSH (0.465-4.680) mIU/L - Radiology Data Radiology results: report reviewed (Imaging reviewed no acute findings), image reviewed Disposition Clinical Impression: Palpitations, Prerenal azotemia, Dehydration Disposition: HOME SELF-CARE Condition: Good Instructions (If sedation given, give patient instructions): Heart Palpitations (ED), Dehydration (ED) Is patient prescribed a controlled substance at d/c from ED?: No Referrals: Gaurang Pham MD [Primary Care Provider] - 1-2 days
--- NOTE | 2021-05-08 10:46 | XR ---
EXAMINATION TYPE: XR chest 2V DATE OF EXAM: 05/08/2021 COMPARISON: 09/20/2018 HISTORY: Dysrhythmia TECHNIQUE: Frontal and lateral views of the chest are obtained. FINDINGS: There is no focal air space opacity, pleural effusion, or pneumothorax seen. The cardiac silhouette size is within normal limits. The osseous structures are intact. IMPRESSION: No acute cardiopulmonary process.
[2021-05-08 10:57] LABS: Albumin 4.6 g/dL (3.5-5.0); Calcium 9.7 mg/dL (8.4-10.2); Magnesium 2.3 mg/dL (1.6-2.3); Potassium 4.5 mmol/L (3.5-5.1); Total Bilirubin 0.6 mg/dL (0.2-1.3)
[2021-05-08 11:04] LABS: INR 3.2 (<1.2); Partial Thromboplastin Time 39.4 sec (22.0-30.0); Prothrombin Time 30.8 sec (9.0-12.0)
[2021-05-08 11:20] LABS: Basophils % (A) 1 %; Eosinophils # (A) 0.1 k/uL (0-0.7); Eosinophils % (A) 2 %; HCT 43.1 % (39.0-53.0); HGB 14.8 gm/dL (13.0-17.5); Lymphocytes # (A) 0.6 k/uL (1.0-4.8); Lymphocytes % (A) 12 %; MCH 33.3 pg (25.0-35.0); MCHC 34.4 g/dL (31.0-37.0); MCV 96.9 fL (80.0-100.0); Mean Platelet Volume 10.2; Monocytes # (A) 0.3 k/uL (0-1.0); Monocytes % (A) 5 %; Neutrophils # (A) 3.7 k/uL (1.3-7.7); Neutrophils % (A) 79 %; Platelet Count 169 k/uL (150-450); RBC 4.45 m/uL (4.30-5.90); RDW 13.9 % (11.5-15.5); WBC 4.7 k/uL (3.8-10.6)
[2021-05-08 13:02] VITALS: BP 129/101; PULSE 58; RESP 16
== END 2021-05-08 13:00 | disposition home or self-care (01) ==
LOC: EC 09:53
DX: R00.2 Palpitations (principal); E86.0 Dehydration; R79.89 Other specified abnormal findings of blood chemistry; E11.9 Type 2 diabetes mellitus without complications; I10 Essential (primary) hypertension; I25.10 Atherosclerotic heart disease of native coronary artery without angina pectoris; I25.2 Old myocardial infarction; I48.91 Unspecified atrial fibrillation; E78.5 Hyperlipidemia, unspecified; Z79.01 Long term (current) use of anticoagulants; Z79.84 Long term (current) use of oral hypoglycemic drugs; Z79.899 Other long term (current) drug therapy; Z88.8 Allergy status to other drugs, medicaments and biological substances; Z90.49 Acquired absence of other specified parts of digestive tract
CPT/HCPCS: 36415; 71046; 80053; 83735; 84443; 84484; 85025; 85379; 85610; 85730; 93005; 99285

== ENCOUNTER → 2021-05-25 | Outpatient (CLI) | payer MEDICARE ==
[2021-05-25 20:07] LABS: African American GFR (CKD) 40.7 (60.0-200.0); Albumin 4.6 g/dL (3.8-4.9); Albumin/Globulin Ratio 2.45 (1.60-3.17); Anion Gap 12.5 mmol/L (4.00-12.00); BUN/Creat Ratio 26.65 Ratio (12.00-20.00); Blood Urea Nitrogen 49.3 mg/dL (9.0-27.0); Calcium 9.5 mg/dL (8.7-10.3); Carbon Dioxide 22.9 mmol/L (21.6-31.8); Chol/HDL Ratio 2.6 Ratio; Globulin 1.9 g/dL (1.6-3.3); HDL Cholesterol 37.8 mg/dL (40.00-60.00); LDL Cholesterol,Calculated 25.3 mg/dL (0.0-131.0); Non-African American GFR(CKD) 35.1 (60.0-200.0); Potassium 5.6 mmol/L (3.5-5.5); Total Bilirubin 0.4 mg/dL (0.30-1.20); Total Protein 6.4 g/dL (6.2-8.2); Uric Acid 10.5 mg/dL (3.7-8.7); VLDL Calculation 35.2 mg/dL (5.00-40.00)
== END | disposition home or self-care (01) ==
LOC: LABWHC1 11:30
PROVIDERS: ATTEND Internal Medicine
DX: E11.40 Type 2 diabetes mellitus with diabetic neuropathy, unspecified (principal); M10.9 Gout, unspecified
CPT/HCPCS: 36415; 80053; 80061; 82306; 83036; 84550

== ENCOUNTER → 2021-07-07 | Outpatient (CLI) | payer MEDICARE ==
--- NOTE | 2021-07-07 11:47 | XR ---
Left ankle and left foot HISTORY: S92.302A fx L metatarsal bone, pain and swelling 3 views of the left ankle, 3 views the left foot submitted There is a plantar calcaneal spur. Enthesophyte present at the insertion of the Achilles tendon. Ther e are atheromatous vascular calcifications noted, soft tissue swelling is present. Degenerative yepez es present at the first metatarsophalangeal and tarsometatarsal joints. Bone mineralization is reduce d. No fracture or dislocation. IMPRESSION: Soft tissue swelling, osteoarthritis.
== END | disposition home or self-care (01) ==
LOC: RADXRMAIN 10:24
PROVIDERS: ATTEND Podiatrist Foot Surgery
DX: M19.072 Primary osteoarthritis, left ankle and foot (principal)

== ENCOUNTER → 2021-07-07 | Outpatient (CLI) | payer MEDICARE ==
--- NOTE | 2021-07-07 15:38 | US ---
EXAMINATION TYPE: US venous doppler duplex LE LT DATE OF EXAM: 07/07/2021 3:29 PM COMPARISON: US 2014 CLINICAL HISTORY: M79.89 Swelling of left foot. SIDE PERFORMED: Left TECHNIQUE: The lower extremity deep venous system is examined utilizing real time linear array sonog ander with graded compression, doppler sonography and color-flow sonography. VESSELS IMAGED: Common Femoral Vein Deep Femoral Vein Greater Saphenous Vein * Femoral Vein Popliteal Vein Small Saphenous Vein * Proximal Calf Veins (* superficial vessels) Left Leg: Appears negative for DVT IMPRESSION: Grayscale, color doppler, spectral doppler imaging performed of the deep veins of the lo wer extremities. There is normal flow, compressibility, vascular waveforms.
== END | disposition home or self-care (01) ==
LOC: RADUSWWP 15:10
PROVIDERS: ATTEND Internal Medicine
DX: M79.89 Other specified soft tissue disorders (principal)

== ENCOUNTER → 2021-07-27 | Outpatient (CLI) | payer MEDICARE ==
--- NOTE | 2021-07-28 10:44 | P.ARTDOP ---
Arterial Doppler LOWER EXTREMITY ARTERIAL DOPPLER: DATE OF SERVICE: 07/27/2021 Reason for study: Left leg swelling. Doppler waveforms: Multiphasic bilaterally throughout. Pulse volume recording: []. Pressure gradients: None of significance.. Ankle-brachial indices: Greater than 1 bilaterally. Toe brachial indices: Not recorded on the right, 0.57 on the left Impression: Normal study. Difficulty with right great toe pressure and waveform. Probably not clinically significant..
== END | disposition home or self-care (01) ==
LOC: RADUSWWP 13:21
PROVIDERS: ATTEND Internal Medicine
DX: M79.89 Other specified soft tissue disorders (principal)
CPT/HCPCS: 93922

== ENCOUNTER → 2021-10-22 | Outpatient (CLI) | payer MEDICARE ==
--- NOTE | 2021-10-22 14:14 | US ---
EXAMINATION TYPE: US scrotum with doppler. Grayscale and color Doppler Duplex imaging performed of gauri briggs scrotum. DATE OF EXAM: 10/22/2021 COMPARISON: NONE CLINICAL HISTORY: N50.89 SWELLING, PAIN. Pain and swelling right side. EXAM MEASUREMENTS: TESTICLES: Right Testicle: 3.0 x 1.7 x 3.0 cm Hypochoic area seen measuring .8 x .7 x .8 cm testicle heterogen ous in texture. Additional workup for neoplasm is recommended. Left Testicle: 2.1 x 3.1 x1.9 cm Rete testis seen measuring 1.0 x .7 x 1.0 cm. EPIDIDYMIS HEAD: Right Epididymis: .7 x .9 x .7 cm Left Epididymis: enlarged 3.1 x 3.9 x 2.9 cm Cystic area 1.8 x 3.7 x 1.6 cm. Doppler performed to assess for testicular vascularity; good bilateral color flow and waveforms are s een. There is no evidence of testicular torsion. Presence of hydroceles: Yes left side. Presence of varicoceles: no IMPRESSION: 1. Hypoechoic nodule within the right testicle. Additional workup for neoplasm is recommended. 2. Left epididymal cyst. 3. Left-sided hydrocele
== END | disposition home or self-care (01) ==
LOC: RADUSWWP 12:57
PROVIDERS: ATTEND Urology
DX: N43.3 Hydrocele, unspecified (principal); N50.3 Cyst of epididymis; N50.89 Other specified disorders of the male genital organs
CPT/HCPCS: 76870; 93975

== ENCOUNTER → 2021-12-21 | Outpatient (CLI) | payer MEDICARE ==
[2021-12-21 14:24] LABS: Basophils # (A) 0.06 X 10*3/uL (0.00-0.10); Basophils % (A) 0.9 %; Eosinophils # (A) 0.12 X 10*3/uL (0.04-0.35); Eosinophils % (A) 1.8 %; HCT 44.6 % (39.6-50.0); HGB 14.8 g/dL (13.0-17.0); Immature Grans, Automated 0.5 %; Lymphocytes # (A) 1.05 X 10*3/uL (0.90-5.00); Lymphocytes % (A) 15.9 %; MCH 31.4 pg (27.0-32.0); MCHC 33.2 g/dL (32.0-37.0); MCV 94.5 fL (80.0-97.0); Mean Platelet Volume 12.3 fL (9.5-12.2); Monocytes # (A) 0.48 X 10*3/uL (0.20-1.00); Monocytes % (A) 7.3 %; NRBC Per 100 WBC 0 /100 WBCS (0.0-0.0); Neutrophils # (A) 4.85 X 10*3/uL (1.80-7.70); Neutrophils % (A) 73.6 %; Platelet Count 188 X 10*3/uL (140-440); RBC 4.72 X 10*6/uL (4.40-5.60); RDW 13.8 % (11.5-14.5); WBC 6.59 X 10*3/uL (4.50-10.00)
[2021-12-21 15:14] LABS: African American GFR (CKD) 101.3 (60.0-200.0); Albumin 4.4 g/dL (3.8-4.9); Albumin/Globulin Ratio 1.91 (1.60-3.17); Anion Gap 9.7 mmol/L (10.00-18.00); BUN/Creat Ratio 22.63 Ratio (12.00-20.00); Blood Urea Nitrogen 18.1 mg/dL (9.0-27.0); Calcium 10.1 mg/dL (8.7-10.3); Carbon Dioxide 27.3 mmol/L (20.0-27.5); Globulin 2.3 g/dL (1.6-3.3); Non-African American GFR(CKD) 87.4 (60.0-200.0); PSA Annual Screen 0.4 ng/mL (0.000-4.000); Potassium 4.5 mmol/L (3.5-5.5); Total Bilirubin 0.6 mg/dL (0.30-1.20); Total Protein 6.7 g/dL (6.2-8.2)
== END | disposition home or self-care (01) ==
LOC: LABWHC1 09:01
PROVIDERS: ATTEND Internal Medicine
DX: E11.40 Type 2 diabetes mellitus with diabetic neuropathy, unspecified (principal); N40.0 Benign prostatic hyperplasia without lower urinary tract symptoms
CPT/HCPCS: 80053; 85025; 83036; 36415; G0103

== ENCOUNTER → 2022-05-16 | Outpatient (CLI) | payer MEDICARE ==
[2022-05-16 13:18] LABS: Appearance,Urine Clear (Clear); Bilirubin,Urine Negative (Negative); Blood,Urine Negative (Negative); Color,Urine Yellow; Glucose,Urine (UA) Negative (Negative); Hyaline Casts,Urine 1 /lpf (0-2); Ketones,Urine Negative (Negative); Leukocyte Esterase,Urine Negative (Negative); Mucus,Urine Rare /hpf; Nitrite,Urine Negative (Negative); Protein,Urine 2+ (Negative); RBC,Urine 1 /hpf (0-5); Specific Gravity,Urine 1.013 (1.001-1.035); Squamous Epithelial Cell,Urine 1 /hpf (0-4); Urobilinogen,Urine <2.0 mg/dL (<2.0); WBC,Urine 3 /hpf (0-5)
[2022-05-16 18:22] LABS: African American GFR (CKD) 101.3 (60.0-200.0); Albumin 4.4 g/dL (3.8-4.9); Albumin/Globulin Ratio 2.1 (1.60-3.17); Anion Gap 11.9 mmol/L (10.00-18.00); BUN/Creat Ratio 15.75 Ratio (12.00-20.00); Blood Urea Nitrogen 12.6 mg/dL (9.0-27.0); Carbon Dioxide 27.1 mmol/L (20.0-27.5); Globulin 2.1 g/dL (1.6-3.3); Non-African American GFR(CKD) 87.4 (60.0-200.0); Potassium 4.1 mmol/L (3.5-5.5); Total Bilirubin 0.7 mg/dL (0.30-1.20); Total Protein 6.5 g/dL (6.2-8.2)
[2022-05-16 19:10] LABS: Basophils % (A) 0.9 %; Eosinophils # (A) 0.26 X 10*3/uL (0.04-0.35); Eosinophils % (A) 2.4 %; HCT 45.2 % (39.6-50.0); HGB 14.8 g/dL (13.0-17.0); Immature Grans, Automated 1.4 %; Lymphocytes # (A) 0.97 X 10*3/uL (0.90-5.00); Lymphocytes % (A) 9.1 %; MCH 31.4 pg (27.0-32.0); MCHC 32.7 g/dL (32.0-37.0); MCV 95.8 fL (80.0-97.0); Mean Platelet Volume 11.8 fL (9.5-12.2); Monocytes # (A) 0.63 X 10*3/uL (0.20-1.00); Monocytes % (A) 5.9 %; NRBC Per 100 WBC 0 /100 WBCS (0.0-0.0); Neutrophils # (A) 8.59 X 10*3/uL (1.80-7.70); Neutrophils % (A) 80.3 %; Platelet Count 244 X 10*3/uL (140-440); RBC 4.72 X 10*6/uL (4.40-5.60); RDW 14.1 % (11.5-14.5)
== END | disposition home or self-care (01) ==
LOC: LABPAT 11:16
PROVIDERS: ATTEND Urology
DX: Z01.812 Encounter for preprocedural laboratory examination (principal); N49.2 Inflammatory disorders of scrotum
CPT/HCPCS: 80053; 81001; 85025; 87086

== ENCOUNTER → 2022-05-23 | Day surgery (SDC) | payer MEDICARE ==
--- NOTE | 2022-05-22 18:13 | P.GSHP ---
History of Present Illness H&P Date: 05/22/22 76 yo male with a chronic scrotal sinus, infected. He comes for surgical resection to liberate him of this chronic scrotal infection. the risks and complications have been discussed. Chronic antibiotics hasn't been successful. - Constitutional Constitutional: Denies chills, Denies fever - EENT Eyes: denies blurred vision, denies pain Ears, nose, mouth and throat: Denies headache, Denies sore throat - Cardiovascular Cardiovascular: Denies chest pain, Denies shortness of breath - Respiratory Respiratory: Denies cough, Denies 7 - Gastrointestinal Gastrointestinal: Denies abdominal pain, Denies diarrhea, Denies nausea, Denies vomiting - Genitourinary (Female) Genitourinary: Denies dysuria, Denies hematuria - Genitourinary (Male) Genitourinary: Denies dysuria, Denies hematuria - Musculoskeletal Musculoskeletal: Denies myalgias - Integumentary Integumentary: Denies pruritus, Denies rash - Neurological Neurological: Denies numbness, Denies weakness - Psychiatric Psychiatric: Denies anxiety, Denies depression - Endocrine Endocrine: Denies fatigue, Denies weight change Past Medical History Past Medical History: Atrial Fibrillation, Coronary Artery Disease (CAD), Diabetes Mellitus, Hyperlipidemia, Hypertension, Prostate Disorder Additional Past Medical History / Comment(s): enlarged prostate with stones, prostatitis , episode of v-tach 20 yrs ago, mild CAD, NIDDM type II, 2008 syncope, chronic back pain, hx. stomach ulcers achilles tendon inflammation Last Myocardial Infarction Date:: 05/28/15 History of Any Multi-Drug Resistant Organisms: ESBL Date of last positivie culture/infection: 05/29/19 ESBL E.coli MDRO Source:: Urine Past Surgical History: Appendectomy, Cholecystectomy, Heart Catheterization, Orthopedic Surgery Additional Past Surgical History / Comment(s): tibia plateau fracture right leg with plates/screws, 05/29/15 cardiac cath with mild CAD. Past Anesthesia/Blood Transfusion Reactions: No Reported Reaction Smoking Status: Former smoker - Past Family History Mother Additional Family Medical History / Comment(s): Bowel problems and possible lung cancer. Mother in her 80's. She did not go to the doctors much. Brother(s) Family Medical History: Cancer Father Family Medical History: Cancer Additional Family Medical History / Comment(s): Father had palpitations. He at about age 78yrs. Medications and Allergies Home Medications Medication Instructions Recorded Confirmed Type Tamsulosin HCl [Flomax] 0.4 mg PO HS 09/25/14 05/19/22 History glipiZIDE XL [Glucotrol XL] 5 mg PO HS 09/25/14 05/19/22 History Finasteride 5 mg PO QAM 05/28/15 05/19/22 History Atorvastatin [Lipitor] 40 mg PO QAM 03/21/16 05/19/22 History lisinopriL [Zestril] 10 mg PO QAM 03/21/16 05/19/22 History metFORMIN HCL [metFORMIN HCL ER] 1,000 mg PO QAM 03/21/16 05/19/22 History Warfarin [Coumadin] 7.5 mg PO MOTUWEFRSA 09/20/18 05/19/22 History Furosemide [Lasix] 40 mg PO DAILY 10/18/18 05/19/22 History Acetaminophen-Codeine 300-30mg 1 tab PO TID 07/11/19 05/19/22 History [Tylenol w/codeine #3] Ferrous Sulfate [Feosol] 2 tab PO BID 07/11/19 05/19/22 History Flecainide [Tambocor] 50 mg PO BID 07/11/19 05/19/22 History Metoprolol Tartrate [Lopressor] 25 mg PO QAM 07/11/19 05/19/22 History Vit C/E/Zn/Coppr/Lutein/Zeaxan 2 each PO QAM 07/11/19 05/19/22 History [Preservision Areds 2 Softgel] Cephalexin [Keflex] 500 mg PO Q8HR 05/19/22 05/19/22 History Cholecalciferol (Vitamin D3) 1 tab PO DAILY 05/19/22 05/19/22 History [Vitamin D3 (125 MCG = 5,000 IU)] Fenofibrate [Lofibra] 54 mg PO DAILY 05/19/22 05/19/22 History Potassium Citrate 99 mg PO DAILY 05/19/22 05/19/22 History Vit C/E/Cuperic/Zinc/Lutein 1 tab PO DAILY 05/19/22 05/19/22 History [Preservision Lutein Softgel] Warfarin [Coumadin] 5 mg PO SUT 05/19/22 05/19/22 History allopurinoL 100 mg PO DAILY 05/19/22 05/19/22 History methylPREDNISolone Dose Pack 4 mg PO DIRECTED 05/19/22 05/19/22 History [Medrol Dose Pack] Allergies Allergy/AdvReac Type Severity Reaction Status Date / Time gluten Allergy Unknown Verified 05/19/22 08:27 Iodine and Iodide Containing Allergy Rash/Hives Verified 05/19/22 08:27 Produc shellfish derived [Shellfish] Allergy Rash/Hives Verified 05/19/22 08:27 Surgical - Exam - General well developed, well nourished, no distress - Eyes normal ocular movement, no icteric - ENT no hearing loss, no congestion - Neck no masses, trachea midline - Respiratory normal respiratory effort, clear to auscultation - Abdomen Abdomen: soft, non tender, no guarding, no rigid, no rebound - Genitourinary chronic indurated right anterior scrotum with a draining sinus, > 2cm. - Integumentary no rash, no abnormal pigmentation - Neurologic no disoriented, no combative - Psychiatric oriented to time, oriented to person, oriented to place, speech is normal, memory intact Assessment and Plan Assessment: Impression: Chronic scrotal abscess/sinus Plan: surgical excision of the chronic abscess.
[~2022-05-23] MED LIST changes: +AMPICILLIN 1,000 MG in SODIUM CHLORIDE 0.9% 50 ML IVPB PRN; +BUPIVACAINE (PF) 0.25% 30 ML VIAL SQ ONE; +DEXAMETHASONE SOD PHOSPHATE 4 MG/ML 1 ML VIAL IVP ONE; +GENTAMICIN 120 MG in SODIUM CHLORIDE 0.9% 100 ML IVPB PRN; +HYDROcodone/APAP 5-325MG 1 EACH TAB ONE; +HYDROmorphone 0.5 MG/0.5 ML SYRINGE IVP ONE; +LABETALOL 5 MG/ML VIAL MDV ONE; +LACTATED RINGERS 1,000 ML IV ONE; -LACTATED RINGERS 1,000 ML IV SCH; +LIDOCAINE 2% INJ 20 MG/ML (2 ML VIAL) ONE; +ONDANSETRON 4 MG/2 ML VIAL IVP ONE; +ONDANSETRON 4 MG/2 ML VIAL ONE; +PROPOFOL 10 MG/ML 20 ML VIAL IV ONE; +SODIUM CHLORIDE 0.9% 1,000 ML IV ONE; +SUCCINYLCHOLINE CHLORIDE 200 MG/10 ML VIAL IV ONE; +fentaNYL (PF) 50 MCG/ML 2 ML AMP ONE
[2022-05-23 12:44] LABS: Glucose,Whole Blood 168 mg/dL (70-110)
[2022-05-23 13:04] LABS: INR 1.1 (<1.2); Prothrombin Time 11.3 sec (9.0-12.0)
--- NOTE | 2022-05-23 14:10 | P.OP ---
Date of Procedure: 05/23/22 Preoperative Diagnosis: Chronic scrotal abscess, chronic epididymitis Postoperative Diagnosis: Same Procedure(s) Performed: Excision of chronic scrotal abscess, sinus possible related to chronic epididymitis right Anesthesia: RASHADA Surgeon: Darnell Mosley Estimated Blood Loss (ml): 0 Pathology: other (Chronic scrotal sinus) Condition: stable Disposition: PACU Indications for Procedure: Patient is 76. He has had chronic epididymitis as well as a chronic scrotal sinus now for several months perhaps years. He states that he is treated with antibiotics we'll get better only to come back. He was seen in the office and found to have a fistula site draining from an indurated area in the scrotum. Whether this is related epididymitis or not is uncertain. He comes for excision of this sinus tract Description of Procedure: Patient brought to the operating suite. He is given general anesthesia. He is prepped and draped sterilely. A make an elliptical incision around the right scrotal sinus in the anterior scrotum. I then tediously dissect or along the scrotal sinus tract deep into the scrotum. I make sure not to transect the tract until I get back to normal healthy tissue. It is difficult to say that this could be related epididymis on the right side. Once I get underneath the track I then clamped across to. I then transect the wound. I then oversew the clamp with 3-0 chromic. I then irrigate the wound. A drain is brought out thr ough separate stab incision. The wounds closed in 2 layers 3-0 chromic. The patient's awake and returned recovery in good condition. Prior to this a 10 mL half percent plain Marcaine block was administered to the right hemiscrotum. Blood loss is minimal. He tolerated the procedure and will be discharged home upon recovery and follow in the office in 48 hours to remove the drain.
[2022-05-23 14:15] VITALS: TEMP 97.4
[2022-05-23] MEDS: hydrALAZINE HCL 20 MG/ML 1 ML VIAL IVP ONE ×2 (15:07→15:32)
[2022-05-23 15:56] VITALS: RESP 20
[2022-05-23 17:58] VITALS: BP 154/70; PULSE 78
== END | disposition home or self-care (01) ==
LOC: OR 11:54
PROVIDERS: ATTEND Urology
DX: N45.1 Epididymitis (principal); I48.91 Unspecified atrial fibrillation; I25.10 Atherosclerotic heart disease of native coronary artery without angina pectoris; E11.9 Type 2 diabetes mellitus without complications; I10 Essential (primary) hypertension; E78.5 Hyperlipidemia, unspecified; I25.2 Old myocardial infarction; Z90.49 Acquired absence of other specified parts of digestive tract; Z87.891 Personal history of nicotine dependence; Z79.899 Other long term (current) drug therapy
CPT/HCPCS: 88304; 85610; 54700; J0330; J0360; J1100; J2405; J3010; J1580; J0290; J2704; J1170; J2001

== ENCOUNTER → 2022-06-06 | Outpatient (CLI) | payer MEDICARE ==
[2022-06-06 23:06] LABS: African American GFR (CKD) 99.2 (60.0-200.0); Anion Gap 9.7 mmol/L (10.00-18.00); BUN/Creat Ratio 19.86 Ratio (12.00-20.00); Blood Urea Nitrogen 16.7 mg/dL (9.0-27.0); Calcium 9.6 mg/dL (8.7-10.3); Carbon Dioxide 26.2 mmol/L (20.0-27.5); Magnesium 1.9 mg/dL (1.5-2.4); Non-African American GFR(CKD) 85.6 (60.0-200.0); Potassium 4.8 mmol/L (3.5-5.5)
== END | disposition home or self-care (01) ==
LOC: LABWHC1 14:10
PROVIDERS: ATTEND Internal Medicine Interventional Cardiology
DX: I10 Essential (primary) hypertension (principal)
CPT/HCPCS: 36415; 80048; 83735

== ENCOUNTER 2022-07-15 18:42 | Emergency (ER) | payer MEDICARE ==
[2022-07-15] MEDS ORDERED: SODIUM CHLORIDE 0.9% 500 ML 500 ML IV STA (18:52)
[2022-07-15 19:33] VITALS: RESP 16; TEMP 99
[2022-07-15 19:46] LABS: Basophils # (A) 0.1 k/uL (0-0.2); Basophils % (A) 1 %; Eosinophils # (A) 0.2 k/uL (0-0.7); Eosinophils % (A) 2 %; HCT 45.9 % (39.0-53.0); Lymphocytes # (A) 1.2 k/uL (1.0-4.8); Lymphocytes % (A) 12 %; MCH 31.5 pg (25.0-35.0); MCHC 34.8 g/dL (31.0-37.0); MCV 90.5 fL (80.0-100.0); Mean Platelet Volume 9.6; Monocytes # (A) 0.4 k/uL (0-1.0); Monocytes % (A) 4 %; Neutrophils # (A) 7.9 k/uL (1.3-7.7); Neutrophils % (A) 79 %; Platelet Count 224 k/uL (150-450); Poikilocytosis Slight; RBC 5.07 m/uL (4.30-5.90); RDW 14.9 % (11.5-15.5)
[2022-07-15 19:52] LABS: Lactic Acid, Venous 1.5 mmol/L (0.7-2.0)
[2022-07-15 19:54] LABS: ALT 24 U/L (4-49); AST 21 U/L (17-59); African American GFR (CKD) >90 (>60 ml/min/1.73 sqM); Albumin 4.2 g/dL (3.5-5.0); Alkaline Phosphatase 64 U/L (38-126); Anion Gap 6 mmol/L; Blood Urea Nitrogen 15 mg/dL (9-20); Calcium 9.9 mg/dL (8.4-10.2); Carbon Dioxide 27 mmol/L (22-30); Chloride 105 mmol/L (98-107); Glucose 140 mg/dL (74-99); Magnesium 1.8 mg/dL (1.6-2.3); Non-African American GFR(CKD) >90 (>60 ml/min/1.73 sqM); Potassium 4.4 mmol/L (3.5-5.1); Sodium 138 mmol/L (137-145); Total Bilirubin 0.8 mg/dL (0.2-1.3); Total Protein 6.6 g/dL (6.3-8.2)
--- NOTE | 2022-07-15 19:54 | CT ---
EXAMINATION TYPE: CT brain wo con DATE OF EXAM: 07/15/2022 COMPARISON: None HISTORY: headache and confusion x3 days CT DLP: 1154.4 mGycm Automated exposure control for dose reduction was used. Images obtained of the brain with no contrast. There is cerebral mild cortical atrophy. There is no mass effect or midline shift. No sign of intracr anial hemorrhage. The calvarium is intact skull base is intact. IMPRESSION: Mild atrophy. No acute intracranial abnormality.
--- NOTE | 2022-07-15 20:23 | XR ---
EXAMINATION TYPE: XR chest 2V DATE OF EXAM: 07/15/2022 COMPARISON: 05/08/2021 HISTORY: Confusion TECHNIQUE: FINDINGS: There is no heart failure nor confluent pneumonic infiltrate. Costophrenic angles are clear . Thoracic aorta is atheromatous. There are chest leads. No pleural effusion. IMPRESSION: No active cardiopulmonary disease. Normal heart. No change.
--- NOTE | 2022-07-15 20:36 | ED ---
Headache HPI - General Chief Complaint: Headache Stated Complaint: headache Time Seen by Provider: 07/15/22 18:51 Mode of arrival: ambulatory Limitations: no limitations - History of Present Illness Initial Comments: Patient is a 76-year-old male who presents to the emergency department for evaluation of confusion. Patient states he has had a headache for the past 3 days. The headache is on top of his head, described as an aching pain, typical of his headaches. There is no radiation. Patient states his headache resolved today however his wanted him evaluated for confusion. presents at bedside and helps provide history. States patient has been mixing up his words and has been intermittently confused. Last night well was 48 hours ago. She has not noticed any slurring of the speech or facial droop. They deny focal weakness and numbness. Patient does not have history of stroke. He is currently on warfarin for atrial fibrillation. Patient admits to a dry cough otherwise feels well. Denies fever, chills, other upper respiratory symptoms, chest pain, shortness of breath, abdominal pain, nausea, vomiting, diarrhea, constipation, burning with urination, trouble urinating, increased urinary frequency/urgency. Denies alcohol use, tobacco abuse, and other illicit drug use. - Related Data Home Medications Medication Instructions Recorded Confirmed Tamsulosin HCl [Flomax] 0.4 mg PO HS 09/25/14 07/15/22 Finasteride 5 mg PO DAILY 05/28/15 07/15/22 Atorvastatin [Lipitor] 40 mg PO DAILY 03/21/16 07/15/22 metFORMIN HCL [metFORMIN HCL ER] 500 mg PO DAILY 03/21/16 07/15/22 Warfarin [Coumadin] 7.5 mg PO MOTUWEFRSA@2100 09/20/18 07/15/22 Acetaminophen-Codeine 300-30mg 1 tab PO Q8H PRN 07/11/19 07/15/22 [Tylenol w/codeine #3] Ferrous Sulfate [Feosol] 325 mg PO BID 07/11/19 07/15/22 Flecainide [Tambocor] 50 mg PO BID 07/11/19 07/15/22 Vit C/E/Zn/Coppr/Lutein/Zeaxan 2 tab PO BID 07/11/19 07/15/22 [Preservision Areds 2 Softgel] Cholecalciferol (Vitamin D3) 125 mcg PO DAILY 05/19/22 07/15/22 [Vitamin D3 (125 MCG = 5,000 IU)] Fenofibrate [Lofibra] 54 mg PO DAILY 05/19/22 07/15/22 Warfarin [Coumadin] 5 mg PO SUTH@2100 05/19/22 07/15/22 allopurinoL 100 mg PO DAILY 05/19/22 07/15/22 Metoprolol Tartrate [Lopressor] 25 mg PO DAILY 07/15/22 07/15/22 Multivit-Min/FA/Lycopen/Lutein 1 tab PO DAILY 07/15/22 07/15/22 [Centrum Silver Men Tablet] glipiZIDE XL [Glucotrol Xl] 5 mg PO HS 07/15/22 07/15/22 lisinopriL [Zestril] 20 mg PO BID 07/15/22 07/15/22 Allergies Allergy/AdvReac Type Severity Reaction Status Date / Time gluten Allergy Unknown Verified 07/15/22 19:33 Iodine and Iodide Containing Allergy Rash/Hives Verified 07/15/22 19:33 Produc shellfish derived [Shellfish] Allergy Rash/Hives Verified 07/15/22 19:33 Review of Systems ROS Statement: Those systems with pertinent positive or pertinent negative responses have been documented in the HPI. ROS Other: All systems not noted in ROS Statement are negative. Past Medical History Past Medical History: Atrial Fibrillation, Coronary Artery Disease (CAD), Diabetes Mellitus, Hyperlipidemia, Hypertension, Prostate Disorder Additional Past Medical History / Comment(s): enlarged prostate with stones, prostatitis in past and treated with Bactrim DS one half daily for suppression, episode of v-tach 20 yrs ago, mild CAD, NIDDM type II, 2008 syncope, chronic back pain, hx. stomach ulcers Last Myocardial Infarction Date:: 05/28/15 History of Any Multi-Drug Resistant Organisms: ESBL Date of last positivie culture/infection: 05/29/19 ESBL E.coli MDRO Source:: Urine Past Surgical History: Appendectomy, Cholecystectomy, Heart Catheterization, Orthopedic Surgery Additional Past Surgical History / Comment(s): tibia plateau fracture right leg with plates/screws, 05/29/15 cardiac cath with mild CAD. Past Anesthesia/Blood Transfusion Reactions: No Reported Reaction Past Psychological History: No Psychological Hx Reported Smoking Status: Never smoker Past Alcohol Use History: None Reported Past Drug Use History: None Reported - Past Family History Mother Additional Family Medical History / Comment(s): Bowel problems and possible lung cancer. Mother in her 80's. She did not go to the doctors much. Brother(s) Family Medical History: Cancer Father Family Medical History: Cancer Additional Family Medical History / Comment(s): Father had palpitations. He at about age 78yrs. General Exam Limitations: no limitations General appearance: alert Eye exam: Present: normal appearance, PERRL, EOMI. Absent: scleral icterus, conjunctival injection, periorbital swelling Pupils: Present: normal accommodation ENT exam: Present: normal oropharynx Neck exam: Present: normal inspection Respiratory exam: Present: normal lung sounds bilaterally. Absent: respiratory distress, wheezes, rales, rhonchi, stridor Cardiovascular Exam: Present: regular rate, normal rhythm, normal heart sounds. Absent: systolic murmur, diastolic murmur, rubs, gallop, clicks GI/Abdominal exam: Present: soft, normal bowel sounds. Absent: distended, tenderness, guarding, rebound, rigid Extremities exam: Present: normal inspection, normal capillary refill Neurological exam: Present: alert, oriented X3, CN II-XII intact Psychiatric exam: Present: normal affect, normal mood Skin exam: Present: warm, dry, intact, normal color. Absent: rash Course Vital Signs 07/15/22 07/15/22 07/15/22 18:45 19:31 20:47 Temperature 98.7 F 99.0 F Pulse Rate 81 73 84 Respiratory 20 16 16 Rate Blood Pressure 190/84 167/97 171/92 O2 Sat by Pulse 99 95 96 Oximetry Medical Decision Making - Medical Decision Making This is a 76-year-old male presenting for evaluation headache and confusion. Patient is somewhat slow and confused while answering questions although he is alert and oriented 4. No neurological deficits. EKG obtained which shows sinus rhythm with sinus arrhythmia. Laboratory studies are obtained. There is no leukocytosis, no electrolyte abnormalities. Ammonia is within normal limits. CT of the brain without contrast obtained and interpreted by me which shows mild atrophy, no acute intracranial abnormality. Chest x-ray obtained interpreted by me shows no active cardiopulmonary disease. Results discussed with patient and . Patient has mild confusion, cough, with covid-19 diagnosis. I did discussed admission with neurology consult vs. obse rvation at home. Patient would like to go home. They will be discharged with strict return parameters. Dr. Miranda is my attending. - Lab Data Result diagrams: 07/15/22 19:29 07/15/22 19:29 Lab Results 07/15/22 07/15/22 07/15/22 Range/Units 19:29 19:29 19:29 WBC 10.0 (3.8-10.6) k/uL RBC 5.07 (4.30-5.90) m/uL Hgb 16.0 (13.0-17.5) gm/dL Hct 45.9 (39.0-53.0) % MCV 90.5 (80.0-100.0) fL MCH 31.5 (25.0-35.0) pg MCHC 34.8 (31.0-37.0) g/dL RDW 14.9 (11.5-15.5) % Plt Count 224 (150-450) k/uL MPV 9.6 Neutrophils % 79 % Lymphocytes % 12 % Monocytes % 4 % Eosinophils % 2 % Basophils % 1 % Neutrophils # 7.9 H (1.3-7.7) k/uL Lymphocytes # 1.2 (1.0-4.8) k/uL Monocytes # 0.4 (0-1.0) k/uL Eosinophils # 0.2 (0-0.7) k/uL Basophils # 0.1 (0-0.2) k/uL Poikilocytosis Slight Sodium 138 (137-145) mmol/L Potassium 4.4 (3.5-5.1) mmol/L Chloride 105 (98-107) mmol/L Carbon Dioxide 27 (22-30) mmol/L Anion Gap 6 mmol/L BUN 15 (9-20) mg/dL Creatinine 0.70 (0.66-1.25) mg/dL Est GFR (CKD-EPI)AfAm >90 (>60 ml/min/1.73 sqM) Est GFR (CKD-EPI)NonAf >90 (>60 ml/min/1.73 sqM) Glucose 140 H (74-99) mg/dL Plasma Lactic Acid [place] 1.5 (0.7-2.0) mmol/L Calcium 9.9 (8.4-10.2) mg/dL Magnesium 1.8 (1.6-2.3) mg/dL Total Bilirubin 0.8 (0.2-1.3) mg/dL AST 21 (17-59) U/L ALT 24 (4-49) U/L Alkaline Phosphatase 64 (38-126) U/L Ammonia <9 (<30) umol/L Total Protein 6.6 (6.3-8.2) g/dL Albumin 4.2 (3.5-5.0) g/dL Urine Color Urine Appearance (Clear) Urine pH (5.0-8.0) Ur Specific [place] (1.001-1.035) Urine Protein (Negative) Urine Glucose (UA) (Negative) Urine Ketones (Negative) Urine Blood (Negative) Urine Nitrite (Negative) Urine Bilirubin (Negative) Urine Urobilinogen (<2.0) mg/dL Ur Leukocyte Esterase (Negative) Urine RBC (0-5) /hpf Urine WBC (0-5) /hpf Ur Squamous Epith Cells (0-4) /hpf Influenza Type A (PCR) (Not Detectd) Influenza Type B (PCR) (Not Detectd) RSV (PCR) (Not Detectd) SARS-CoV-2 (PCR) (Not Detectd) 07/15/22 07/15/22 Range/Units 19:31 20:43 WBC (3.8-10.6) k/uL RBC (4.30-5.90) m/uL Hgb (13.0-17.5) gm/dL Hct (39.0-53.0) % MCV (80.0-100.0) fL MCH (25.0-35.0) pg MCHC (31.0-37.0) g/dL RDW (11.5-15.5) % Plt Count (150-450) k/uL MPV Neutrophils % % Lymphocytes % % Monocytes % % Eosinophils % % Basophils % % Neutrophils # (1.3-7.7) k/uL Lymphocytes # (1.0-4.8) k/uL Monocytes # (0-1.0) k/uL Eosinophils # (0-0.7) k/uL Basophils # (0-0.2) k/uL Poikilocytosis Sodium (137-145) mmol/L Potassium (3.5-5.1) mmol/L Chloride (98-107) mmol/L Carbon Dioxide (22-30) mmol/L Anion Gap mmol/L BUN (9-20) mg/dL Creatinine (0.66-1.25) mg/dL Est GFR (CKD-EPI)AfAm (>60 ml/min/1.73 sqM) Est GFR (CKD-EPI)NonAf (>60 ml/min/1.73 sqM) Glucose (74-99) mg/dL Plasma Lactic Acid [place] (0.7-2.0) mmol/L Calcium (8.4-10.2) mg/dL Magnesium (1.6-2.3) mg/dL Total Bilirubin (0.2-1.3) mg/dL AST (17-59) U/L ALT (4-49) U/L Alkaline Phosphatase (38-126) U/L Ammonia (<30) umol/L Total Protein (6.3-8.2) g/dL Albumin (3.5-5.0) g/dL Urine Color Light Yellow Urine Appearance Clear (Clear) Urine pH 6.5 (5.0-8.0) Ur Specific [place] 1.011 (1.001-1.035) Urine Protein 3+ H (Negative) Urine Glucose (UA) Trace H (Negative) Urine Ketones Negative (Negative) Urine Blood Negative (Negative) Urine Nitrite Negative (Negative) Urine Bilirubin Negative (Negative) Urine Urobilinogen <2.0 (<2.0) mg/dL Ur Leukocyte Esterase Negative (Negative) Urine RBC 3 (0-5) /hpf Urine WBC 1 (0-5) /hpf Ur Squamous Epith Cells <1 (0-4) /hpf Influenza Type A (PCR) Not Detected (Not Detectd) Influenza Type B (PCR) Not Detected (Not Detectd) RSV (PCR) Not Detected (Not Detectd) SARS-CoV-2 (PCR) Detected A (Not Detectd) - EKG Data EKG Comments: EKG taken at 19:16, interpreted by me Sinus rhythm with sinus arrhythmia Secondary 74 [place] interval 189 QRS duration 98 QTc 421 Disposition Clinical Impression: Confusion, Cough, COVID-19 Disposition: HOME SELF-CARE Condition: Good Instructions (If sedation given, give patient instructions): Coronavirus Disease 2019 (COVID-19), Acute Headache (ED) Additional Instructions: Give Tylenol for any fever. Follow-up with primary care provider in one to 2 days. Return to the emergency Department if you experience new, concerning, or worsening symptoms. Is patient prescribed a controlled substance at d/c from ED?: No Referrals: Gaurang Pham MD [Primary Care Provider] - 1-2 days Time of Disposition: 21:25
[2022-07-15 20:58] LABS: Appearance,Urine Clear (Clear); Bilirubin,Urine Negative (Negative); Blood,Urine Negative (Negative); Color,Urine Light Yellow; Glucose,Urine (UA) Trace (Negative); Ketones,Urine Negative (Negative); Leukocyte Esterase,Urine Negative (Negative); Nitrite,Urine Negative (Negative); PH, Urine 6.5 (5.0-8.0); Protein,Urine 3+ (Negative); RBC,Urine 3 /hpf (0-5); Specific Gravity,Urine 1.011 (1.001-1.035); Squamous Epithelial Cell,Urine <1 /hpf (0-4); Urobilinogen,Urine <2.0 mg/dL (<2.0); WBC,Urine 1 /hpf (0-5)
[2022-07-15 21:48] VITALS: BP 171/86; PULSE 86
== END 2022-07-15 21:49 | disposition home or self-care (01) ==
LOC: EC 18:42
DX: U07.1 COVID-19 (principal); R41.0 Disorientation, unspecified; I48.91 Unspecified atrial fibrillation; I25.10 Atherosclerotic heart disease of native coronary artery without angina pectoris; E11.9 Type 2 diabetes mellitus without complications; E78.5 Hyperlipidemia, unspecified; I10 Essential (primary) hypertension; Z88.8 Allergy status to other drugs, medicaments and biological substances; Z91.041 Radiographic dye allergy status; Z91.013 Allergy to seafood; Z79.84 Long term (current) use of oral hypoglycemic drugs; Z79.02 Long term (current) use of antithrombotics/antiplatelets; Z79.899 Other long term (current) drug therapy
CPT/HCPCS: 36415; 70450; 71046; 80053; 81001; 82140; 83605; 83735; 85025; 87636; 93005; 96360; 96361; 99284

== ENCOUNTER → 2022-07-19 | Outpatient (CLI) | payer MEDICARE ==
[2022-07-19 22:49] LABS: Basophils # (A) 0.06 X 10*3/uL (0.00-0.10); Basophils % (A) 0.8 %; Eosinophils # (A) 0.12 X 10*3/uL (0.04-0.35); Eosinophils % (A) 1.5 %; HCT 43.4 % (39.6-50.0); HGB 14.5 g/dL (13.0-17.0); Immature Grans, Automated 0.4 %; Lymphocytes # (A) 0.68 X 10*3/uL (0.90-5.00); Lymphocytes % (A) 8.5 %; MCH 30.9 pg (27.0-32.0); MCHC 33.4 g/dL (32.0-37.0); MCV 92.5 fL (80.0-97.0); Mean Platelet Volume 12.3 fL (9.5-12.2); Monocytes # (A) 0.36 X 10*3/uL (0.20-1.00); Monocytes % (A) 4.5 %; NRBC Per 100 WBC 0 /100 WBCS (0.0-0.0); Neutrophils # (A) 6.72 X 10*3/uL (1.80-7.70); Neutrophils % (A) 84.3 %; Platelet Count 189 X 10*3/uL (140-440); RBC 4.69 X 10*6/uL (4.40-5.60); RDW 14.2 % (11.5-14.5); WBC 7.97 X 10*3/uL (4.50-10.00)
[2022-07-19 23:14] LABS: INR 2.36 (0.90-1.11); Prothrombin Time 25.8 sec (9.9-11.9)
[2022-07-19 23:43] LABS: ALT 22 U/L (10-49); AST 18 U/L (14-35); African American GFR (CKD) 102.4 (60.0-200.0); Albumin 4.1 g/dL (3.8-4.9); Albumin/Globulin Ratio 2.33 (1.60-3.17); Alkaline Phosphatase 59 U/L (41-126); BUN/Creat Ratio 21.95 Ratio (12.00-20.00); Blood Urea Nitrogen 17.1 mg/dL (9.0-27.0); Calcium 9.6 mg/dL (8.7-10.3); Carbon Dioxide 27.1 mmol/L (20.0-27.5); Chloride 104 mmol/L (96-109); Globulin 1.8 g/dL (1.6-3.3); Glucose 192 mg/dL (70-110); Magnesium 1.8 mg/dL (1.5-2.4); Non-African American GFR(CKD) 88.4 (60.0-200.0); Potassium 4.2 mmol/L (3.5-5.5); Sodium 142 mmol/L (135-145); Total Protein 5.9 g/dL (6.2-8.2)
== END | disposition home or self-care (01) ==
LOC: LABWHC1 15:20
PROVIDERS: ATTEND Internal Medicine
DX: I48.0 Paroxysmal atrial fibrillation (principal); E11.9 Type 2 diabetes mellitus without complications; R41.0 Disorientation, unspecified
CPT/HCPCS: 36415; 80053; 82140; 82607; 82746; 83036; 83735; 84443; 85025; 85610; 86780

== ENCOUNTER → 2022-07-27 | Outpatient (CLI) | payer MEDICARE ==
--- NOTE | 2022-07-28 17:24 | MR ---
EXAMINATION TYPE: MR brain wo/w con DATE OF EXAM: 07/27/2022 4:37 PM CLINICAL INDICATION:Male, 76 years old with history of R41.0 DISORIENTATION; COMPARISON: 07/15/2022 TECHNIQUE: Multi planar, multi sequence imaging was performed through the brain including: T1, T2, In version recovery, susceptibility weighted imaging and gradient echo imaging and Diffusion weighted im aging. The patient was then given intravenous contrast and multi planar, T1 fat-saturation images wer e obtained. IV Contrast: 10 cc Gadavist FINDINGS: The lee-white junctions, ventricular system, basal cisterns appear unremarkable. Diffusion-weighted imaging shows no evidence of restricted diffusion to suggest acute/subacute infarct. Intracranial art erial flow voids are maintained. Midline structures show no abnormality. Scattered foci of high T2 si gnal intensity are seen within the periventricular white matter. The susceptibility weighted images d o not reveal any evidence for micro-hemorrhage. After administration of gadolinium, no abnormal enhan cement is seen. The optic nerve is within normal limits. The bone marrow signal is within normal limits. Paranasal sinuses and mastoid air cells: Mild scattered paranasal sinus disease. Visualized orbits: Bilateral aphakia IMPRESSION: 1. No evidence of intracranial mass, acute/subacute infarct, or abnormal enhancement. 2. Nonspecific white matter changes, likely related to small vessel ischemic disease
== END | disposition home or self-care (01) ==
LOC: RADMRIMAIN 15:25
PROVIDERS: ATTEND Internal Medicine
DX: G93.89 Other specified disorders of brain (principal); R41.0 Disorientation, unspecified
CPT/HCPCS: 70553; A9585

== ENCOUNTER → 2022-07-29 | Outpatient (CLI) | payer MEDICARE ==
--- NOTE | 2022-07-29 14:16 | US ---
EXAMINATION TYPE: US carotid duplex BILAT DATE OF EXAM: 07/29/2022 COMPARISON: NONE CLINICAL HISTORY: R41.0 Confusion. TECHNIQUE: Carotid duplex ultrasound examination. Indirect Doppler criteria was utilized. FINDINGS: EXAM MEASUREMENTS: RIGHT: Peak Systolic Velocity (PSV) cm/sec ----- Right CCA: 63.4 ----- Right ICA: 115.7 ----- Right ECA: 69.2 ICA/CCA ratio: 1.8 RIGHT: End Diastole cm/sec ----- Right CCA: 0.0 ----- Right ICA: 25.6 ----- Right ECA: 0.0 LEFT: Peak Systolic Velocity (PSV) cm/sec ----- Left CCA: 86.6 ----- Left ICA: 175.6 ----- Left ECA: 145.4 ICA/CCA ratio: 2.0 LEFT: End Diastole cm/sec ----- Left CCA: 14.0 ----- Left ICA: 29.3 ----- Left ECA: 0.0 VERTEBRALS (direction of flow): Right Vertebral: Antegrade Left Vertebral: Antegrade Rhythm: Normal Mild atherosclerotic calcification of the bilateral carotid bulbs. IMPRESSION: 1. 50-69 percent stenosis at the origin of the left internal carotid artery. 2. Less than 50% stenosis at the origin of the right internal carotid artery. Criteria for Assigning % of Stenosis / Diameter reduction (Estimation based on the indirect measurements of the internal carotid artery velocities (ICA PSV). 1. Normal (no stenosis)=ICA PSV < 125 cm/s: ratio < 2.0: ICA EDV<40 cm/s. 2. Less than 50% stenosis=ICA PSV < 125 cm/s: ratio < 2.0: ICA EDV<40 cm/s. 3. 50 to 69% stenosis=ICA PSV of 125 to 230 cm/s: ration 2.0 ? 4.0: ICA EDV 40-100 cm/s. 4. Greater than 70% stenosis to near occlusion= ICA PSV > 230 cm/s: ratio > 4.0: ICA EDV > 100 cm/s. 5. Near occlusion= ICA PSV velocities may be low or undetectable: variable ratio and ICA EDV. 6. Total occlusion=unable to detect flow.
== END | disposition home or self-care (01) ==
LOC: RADUSWWP 13:09
PROVIDERS: ATTEND Internal Medicine
DX: I65.23 Occlusion and stenosis of bilateral carotid arteries (principal); R41.0 Disorientation, unspecified
CPT/HCPCS: 93880

== ENCOUNTER → 2022-11-17 | Outpatient (CLI) | payer MEDICARE ==
[2022-11-17 19:25] LABS: Basophils # (A) 0.07 X 10*3/uL (0.00-0.10); Basophils % (A) 0.9 %; Eosinophils # (A) 0.24 X 10*3/uL (0.04-0.35); Eosinophils % (A) 3.2 %; HCT 44.9 % (39.6-50.0); Immature Grans, Automated 0.5 %; Lymphocytes # (A) 0.98 X 10*3/uL (0.90-5.00); Lymphocytes % (A) 13.2 %; MCH 31.6 pg (27.0-32.0); MCHC 33.4 g/dL (32.0-37.0); MCV 94.5 fL (80.0-97.0); Mean Platelet Volume 12.3 fL (9.5-12.2); Monocytes # (A) 0.43 X 10*3/uL (0.20-1.00); Monocytes % (A) 5.8 %; NRBC Per 100 WBC 0 /100 WBCS (0.0-0.0); Neutrophils # (A) 5.67 X 10*3/uL (1.80-7.70); Neutrophils % (A) 76.4 %; Platelet Count 204 X 10*3/uL (140-440); RBC 4.75 X 10*6/uL (4.40-5.60); WBC 7.43 X 10*3/uL (4.50-10.00)
[2022-11-18 02:30] LABS: ALT 23 U/L (10-49); AST 18 U/L (14-35); African American GFR (CKD) 88.4 (60.0-200.0); Alkaline Phosphatase 50 U/L (41-126); BUN/Creat Ratio 19.54 Ratio (12.00-20.00); Blood Urea Nitrogen 18.8 mg/dL (9.0-27.0); Calcium 9.8 mg/dL (8.7-10.3); Chloride 104 mmol/L (96-109); Chol/HDL Ratio 2.09 Ratio; Globulin 1.7 g/dL (1.6-3.3); Glucose 146 mg/dL (70-110); LDL Cholesterol,Calculated 16.3 mg/dL (0.0-131.0); Magnesium 1.8 mg/dL (1.5-2.4); Non-African American GFR(CKD) 76.3 (60.0-200.0); Potassium 4.1 mmol/L (3.5-5.5); Sodium 144 mmol/L (135-145); Total Protein 5.8 g/dL (6.2-8.2); Uric Acid 6.4 mg/dL (3.7-8.7)
== END | disposition home or self-care (01) ==
LOC: LABWHC1 11:30
PROVIDERS: ATTEND Internal Medicine
DX: E11.9 Type 2 diabetes mellitus without complications (principal); M10.9 Gout, unspecified
CPT/HCPCS: 36415; 80053; 80061; 83036; 83735; 84443; 84550; 85025

== ENCOUNTER → 2022-12-12 | Outpatient (CLI) | payer MEDICARE ==
--- NOTE | 2022-12-12 08:26 | US ---
EXAMINATION TYPE: US Aorta Screening DATE OF EXAM: 12/12/2022 COMPARISON: None CLINICAL INDICATION: Male, 77 years old with history of Z13.6 SCREENING FOR CARDIOVASCULAR DISORDER; HTN- controlled with meds. Previous smoker. TECHNIQUE: Multiple sonographic images of the abdominal aorta are obtained. FINDINGS: EXAM MEASUREMENTS: Abdominal Aorta: Proximal: 2.3 x 2.7 cm Mid: 1.9 x 2.4 cm Distal: 1.4 x 1.5 cm Bifurcation: unable to visualize COLOR MAKER NOTES: Extremely limited exam due to patient body habitus. In portion of Aorta seen, no AAA was visualized. IMPRESSION: 1. Technical exam limitations as above. Unable to adequately assess the aortic bifurcation and common iliac arteries. 2. There is ectasia of the proximal abdominal aorta at 2.7 cm but no evidence for AAA along the visua lized proximal, mid, or distal aspects.
== END | disposition home or self-care (01) ==
LOC: RADUSWWP 07:55
PROVIDERS: ATTEND Internal Medicine
DX: Z13.6 Encounter for screening for cardiovascular disorders (principal); I65.22 Occlusion and stenosis of left carotid artery; I10 Essential (primary) hypertension; I77.811 Abdominal aortic ectasia
CPT/HCPCS: 76706

== ENCOUNTER → 2023-12-26 | Outpatient (CLI) | payer MEDICARE ==
--- NOTE | 2023-12-26 11:28 | US ---
EXAMINATION TYPE: US scrotum with doppler. Grayscale and color Doppler Duplex imaging performed of t chester scrotum. DATE OF EXAM: 12/26/2023 COMPARISON: 10/22/2021 CLINICAL INDICATION: Male, 78 years old with history of EPIDIDIMUS N45.1; Intermittent right testic ular swelling x 5-6 years; Vasectomy done about 4 years ago to correct swelling; Swelling resolved fo r about 6 months; Exploratory scrotal surgery done due to swelling and bloody discharge from vasectom y sutures 6 months post op; still experiences both about every 4-6 weeks. EXAM MEASUREMENTS: TESTICLES: Right Testicle: 3.2 x 1.8 x 2.3 cm Left Testicle: 2.5 x 1.5 x 2.4 cm EPIDIDYMIS HEAD: Right Epididymis: 0.9 cm Left Epididymis: 1.1 cm Doppler performed to assess for testicular vascularity; good bilateral color flow and waveforms are s een. There is no evidence of testicular torsion. Presence of hydroceles: Left Presence of varicoceles: no IMPRESSION: 1. Edematous soft tissues around the scrotum with enlarged epididymis laterally. No increased vascul arity within the epididymis to suggest epididymitis. 2. Appropriate arterial and spectral venous waveforms to the testes. 3. Small left hydrocele with floating debris.
[2023-12-26 15:12] LABS: Basophils # (A) 0.08 X 10*3/uL (0.00-0.10); Basophils % (A) 0.8 %; Eosinophils # (A) 0.14 X 10*3/uL (0.04-0.35); Eosinophils % (A) 1.5 %; HCT 44.1 % (39.6-50.0); HGB 14.9 g/dL (13.0-17.0); Lymphocytes # (A) 0.96 X 10*3/uL (0.90-5.00); Lymphocytes % (A) 10.1 %; MCH 32.3 pg (27.0-32.0); MCHC 33.8 g/dL (32.0-37.0); MCV 95.5 FL (80.0-97.0); Monocytes # (A) 0.57 X 10*3/uL (0.20-1.00); NRBC Per 100 WBC 0 X 10*3/uL (0.00-0.01); Neutrophils # (A) 7.63 X 10*3/uL (1.80-7.70); Neutrophils % (A) 80.5 %; Platelet Count 231 X 10*3/uL (140-440); RBC 4.62 X 10*6/uL (4.40-5.60); RDW 14.1 % (11.5-14.5); WBC 9.48 X 10*3/uL (4.50-10.00)
[2023-12-26 15:37] LABS: BUN/Creat Ratio 20.67 Ratio (12.00-20.00); Blood Urea Nitrogen 18.6 mg/dL (9.0-27.0); Carbon Dioxide 27.9 mmol/L (21.6-31.8); Chloride 104 mmol/L (96-109); Glucose 242 mg/dL (70-110); Potassium 4.4 mmol/L (3.5-5.5); Sodium 143 mmol/L (135-145)
[2023-12-26 15:38] LABS: Calcium 10.5 mg/dL (8.7-10.3)
== END | disposition home or self-care (01) ==
LOC: RADUSWWP 10:05
PROVIDERS: ATTEND Surgery
DX: N43.3 Hydrocele, unspecified (principal); N45.1 Epididymitis; N50.89 Other specified disorders of the male genital organs; N50.82 Scrotal pain
CPT/HCPCS: 76870; 80048; 85025; 93975

== ENCOUNTER → 2024-01-30 | Outpatient (CLI) | payer MEDICARE ==
[2024-01-30 17:47] LABS: HCT 40.9 % (39.6-50.0); HGB 13.4 g/dL (13.0-17.0); MCH 31.6 pg (27.0-32.0); MCHC 32.8 g/dL (32.0-37.0); MCV 96.5 FL (80.0-97.0); Mean Platelet Volume 12.5 FL (9.5-12.2); NRBC Per 100 WBC 0 X 10*3/uL (0.00-0.01); Platelet Count 210 X 10*3/uL (140-440); RBC 4.24 X 10*6/uL (4.40-5.60); RDW 14.7 % (11.5-14.5)
[2024-01-30 18:39] LABS: Chol/HDL Ratio 2.12 Ratio; LDL Cholesterol,Calculated 20.4 mg/dL (0.0-131.0)
[2024-01-30 18:49] LABS: ALT 17 U/L (10-49); AST 21 U/L (14-35); Albumin 3.8 g/dL (3.8-4.9); Albumin/Globulin Ratio 2.11 Ratio (1.60-3.17); Alkaline Phosphatase 54 U/L (41-126); Bilirubin, Conjugated <0.20 mg/dL (0.20-0.40); Bilirubin,Unconjugated >0.20 mg/dL (0.20-1.00); Calcium 9.3 mg/dL (8.7-10.3); Carbon Dioxide 21.6 mmol/L (21.6-31.8); Chloride 106 mmol/L (96-109); Estradiol <20.0 pg/mL; Globulin 1.8 g/dL (1.6-3.3); Glucose 148 mg/dL (70-110); Sodium 141 mmol/L (135-145); Total Bilirubin 0.4 mg/dL (0.3-1.2); Total Protein 5.6 g/dL (6.2-8.2)
== END | disposition home or self-care (01) ==
LOC: LABWHC1 10:21
PROVIDERS: ATTEND Surgery
DX: N50.82 Scrotal pain (principal)
CPT/HCPCS: 36415; 80048; 80061; 80076; 82670; 84153; 84402; 84403; 85027

== ENCOUNTER → 2024-02-05 | Outpatient (CLI) | payer MEDICARE ==
--- NOTE | 2024-02-05 15:46 | US ---
EXAMINATION TYPE: US prostate transrectal DATE OF EXAM: 02/05/2024 COMPARISON: NONE CLINICAL INDICATION: Male, 78 years old with history of N40.1 BENIGN PROSTATIC HYPERPLASIA WITH LOWER URIN; BPH, nocturia This examination was performed using the transrectal probe. EXAM MEASUREMENTS: Gland Size: 5.6 x 3.5 x 5.1cm Volume: 51.3ml Predicted PSA: 6.16ml Actual PSA (if available):0.3 Heterogeneous gland. calcifications noted IMPRESSION: No evidence for peripheral zone lesion. Glandular enlargement. Predicted PSA = volume x 0.12 ng/ml Calculated Volume = 0.5236 x L x W x H
== END | disposition home or self-care (01) ==
LOC: RADUSWWP 14:52
PROVIDERS: ATTEND Surgery
DX: N40.1 Benign prostatic hyperplasia with lower urinary tract symptoms (principal)
CPT/HCPCS: 76872

== ENCOUNTER → 2024-03-19 | Outpatient (CLI) | payer MEDICARE ==
--- NOTE | 2024-03-19 13:13 | XR ---
EXAMINATION TYPE: XR chest 2V DATE OF EXAM: 03/19/2024 12:30 PM CLINICAL INDICATION: Male, 78 years old with history of 786.30, R04.2; H COMPARISON: Chest radiographs from 07/12/2022 TECHNIQUE: XR chest 2V Frontal view of the chest. FINDINGS: Lungs/Pleura: There is no evidence of pleural effusion, focal consolidation, or pneumothorax. Pulmonary vascularity: Unremarkable. Heart/mediastinum: Cardiomediastinal silhouette is enlarged. Musculoskeletal: No acute osseous pathology. IMPRESSION: Cardiomegaly and mild pulmonary vascular congestion. Correlate with BNP for congestive heart failure.
[2024-03-19 15:22] LABS: HCT 40.3 % (39.6-50.0); HGB 13.2 g/dL (13.0-17.0); MCH 31.1 pg (27.0-32.0); MCHC 32.8 g/dL (32.0-37.0); MCV 94.8 FL (80.0-97.0); Mean Platelet Volume 12.1 FL (9.5-12.2); NRBC Per 100 WBC 0 X 10*3/uL (0.00-0.01); Platelet Count 198 X 10*3/uL (140-440); RBC 4.25 X 10*6/uL (4.40-5.60); RDW 14.7 % (11.5-14.5); WBC 7.92 X 10*3/uL (4.50-10.00)
[2024-03-19 15:37] LABS: INR 1.94 sec (0.93-1.11); Prothrombin Time 20.1 sec (9.9-11.9)
[2024-03-19 19:24] LABS: Blood Urea Nitrogen 20.2 mg/dL (9.0-27.0); Calcium 9.4 mg/dL (8.7-10.3); Carbon Dioxide 23.8 mmol/L (21.6-31.8); Chloride 108 mmol/L (96-109); Glucose 224 mg/dL (70-110); Potassium 4.3 mmol/L (3.5-5.5); Sodium 143 mmol/L (135-145)
== END | disposition home or self-care (01) ==
LOC: LABWHC1 11:25
PROVIDERS: ATTEND Family Medicine
DX: R04.2 Hemoptysis
CPT/HCPCS: 36415; 71046; 80048; 83880; 85027; 85610

== ENCOUNTER 2024-03-23 18:01 | Inpatient (IN) | payer MEDICARE ==
[2024-03-23 18:57] LABS: Basophils # (A) 0.1 k/uL (0-0.2); Basophils % (A) 1 %; Eosinophils # (A) 0.2 k/uL (0-0.7); Eosinophils % (A) 2 %; HCT 44.7 % (39.0-53.0); HGB 15.3 gm/dL (13.0-17.5); Lymphocytes # (A) 1.3 k/uL (1.0-4.8); Lymphocytes % (A) 12 %; MCHC 34.3 g/dL (31.0-37.0); MCV 90.3 fL (80.0-100.0); Mean Platelet Volume 8.6; Monocytes # (A) 0.6 k/uL (0-1.0); Monocytes % (A) 5 %; Neutrophils # (A) 8.8 k/uL (1.3-7.7); Neutrophils % (A) 79 %; Platelet Count 304 k/uL (150-450); Poikilocytosis Slight; RBC 4.94 m/uL (4.30-5.90); RDW 14.7 % (11.5-15.5); WBC 11.2 k/uL (3.8-10.6)
[2024-03-23 19:14] LABS: African American GFR (CKD) >90 (>60 ml/min/1.73 sqM); Anion Gap 8 mmol/L; Blood Urea Nitrogen 16 mg/dL (9-20); Calcium 9.8 mg/dL (8.4-10.2); Carbon Dioxide 27 mmol/L (22-30); Chloride 105 mmol/L (98-107); Glucose 194 mg/dL (74-99); Non-African American GFR(CKD) 86 (>60 ml/min/1.73 sqM); Potassium 3.3 mmol/L (3.5-5.1); Sodium 140 mmol/L (137-145)
--- NOTE | 2024-03-23 19:18 | XR ---
EXAMINATION TYPE: XR chest 2V DATE OF EXAM: 03/23/2024 7:03 PM CLINICAL INDICATION: Male, 78 years old with history of hypertension; COMPARISON: Chest radiographs from 03/19/2024 TECHNIQUE: XR chest 2V Frontal view of the chest. FINDINGS: Lungs/Pleura: There is no evidence of pleural effusion, focal consolidation, or pneumothorax. Pulmonary vascularity: Unremarkable. Heart/mediastinum: Cardiomediastinal silhouette is unremarkable. Musculoskeletal: No acute osseous pathology. IMPRESSION: No acute cardiopulmonary disease/process.
--- NOTE | 2024-03-23 19:19 | ED ---
General Adult HPI - General Chief complaint: Recheck/Abnormal Lab/Rx Stated complaint: abn labs/Hypertension Time Seen by Provider: 03/23/24 18:19 Source: patient Mode of arrival: ambulatory Limitations: no limitations - History of Present Illness Initial comments: Dictation was produced using [employer] dictation software. please excuse any grammatical, word or spelling errors. Chief Complaint: 78-year-old male with hypertension History of Present Illness: Patient 78-year-old male presents emergency department for hypertension. Patient history of hypertension. He has been having difficulty managing his blood pressure for the last several days. P mara also has a history of heart failure however denies any shortness of breath. Patient has chronic lower extremity swelling. Denies any fever, chills or night sweats. Patient that does not know what his ejection fraction is. The ROS documented in this emergency department record has been reviewed and confirmed by me. Those systems with pertinent positive or negative responses have been documented in the HPI. All other systems are other negative and/or noncontributory. - Related Data Home Medications Medication Instructions Recorded Confirmed Tamsulosin HCl [Flomax] 0.4 mg PO HS 09/25/14 07/15/22 Finasteride 5 mg PO DAILY 05/28/15 07/15/22 Atorvastatin [Lipitor] 40 mg PO DAILY 03/21/16 07/15/22 metFORMIN HCL [metFORMIN HCL ER] 500 mg PO DAILY 03/21/16 07/15/22 Warfarin [Coumadin] 7.5 mg PO MOTUWEFLACEYA@2100 09/20/18 07/15/22 Acetaminophen-Codeine 300-30mg 1 tab PO Q8H PRN 07/11/19 07/15/22 [Tylenol w/codeine #3] Ferrous Sulfate [Feosol] 325 mg PO BID 07/11/19 07/15/22 Flecainide [Tambocor] 50 mg PO BID 07/11/19 07/15/22 Vit C/E/Zn/Coppr/Lutein/Zeaxan 2 tab PO BID 07/11/19 07/15/22 [Preservision Areds 2 Softgel] Cholecalciferol (Vitamin D3) 125 mcg PO DAILY 05/19/22 07/15/22 [Vitamin D3 (125 MCG = 5,000 IU)] Fenofibrate [Lofibra] 54 mg PO DAILY 05/19/22 07/15/22 Warfarin [Coumadin] 5 mg PO SUTH@2100 05/19/22 07/15/22 allopurinoL 100 mg PO DAILY 05/19/22 07/15/22 Metoprolol Tartrate [Lopressor] 25 mg PO DAILY 07/15/22 07/15/22 Mv-Min/Folic/K1/Lycopen/Lutein 1 tab PO DAILY 07/15/22 07/15/22 [Centrum Silver Men Tablet] glipiZIDE XL [Glucotrol Xl] 5 mg PO HS 07/15/22 07/15/22 lisinopriL [Zestril] 20 mg PO BID 07/15/22 07/15/22 Allergies Allergy/AdvReac Type Severity Reaction Status Date / Time gluten Allergy Unknown Verified 03/23/24 18:14 Iodine and Iodide Containing Allergy Rash/Hives Verified 03/23/24 18:14 Produc shellfish derived [Shellfish] Allergy Rash/Hives Verified 03/23/24 18:14 Review of Systems ROS Statement: Those systems with pertinent positive or pertinent negative responses have been documented in the HPI. ROS Other: All systems not noted in ROS Statement are negative. Past Medical History Past Medical History: Atrial Fibrillation, Coronary Artery Disease (CAD), Diabetes Mellitus, Hyperlipidemia, Hypertension, Prostate Disorder Additional Past Medical History / Comment(s): enlarged prostate with stones, prostatitis in past and treated with Bactrim DS one half daily for suppression, episode of v-tach 20 yrs ago, mild CAD, NIDDM type II, 2008 syncope, chronic back pain, hx. stomach ulcers Last Myocardial Infarction Date:: 05/28/15 History of Any Multi-Drug Resistant Organisms: ESBL Date of last positivie culture/infection: 05/29/19 ESBL E.coli MDRO Source:: Urine Past Surgical History: Appendectomy, Cholecystectomy, Heart Catheterization, Orthopedic Surgery Additional Past Surgical History / Comment(s): tibia plateau fracture right leg with plates/screws, 05/29/15 cardiac cath with mild CAD. Past Anesthesia/Blood Transfusion Reactions: No Reported Reaction Past Psychological History: No Psychological Hx Reported Smoking Status: Never smoker Past Alcohol Use History: None Reported Past Drug Use History: None Reported - Past Family History Mother Additional Family Medical History / Comment(s): Bowel problems and possible lung cancer. Mother in her 80's. She did not go to the doctors much. Brother(s) Family Medical History: Cancer Father Family Medical History: Cancer Additional Family Medical History / Comment(s): Father had palpitations. He at about age 78yrs. General Exam - General Exam Comments Initial Comments: PHYSICAL EXAM: General Impression: Alert and oriented x3, not in acute distress HEENT: Normocephalic atraumatic, extra-ocular movements intact, pupils equal and reactive to light bilaterally, mucous membranes moist. Cardiovascular: Heart regular rate and rhythm Chest: Able to complete full sentences, no retractions, no tachypnea Abdomen: abdomen soft, non-tender, non-distended, no organomegaly Musculoskeletal: Pulses present and equal in all extremities, 2+ pitting edema to the lower extremities Motor: no focal deficits noted Neurological: CN II-XII grossly intact, no focal motor or sensory deficits noted Skin: Intact with no visualized rashes Psych: Normal affect and mood Limitations: no limitations Course Vital Signs 03/23/24 03/23/24 03/23/24 18:07 18:38 19:51 Temperature 98.4 F Pulse Rate 72 71 71 Respiratory 18 18 19 Rate Blood Pressure 206/90 195/107 213/93 O2 Sat by Pulse 96 99 Oximetry EKG Findings - EKG Comments: EKG Findings:: My EKG interpretation: Ventricular rate 71, sinus rhythm,. 1 200, QRS 104, QTc 453. No SD prolongation, no QTC prolongation, no ST or T-wave changes noted. Overall, this EKG is unremarkable Medical Decision Making - Medical Decision Making Was pt. sent in by a medical professional or institution ([facility], MICROBIOLOGY LAB MANAGER, urgent care, hospital, or longterm...) When possible be specific @ -No Did you speak to anyone other than the patient for history (EMS, parent, family, police, friend...)? What history was obtained from this source @ - at the bedside as described above Did you review nursing and triage notes (agree or disagree)? Why? @ -I reviewed and agree with nursing and triage notes Were old charts reviewed (outside hosp., previous admission, EMS record, old EKG, old radiological studies, urgent care reports/EKG's, longterm records)? Report findings @ -No old charts were reviewed Differential Diagnosis (chest pain, altered mental status, abdominal pain women, abdominal pain men, vaginal bleeding, musculoskeletal, weakness, fever, dyspnea, syncope, headache, dizziness, GI bleed, back pain, seizure, CVA, palpatations, mental health)? @ -Hypertensive emergency, hypertensive urgency, heart failure EKG interpreted by me (3pts min.). @ -Pending X-rays interpreted by me (1pt min.). @ -Chest x-ray shows no acute processes CT interpreted by me (1pt min.). @ -None done U/S interpreted by me (1pt. min.). @ -None done What testing was considered but not performed or refused? (CT, X-rays, U/S, labs)? Why? @ -None What meds were considered but not given or refused? Why? @ -None Was smoking cessation discussed for >3mins.? @ -No Were there social determinants of health that impacted care today? How? (Homelessness, low income, unemployed, alcoholism, drug addiction, transportation, low edu. Level, literacy, decrease access to med. care, [facility], rehab)? @ -No Was there de-escalation of care discussed even if they declined (Discuss DNR or withdrawal of care, Hospice)? DNR status @ -No What co-morbidities impacted this encounter? (DM, HTN, Smoking, COPD, CAD, Cancer, CVA, ARF, Chemo, Hep., AIDS, mental health diagnosis, sleep apnea, morbid obesity)? @ -Heart failure Was patient admitted / discharged? Hospital course, mention meds given and route, prescriptions, significant lab abnormalities, going to OR and other pertinent info. @ -78-year-old male with past medical history of heart failure presents to the ER for hypertension. Patient states that he has no shortness of breath however he did suffer some shortness of breath in the previous days. Vital signs upon arrival shows blood pressure of 206/90. Not dyspneic, not hypoxic. Laboratory evaluation obtained. Brain atretic peptide is 3220, troponin is 0.026. Patient given medication for hypertension. Patient will be admitted for blood pressure management. There is concern that patient may go into heart failure with his blood pressure is not being managed well. Did you discuss the management of the patient with other professionals (professionals i.e. , PA, MICROBIOLOGY LAB MANAGER, lab, RT, psych nurse, social media analyst, varnish maker, teacher, airport operations officer, case investigator)? Give summary @ -Case discussed with Dr. Wu who is willing to accept patient's care Was critical care preformed (if so, how long)? @ -No Undiagnosed new problem with uncertain prognosis? @ -No Drug Therapy requiring intensive monitoring for toxicity (Heparin, Nitro, Insulin, Cardizem)? @ -No Were any procedures done? @ -No Diagnosis/symptom? Acute, or Chronic, or Acute on Chronic? Uncomplicated (without systemic symptoms) or Complicated (systemic symptoms)? @ -Hypertension Side effects of treatment? @ -No Exacerbation, Progression, or Severe Exacerbation? @ -No Poses a threat to life or bodily function? How? (Chest pain, USA, PA, pneumonia, PE, COPD, DKA, ARF, appy, cholecystitis, CVA, Diverticulitis, Homicidal, Suicidal, threat to staff... and all critical care pts) @ -yes - Lab Data Result diagrams: 03/23/24 18:49 03/23/24 18:49 Lab Results 03/23/24 03/23/24 03/23/24 Range/Units 18:49 18:49 18:49 WBC 11.2 H (3.8-10.6) k/uL RBC 4.94 (4.30-5.90) m/uL Hgb 15.3 (13.0-17.5) gm/dL Hct 44.7 (39.0-53.0) % MCV 90.3 (80.0-100.0) fL MCH 31.0 (25.0-35.0) pg MCHC 34.3 (31.0-37.0) g/dL RDW 14.7 (11.5-15.5) % Plt Count 304 (150-450) k/uL MPV 8.6 Neutrophils % 79 % Lymphocytes % 12 % Monocytes % 5 % Eosinophils % 2 % Basophils % 1 % Neutrophils # 8.8 H (1.3-7.7) k/uL Lymphocytes # 1.3 (1.0-4.8) k/uL Monocytes # 0.6 (0-1.0) k/uL Eosinophils # 0.2 (0-0.7) k/uL Basophils # 0.1 (0-0.2) k/uL Poikilocytosis Slight Sodium 140 (137-145) mmol/L Potassium 3.3 L (3.5-5.1) mmol/L Chloride 105 (98-107) mmol/L Carbon Dioxide 27 (22-30) mmol/L Anion Gap 8 mmol/L BUN 16 (9-20) mg/dL Creatinine 0.81 (0.66-1.25) mg/dL Est GFR (CKD-EPI)AfAm >90 (>60 ml/min/1.73 sqM) Est GFR (CKD-EPI)NonAf 86 (>60 ml/min/1.73 sqM) Glucose 194 H (74-99) mg/dL Calcium 9.8 (8.4-10.2) mg/dL Troponin I 0.026 (0.000-0.034) ng/mL NT-Pro-B Natriuret Pep pg/mL 03/23/24 Range/Units 18:49 WBC (3.8-10.6) k/uL RBC (4.30-5.90) m/uL Hgb (13.0-17.5) gm/dL Hct (39.0-53.0) % MCV (80.0-100.0) fL MCH (25.0-35.0) pg MCHC (31.0-37.0) g/dL RDW (11.5-15.5) % Plt Count (150-450) k/uL MPV Neutrophils % % Lymphocytes % % Monocytes % % Eosinophils % % Basophils % % Neutrophils # (1.3-7.7) k/uL Lymphocytes # (1.0-4.8) k/uL Monocytes # (0-1.0) k/uL Eosinophils # (0-0.7) k/uL Basophils # (0-0.2) k/uL Poikilocytosis Sodium (137-145) mmol/L Potassium (3.5-5.1) mmol/L Chloride (98-107) mmol/L Carbon Dioxide (22-30) mmol/L Anion Gap mmol/L BUN (9-20) mg/dL Creatinine (0.66-1.25) mg/dL Est GFR (CKD-EPI)AfAm (>60 ml/min/1.73 sqM) Est GFR (CKD-EPI)NonAf (>60 ml/min/1.73 sqM) Glucose (74-99) mg/dL Calcium (8.4-10.2) mg/dL Troponin I (0.000-0.034) ng/mL NT-Pro-B Natriuret Pep 3220 pg/mL Disposition Clinical Impression: Hypertension Disposition: ADMITTED IP TO THIS HOSP Condition: Fair Referrals: Gaurang Pham DO [Primary Care Provider] - 1-2 days Decision Time: 20:19
[2024-03-23] MEDS: NITROGLYCERIN SL TABS 0.4 MG TAB SUBLINGUAL STA (19:51)
[2024-03-23] MEDS: NITROGLYCERIN-D5W PMX 50 MG in DEXTROSE/WATER 1 250ML.BAG IV ONE (20:05)
[2024-03-23] MEDS: cloNIDine HCL 0.2 MG TAB PO STA (20:12)
[2024-03-23] MEDS ORDERED: NALOXONE 0.4 MG/ML 1 ML VIAL IV PRN (20:16)
--- NOTE | 2024-03-23 21:29 | P.HPIM ---
History of Present Illness H&P Date: 03/23/24 Chief Complaint: elevated blood pressure Patient is a 78-year-old male with hypertension, atrial fibrillation, rate controlled (on Coumadin), CAD, type 2 diabetes, CHF, hyperlipidemia, BPH presents to the ED with uncontrolled hypertension. Patient was accompanied by his . His stated that they noticed his blood pressure was elevated over the past 3 days. She says they typically measured his blood pressure every day and noticed the systolic pressure was constantly in the 200s. They went to their PCP today and was told to go to the emergency department. Patient denies any chest pain, shortness of breath, trauma, generalized weakness, confusion, changes in vision, headache, and slurred of speech, numbness, tingling. Patient admitted to bilateral leg edema that was progressing over the past week. states that he has been noncompliant with his Lasix, but is compliant with all his other medications. CXR: On independent interpretation displayed no acute cardiopulmonary disease/process Labs: WBC 11.2 (neutrophil 8.8), hemoglobin 15.3, sodium 140 potassium 3.3, CO2 27, creatinine 0.81, BUN 16, glucose 194, troponin 0.026, proBNP 3220 Vitals: T 98.4F, VT 70 ED documentation reviewed and case discussed with ED provider. Review of systems: Pertinent positives and negatives as discussed in HPI, a complete review of systems was performed and all other systems are negative. Social history: Tobacco: Former smoker, quit 40 years ago, smoked for 10 years a pack a day Alcohol: Occasional, 1-2 drinks a year Recreational drugs: No illicit drug use Travel: No recent travel Occupation: Retired lives at home with Physical examination: Vital signs reviewed General: non toxic, no distress, appears at stated age, morbidly obese Derm: no unusual rashes/lesions, warm Head: atraumatic, normocephalic, symmetric Eyes: EOMI, no lid lag, anicteric sclera, pupils equal round reactive to light ENT: Nose and ears atraumatic Neck: trachea midline, supple Mouth: no lip lesion, mucus membranes moist Cardiovascular: S1S2 reg, no murmur, positive dorsalis pedis pulse bilateral, bilateral 2+ pitting edema Lungs: CTA bilateral, no rhonchi, no rales, no accessory muscle use Abdominal: soft, nontender to palpation, no guarding Ext: muscle strength 5 out of 5 in all 4 extremities grossly, no gross muscle atrophy, no contractures, Neuro: CN II-XI grossly intact, no gross focal neuro deficits Psych: Alert, oriented, appropriate affect Assessment/Plan: Patient is a 78-year-old male with a past medical history of hypertension, CAD, atrial fibrillation, presented due to elevated blood pressure , despite taking his home meds, he also noticed worsening bilateral leg edema, due to non compli ance with lasix , I discussed the case with ED doc and I accepted the admission for uncontrolled hypertension with anticipated length of stay < 2 midnights #. Uncontrolled hypertension Patient asymptomatic Was given clonidine 0.2 mg by ED, continue q8hr PRN for SBP>180 Continue home antihypertensives and Lasix once reconciled Check vitals per floor protocol Cardiology consulted - blood work did not reflect end organ damage creatinine 0.81, BUN 16, troponi n 0.026 no focal neuro deficits #. Suspected congestive heart failure exacerbation Patient hypervolemic with bilateral lower extremity 2+ pitting edema BNP 3220 CXR on independent interpretation displayed no acute cardiopulmonary disease/process Obtain echocardiogram determine ejection fraction -Lasix IVP 40 mg daily - daily weight strict intake output fluid restriction 2 L heart healthy diet #. Hypokalemia Ordered potassium with 60 mEq oral potassium chloride once Monitor BMP #. Leukocytosis with neutrophilic predominance with no left shift Patient afebrile, asymptomatic Chest x-ray negative Most likely reactive, will continue to monitor CBC no identifiable focus of infection WBC 11.2 (neutrophil 8.8) #. History of CAD #. Hyperlipidemia EKG ordered Continue atorvastatin 40 mg Troponin 0.026, continue to trend troponins continue home meds #. Atrial fibrillation, rate controlled (on Coumadin) Plan to continue on Coumadin dosing by pharmacy Monitor INR Monitor on telemetry Keep potassium >4 and Mg >2 #. Type 2 diabetes mellitus Hold home oral diabetic medications Place on insulin subq sliding scale low scale Accu-Chek glucose monitoring ACHS #. BPH Continue Flomax 0.4 mg p.o. daily Continue finasteride 5 mg p.o. daily F: NS @ 20 cc/hr will discontinue E: Replete electrolytes as needed N: Heart healthy diet A: Patient ambulatory DVT prophylaxis: Coumadin dosing by [email or web address] for afib CODE STATUS: full code Discussed with: Patient and Anticipated discharge place: Home Past Medical History Past Medical History: Atrial Fibrillation, Coronary Artery Disease (CAD), Diabetes Mellitus, Hyperlipidemia, Hypertension, Prostate Disorder Additional Past Medical History / Comment(s): enlarged prostate with stones, prostatitis in past and treated with Bactrim DS one half daily for suppression, episode of v-tach 20 yrs ago, mild CAD, NIDDM type II, 2007 syncope, chronic ba ck pain, hx. stomach ulcers Last Myocardial Infarction Date:: 05/28/15 History of Any Multi-Drug Resistant Organisms: ESBL Date of last positivie culture/infection: 05/29/19 ESBL E.coli MDRO Source:: Urine Past Surgical History: Appendectomy, Cholecystectomy, Heart Catheterization, Orthopedic Surgery Additional Past Surgical History / Comment(s): tibia plateau fracture right leg with plates/screws, 05/29/15 cardiac cath with mild CAD. Past Anesthesia/Blood Transfusion Reactions: No Reported Reaction Past Psychological History: No Psychological Hx Reported Smoking Status: Never smoker Past Alcohol Use History: None Reported Past Drug Use History: None Reported - Past Family History Mother Additional Family Medical History / Comment(s): Bowel problems and possible lung cancer. Mother in her 80's. She did not go to the doctors much. Brother(s) Family Medical History: Cancer Father Family Medical History: Cancer Additional Family Medical History / Comment(s): Father had palpitations. He at about age 78yrs. Medications and Allergies Home Medications Medication Instructions Recorded Confirmed Type Tamsulosin HCl [Flomax] 0.4 mg PO HS 09/25/14 07/15/22 History Finasteride 5 mg PO DAILY 05/28/15 07/15/22 History Atorvastatin [Lipitor] 40 mg PO DAILY 03/21/16 07/15/22 History metFORMIN HCL [metFORMIN HCL ER] 500 mg PO DAILY 03/21/16 07/15/22 History Warfarin [Coumadin] 7.5 mg PO MOTUWEFRSA@2100 09/20/18 07/15/22 History Acetaminophen-Codeine 300-30mg 1 tab PO Q8H PRN 07/11/19 07/15/22 History [Tylenol w/codeine #3] Ferrous Sulfate [Feosol] 325 mg PO BID 07/11/19 07/15/22 History Flecainide [Tambocor] 50 mg PO BID 07/11/19 07/15/22 History Vit C/E/Zn/Coppr/Lutein/Zeaxan 2 tab PO BID 07/11/19 07/15/22 History [Preservision Areds 2 Softgel] Cholecalciferol (Vitamin D3) 125 mcg PO DAILY 05/19/22 07/15/22 History [Vitamin D3 (125 MCG = 5,000 IU)] Fenofibrate [Lofibra] 54 mg PO DAILY 05/19/22 07/15/22 History Warfarin [Coumadin] 5 mg PO SUTH@2100 05/19/22 07/15/22 History allopurinoL 100 mg PO DAILY 05/19/22 07/15/22 History Metoprolol Tartrate [Lopressor] 25 mg PO DAILY 07/15/22 07/15/22 History Mv-Min/Folic/K1/Lycopen/Lutein 1 tab PO DAILY 07/15/22 07/15/22 History [Centrum Silver Men Tablet] glipiZIDE XL [Glucotrol Xl] 5 mg PO HS 07/15/22 07/15/22 History lisinopriL [Zestril] 20 mg PO BID 07/15/22 07/15/22 History Allergies Allergy/AdvReac Type Severity Reaction Status Date / Time gluten Allergy Unknown Verified 03/23/24 18:14 Iodine and Iodide Containing Allergy Rash/Hives Verified 03/23/24 18:14 Produc shellfish derived [Shellfish] Allergy Rash/Hives Verified 03/23/24 18:14 Physical Exam Vitals: Vital Signs Temp Pulse Resp BP Pulse Ox 03/23/24 19:51 71 19 213/93 03/23/24 18:38 71 18 195/107 99 03/23/24 18:07 98.4 F 72 18 206/90 96 Intake and Output 03/23/24 03/23/24 03/23/24 06:59 14:59 22:59 Other: Weight 107.501 kg Results CBC & Chem 7: 03/23/24 18:49 03/23/24 18:49 Labs: Abnormal Lab Results - Last 24 Hours (Table) 03/23/24 03/23/24 Range/Units 18:49 18:49 WBC 11.2 H (3.8-10.6) k/uL Neutrophils # 8.8 H (1.3-7.7) k/uL Potassium 3.3 L (3.5-5.1) mmol/L Glucose 194 H (74-99) mg/dL Assessment and Plan Assessment: I personally saw and examined the patient , and I discussed the case with the resident , I agree with his documented H&P . I editted the A/p where necessary , I discussed with the resident to consider K replacement with no more than 40 meq oral per dose , and no more than 10 meq IVPB per hour when the patient is on the floor.
[2024-03-23] MEDS: FUROSEMIDE 10 MG/ML 4 ML VIAL IV STA (21:36)
[2024-03-23] MEDS: POTASSIUM CHLORIDE ER 20 MEQ TAB.ER PO STA ×2 (21:39→21:40)
[2024-03-23] MEDS: SODIUM CHLORIDE 0.9% 1,000 ML IV SCH (21:46)
[2024-03-23 22:48] LABS: Glucose,Whole Blood 168 mg/dL (70-110)
[2024-03-23] MEDS ORDERED: cloNIDine HCL 0.2 MG TAB PO PRN (23:02)
[2024-03-23] MEDS: FLECAINIDE 50 MG TAB PO SCH (23:38)
[2024-03-23] MEDS: TAMSULOSIN 0.4 MG CAP.ER.24H PO SCH (23:38)
[2024-03-23] MEDS: lisinopriL 20 MG TAB PO SCH (23:38)
[2024-03-24] MEDS: HYDROcodone/APAP 5-325MG 1 EACH TAB PO PRN (01:35)
[2024-03-24 06:22] LABS: Glucose,Whole Blood 158 mg/dL (70-110)
[2024-03-24] MEDS: INSULIN ASPART (NovoLOG) 100 UNIT/ML VIAL SQ SCH (06:27)
[2024-03-24 08:00] LABS: Basophils # (A) 0.1 k/uL (0-0.2); Basophils % (A) 1 %; Eosinophils # (A) 0.2 k/uL (0-0.7); Eosinophils % (A) 3 %; HCT 38.1 % (39.0-53.0); HGB 12.9 gm/dL (13.0-17.5); Lymphocytes # (A) 1.1 k/uL (1.0-4.8); Lymphocytes % (A) 16 %; MCH 30.9 pg (25.0-35.0); MCHC 33.8 g/dL (31.0-37.0); MCV 91.3 fL (80.0-100.0); Mean Platelet Volume 8.6; Monocytes # (A) 0.4 k/uL (0-1.0); Monocytes % (A) 6 %; Neutrophils # (A) 5.1 k/uL (1.3-7.7); Neutrophils % (A) 73 %; Platelet Count 204 k/uL (150-450); Poikilocytosis Slight; RBC 4.17 m/uL (4.30-5.90); RDW 14.7 % (11.5-15.5)
[2024-03-24 08:10] LABS: INR 1.6 (<1.2); Prothrombin Time 16.4 sec (10.0-12.5)
[2024-03-24 08:32] LABS: African American GFR (CKD) >90 (>60 ml/min/1.73 sqM); Anion Gap 1 mmol/L; Blood Urea Nitrogen 15 mg/dL (9-20); Calcium 8.9 mg/dL (8.4-10.2); Carbon Dioxide 31 mmol/L (22-30); Chloride 106 mmol/L (98-107); Glucose 153 mg/dL (74-99); Magnesium 1.6 mg/dL (1.6-2.3); Non-African American GFR(CKD) 85 (>60 ml/min/1.73 sqM); Potassium 3.2 mmol/L (3.5-5.1); Sodium 138 mmol/L (137-145)
[2024-03-24] MEDS: FINASTERIDE 5 MG TAB PO SCH (08:48)
[2024-03-24] MEDS: METOPROLOL TARTRATE 25 MG TAB PO SCH (08:48)
[2024-03-24] MEDS: ATORVASTATIN 40 MG TAB PO SCH (08:48)
[2024-03-24] MEDS: FUROSEMIDE 10 MG/ML 4 ML VIAL IV SCH (08:49)
--- NOTE | 2024-03-24 11:18 | P.CRDCN ---
History of Present Illness Consult date: 03/24/24 Consult reason: hypertension History of present illness: This is a 78-year-old male patient of Dr. Madison with past medical history of hypertension, coronary artery disease, diabetes mellitus type 2, paroxysmal atrial fibrillation, sick sinus syndrome, nonsustained ventricular tachycardia. We have been asked to evaluate the patient for hypertension. Patient gives history that starting about 5 to 6 weeks ago he was not taking his Lasix con sistently. He did have some leg swelling and he was having trouble getting his shoes on. Then he developed difficulty breathing last week when it was very humid and it lasted for about 3 days and then seem to resolved on its own. He went to see his PCP and lab work was done and he was found to have an elevated BNP and an echocardiogram was scheduled in the office for April 01. Patient states that his blood pressures have been running high at home at 891083/110 and usually it runs 130/80. He denies any fever or chills no cough. Regarding the ventricular tachycardia, he states that he had 2 episodes about 50 years ago and underwent an EP study at . At that time there was some discussion about considering AICD but patient has had no further episodes since then. Patient has been started on Lasix 40 mg IV daily. His lower extremity edema is improved and he states he is urinating quite a bit. Blood pressure is now 146/80. EKG x 3 reviewed: Sinus rhythm with sinus arrhythmia Chest x-ray: No acute process Laboratory studies: WBC 11.2 and repeat 7. Hemoglobin 12.9. Platelet count 204. INR 1.6. Sodium 138, potassium 3.2, BUN 15 creatinine 0.82. Troponin 0.026. proBNP 3220. Home cardiac medications: Review Of Systems: At the time of my exam: CONSTITUTIONAL: Denies fever or chills. HEENT: Denies blurred vision, vision changes, or eye pain. Denies hemoptysis CARDIOVASCULAR: Denies chest pain. Denies orthopnea. Denies PND. Reports lower extremity edema. Denies palpitations RESPIRATORY: Denies shortness of breath. GASTROINTESTINAL: Denies abdominal pain. Denies nausea or vomiting. HEMATOLOGIC: Denies bleeding disorders. GENITOURINARY: Denies any blood in urine. SKIN: Denies puritis. Denies rash. Physical examination: Gen: This is a 78-year-old male in no acute distress VS: reviewed HEENT: Head is atraumatic, normocephalic. Pupils equal, round. Sclerae is anicteric. NECK: Supple. No JVD. LUNGS: Clear to auscultation. No wheezes or rhonchi. No intercostal retractions. HEART: Regular rate and rhythm. No murmur. ABDOMEN: Soft No tenderness. EXTREMITIES: Bilateral lower extremity edema. No calf tenderness. NEUROLOGICAL: Patient is awake, alert and oriented x3. Assessment: Acute diastolic heart failure Uncontrolled hypertension Paroxysmal atrial fibrillation on Coumadin, currently sinus rhythm Sick sinus syndrome, stable History of nonsustained ventricular tachycardia many years ago Diabetes mellitus type 2 Plan: Resume patient's home cardiac medications Continue IV Lasix 40 mg daily Add hydralazine 50 mg p.o. twice daily and add Farxiga 10 mg daily Pharmacy is dosing Coumadin Monitor CORTEZ, daily weights, electrolytes and renal function Obtain 2-D echocardiogram and Doppler study to assess cardiac structure and func tion (if patient is still here on Monday) Further recommendations to follow based upon clinical course Thank you kindly for this consultation. Nurse practitioner note has been reviewed, I agree with documented findings and plan of care. Patient was seen and examined. Past Medical History Past Medical History: Atrial Fibrillation, Coronary Artery Disease (CAD), Diabetes Mellitus, Hyperlipidemia, Hypertension, Prostate Disorder Additional Past Medical History / Comment(s): enlarged prostate with stones, prostatitis in past and treated with Bactrim DS one half daily for suppression, episode of v-tach 20 yrs ago, mild CAD, NIDDM type II, 2008 syncope, chronic back pain, hx. stomach ulcers Last Myocardial Infarction Date:: 05/28/15 History of Any Multi-Drug Resistant Organisms: ESBL Date of last positivie culture/infection: 05/29/19 ESBL E.coli MDRO Source:: Urine Past Surgical History: Appendectomy, Cholecystectomy, Heart Catheterization, Orthopedic Surgery Additional Past Surgical History / Comment(s): tibia plateau fracture right leg with plates/screws, 05/29/15 cardiac cath with mild CAD. Past Anesthesia/Blood Transfusion Reactions: No Reported Reaction Past Psychological History: No Psychological Hx Reported Additional Psychological History / Comment(s): Pt resides with his spouse. He drives. He is independent. Smoking Status: Never smoker Past Alcohol Use History: None Reported Additional Past Alcohol Use History / Comment(s): smoked [id number] 1ppd Past Drug Use History: None Reported - Past Family History Mother Additional Family Medical History / Comment(s): Bowel problems and possible lung cancer. Mother in her 80's. She did not go to the doctors much. Brother(s) Family Medical History: Cancer Father Family Medical History: Cancer Additional Family Medical History / Comment(s): Father had palpitations. He at about age 78yrs. Medications and Allergies Home Medications Medication Instructions Recorded Confirmed Type Tamsulosin HCl [Flomax] 0.4 mg PO HS 09/25/14 07/15/22 History Finasteride 5 mg PO DAILY 05/28/15 07/15/22 History Atorvastatin [Lipitor] 40 mg PO DAILY 03/21/16 07/15/22 History metFORMIN HCL [metFORMIN HCL ER] 500 mg PO DAILY 03/21/16 07/15/22 History Warfarin [Coumadin] 7.5 mg PO MOTUWEFRSA@2100 09/20/18 07/15/22 History Acetaminophen-Codeine 300-30mg 1 tab PO Q8H PRN 07/11/19 07/15/22 History [Tylenol w/codeine #3] Ferrous Sulfate [Feosol] 325 mg PO BID 07/11/19 07/15/22 History Flecainide [Tambocor] 50 mg PO BID 07/11/19 07/15/22 History Vit C/E/Zn/Coppr/Lutein/Zeaxan 2 tab PO BID 07/11/19 07/15/22 History [Preservision Areds 2 Softgel] Cholecalciferol (Vitamin D3) 125 mcg PO DAILY 05/19/22 07/15/22 History [Vitamin D3 (125 MCG = 5,000 IU)] Fenofibrate [Lofibra] 54 mg PO DAILY 05/19/22 07/15/22 History Warfarin [Coumadin] 5 mg PO SUTH@2100 05/19/22 07/15/22 History allopurinoL 100 mg PO DAILY 05/19/22 07/15/22 History Metoprolol Tartrate [Lopressor] 25 mg PO DAILY 07/15/22 07/15/22 History Mv-Min/Folic/K1/Lycopen/Lutein 1 tab PO DAILY 07/15/22 07/15/22 History [Centrum Silver Men Tablet] glipiZIDE XL [Glucotrol Xl] 5 mg PO HS 07/15/22 07/15/22 History lisinopriL [Zestril] 20 mg PO BID 07/15/22 07/15/22 History Allergies Allergy/AdvReac Type Severity Reaction Status Date / Time gluten Allergy Unknown Verified 03/23/24 18:14 Iodine and Iodide Containing Allergy Rash/Hives Verified 03/23/24 18:14 Produc shellfish derived [Shellfish] Allergy Rash/Hives Verified 03/23/24 18:14 Physical Exam Vitals: Vital Signs Temp Pulse Pulse Resp BP BP Pulse Ox 03/24/24 04:00 97.9 F 71 14 146/80 96 03/24/24 01:14 119/77 03/24/24 00:00 97.7 F 71 18 156/87 94 L 03/23/24 23:01 67 03/23/24 21:55 90 18 154/94 96 03/23/24 21:05 70 16 174/97 98 03/23/24 19:51 71 19 213/93 03/23/24 18:38 71 18 195/107 99 03/23/24 18:07 98.4 F 72 18 206/90 96 Intake and Output 03/23/24 03/24/24 03/24/24 22:59 06:59 14:59 Other: Voiding Method Toilet # Voids 1 2 # Bowel Movements 1 Weight 107.501 kg 107.501 kg Results 03/24/24 07:20 03/24/24 07:20 Cardiac Enzymes 03/23/24 Range/Units 18:49 Troponin I 0.026 (0.000-0.034) ng/mL Coagulation 03/24/24 Range/Units 07:20 PT 16.4 H (10.0-12.5) sec CBC 03/23/24 03/24/24 Range/Units 18:49 07:20 WBC 11.2 H 7.0 (3.8-10.6) k/uL RBC 4.94 4.17 L (4.30-5.90) m/uL Hgb 15.3 12.9 L (13.0-17.5) gm/dL Hct 44.7 38.1 L (39.0-53.0) % Plt Count 304 204 (150-450) k/uL Comprehensive Metabolic Panel 03/23/24 Range/Units 18:49 Sodium 140 (137-145) mmol/L Potassium 3.3 L (3.5-5.1) mmol/L Chloride 105 (98-107) mmol/L Carbon Dioxide 27 (22-30) mmol/L BUN 16 (9-20) mg/dL Creatinine 0.81 (0.66-1.25) mg/dL Glucose 194 H (74-99) mg/dL Calcium 9.8 (8.4-10.2) mg/dL Current Medications Generic Name Dose Route Start Last Admin Trade Name Freq PRN Reason Stop Dose Admin Hydrocodone Bitart/Acetaminophen 1 each 03/24/24 01:31 03/24/24 01:35 Hydrocodone/Apap 5-325mg 1 Each Tab PO 1 each Q6HR PRN Administration Pain Atorvastatin Calcium 40 mg 03/24/24 09:00 Atorvastatin 40 Mg Tab PO DAILY RIKI Clonidine 0.2 mg 03/23/24 23:02 Clonidine Hcl 0.2 Mg Tab PO Q8HR PRN Blood Pressure - High Finasteride 5 mg 03/24/24 09:00 Finasteride 5 Mg Tab PO DAILY RIKI Flecainide Acetate 50 mg 03/23/24 23:00 03/23/24 23:38 Flecainide 50 Mg Tab PO 50 mg BID RIKI Administration Furosemide 40 mg 03/24/24 09:00 Furosemide 10 Mg/Ml 4 Ml Vial IV DAILY RIKI Insulin Aspart 0 unit 03/24/24 07:30 03/24/24 06:27 Insulin Aspart (Novolog) 100 Unit/Ml Vial SQ 2 unit ACHS RIKI Administration Protocol Lisinopril 20 mg 03/23/24 23:00 03/23/24 23:38 Lisinopril 20 Mg Tab PO 20 mg BID RIKI Administration Metoprolol Tartrate 25 mg 03/24/24 09:00 Metoprolol Tartrate 25 Mg Tab PO DAILY [facility] Miscellaneous Information 1 each 03/23/24 23:01 Warfarin Per Pharmacy MISCELLANE DIRECTED PRN Per Protocol Protocol Naloxone HCl 0.2 mg 03/23/24 20:16 Naloxone 0.4 Mg/Ml 1 Ml Vial IV Q2M PRN Opioid Reversal Tamsulosin HCl 0.4 mg 03/23/24 23:00 03/23/24 23:38 Tamsulosin 0.4 Mg Cap.Er.24h PO 0.4 mg HS RIKI Administration Warfarin Sodium 5 mg 03/24/24 18:00 Warfarin 5 Mg Tab PO 03/24/24 18:01 DAILY@1800 ONE Intake and Output 03/23/24 03/24/24 03/24/24 22:59 06:59 14:59 Other: Voiding Method Toilet # Voids 1 2 # Bowel Movements 1 Weight 107.501 kg 107.501 kg 03/24/24 07:20 03/23/24 18:49
[2024-03-24 11:34] LABS: Glucose,Whole Blood 210 mg/dL (70-110)
[2024-03-24] MEDS: DAPAGLIFLOZIN PROPANEDIOL 10 MG TABLET PO SCH (11:52)
[2024-03-24] MEDS: hydrALAZINE HCL 50 MG TAB PO SCH ×2 (11:52→23:30)
[2024-03-24] MEDS: POTASSIUM CHLORIDE ER 20 MEQ TAB.ER PO STA ×2 (11:52→16:58)
--- NOTE | 2024-03-24 14:34 | P.PN ---
Subjective Progress Note Date: 03/24/24 Principal diagnosis: sob Doing well, feeling better today. No fevers or chills. Breathing improved. No nausea or vomiting. Objective - Vital Signs Vital signs: Vital Signs Temp 98.4 F 03/24/24 11:31 Pulse 69 03/24/24 11:31 Resp 20 03/24/24 11:31 BP 177/91 03/24/24 11:31 Pulse Ox 93 L 03/24/24 11:31 FiO2 Intake & Output 03/23/24 03/24/24 03/24/24 18:59 06:59 18:59 Intake Total 222 Balance 222 Weight 107.501 kg 107.501 kg Intake: Oral 222 Other: Voiding Method Toilet # Voids 1 2 # Bowel Movements 1 - Exam Constitutional: No acute distress, conversant, pleasant Eyes:Anicteric sclerae, moist conjunctiva, no lid-lag, PERRLA, ENMT: Oropharynx clear, no erythema, exudates Neck: Supple, FROM, no masses, or JVD, No carotid bruits, No thyromegaly Lungs: Clear to auscultation, Clear to percussion, Normal respiratory effort, no accessory muscle use Cardiovascular: Heart regular in rate and rhythm, No murmurs, gallops, or rubs, 1+ peripheral edema Abdominal: Soft, Nontender, no guarding, rebound or rigidity, Normoactive bowel sounds, No hepatomegaly, No splenomegaly, No palpable mass Skin: Normal temperature, tone, texture, turgor, no induration, No subcutaneous nodules, No rash, lesions, No ulcers Extremities: No digital cyanosis, No clubbing, Pedal pulses intact and symmetrical, Radial pulses intact and symmetrical, No calf tenderness Psychiatric: Alert and oriented to person, place and time, appropriate affect, intact judgement Neuro: Muscles Strength 5/5 in all 4 extremities, Sensation to light touch grossly present throughout, Cranial nerves II-XII grossly intact, no focal sensory deficits - Labs CBC & Chem 7: 03/24/24 07:20 03/24/24 07:20 Labs: Abnormal Lab Results - Last 24 Hours (Table) 03/23/24 03/23/24 03/23/24 Range/Units 18:49 18:49 22:44 WBC 11.2 H (3.8-10.6) k/uL RBC (4.30-5.90) m/uL Hgb (13.0-17.5) gm/dL Hct (39.0-53.0) % Neutrophils # 8.8 H (1.3-7.7) k/uL PT (10.0-12.5) sec INR (<1.2) Potassium 3.3 L (3.5-5.1) mmol/L Carbon Dioxide (22-30) mmol/L Glucose 194 H (74-99) mg/dL POC Glucose (mg/dL) 168 H (70-110) mg/dL 03/24/24 03/24/24 03/24/24 Range/Units 06:20 07:20 07:20 WBC (3.8-10.6) k/uL RBC 4.17 L (4.30-5.90) m/uL Hgb 12.9 L (13.0-17.5) gm/dL Hct 38.1 L (39.0-53.0) % Neutrophils # (1.3-7.7) k/uL PT (10.0-12.5) sec INR (<1.2) Potassium 3.2 L (3.5-5.1) mmol/L Carbon Dioxide 31 H (22-30) mmol/L Glucose 153 H (74-99) mg/dL POC Glucose (mg/dL) 158 H (70-110) mg/dL 03/24/24 03/24/24 Range/Units 07:20 11:29 WBC (3.8-10.6) k/uL RBC (4.30-5.90) m/uL Hgb (13.0-17.5) gm/dL Hct (39.0-53.0) % Neutrophils # (1.3-7.7) k/uL PT 16.4 H (10.0-12.5) sec INR 1.6 H (<1.2) Potassium (3.5-5.1) mmol/L Carbon Dioxide (22-30) mmol/L Glucose (74-99) mg/dL POC Glucose (mg/dL) 210 H (70-110) mg/dL Assessment and Plan Plan: # Acute diastolic CHF with BNP 3220 Obtain echocardiogram determine ejection fraction -Lasix IVP 40 mg daily, initiate farxiga - daily weight strict intake output fluid restriction 2 L heart healthy diet Cardiology eval # Hypertension urgency BP better Was given clonidine 0.2 mg by ED, continue q8hr PRN for SBP>180 Continue home antihypertensives and Lasix # Hypokalemia Replace and follow # Type 2 diabetes mellitus Hold home oral diabetic medications, start farxiga--would benefit from discharge on farxiga Place on insulin subq sliding scale low scale Accu-Chek glucose monitoring ACHS #. History of CAD #. Hyperlipidemia #. Atrial fibrillation, rate controlled (on Coumadin) #. BPH All stable Continue meds
[2024-03-24 16:46] LABS: Glucose,Whole Blood 145 mg/dL (70-110)
[2024-03-24] MEDS: lisinopriL 20 MG TAB PO SCH (16:59)
[2024-03-24] MEDS: allopurinoL 100 MG TAB PO SCH (16:59)
[2024-03-24] MEDS: WARFARIN 7.5 MG TAB PO ONE (16:59)
[2024-03-24] MEDS: FENOFIBRATE 54 MG TAB PO SCH (17:00)
[2024-03-24] MEDS ORDERED: WARFARIN 5 MG TAB PO ONE (18:00)
[2024-03-24 19:40] LABS: Glucose,Whole Blood 164 mg/dL (70-110)
[2024-03-24] MEDS: METOPROLOL TARTRATE 50 MG TAB PO SCH (20:48)
[2024-03-24] MEDS ORDERED: WARFARIN 5 MG TAB PO SCH (21:00)
[2024-03-24] MEDS ORDERED: hydrALAZINE HCL 20 MG/ML 1 ML VIAL IVP PRN (23:14)
[2024-03-24] MEDS: hydrALAZINE HCL 50 MG TAB PO STA (23:43)
[2024-03-24] MEDS: SPIRONOLACTONE 25 MG TAB PO SCH (23:43)
[2024-03-25 05:54] LABS: Glucose,Whole Blood 137 mg/dL (70-110)
[2024-03-25] MEDS: PANTOPRAZOLE 40 MG TABLET PO SCH (08:07)
[2024-03-25] MEDS: POTASSIUM CHLORIDE ER 20 MEQ TAB.ER PO SCH (08:07)
[2024-03-25 08:23] LABS: INR 1.4 (<1.2); Prothrombin Time 14.9 sec (10.0-12.5)
[2024-03-25 08:34] LABS: African American GFR (CKD) >90 (>60 ml/min/1.73 sqM); Anion Gap 5 mmol/L; Blood Urea Nitrogen 17 mg/dL (9-20); Calcium 9.2 mg/dL (8.4-10.2); Carbon Dioxide 25 mmol/L (22-30); Chloride 108 mmol/L (98-107); Glucose 154 mg/dL (74-99); Magnesium 1.8 mg/dL (1.6-2.3); Non-African American GFR(CKD) 87 (>60 ml/min/1.73 sqM); Potassium 3.7 mmol/L (3.5-5.1); Sodium 138 mmol/L (137-145)
[2024-03-25 11:54] LABS: Glucose,Whole Blood 185 mg/dL (70-110)
[2024-03-25] MEDS: SPIRONOLACTONE 25 MG TAB PO STA (12:05)
--- NOTE | 2024-03-25 14:02 | P.PN ---
Subjective Progress Note Date: 03/25/24 History of present illness: This is a 78-year-old male patient of Dr. Madison with past medical history of hypertension, coronary artery disease, diabetes mellitus type 2, paroxysmal atrial fibrillation, sick sinus syndrome, nonsustained ventricular tachycardia. We have been asked to evaluate the patient for hypertension. Patient gives history that starting about 5 to 6 weeks ago he was not taking his Lasix consistently. He did have some leg swelling and he was having trouble getting his shoes on. Then he developed difficulty breathing last week when it was very humid and it lasted for about 3 days and then seem to resolved on its own. He went to see his PCP and lab work was done and he was found to have an elevated BNP and an echocardiogram was scheduled in the office for April 01. Patient states that his blood pressures have been running high at home at 851304/110 and usually it runs 130/80. He denies any fever or chills no cough. Regarding the ventricular tachycardia, he states that he had 2 episodes about 50 years ago and underwent an EP study at [facility]. At that time there was some discussion about considering AICD but patient has had no further episodes since then. Patient has been started on Lasix 40 mg IV daily. His lower extremity edema is improved and he states he is urinating quite a bit. EKG x 3 reviewed: Sinus rhythm with sinus arrhythmia Chest x-ray: No acute process Laboratory studies: WBC 11.2 and repeat 7. Hemoglobin 12.9. Platelet count 204. INR 1.6. Sodium 138, potassium 3.2, BUN 15 creatinine 0.82. Troponin 0.026. proBNP 3220. 03/25/2024 Patient reports that he is feeling good and has no complaints. His blood pressure was elevated overnight. He is still having significant swelling of lower extremities. Denies any chest pain, shortness of breath, dizziness. Physical examination: Gen: This is a 78-year-old male in no acute distress VS: reviewed HEENT: Head is atraumatic, normocephalic. Pupils equal, round. Sclerae is anicteric. NECK: Supple. No JVD. LUNGS: Clear to auscultation. No wheezes or rhonchi. No intercostal retractions. HEART: Regular rate and rhythm. No murmur. ABDOMEN: Soft No tenderness. EXTREMITIES: Bilateral lower extremity edema. No calf tenderness. NEUROLOGICAL: Patient is awake, alert and oriented x3. Assessment: Acute diastolic heart failure Uncontrolled hypertension Paroxysmal atrial fibrillation on Coumadin, currently sinus rhythm Sick sinus syndrome, stable History of nonsustained ventricular tachycardia many years ago Diabetes mellitus type 2 Plan: Blood pressure is still not well-controlled. Will try changing Toprol to Coreg 12.5 mg twice daily and monitor response. If blood pressure still elevated consider adding amlodipine. Will check echocardiogram to evaluate heart function and structure. We will follow. Nurse practitioner note has been reviewed, I agree with documented findings and plan of care. Patient was seen and examined. Objective - Vital Signs Vital signs: Vital Signs Temp 98.5 F 03/24/24 19:45 Pulse 77 03/25/24 12:09 Resp 18 03/25/24 11:59 BP 172/81 03/25/24 11:59 Pulse Ox 97 03/25/24 11:59 FiO2 Intake & Output 03/24/24 03/25/24 03/25/24 18:59 06:59 18:59 Intake Total 444 480 Balance 444 480 Intake: Oral 444 480 Other: Voiding Method Toilet # Voids 2 3 # Bowel Movements 1 - Labs CBC & Chem 7: 03/24/24 07:20 03/25/24 07:47 Labs: Abnormal Lab Results - Last 24 Hours (Table) 03/24/24 03/24/24 03/25/24 Range/Units 16:44 19:39 05:52 PT (10.0-12.5) sec INR (<1.2) Chloride (98-107) mmol/L Glucose (74-99) mg/dL POC Glucose (mg/dL) 145 H 164 H 137 H (70-110) mg/dL 03/25/24 03/25/24 03/25/24 Range/Units 07:40 07:47 11:53 PT 14.9 H (10.0-12.5) sec INR 1.4 H (<1.2) Chloride 108 H (98-107) mmol/L Glucose 154 H (74-99) mg/dL POC Glucose (mg/dL) 185 H (70-110) mg/dL
[2024-03-25] MEDS: WARFARIN 7.5 MG TAB PO ONE (15:42)
[2024-03-25] MEDS: carvediloL 12.5 MG TAB PO SCH (15:42)
--- NOTE | 2024-03-25 15:42 | P.PN ---
Subjective Progress Note Date: 03/25/24 Subjective: Patient was seen and examined at the bedside. No acute events overnight. All Systems reviewed and pertinent positives and negatives noted in HPI, all other symptoms are negative Objective: Vital signs reviewed. General: non toxic, no distress, appears at stated age, normal weight Derm: no unusual rashes/lesions, warm Head: atraumatic, normocephalic, symmetric Eyes: EOMI, no lid lag, anicteric sclera, pupils equal round reactive to light ENT: Nose and ears atraumatic Neck: No cervical lymphadenopathy, trachea midline, supple Mouth: no lip lesion, mucus membranes moist Cardiovascular: S1S2 reg, no murmur, positive dorsalis pedis pulse bilateral, 2+ bilateral pitting edema Lungs: CTA bilateral, no rhonchi, no rales, no accessory muscle use Abdominal: soft, nontender to palpation, no guarding Ext: muscle strength 5 out of 5 in all 4 extremities grossly, no gross muscle atrophy, no contractures, Neuro: CN II-XI grossly intact, no gross focal neuro deficits Psych: Alert, oriented, appropriate affect Data reviewed today: Labs: PT 14.9, INR 1.4 Sodium 138, potassium 3.7, chloride 108, bicarb 25, BUN 17, creatinine 0.78, glucose 154, calcium 9.8, magnesium 1.8 Images: No new imaging Assessment and Plan: 78-year-old male with past medical history of hypertension, CAD, A-fib presented due to elevated blood pressure with worsening bilateral leg edema x 3 days. Admitted for mild CHF exacerbation as well as hypertensive urgency. Cardiology consulted. Echocardiogram pending. # Hypertensive urgency Blood pressure improving Continue with hydralazine 100 mg p.o. 3 times daily and hydralazine 10 mg IVP every 3 hours as needed Lisinopril 40 mg p.o. daily Spironolactone increased from 50 mg p.o. daily to 100 mg p.o. daily Carvedilol 12.5 mg p.o. twice daily # Mild congestive heart failure exacerbation, likely diastolic Echo on 09/20/2018 shows borderline concentric left ventricular hypertrophy with ejection fraction between 55 to 60% Chest x-ray on 03/23/2024 is unremarkable for cardiopulmonary disease process Continue with Lasix 40 mg IV daily Daily weights, I's and O's, fluid restriction 2 L Heart healthy diet Cardiology on board Echocardiogram pending #Atrial fibrillation, rate controlled (on Coumadin) Subtherapeutic INR Warfarin dosing per pharmacy Continue monitor INR (PT 14.9, INR 1.4 on 03/25/2024) Continue cardiac monitoring Continue carvedilol 12.5 mg p.o. twice daily #Type 2 diabetes mellitus Hold home oral diabetic medications Short acting sliding scale insulin Continue to monitor serum glucose level Continue Farxiga 10 mg p.o. daily #Hypokalemia Continue with potassium chloride 20 meq p.o. daily continue monitor BMP #Leukocytosis (resolved) # Normocytic anemia Hemoglobin 12.9 (hemoglobin 15.3 on 03/23/2024), MCV 91.3 No active bleeding Will repeat CBC tomorrow #Hyperlipidemia Continue atorvastatin 40 mg #BPH Continue Flomax 0.4 mg p.o. daily Continue finasteride 5 mg p.o. daily F: None E: Replete as needed N: Heart healthy diet A: Ambulatory DVT ppx: Coumadin p.o. daily dosing per pharmacy Code Status: Full code Anticipated discharge place: Pending clinical course Anticipated discharge date: Pending clinical course I have seen and evaluated the patient today. Discussed with the resident and ag ree with the residents finding and plan as documented in the resident's note. Changes highlighted in blue font. Objective - Vital Signs Vital signs: Vital Signs Temp 98.5 F 03/24/24 19:45 Pulse 70 03/25/24 15:38 Resp 18 03/25/24 15:38 BP 162/65 03/25/24 15:38 Pulse Ox 95 03/25/24 15:38 FiO2 Intake & Output 03/24/24 03/25/24 03/25/24 18:59 06:59 18:59 Intake Total 444 480 Balance 444 480 Intake: Oral 444 480 Other: Voiding Method Toilet # Voids 2 3 # Bowel Movements 1 - Labs CBC & Chem 7: 03/24/24 07:20 03/25/24 07:47 Labs: Abnormal Lab Results - Last 24 Hours (Table) 03/24/24 03/24/24 03/25/24 Range/Units 16:44 19:39 05:52 PT (10.0-12.5) sec INR (<1.2) Chloride (98-107) mmol/L Glucose (74-99) mg/dL POC Glucose (mg/dL) 145 H 164 H 137 H (70-110) mg/dL 03/25/24 03/25/24 03/25/24 Range/Units 07:40 07:47 11:53 PT 14.9 H (10.0-12.5) sec INR 1.4 H (<1.2) Chloride 108 H (98-107) mmol/L Glucose 154 H (74-99) mg/dL POC Glucose (mg/dL) 185 H (70-110) mg/dL
[2024-03-25 17:36] LABS: Glucose,Whole Blood 168 mg/dL (70-110)
[2024-03-25 19:57] LABS: Glucose,Whole Blood 138 mg/dL (70-110)
[2024-03-25] MEDS ORDERED: WARFARIN 5 MG TAB PO SCH (21:00)
[2024-03-26 06:08] LABS: Glucose,Whole Blood 125 mg/dL (70-110)
[2024-03-26] MEDS: SPIRONOLACTONE 25 MG TAB PO SCH (09:26)
[2024-03-26 09:33] LABS: African American GFR (CKD) 74 (>60 ml/min/1.73 sqM); Anion Gap 5 mmol/L; Blood Urea Nitrogen 21 mg/dL (9-20); Calcium 9.1 mg/dL (8.4-10.2); Carbon Dioxide 26 mmol/L (22-30); Chloride 106 mmol/L (98-107); Glucose 146 mg/dL (74-99); Non-African American GFR(CKD) 64 (>60 ml/min/1.73 sqM); Potassium 3.5 mmol/L (3.5-5.1); Sodium 137 mmol/L (137-145)
[2024-03-26 11:28] LABS: Glucose,Whole Blood 180 mg/dL (70-110)
[2024-03-26 11:44] LABS: INR 1.8 (<1.2); Prothrombin Time 18.3 sec (10.0-12.5)
[2024-03-26 12:12] VITALS: PULSE 77
--- NOTE | 2024-03-26 13:17 | P.PN ---
Subjective HISTORY OF PRESENT ILLNESS: This is a 78-year-old male patient of Dr. Madison with past medical history of hypertension, coronary artery disease, diabetes mellitus type 2, paroxysmal atrial fibrillation, sick sinus syndrome, nonsustained ventricular tachycardia. We have been asked to evaluate the patient for hypertension. Patient gives history that starting about 5 to 6 weeks ago he was not taking his Lasix consistently. He did have some leg swelling and he was having trouble getting his shoes on. Then he developed difficulty breathing last week when it was very humid and it lasted for about 3 days and then seem to resolved on its own. He went to see his PCP and lab work was done and he was found to have an elevated BNP and an echocardiogram was scheduled in the office for April 01. Patient states that his blood pressures have been running high at home at 923857/110 and usually it runs 130/80. He denies any fever or chills no cough. Regarding the ventricular tachycardia, he states that he had 2 episodes about 50 years ago and underwent an EP study at [facility]. At that time there was some discussion about considering AICD but patient has had no further episodes since then. Patient has been started on Lasix 40 mg IV daily. His lower extremity edema is improved and he states he is urinating quite a bit. EKG x 3 reviewed: Sinus rhythm with sinus arrhythmia Chest x-ray: No acute process Laboratory studies: WBC 11.2 and repeat 7. Hemoglobin 12.9. Platelet count 204. INR 1.6. Sodium 138, potassium 3.2, BUN 15 creatinine 0.82. Troponin 0.026. proBNP 3220. 03/25/2024 Patient reports that he is feeling good and has no complaints. His blood pressure was elevated overnight. He is still having significant swelling of lower extremities. Denies any chest pain, shortness of breath, dizziness. 03/26/2024 Patient examined this morning. Patient is sitting on the side of the bed. Patient currently denies chest pain or pressure. Denies shortness of breath. Systolic blood pressure range between [id number]. PHYSICAL EXAM: VITAL SIGNS: Reviewed. GENERAL: Well-developed in no acute distress. NECK: Supple. No JVD or thyromegaly LUNGS: Respirations even and unlabored. Lungs essentially clear to auscultation bilaterally. HEART: Regular rate and rhythm. S1 and S2 heard. EXTREMITIES: Normal range of motion. No clubbing or cyanosis. Peripheral pulses intact. No lower extremity edema ASSESSMENT: Hypertension, uncontrolled Acute on chronic heart failure with preserved EF Paroxysmal atrial fibrillation on Coumadin Sick sinus syndrome History of nonsustained ventricular tachycardia many years ago Diabetes PLAN: 2D echo remains pending. Continue weaning. Monitor INR. Discontinue lisinopril and hydralazine Begin valsartan 320 mg daily Discontinue IV Lasix. Begin oral Lasix 40 mg daily Further recommendations pending patient course Nurse practitioner note has been reviewed by physician. Signing provider agrees with the documented findings, assessment, and plan of care documented by DATA CODER OPERATOR as a scribe. Objective - Vital Signs Vital signs: Vital Signs Temp 97.6 F 03/26/24 08:00 Pulse 77 03/26/24 12:00 Resp 20 03/26/24 12:00 BP 152/67 03/26/24 12:00 Pulse Ox 96 03/26/24 12:00 FiO2 Intake & Output 03/25/24 03/26/24 03/26/24 18:59 06:59 18:59 Intake Total 240 500 Output Total 650 Balance 240 -150 Weight 104.2 kg Intake: Oral 240 500 Output: Urine 650 Other: Voiding Method Toilet Toilet # Voids 2 2 - Labs CBC & Chem 7: 03/24/24 07:20 03/26/24 08:18 Labs: Abnormal Lab Results - Last 24 Hours (Table) 03/25/24 03/25/24 03/26/24 Range/Units 17:35 19:56 05:53 PT (10.0-12.5) sec INR (<1.2) BUN (9-20) mg/dL Glucose (74-99) mg/dL POC Glucose (mg/dL) 168 H 138 H 125 H (70-110) mg/dL 03/26/24 03/26/24 03/26/24 Range/Units 08:18 11:07 11:27 PT 18.3 H (10.0-12.5) sec INR 1.8 H (<1.2) BUN 21 H (9-20) mg/dL Glucose 146 H (74-99) mg/dL POC Glucose (mg/dL) 180 H (70-110) mg/dL
[2024-03-26] MEDS ORDERED: FUROSEMIDE 40 MG TAB PO SCH (16:00)
--- NOTE | 2024-03-26 16:02 | P.DS ---
Providers Date of admission: 03/25/24 07:28 Expected date of discharge: 03/26/24 Attending physician: Maradna Davis MD Consults: 03/23/24 20:16 Consult Physician Routine Consulting Provider: Rene Fleming Consult Reason/Comments: elevated troponin, hypertension Do you want consulting provider notified?: Yes Primary care physician: Gaurang Pham Hospital Course: Discharge Diagnosis: 1. Hypertensive urgency 2. CHF exacerbation likely diastolic 3. Atrial fibrillation rate controlled on Coumadin 4. Type 2 diabetes mellitus 5. Hypokalemia 6. Leukocytosis 7. Normocytic anemia 8. Hyperlipidemia 9. BPH 10. Subtherapeutic INR Hospital Course: 89-year-old male with past medical history of hypertension, CAD, A-fib presented to the emergency department on 03/23/2024 due to elevated blood pressure with worsening bilateral leg edema for 3 days. Patient was admitted for mild conges tive heart failure exacerbation as well as hypertensive urgency. proBNP elevated to 3200. Troponin negative. Chest x-ray did not show any acute process. EKG showed normal sinus rhythm. Cardiology was consulted. Patient's blood pressure improved during the course of this admission. New antihypertensives added. Denies any dyspnea. Was on IV Lasix, now transition to oral Lasix. Patient had an echocardiogram done on 03/26/2024. Patient is advised to follow-up with cardiology (Dr. Madison) for report on echo on an outpatient basis. Patient is also advised to follow-up with his PCP within 1 to 2 days. Patient is discharged to home with self-care. Patient is advised to continue with his regular home medication as well as new medications as directed. Vital signs reviewed. General: non toxic, no distress, appears at stated age, normal weight Derm: no unusual rashes/lesions, warm Head: atraumatic, normocephalic, symmetric Eyes: EOMI, no lid lag, anicteric sclera, pupils equal round reactive to light ENT: Nose and ears atraumatic Neck: No cervical lymphadenopathy, trachea midline, supple Mouth: no lip lesion, mucus membranes moist Cardiovascular: S1S2 reg, no murmur, positive dorsalis pedis pulse bilateral, 2+ bilateral pitting edema Lungs: CTA bilateral, no rhonchi, no rales, no accessory muscle use Abdominal: soft, nontender to palpation, no guarding Ext: muscle strength 5 out of 5 in all 4 extremities grossly, no gross muscle atrophy, no contractures, Neuro: CN II-XI grossly intact, no gross focal neuro deficits Psych: Alert, oriented, appropriate affect A total of 33 minutes of time were spent preparing this complex discharge summary. Patient was discharged on 03/26/2024 at 1537. I have seen and evaluated the patient today. Discussed with the resident and agree with the residents finding and plan as documented in the resident's note. Changes highlighted in blue font. Patient Condition at Discharge: Stable Plan - Discharge Summary New Discharge Prescriptions: New Spironolactone [Aldactone] 100 mg PO DAILY #120 tab carvediloL [Coreg*] 12.5 mg PO BID-W/MEALS #120 tab Valsartan [Diovan] 320 mg PO DAILY #120 tab Dapagliflozin Propanediol [Farxiga] 10 mg PO DAILY #90 tab Potassium Chloride ER [K-Dur 20] 20 meq PO DAILY #60 tab Furosemide [Lasix] 40 mg PO DAILY #90 tab Continue Tamsulosin HCl [Flomax] 0.4 mg PO HS Finasteride 5 mg PO DAILY Atorvastatin [Lipitor] 40 mg PO DAILY metFORMIN HCL [metFORMIN HCL ER] 500 mg PO BID Warfarin [Coumadin] 7.5 mg PO MOTUWETHFRSA@2100 Flecainide [Tambocor] 50 mg PO Q12H Acetaminophen-Codeine 300-30mg [Tylenol w/codeine #3] 1 tab PO TID allopurinoL 100 mg PO DAILY Fenofibrate [Lofibra] 54 mg PO DAILY Warfarin [Coumadin] 5 mg PO SANDS@2100 glipiZIDE XL [Glucotrol XL] 5 mg PO DAILY Mv-Min/Folic/K1/Lycopen/Lutein [Centrum Silver Men Tablet] 1 tab PO DAILY Omeprazole 20 mg PO DAILY Discontinued Metoprolol Tartrate [Lopressor] 50 mg PO BID Cefdinir [Omnicef] 300 mg PO BID lisinopriL 40 mg PO DAILY Furosemide [Lasix] 40 mg PO BID Discharge Medication List Tamsulosin HCl [Flomax] 0.4 mg PO HS 09/25/14 [History] Finasteride 5 mg PO DAILY 05/28/15 [History] Atorvastatin [Lipitor] 40 mg PO DAILY 03/21/16 [History] metFORMIN HCL [metFORMIN HCL ER] 500 mg PO BID 03/21/16 [History] Warfarin [Coumadin] 7.5 mg PO MOTUWETHFRSA@2100 09/20/18 [History] Acetaminophen-Codeine 300-30mg [Tylenol w/codeine #3] 1 tab PO TID 07/11/19 [History] Flecainide [Tambocor] 50 mg PO Q12H 07/11/19 [History] Fenofibrate [Lofibra] 54 mg PO DAILY 05/19/22 [History] Warfarin [Coumadin] 5 mg PO SANDS@2100 05/19/22 [History] allopurinoL 100 mg PO DAILY 05/19/22 [History] Mv-Min/Folic/K1/Lycopen/Lutein [Centrum Silver Men Tablet] 1 tab PO DAILY 07/15/22 [History] glipiZIDE XL [Glucotrol XL] 5 mg PO DAILY 07/15/22 [History] Omeprazole 20 mg PO DAILY 03/24/24 [History] Dapagliflozin Propanediol [Farxiga] 10 mg PO DAILY #90 tab 03/26/24 [Rx] Furosemide [Lasix] 40 mg PO DAILY #90 tab 03/26/24 [Rx] Potassium Chloride ER [K-Dur 20] 20 meq PO DAILY #60 tab 03/26/24 [Rx] Spironolactone [Aldactone] 100 mg PO DAILY #120 tab 03/26/24 [Rx] Valsartan [Diovan] 320 mg PO DAILY #120 tab 03/26/24 [Rx] carvediloL [Coreg*] 12.5 mg PO BID-W/MEALS #120 tab 03/26/24 [Rx] Follow up Appointment(s)/Referral(s): Minh Madison MD [STAFF PHYSICIAN] - 1 Week Gaurang Pham DO [Primary Care Provider] - 1-2 days Patient Instructions/Handouts: Heart Failure (DC), Hypertensive Crisis (DC) Activity/Diet/Wound Care/Special Instructions: Please see your PCP and cardiology. Call cardiology office for early appointment and to discuss echo results. Discharge Disposition: HOME SELF-CARE
[2024-03-26 16:21] VITALS: BP 165/83; RESP 22; TEMP 97.8
[2024-03-26] MEDS ORDERED: WARFARIN 7.5 MG TAB PO ONE (18:00)
--- NOTE | 2024-03-27 07:46 | CA ---
Transthoracic Echo Report Name: Maurilio Mendoza Age: 78 Gender: M : 1945 Exam Date: 03/26/2024 12:22 Exam Location: [facility] Ht (in): 66 Wt (lb): 237 Ordering Physician: Maranda Davis MD Attending/Referring Phys: Health Services Manager Procedure CPT: Indications: chf Cardiac Hx: Technical Quality: Fair Contrast 1: Total Dose (mL): Contrast 2: Total Dose (mL): MEASUREMENTS (Male / Female) Normal Values 2D ECHO LV Diastolic Diameter PLAX 4.3 cm 4.2 - 5.9 / 3.9 - 5.3 cm LV Systolic Diameter PLAX 3.1 cm IVS Diastolic Thickness 1.3 cm 0.6 - 1.0 / 0.6 - 0.9 cm LVPW Diastolic Thickness 1.1 cm 0.6 - 1.0 / 0.6 - 0.9 cm LV Relative Wall Thickness 0.6 RV Internal Dim ED PLAX 3.4 cm LA Systolic Diameter LX 4.3 cm 3.0 - 4.0 / 2.7 - 3.8 cm LV Diastolic Volume MOD 4C 129.0 cm??? LV Systolic Volume MOD 4C 54.5 cm??? LV Ejection Fraction MOD 4C 57.7 % LV Cardiac Index MOD 4C 2377.1 cm???/min???m??? LV Diastolic Length 4C 10.3 cm LV Systolic Length 4C 8.8 cm LV Diastolic Volume MOD 2C 118.5 cm??? LV Systolic Volume MOD 2C 49.2 cm??? LV Ejection Fraction MOD 2C 58.4 % LV Cardiac Index MOD 2C 2210.3 cm???/min???m??? LV Diastolic Length 2C 9.4 cm LV Systolic Length 2C 7.3 cm LA Volume 82.2 cm??? 18 - 58 / 22 - 52 cm??? LA Volume Index 35.9 cm???/m??? 16 - 28 cm???/m??? M-MODE Aortic Root Diameter MM 4.1 cm AV Cusp Separation MM 2.9 cm DOPPLER AV Peak Velocity 138.4 cm/s AV Peak Gradient 7.7 mmHg AI Peak Velocity 303.4 cm/s AI Peak Gradient 36.8 mmHg AI Pressure Half Time 1332.1 ms MV Area PHT 3.0 cm??? Mitral E Point Velocity 94.4 cm/s Mitral A Point Velocity 59.9 cm/s Mitral E to A Ratio 1.6 MV Deceleration Time 254.0 ms TR Peak Velocity 407.1 cm/s TR Peak Gradient 66.3 mmHg Right Ventricular Systolic Press 70.0 mmHg FINDINGS Left Ventricle Left ventricular ejection fraction is estimated at 55-60 %. Left ventricular cavity size normal. Mildly increased septal wall thickness. Normal left ventricular wall motion. Right Ventricle Mild right ventricular dilatation. Severe pulmonary hypertension. Right ventricular systolic pressure estimated at 70 mm hg. RV pressure assessment may not be accurate the envelope is suboptimal Right Atrium Normal right atrial size. No right atrial thrombus or mass seen. Left Atrium Mildly increased left atrial diameter. Moderately increased left atrial volume. Mildly increased left atrial area. Mitral Valve Structurally normal mitral valve. Trace mitral regurgitation. Aortic Valve Trileaflet aortic valve. No aortic valve stenosis or regurgitation. Aortic valve sclerosis. Tricuspid Valve Structurally normal tricuspid valve. Mild tricuspid regurgitation. Pulmonic Valve Structurally normal pulmonic valve. No pulmonic regurgitation. Pericardium No pericardial effusion. Aorta Moderate aortic dilatation at the level of the sinuses of valsalva 41 mm CONCLUSIONS Normal LV size and systolic function. Doppler exam is suboptimal tricuspid valve interrogation is suboptimal right-sided pressures as documented may not be accurate because the envelope is not reliable and views are suboptimal. Pulmonary hypertension however cannot be excluded clinical correlation is suggested no pericardial Previewed by: Dr. Mary Ellen Clemons MD (Electronically Signed) Final Date: 27 March 2024 07:45
[2024-03-27] MEDS ORDERED: VALSARTAN 160 MG TAB PO SCH (09:00)
[2024-03-27] MEDS ORDERED: FUROSEMIDE 40 MG TAB PO SCH (09:00)
== END 2024-03-26 17:02 | disposition home or self-care (01) | DRG 304 ==
LOC: EC 18:01 → 3SCARD 20:17 → OBSVTOIN 03-25 07:28 → UNDODISOB 03-25 14:43
PROVIDERS: ADMIT Internal Medicine; ATTEND Internal Medicine
DX: I16.0 Hypertensive urgency (principal); I50.33 Acute on chronic diastolic (congestive) heart failure; K90.41 Non-celiac gluten sensitivity; D64.9 Anemia, unspecified; D72.829 Elevated white blood cell count, unspecified; E11.9 Type 2 diabetes mellitus without complications; E78.5 Hyperlipidemia, unspecified; E87.6 Hypokalemia; I11.0 Hypertensive heart disease with heart failure; I25.10 Atherosclerotic heart disease of native coronary artery without angina pectoris; I25.2 Old myocardial infarction; I48.0 Paroxysmal atrial fibrillation; I49.5 Sick sinus syndrome; N40.0 Benign prostatic hyperplasia without lower urinary tract symptoms; R79.1 Abnormal coagulation profile; Z79.01 Long term (current) use of anticoagulants; Z79.84 Long term (current) use of oral hypoglycemic drugs; Z79.899 Other long term (current) drug therapy; Z87.11 Personal history of peptic ulcer disease; Z87.891 Personal history of nicotine dependence; Z91.013 Allergy to seafood
CPT/HCPCS: 36415; 71046; 80048; 83735; 83880; 84484; 85025; 85610; 93005; 93306; 96374; 99285

== ENCOUNTER → 2024-05-09 | Outpatient (CLI) | payer MEDICARE ==
[2024-05-09 20:07] LABS: Blood Urea Nitrogen 61.2 mg/dL (9.0-27.0); Calcium 9.7 mg/dL (8.7-10.3); Carbon Dioxide 22.1 mmol/L (21.6-31.8); Chloride 106 mmol/L (96-109); Glucose 195 mg/dL (70-110); Magnesium 2.2 mg/dL (1.5-2.4); Potassium 5.7 mmol/L (3.5-5.5); Sodium 140 mmol/L (135-145)
== END | disposition home or self-care (01) ==
LOC: LABWHC1 13:51
PROVIDERS: ATTEND Nurse Practitioner Adult Health
DX: I10 Essential (primary) hypertension (principal)
CPT/HCPCS: 36415; 80048; 83735

== ENCOUNTER → 2024-06-12 | Outpatient (CLI) | payer MEDICARE ==
[2024-06-12 15:33] LABS: BUN/Creat Ratio 25.92 Ratio (12.00-20.00); Blood Urea Nitrogen 33.7 mg/dL (9.0-27.0); Calcium 9.8 mg/dL (8.7-10.3); Chloride 105 mmol/L (96-109); Glucose 155 mg/dL (70-110); Magnesium 2.1 mg/dL (1.5-2.4); Potassium 4.6 mmol/L (3.5-5.5); Sodium 141 mmol/L (135-145)
== END | disposition home or self-care (01) ==
LOC: LABWHC1 12:37
PROVIDERS: ATTEND Internal Medicine Clinical Cardiac Electrophysiology
DX: I10 Essential (primary) hypertension (principal)
CPT/HCPCS: 36415; 80048; 83735

== ENCOUNTER 2024-08-08 12:04 | Emergency (ER) | payer MEDICARE ==
[2024-08-08 12:10] VITALS: RESP 18
--- NOTE | 2024-08-08 12:37 | ED ---
General Adult HPI - General Chief complaint: Urogenital Stated complaint: bleeding from scrotum Time Seen by Provider: 08/08/24 12:11 Source: patient Mode of arrival: ambulatory Limitations: no limitations - History of Present Illness Initial comments: Dictation was produced using [employer] dictation software. please excuse any grammatical, word or spelling errors. Chief Complaint: 78-year-old male with bleeding from chronic scrotal wound History of Present Illness: 78-year-old male with chronic scrotal wound presents to the ER with bleeding from the area. Patient states he has been seeing urologist regarding this. Is not sure exactly what this wound is from. Sees our urologist here Dr. Dove states that he has seen other urologist as well. Yesterday he went to his primary care doctor who started antibiotics for this 1. This morning he woke up noticed that there was a lot of bleeding coming from the area. The ROS documented in this emergency department record has been reviewed and confirmed by me. Those systems with pertinent positive or negative responses have been documented in the HPI. All other systems are other negative and/or noncontributory. - Related Data Home Medications Medication Instructions Recorded Confirmed Tamsulosin HCl [Flomax] 0.4 mg PO HS 09/25/14 03/24/24 Finasteride 5 mg PO DAILY 05/28/15 03/24/24 Atorvastatin [Lipitor] 40 mg PO DAILY 03/21/16 03/24/24 metFORMIN HCL [metFORMIN HCL ER] 500 mg PO BID 03/21/16 03/24/24 Warfarin [Coumadin] 7.5 mg PO MOTUWETHFRSA@2100 09/20/18 03/24/24 Acetaminophen-Codeine 300-30mg 1 tab PO TID 07/11/19 03/24/24 [Tylenol w/codeine #3] Flecainide [Tambocor] 50 mg PO Q12H 07/11/19 03/24/24 Fenofibrate [Lofibra] 54 mg PO DAILY 05/19/22 03/24/24 Warfarin [Coumadin] 5 mg PO SANDS@2100 05/19/22 03/24/24 allopurinoL 100 mg PO DAILY 05/19/22 03/24/24 Mv-Min/Folic/K1/Lycopen/Lutein 1 tab PO DAILY 07/15/22 03/24/24 [Centrum Silver Men Tablet] glipiZIDE XL [Glucotrol XL] 5 mg PO DAILY 07/15/22 03/24/24 Omeprazole 20 mg PO DAILY 03/24/24 03/24/24 Previous Rx's Medication Instructions Recorded Dapagliflozin Propanediol [Farxiga] 10 mg PO DAILY #90 tab 03/26/24 Furosemide [Lasix] 40 mg PO DAILY #90 tab 03/26/24 Potassium Chloride ER [K-Dur 20] 20 meq PO DAILY #60 tab 03/26/24 Spironolactone [Aldactone] 100 mg PO DAILY #120 tab 03/26/24 Valsartan [Diovan] 320 mg PO DAILY #120 tab 03/26/24 carvediloL [Coreg*] 12.5 mg PO BID-W/MEALS #120 tab 03/26/24 Cefpodoxime Proxetil [Vantin] 200 mg PO Q12HR 10 Days #20 tab 08/08/24 Sulfamethox-Tmp 800-160Mg [Bactrim 1 tab PO Q12HR 5 Days #10 tab 08/08/24 DS 800-160 mg] Allergies Allergy/AdvReac Type Severity Reaction Status Date / Time gluten Allergy Unknown Verified 08/08/24 12:10 Iodine and Iodide Containing Allergy Rash/Hives Verified 08/08/24 12:10 Produc shellfish derived [Shellfish] Allergy Rash/Hives Verified 08/08/24 12:10 Review of Systems ROS Statement: Those systems with pertinent positive or pertinent negative responses have been documented in the HPI. ROS Other: All systems not noted in ROS Statement are negative. Past Medical History Past Medical History: Atrial Fibrillation, Coronary Artery Disease (CAD), Diabetes Mellitus, Hyperlipidemia, Hypertension, Prostate Disorder Additional Past Medical History / Comment(s): enlarged prostate with stones, prostatitis in past and treated with Bactrim DS one half daily for suppression, episode of v-tach 20 yrs ago, mild CAD, NIDDM type II, 2008 syncope, chronic back pain, hx. stomach ulcers Last Myocardial Infarction Date:: 05/28/15 History of Any Multi-Drug Resistant Organisms: ESBL Date of last positivie culture/infection: 05/29/19 ESBL E.coli MDRO Source:: Urine Past Surgical History: Appendectomy, Cholecystectomy, Heart Catheterization, Orthopedic Surgery Additional Past Surgical History / Comment(s): tibia plateau fracture right leg with plates/screws, 05/29/15 cardiac cath with mild CAD. Past Anesthesia/Blood Transfusion Reactions: No Reported Reaction Past Psychological History: No Psychological Hx Reported Smoking Status: Never smoker Past Alcohol Use History: None Reported Past Drug Use History: None Reported - Past Family History Mother Additional Family Medical History / Comment(s): Bowel problems and possible lung cancer. Mother in her 80's. She did not go to the doctors much. Brother(s) Family Medical History: Cancer Father Family Medical History: Cancer Additional Family Medical History / Comment(s): Father had palpitations. He at about age 78yrs. General Exam - General Exam Comments Initial Comments: PHYSICAL EXAM: General Impression: Alert and oriented x3, not in acute distress HEENT: Normocephalic atraumatic, extra-ocular movements intact, pupils equal and reactive to light bilaterally, mucous membranes moist. Cardiovascular: Heart regular rate and rhythm Chest: Able to complete full sentences, no retractions, no tachypnea Abdomen: abdomen soft, non-tender, non-distended, no organomegaly Musculoskeletal: Pulses present and equal in all extremities, no peripheral edema Motor: no focal deficits noted Neurological: CN II-XII grossly intact, no focal motor or sensory deficits noted Skin: Intact with no visualized rashes Psych: Normal affect and mood : Chronic indurated wound to the right scrotum without any active bleeding. Site is not tender to palpation. No surrounding erythema. Limitations: no limitations Course Vital Signs 08/08/24 08/08/24 08/08/24 12:06 12:52 14:20 Temperature 98.1 F Pulse Rate 73 68 68 Respiratory 18 18 18 Rate Blood Pressure 111/62 122/58 128/74 O2 Sat by Pulse 96 96 99 Oximetry Medical Decision Making - Medical Decision Making Was pt. sent in by a medical professional or institution (, PA, [employer], urgent care, hospital, or alf...) When possible be specific @ -No Did you speak to anyone other than the patient for history (EMS, parent, family, police, friend...)? What history was obtained from this source @ -No Did you review nursing and triage notes (agree or disagree)? Why? @ -I reviewed and agree with nursing and triage notes Were old charts reviewed (outside hosp., previous admission, EMS record, old EKG, old radiological studies, urgent care reports/EKG's, alf records)? Report findings @ -No old charts were reviewed Differential Diagnosis (chest pain, altered mental status, abdominal pain women, abdominal pain men, vaginal bleeding, musculoskeletal, weakness, fever, dyspnea, syncope, headache, dizziness, GI bleed, back pain, seizure, CVA, palpatations, mental health)? @ -Scrotal abscess, scrotal edema, Wilmer's gangrene EKG interpreted by me (3pts min.). @ -None done X-rays interpreted by me (1pt min.). @ -None done CT interpreted by me (1pt min.). @ -None done U/S interpreted by me (1pt. min.). @ -Ultrasound shows good vascular flow to both testicles. There is a similar pain like a vascular lesion to the right scrotum What testing was considered but not performed or refused? (CT, X-rays, U/S, labs)? Why? @ -None What meds were considered but not given or refused? Why? @ -None Was smoking cessation discussed for >3mins.? @ -No Were there social determinants of health that impacted care today? How? (Homelessness, low income, unemployed, alcoholism, drug addiction, transportation, low edu. Level, literacy, decrease access to med. care, care home, rehab)? @ -No Was there de-escalation of care discussed even if they declined (Discuss DNR or withdrawal of care, Hospice)? DNR status @ -No What co-morbidities impacted this encounter? (DM, HTN, Smoking, COPD, CAD, Cancer, CVA, ARF, Chemo, Hep., AIDS, mental health diagnosis, sleep apnea, morbid obesity)? @ -Chronic right scrotal wound Was patient admitted / discharged? Hospital course, mention meds given and route, prescriptions, significant lab abnormalities, going to OR and other pertinent info. @ -78-year-old male presents emergency department for reported bleeding and drainage from a chronic right scrotal wound. Vital signs stable. No active bleeding at this time. Ultrasound shows avascular persistent anechoic area. No bleeding on physical exam. Shows UTI. He has no flank pain scrotal pain testicular pain. No evidence of epididymitis or orchitis seen on ultrasound. Patient discharged with antibiotics. Advise close follow-up with urology Did you discuss the management of the patient with other professionals (professionals i.e. , PA, [employer], lab, RT, psych nurse, web content & social media manager, entry level drafter, teacher, assault amphibious vehicle officer, case aide)? Give summary @ -No Was critical care preformed (if so, how long)? @ -No Undiagnosed new problem with uncertain prognosis? @ -No Drug Therapy requiring intensive monitoring for toxicity (Heparin, Nitro, Insulin, Cardizem)? @ -No Were any procedures done? @ -No Diagnosis/symptom? Acute, or Chronic, or Acute on Chronic? Uncomplicated (without systemic symptoms) or Complicated (systemic symptoms)? @ -Chronic scrotal wound Side effects of treatment? @ -No Exacerbation, Progression, or Severe Exacerbation? @ -No Poses a threat to life or bodily function? How? (Chest pain, [place], [place], pneumonia, PE, COPD, DKA, ARF, appy, cholecystitis, CVA, Diverticulitis, Homicidal, Suicidal, threat to staff... and all critical care pts) @ -No - Lab Data Lab Results 08/08/24 Range/Units 14:38 Urine Color Colorless Urine Appearance Cloudy (Clear) Urine pH 5.5 (5.0-8.0) Ur Specific [place] 1.009 (1.001-1.035) Urine Protein 1+ H (Negative) Urine Glucose (UA) 3+ H (Negative) Urine Ketones Negative (Negative) Urine Blood Negative (Negative) Urine Nitrite Negative (Negative) Urine Bilirubin Negative (Negative) Urine Urobilinogen <2.0 (<2.0) mg/dL Ur Leukocyte Esterase Large H (Negative) Urine RBC 2 (0-5) /hpf Urine WBC 49 H (0-5) /hpf Urine WBC Clumps Few H (None) /hpf Ur Squamous Epith Cells 1 (0-4) /hpf Urine Bacteria Rare H (None) /hpf Hyaline Casts 1 (0-2) /lpf Urine Mucus Rare H (None) /hpf Disposition Clinical Impression: Open wound of scrotum Disposition: HOME SELF-CARE Condition: Fair Instructions (If sedation given, give patient instructions): Urinary Tract Infection in Men (ED) Prescriptions: Sulfamethox-Tmp 800-160Mg [Bactrim DS 800-160 mg] 1 tab PO Q12HR 5 Days #10 tab Cefpodoxime Proxetil [Vantin] 200 mg PO Q12HR 10 Days #20 tab Is patient prescribed a controlled substance at d/c from ED?: No Referrals: Cornelio Dove MD [STAFF PHYSICIAN] - 1-2 days Time of Disposition: 15:20
[2024-08-08 12:53] VITALS: PULSE 68
[2024-08-08] MEDS: MORPHINE SULFATE 4 MG/ML SYRINGE IM STA (14:22)
--- NOTE | 2024-08-08 14:23 | US ---
EXAMINATION TYPE: US scrotum with doppler. DATE OF EXAM: 08/08/2024 COMPARISON: 10/22/2021, 02/05/2024, 12/26/2023 CLINICAL INDICATION: Male, 78 years old with history of scrotal wound, please include soft tissue fernando ges; Bleeding from right scrotum. Hx of hydrocele drainage. TECHNIQUE: Grayscale, color Doppler and spectral Doppler imaging of the scrotum. FINDINGS: EXAM MEASUREMENTS: TESTICLES: Right Testicle: 3.3 x 1.9 x 2.1 cm Left Testicle: 2.2 x 2.5 x 1.6 cm EPIDIDYMIS HEAD: Right Epididymis: 0.5 x 0.8 x 0.6 cm Left Epididymis: 0.8 x 0.6 x 0.9 cm Doppler performed to assess for testicular vascularity; good bilateral color flow and spectral wavefo kori are seen. There is no evidence of testicular torsion. Presence of hydroceles: Left Presence of varicoceles: No Right- Circular hyperechoic avascular lesion = 0.8 x 0.8 x 0.7 cm. Between teste and medial to right teste complex hypoechoic area seen, bleed vs edema vs other etiolog y? IMPRESSION: 1. Heterogenous tissue around the scrotum correlate for superficial infection versus hemorrhage. 2. Appropriate arterial and venous spectral waveforms to the testes. 3. Redemonstration of right intratesticular hyperechoic mass which appears to have slightly decrease d in size from 12/26/2023 possibly due to technique and seen dating back to 10/22/2021. Finding likely be nign given stability. [facility], , 08/08/2024 2:21 PM
[2024-08-08 14:54] LABS: Appearance,Urine Cloudy (Clear); Bacteria,Urine Rare /hpf; Bilirubin,Urine Negative (Negative); Blood,Urine Negative (Negative); Color,Urine Colorless; Glucose,Urine (UA) 3+ (Negative); Hyaline Casts,Urine 1 /lpf (0-2); Ketones,Urine Negative (Negative); Leukocyte Esterase,Urine Large (Negative); Mucus,Urine Rare /hpf; Nitrite,Urine Negative (Negative); PH, Urine 5.5 (5.0-8.0); Protein,Urine 1+ (Negative); RBC,Urine 2 /hpf (0-5); Specific Gravity,Urine 1.009 (1.001-1.035); Squamous Epithelial Cell,Urine 1 /hpf (0-4); Urobilinogen,Urine <2.0 mg/dL (<2.0); WBC,Urine 49 /hpf (0-5)
[2024-08-08 15:58] VITALS: BP 113/66; TEMP 98
== END 2024-08-08 16:07 | disposition home or self-care (01) ==
LOC: EC 12:04
DX: N50.1 Vascular disorders of male genital organs (principal); S31.30XA Unspecified open wound of scrotum and testes, initial encounter; Z91.041 Radiographic dye allergy status; Z88.8 Allergy status to other drugs, medicaments and biological substances; Z91.013 Allergy to seafood
CPT/HCPCS: 99284 ×2; 96372 ×2; 81001; 93975; 76870; J2270

== ENCOUNTER 2025-01-01 14:41 | Inpatient (IN) | payer MEDICARE ==
[2025-01-01 15:17] LABS: Appearance,Urine Turbid (Clear); Bilirubin,Urine Negative (Negative); Blood,Urine Moderate (Negative); Color,Urine Colorless; Glucose,Urine (UA) 4+ (Negative); Ketones,Urine Negative (Negative); Leukocyte Esterase,Urine Large (Negative); Nitrite,Urine Positive (Negative); PH, Urine 5.5 (5.0-8.0); Protein,Urine 1+ (Negative); RBC,Urine 21 /hpf (0-5); Specific Gravity,Urine 1.012 (1.001-1.035); Urobilinogen,Urine <2.0 mg/dL (<2.0); WBC,Urine >182 /hpf (0-5)
--- NOTE | 2025-01-01 15:42 | ED ---
General Adult HPI - General Source: patient, RN notes reviewed Mode of arrival: EMS Limitations: no limitations <Laurita Morales - Last Filed: 01/01/25 15:40> <Laura Miranda - Last Filed: 01/02/25 00:52> - General Chief complaint: Weakness Stated complaint: Weakness Time Seen by Provider: 01/01/25 17:50 - History of Present Illness Initial comments: Quick [id number] male presenting to emergency department via EMS with multiple complaints. Patient states that he had a fall this morning was having difficulty sitting up due to weakness in his bilateral legs. Additionally, patient is concerned that he may have epididymitis as he is having scrotal pain and concern for urinary tract infection as he has been experiencing dysuria and cloudy urine. Denies abdominal pain, fevers, chills, nausea, vomiting. (Laurita Morales) - Related Data Home Medications Medication Instructions Recorded Confirmed Tamsulosin HCl [Flomax] 0.4 mg PO HS 09/25/14 03/24/24 Finasteride 5 mg PO DAILY 05/28/15 03/24/24 Atorvastatin [Lipitor] 40 mg PO DAILY 03/21/16 03/24/24 metFORMIN HCL [metFORMIN HCL ER] 500 mg PO BID 03/21/16 03/24/24 Warfarin [Coumadin] 7.5 mg PO MOTUWETHFRSA@209909/20/18 03/24/24 Acetaminophen-Codeine 300-30mg 1 tab PO TID 07/11/19 03/24/24 [Tylenol w/codeine #3] Flecainide [Tambocor] 50 mg PO Q12H 07/11/19 03/24/24 Fenofibrate [Lofibra] 54 mg PO DAILY 05/19/22 03/24/24 Warfarin [Coumadin] 5 mg PO SANDS@2100 05/19/22 03/24/24 allopurinoL 100 mg PO DAILY 05/19/22 03/24/24 Mv-Min/Folic/K1/Lycopen/Lutein 1 tab PO DAILY 07/15/22 03/24/24 [Centrum Silver Men Tablet] glipiZIDE XL [Glucotrol XL] 5 mg PO DAILY 07/15/22 03/24/24 Omeprazole 20 mg PO DAILY 03/24/24 03/24/24 Previous Rx's Medication Instructions Recorded Dapagliflozin Propanediol [Farxiga] 10 mg PO DAILY #90 tab 03/26/24 Furosemide [Lasix] 40 mg PO DAILY #90 tab 03/26/24 Potassium Chloride ER [K-Dur 20] 20 meq PO DAILY #60 tab 03/26/24 Spironolactone [Aldactone] 100 mg PO DAILY #120 tab 03/26/24 Valsartan [Diovan] 320 mg PO DAILY #120 tab 03/26/24 carvediloL [Coreg*] 12.5 mg PO BID-W/MEALS #120 tab 03/26/24 Cefpodoxime Proxetil [Vantin] 200 mg PO Q12HR 10 Days #20 tab 08/08/24 Sulfamethox-Tmp 800-160Mg [Bactrim 1 tab PO Q12HR 5 Days #10 tab 08/08/24 DS 800-160 mg] Allergies Allergy/AdvReac Type Severity Reaction Status Date / Time gluten Allergy Unknown Verified 08/08/24 12:10 Iodine and Iodide Containing Allergy Rash/Hives Verified 08/08/24 12:10 Produc shellfish derived [Shellfish] Allergy Rash/Hives Verified 08/08/24 12:10 Review of Systems ROS Other: All systems not noted in ROS Statement are negative. <Laurita Morales - Last Filed: 01/01/25 15:40> ROS Other: All systems not noted in ROS Statement are negative. <Laura Miradna - Last Filed: 01/02/25 00:52> ROS Statement: Those systems with pertinent positive or pertinent negative responses have been documented in the HPI. Past Medical History Past Medical History: Atrial Fibrillation, Coronary Artery Disease (CAD), Diabetes Mellitus, Hyperlipidemia, Hypertension, Prostate Disorder Additional Past Medical History / Comment(s): enlarged prostate with stones, prostatitis in past and treated with Bactrim DS one half daily for suppression, episode of v-tach 20 yrs ago, mild CAD, NIDDM type II, 2008 syncope, chronic back pain, hx. stomach ulcers Last Myocardial Infarction Date:: 05/28/15 History of Any Multi-Drug Resistant Organisms: ESBL Date of last positivie culture/infection: 05/29/19 ESBL E.coli MDRO Source:: Urine Past Surgical History: Appendectomy, Cholecystectomy, Heart Catheterization, Orthopedic Surgery Additional Past Surgical History / Comment(s): tibia plateau fracture right leg with plates/screws, 05/29/15 cardiac cath with mild CAD. Past Anesthesia/Blood Transfusion Reactions: No Reported Reaction Past Psychological History: No Psychological Hx Reported Smoking Status: Never smoker Past Alcohol Use History: None Reported Past Drug Use History: None Reported - Past Family History Mother Additional Family Medical History / Comment(s): Bowel problems and possible lung cancer. Mother in her 80's. She did not go to the doctors much. Brother(s) Family Medical History: Cancer Father Family Medical History: Cancer Additional Family Medical History / Comment(s): Father had palpitations. He at about age 78yrs. <Laurita Morales - Last Filed: 01/01/25 15:40> General Exam Limitations: no limitations <Laurita Morales - Last Filed: 01/01/25 15:40> - General Exam Comments Initial Comments: Visual Physical Exam Vital signs reviewed General: Well-appearing, nontoxic, no acute distress. Head: Normocephalic, atraumatic Eyes: PERRLA, EOMI ENT: Airway patent Chest: Nonlabored breathing Skin: No visual rash, normal skin tone Neuro: Alert and oriented 3 Musculoskeletal: No gross abnormalities (Laurita Morales) Course Vital Signs 01/01/25 01/01/25 01/01/25 14:49 19:20 20:27 Temperature 100.8 F H 98.4 F Pulse Rate 78 68 66 Respiratory 20 18 18 Rate Blood Pressure 122/62 107/60 138/57 O2 Sat by Pulse 94 L 97 97 Oximetry 01/01/25 22:34 Temperature 102.9 F H Pulse Rate Respiratory Rate Blood Pressure O2 Sat by Pulse Oximetry Medical Decision Making <Laurita Morales - Last Filed: 01/01/25 15:40> - Lab Data Result diagrams: 01/01/25 16:17 01/01/25 16:17 <Laura Miranda - Last Filed: 01/02/25 00:52> - Medical Decision Making I completed the quick note portion of this chart signed Laurita Morales PA-C During initial quick evaluation the emergency room waiting room noticed that patient's noted to have a fever Of 100.8, additionally, urinalysis is concerning for infection with leukocytes white cells and white blood cell clumps. Patient is ordered a gram of Rocephin and Tylenol. completed at time of 1540 (Laurita Morales) Was pt. sent in by a medical professional or institution ([facility], [employer], urgent care, hospital, or long term...) When possible be specific @ -[No] Did you speak to anyone other than the patient for history (EMS, parent, family, police, friend...)? What history was obtained from this source @ -[No] Did you review nursing and triage notes (agree or disagree)? Why? @ -[I reviewed and agree with nursing and triage notes] Were old charts reviewed (outside hosp., previous admission, EMS record, old EKG, old radiological studies, urgent care reports/EKG's, long term records)? Report findings @ -[No old charts were reviewed] Differential Diagnosis (chest pain, altered mental status, abdominal pain women, abdominal pain men, vaginal bleeding, weakness, fever, dyspnea, syncope, headache, dizziness, GI bleed, back pain, seizure, CVA, palpatations, mental health, musculoskeletal)? @ -[not applicable] EKG interpreted by me (3pts min.). @ -Yes and demonstrates sinus rhythm with a rate of 76. IL interval 217. QRS 112. QTc of 401. No acute ST segment elevations. Q wave with inverted T wave in lead III X-rays interpreted by me (1pt min.). @ -[None done] CT interpreted by me (1pt min.). @ -[None done] U/S interpreted by me (1pt. min.). @ -[None done] What testing was considered but not performed or refused? (CT, X-rays, U/S, labs)? Why? @ -[None] What meds were considered but not given or refused? Why? @ -[None] Did you discuss the management of the patient with other professionals (professionals i.e. [facility], [employer], lab, RT, psych nurse, social problems specialist, clay pigeon loader, teacher, tactical/mobile watch officer, telehealth case manager)? Give summary @ -[No] Was smoking cessation discussed for >3mins.? @ -[No] Was critical care preformed (if so, how long)? @ -[No] Were there social determinants of health that impacted care today? How? (Homelessness, low income, unemployed, alcoholism, drug addiction, transportation, low edu. Level, literacy, decrease access to med. care, [facility], rehab)? @ -[No] Was there de-escalation of care discussed even if they declined (Discuss DNR or withdrawal of care, Hospice)? DNR status @ -[No] What co-morbidities impacted this encounter? (DM, HTN, Smoking, COPD, CAD, Cancer, CVA, ARF, Chemo, Hep., AIDS, mental health diagnosis, sleep apnea, morbid obesity)? @ -[None] Was patient admitted / discharged? Hospital course, mention meds given and route, prescriptions, significant lab abnormalities, going to OR and other pertinent info. @ -[hospital course] Undiagnosed new problem with uncertain prognosis? @ -[No] Drug Therapy requiring intensive monitoring for toxicity (Heparin, Nitro, Insulin, Cardizem)? @ -[No] Were any procedures done? @ -[No] Diagnosis/symptom? @ -[default] Acute, or Chronic, or Acute on Chronic? @ -[default] Uncomplicated (without systemic symptoms) or Complicated (systemic symptoms)? @ -[default] Side effects of treatment? @ -[No] Exacerbation, Progression, or Severe Exacerbation? @ -[No] Poses a threat to life or bodily function? How? (Chest pain, [place], [place], pneumonia, PE, COPD, DKA, ARF, appy, cholecystitis, CVA, Diverticulitis, Homicidal, Suicidal, threat to staff... and all critical care pts) @ -[No] (Laura Miranda) - Lab Data Lab Results 01/01/25 01/01/25 01/01/25 Range/Units 14:54 16:17 16:17 WBC 15.11 H (4.50-10.00) 10*3/uL RBC 4.11 L (4.40-5.60) 10*6/uL Hgb 13.3 (13.0-17.0) g/dL Hct 38.1 L (39.6-50.0) % MCV 92.7 (80.0-97.0) fL MCH 32.4 H (27.0-32.0) pg MCHC 34.9 (32.0-37.0) g/dL Plt Count 179 (140-440) 10*3/uL MPV 11.6 (9.5-12.2) fL Immature Gran % (Auto) 0.7 % Neutrophils % 91.2 % Lymphocytes % 2.8 % Monocytes % 5.0 % Eosinophils % 0.0 % Basophils % 0.3 % Immature Gran # 0.10 H (0.00-0.04) 10*3/uL Neutrophils # 13.77 H (1.80-7.70) 10*3/uL Lymphocytes # 0.43 L (0.90-5.00) 10*3/uL Monocytes # 0.76 (0.20-1.00) 10*3/uL Eosinophils # 0.00 L (0.04-0.35) 10*3/uL Basophils # 0.05 (0.00-0.10) 10*3/uL Sodium 136 L (137-145) mmol/L Potassium 5.1 (3.5-5.1) mmol/L Chloride 101 (98-107) mmol/L Carbon Dioxide 21 L (22-30) mmol/L Anion Gap 14 mmol/L BUN 54 H (9-20) mg/dL Creatinine 1.51 H (0.66-1.25) mg/dL Est GFR (CKD-EPI)AfAm 51 (>60 ml/min/1.73 sqM) Est GFR (CKD-EPI)NonAf 44 (>60 ml/min/1.73 sqM) Glucose 274 H (74-99) mg/dL Plasma Lactic Acid Rosendo (0.7-2.0) mmol/L Calcium 9.4 (8.4-10.2) mg/dL Magnesium 2.0 (1.6-2.3) mg/dL Total Bilirubin 1.4 H (0.2-1.3) mg/dL AST 30 (17-59) U/L ALT 93 H (4-49) U/L Alkaline Phosphatase 109 (38-126) U/L Total Protein 6.2 L (6.3-8.2) g/dL Albumin 3.8 (3.5-5.0) g/dL Urine Color Colorless Urine Appearance Turbid (Clear) Urine pH 5.5 (5.0-8.0) Ur Specific Lewis 1.012 (1.001-1.035) Urine Protein 1+ H (Negative) Urine Glucose (UA) 4+ H (Negative) Urine Ketones Negative (Negative) Urine Blood Moderate H (Negative) Urine Nitrite Positive (Negative) Urine Bilirubin Negative (Negative) Urine Urobilinogen <2.0 (<2.0) mg/dL Ur Leukocyte Esterase Large H (Negative) Urine RBC 21 H (0-5) /hpf Urine WBC >182 H (0-5) /hpf Urine WBC Clumps Many H (None) /hpf 01/01/25 Range/Units 16:17 WBC (4.50-10.00) 10*3/uL RBC (4.40-5.60) 10*6/uL Hgb (13.0-17.0) g/dL Hct (39.6-50.0) % MCV (80.0-97.0) fL MCH (27.0-32.0) pg MCHC (32.0-37.0) g/dL Plt Count (140-440) 10*3/uL MPV (9.5-12.2) fL Immature Gran % (Auto) % Neutrophils % % Lymphocytes % % Monocytes % % Eosinophils % % Basophils % % Immature Gran # (0.00-0.04) 10*3/uL Neutrophils # (1.80-7.70) 10*3/uL Lymphocytes # (0.90-5.00) 10*3/uL Monocytes # (0.20-1.00) 10*3/uL Eosinophils # (0.04-0.35) 10*3/uL Basophils # (0.00-0.10) 10*3/uL Sodium (137-145) mmol/L Potassium (3.5-5.1) mmol/L Chloride (98-107) mmol/L Carbon Dioxide (22-30) mmol/L Anion Gap mmol/L BUN (9-20) mg/dL Creatinine (0.66-1.25) mg/dL Est GFR (CKD-EPI)AfAm (>60 ml/min/1.73 sqM) Est GFR (CKD-EPI)NonAf (>60 ml/min/1.73 sqM) Glucose (74-99) mg/dL Plasma Lactic Acid Rosendo 1.6 (0.7-2.0) mmol/L Calcium (8.4-10.2) mg/dL Magnesium (1.6-2.3) mg/dL Total Bilirubin (0.2-1.3) mg/dL AST (17-59) U/L ALT (4-49) U/L Alkaline Phosphatase (38-126) U/L Total Protein (6.3-8.2) g/dL Albumin (3.5-5.0) g/dL Urine Color Urine Appearance (Clear) Urine pH (5.0-8.0) Ur Specific Lewis (1.001-1.035) Urine Protein (Negative) Urine Glucose (UA) (Negative) Urine Ketones (Negative) Urine Blood (Negative) Urine Nitrite (Negative) Urine Bilirubin (Negative) Urine Urobilinogen (<2.0) mg/dL Ur Leukocyte Esterase (Negative) Urine RBC (0-5) /hpf Urine WBC (0-5) /hpf Urine WBC Clumps (None) /hpf Disposition <Laurita Morales - Last Filed: 01/01/25 15:40> Is patient prescribed a controlled substance at d/c from ED?: No Time of Disposition: 19:37 Decision to Admit Reason: Admit from EC Decision Date: 01/01/25 Decision Time: 19:38 <Laura Miranda - Last Filed: 01/02/25 00:52> Clinical Impression: Urinary tract infection with fever, Scrotal abscess Disposition: ADMITTED IP TO THIS HOSP Condition: Stable
[2025-01-01 16:28] LABS: Basophils # (A) 0.05 10*3/uL (0.00-0.10); Basophils % (A) 0.3 %; HCT 38.1 % (39.6-50.0); HGB 13.3 g/dL (13.0-17.0); Lymphocytes # (A) 0.43 10*3/uL (0.90-5.00); Lymphocytes % (A) 2.8 %; MCH 32.4 pg (27.0-32.0); MCHC 34.9 g/dL (32.0-37.0); MCV 92.7 fL (80.0-97.0); Mean Platelet Volume 11.6 fL (9.5-12.2); Monocytes # (A) 0.76 10*3/uL (0.20-1.00); Neutrophils # (A) 13.77 10*3/uL (1.80-7.70); Neutrophils % (A) 91.2 %; Platelet Count 179 10*3/uL (140-440); RBC 4.11 10*6/uL (4.40-5.60); RDW 13.9 % (11.5-14.5); WBC 15.11 10*3/uL (4.50-10.00)
[2025-01-01 16:46] LABS: ALT 93 U/L (4-49); AST 30 U/L (17-59); African American GFR (CKD) 51 (>60 ml/min/1.73 sqM); Albumin 3.8 g/dL (3.5-5.0); Alkaline Phosphatase 109 U/L (38-126); Blood Urea Nitrogen 54 mg/dL (9-20); Calcium 9.4 mg/dL (8.4-10.2); Carbon Dioxide 21 mmol/L (22-30); Glucose 274 mg/dL (74-99); Non-African American GFR(CKD) 44 (>60 ml/min/1.73 sqM); Potassium 5.1 mmol/L (3.5-5.1); Sodium 136 mmol/L (137-145); Total Bilirubin 1.4 mg/dL (0.2-1.3); Total Protein 6.2 g/dL (6.3-8.2)
[2025-01-01 16:54] LABS: Anion Gap 14 mmol/L; Chloride 101 mmol/L (98-107)
--- NOTE | 2025-01-01 17:00 | US ---
EXAMINATION TYPE: US scrotum with doppler. DATE OF EXAM: 01/01/2025 COMPARISON: 08/08/2024 CLINICAL INDICATION: Male, 79 years old with history of scrotal pain; Recurring ? epididymitits TECHNIQUE: Grayscale, color Doppler and spectral Doppler imaging of the scrotum. FINDINGS: EXAM MEASUREMENTS: TESTICLES: Right Testicle: 3.1 x 1.9 x 2.2 cm Left Testicle: 2.3 x 1.7 x 2.8 cm EPIDIDYMIS HEAD: Right Epididymis: 1.2 cm Left Epididymis: 0.8 x 1.1 x 1.0 cm Doppler performed to assess for testicular vascularity; good bilateral color flow and spectral wavefo kori are seen. There is no evidence of testicular torsion. Presence of hydroceles: Left. Presence of varicoceles: No. Heterogenous area between testicles = 3.5 x 2.6 x 3.5 cm Echogenic area right testicle = 0.9 x 0.8 x 0.9 cm previously 0.8 x 0.8 x 0.7 cm. Between teste and medial to right teste complex hypoechoic area seen, bleed vs edema vs other etiolog y IMPRESSION: 1. Redemonstration of Heterogenous tissue around the scrotum correlate for infection. 2. Appropriate arterial and venous spectral waveforms to the testes. 3. 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 Finding likely benign given stability. [facility], , 01/01/2025 4:58 PM
[2025-01-01] MEDS: cefTRIAXone IN SWFI 1,000 MG/10 ML SYRINGE IVP STA (17:04)
[2025-01-01] MEDS: ACETAMINOPHEN TAB 500 MG TAB PO STA (17:04)
[2025-01-01] MEDS ORDERED: VANCOMYCIN IV PER PHARMACY 1 EACH MISC MISCELLANE PRN (17:52)
[2025-01-01] MEDS: VANCOMYCIN 1,750 MG in SODIUM CHLORIDE 0.9% 500 ML 500 ML IVPB STA (18:18)
[2025-01-01] MEDS ORDERED: NALOXONE 0.4 MG/ML 1 ML VIAL IV PRN (19:38)
[2025-01-01] MEDS ORDERED: ACETAMINOPHEN TAB 325 MG TAB PO PRN (19:38)
[2025-01-01] MEDS ORDERED: DEXTROSE 50% SYRINGE 50 ML IVP PRN ×2 (20:12)
[2025-01-01] MEDS ORDERED: MELATONIN 3 MG TABLET PO PRN (20:48)
--- NOTE | 2025-01-01 21:42 | P.HPIM ---
History of Present Illness H&P Date: 01/01/25 History of present illness; 79-year-old man with PMH of hypertension, atrial fibrillation maintained on Coumadin, CAD, type 2 diabetes mellitus, HFpEF (most recent echocardiogram on 03/23/2024 showed EF 55-60%), hyperlipidemia, BPH who presents to the emergency department with multiple complaints. Stating that he had a fall earlier this morning was having difficulty sitting up due to weakness in his bilateral legs. Additionally concerned that he may have epididymitis due to persistent scrotal pain he has been having, as well as concern for possible urinary tract infection as he has had a worsening dysuria and cloudy urine. He denies any fever, chills, nausea, vomiting or abdominal pain. He states that he has been dealing with infections associated with the scrotum/testicles for approximately 10 years on and off. He does endorse having previously undergone drainage of a possible previous abscess approximately 1-2 years ago. He states that they resolve, and the resolution can last up to 1 year, however they continue to occur. Previously underwent a vasectomy in the hopes of putting in and to these incidents, however that was unsuccessful. Labratory review: - WBCs 15.1, hemoglobin 13.3, hematocrit 38.1, platelet 179; sodium 136, potassium 5.1, bicarb 21, BUN 54, creatinine 1.51, lactic acid 1.6, calcium 9.4, magnesium 2.0, total bilirubin 1.4, AST 30, ALT 93, alkaline phosphatase 109 - Urinalysis showed 1+ protein, 4+ glucose, moderate blood, positive urine nitrites, large amount of leukocyte esterase, > 182 urine WBCs Imaging: - Scrotal ultrasound showed a redemonstration of heterogeneous tissue around the scrotum, with appropriate arterial and venous spectral waveforms of the testes; redemonstration of right intratesticular hyperechoic mass which appears to be present dating back to 10/22/2021 - EKG done in the ER showed heart rate of , no ST segment elevation or depression seen, no T-wave inversions seen. Vitals: - On arrival: Temperature 100.8 F, blood pressure 120/62, heart rate 78, respiratory 20, SpO2 94% on room air - Most recently: Temperature 98.4 F, blood pressure 107/60, heart rate 68, respiratory 18, SpO2 97% on room air Patient admitted to internal medicine service REVIEW OF SYSTEMS: Pertinent positives and negatives noted in HPI. The rest of the 14-point review of systems is negative. Physical Exam: General: nontoxic, no distress, appears at stated age Derm: warm, dry, intact Head: atraumatic, normocephalic, symmetric Eyes: EOMI, anicteric sclera Mouth: no lip lesion, mucus membranes moist Cardiovascular: S1 S2 reg, no murmur, rubs, or gallops Lungs: CTA bilateral, no rales, no accessory muscle use Abdominal: soft, non-tender to palpataion, no appreciable organomegaly Extremities: no gross muscle atrophy; trace pitting edema in the bilateral lower extremities Scrotum/testicles: Diffuse erythema of the bilateral testicles, approximately 1- 1.5 inch abscess-like area on the medial right testicle with exquisite tende rness to palpation, more so to the anterior aspect Neuro: Alert, Oriented, CNII-XII grossly intact, gait normal Psych: well appearing, appropriate affect Assessment and plan 79-year-old man with multiple comorbid conditions and extensive PMH who presents to the emergency department with multiple complaints. Stating that he had a fall earlier this morning was having difficulty sitting up due to weakness in his bilateral legs. Additionally concerned that he may have epididymitis due to persistent scrotal pain he has been having, as well as concern for possible urinary tract infection. 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 dating back to 10/22/2021 - He received 1g IVP Rocephin in the ED - Continue with vancomycin every 24 hours and Zosyn every 8 hours - Blood culture, urine culture ordered and currently pending - Available pain control includes Tylenol, Motrin, Pacolet 5 and morphine - Received 2 L LR bolus in ED - Continue with LR at 125 cc/h - Discussed with urology, will come and evaluate tonight #Hyperbilirubinemia #Transaminitis - Total bilirubin 1.4, ALT 93 on admission - Received 2 L LR bolus in the ED - Continue with LR at 125 cc/h - Monitor CMP #[id number] diabetes mellitus - Hold oral medications - Accu-Chek ACHS - Sliding scale initiated - Hemoglobin A1c ordered, currently pending - Monitor for hypoglycemia #New onset weakness/debility - Notes bilateral lower extremity weakness - Physical therapy and occupational Therapy both consulted - Fall precautions Chronic conditions: - Continue home medications once verified by pharmacy GI prophylaxis: None DVT prophylaxis: Continue home Coumadin once verified by pharmacy The patient is admitted with an anticipated more than than 2 midnight stay for evaluation of scrotal abscess. CODE STATUS: Full code Discussed with: Patient Anticipated discharge place: Home Dictation was produced using [employer] dictation software. please excuse any grammatical, word or spelling errors. Adam Hardy MD PGY-1 IM I have seen and evaluated the patient today. I Discussed the case with the resident and agree with the resident's findings I edited the assessment and plan as necessary as documented in the resident's note. Past Medical History Past Medical History: Atrial Fibrillation, Coronary Artery Disease (CAD), Diabetes Mellitus, Hyperlipidemia, Hypertension, Prostate Disorder Additional Past Medical History / Comment(s): enlarged prostate with stones, prostatitis in past and treated with Bactrim DS one half daily for suppression, episode of v-tach 20 yrs ago, mild CAD, NIDDM type II, 2008 syncope, chronic back pain, hx. stomach ulcers Last Myocardial Infarction Date:: 05/28/15 History of Any Multi-Drug Resistant Organisms: ESBL Date of last positivie culture/infection: 05/29/19 ESBL E.coli MDRO Source:: Urine Past Surgical History: Appendectomy, Cholecystectomy, Heart Catheterization, Orthopedic Surgery Additional Past Surgical History / Comment(s): tibia plateau fracture right leg with plates/screws, 05/29/15 cardiac cath with mild CAD. Past Anesthesia/Blood Transfusion Reactions: No Reported Reaction Past Psychological History: No Psychological Hx Reported Smoking Status: Never smoker Past Alcohol Use History: None Reported Past Drug Use History: None Reported - Past Family History Mother Additional Family Medical History / Comment(s): Bowel problems and possible lung cancer. Mother in her 80's. She did not go to the doctors much. Brother(s) Family Medical History: Cancer Father Family Medical History: Cancer Additional Family Medical History / Comment(s): Father had palpitations. He at about age 78yrs. Medications and Allergies Home Medications Medication Instructions Recorded Confirmed Type Tamsulosin HCl [Flomax] 0.4 mg PO HS 09/25/14 03/24/24 History Finasteride 5 mg PO DAILY 05/28/15 03/24/24 History Atorvastatin [Lipitor] 40 mg PO DAILY 03/21/16 03/24/24 History metFORMIN HCL [metFORMIN HCL ER] 500 mg PO BID 03/21/16 03/24/24 History Warfarin [Coumadin] 7.5 mg PO MOTUWETHFRSA@2100 09/20/18 03/24/24 History Acetaminophen-Codeine 300-30mg 1 tab PO TID 07/11/19 03/24/24 History [Tylenol w/codeine #3] Flecainide [Tambocor] 50 mg PO Q12H 07/11/19 03/24/24 History Fenofibrate [Lofibra] 54 mg PO DAILY 05/19/22 03/24/24 History Warfarin [Coumadin] 5 mg PO SANDS@209905/19/22 03/24/24 History allopurinoL 100 mg PO DAILY 05/19/22 03/24/24 History Mv-Min/Folic/K1/Lycopen/Lutein 1 tab PO DAILY 07/15/22 03/24/24 History [Centrum Silver Men Tablet] glipiZIDE XL [Glucotrol XL] 5 mg PO DAILY 07/15/22 03/24/24 History Omeprazole 20 mg PO DAILY 03/24/24 03/24/24 History Dapagliflozin Propanediol [Farxiga] 10 mg PO DAILY #90 tab 03/26/24 Rx Furosemide [Lasix] 40 mg PO DAILY #90 tab 03/26/24 Rx Potassium Chloride ER [K-Dur 20] 20 meq PO DAILY #60 tab 03/26/24 Rx Spironolactone [Aldactone] 100 mg PO DAILY #120 tab 03/26/24 Rx Valsartan [Diovan] 320 mg PO DAILY #120 tab 03/26/24 Rx carvediloL [Coreg*] 12.5 mg PO BID-W/MEALS #120 tab 03/26/24 Rx Cefpodoxime Proxetil [Vantin] 200 mg PO Q12HR 10 Days #20 tab 08/08/24 Rx Sulfamethox-Tmp 800-160Mg [Bactrim 1 tab PO Q12HR 5 Days #10 tab 08/08/24 Rx DS 800-160 mg] Allergies Allergy/AdvReac Type Severity Reaction Status Date / Time gluten Allergy Unknown Verified 08/08/24 12:10 Iodine and Iodide Containing Allergy Rash/Hives Verified 08/08/24 12:10 Produc shellfish derived [Shellfish] Allergy Rash/Hives Verified 08/08/24 12:10 Physical Exam Vitals: Vital Signs Temp Pulse Resp BP Pulse Ox 01/01/25 19:20 98.4 F 68 18 107/60 97 01/01/25 14:49 100.8 F H 78 20 122/62 94 L Intake and Output 01/01/25 01/01/25 01/01/25 06:59 14:59 22:59 Other: Weight 105.687 kg Results CBC & Chem 7: 01/01/25 16:17 01/02/25 03:31 Labs: Abnormal Lab Results - Last 24 Hours (Table) 01/01/25 01/01/25 01/01/25 Range/Units 14:54 16:17 16:17 WBC 15.11 H (4.50-10.00) 10*3/uL RBC 4.11 L (4.40-5.60) 10*6/uL Hct 38.1 L (39.6-50.0) % MCH 32.4 H (27.0-32.0) pg Immature Gran # 0.10 H (0.00-0.04) 10*3/uL Neutrophils # 13.77 H (1.80-7.70) 10*3/uL Lymphocytes # 0.43 L (0.90-5.00) 10*3/uL Eosinophils # 0.00 L (0.04-0.35) 10*3/uL Sodium 136 L (137-145) mmol/L Carbon Dioxide 21 L (22-30) mmol/L BUN 54 H (9-20) mg/dL Creatinine 1.51 H (0.66-1.25) mg/dL Glucose 274 H (74-99) mg/dL Total Bilirubin 1.4 H (0.2-1.3) mg/dL ALT 93 H (4-49) U/L Total Protein 6.2 L (6.3-8.2) g/dL Urine Protein 1+ H (Negative) Urine Glucose (UA) 4+ H (Negative) Urine Blood Moderate H (Negative) Ur Leukocyte Esterase Large H (Negative) Urine RBC 21 H (0-5) /hpf Urine WBC >182 H (0-5) /hpf Urine WBC Clumps Many H (None) /hpf
[2025-01-01] MEDS: IBUPROFEN 400 MG TAB PO PRN (22:35)
[2025-01-01] MEDS: MORPHINE SULFATE 2 MG/ML SYRINGE IVP PRN (22:42)
[2025-01-01 22:43] LABS: Glucose,Whole Blood 193 mg/dL (70-110)
[2025-01-01] MEDS: LACTATED RINGERS 1,000 ML IV SCH (22:44)
[2025-01-01] MEDS: INSULIN LISPRO (HumaLOG) 100 UNIT/ML 10 mL VL SQ SCH (22:47)
[2025-01-01] MEDS: SODIUM CHLORIDE 0.9% 1,000 ML IV STA (22:48)
[2025-01-02] MEDS: AMPICILLIN-SULBACTAM 3 GM in SODIUM CHLORIDE 0.9% 100 ML IVPB SCH (00:44)
[2025-01-02] MEDS: PIPERACILLIN-TAZOBACTAM 3.375 GM in SODIUM CHLORIDE 0.9% 100 ML IVPB SCH (02:39)
[2025-01-02] MEDS: LACTATED RINGERS 1,000 ML IV SCH (02:40)
[2025-01-02 04:22] LABS: INR 3.4 (<1.2); Prothrombin Time 33.4 sec (10.0-12.5)
[2025-01-02 04:34] LABS: African American GFR (CKD) 57 (>60 ml/min/1.73 sqM); Anion Gap 11 mmol/L; Blood Urea Nitrogen 53 mg/dL (9-20); Carbon Dioxide 19 mmol/L (22-30); Chloride 104 mmol/L (98-107); Glucose 180 mg/dL (74-99); Potassium 4.2 mmol/L (3.5-5.1); Sodium 134 mmol/L (137-145)
[2025-01-02 04:35] LABS: Calcium 8.9 mg/dL (8.4-10.2); Non-African American GFR(CKD) 49 (>60 ml/min/1.73 sqM)
[2025-01-02 06:09] LABS: Glucose,Whole Blood 182 mg/dL (70-110)
[2025-01-02] MEDS: HYDROcodone/APAP 5-325MG 1 EACH TAB PO PRN (06:47)
--- NOTE | 2025-01-02 07:29 | P.GSCN ---
History of Present Illness Consult date: 01/02/25 History of present illness: 79 yo male presents with multiple medical compalints including dyuria and a swollen scrotum this has gone on for a few days. He has a history of a scrotal abscess years ago in the right side. He had an us that showed inflammatory area on the right side We were asked to see the patient. he has had fever. He is uncomfortable. Review of Systems All systems: negative - Constitutional Denies fever, Denies weight loss - EENT Eyes: denies blurred vision Ears, nose, mouth and throat: Denies dysphagia - Cardiovascular Denies chest pain, Denies shortness of breath - Respiratory Denies cough, Denies 7 - Gastrointestinal Reports as per HPI - Genitourinary Denies dysuria, Denies hematuria - Integumentary Denies rash, Denies unusual bruising - Neurological Denies headaches, Denies syncope - Hematologic/Lymphatic Denies easy bleeding, Denies easy bruising Past Medical History Past Medical History: Atrial Fibrillation, Coronary Artery Disease (CAD), Diabetes Mellitus, Hyperlipidemia, Hypertension, Prostate Disorder Additional Past Medical History / Comment(s): enlarged prostate with stones, prostatitis in past and treated with Bactrim DS one half daily for suppression, episode of v-tach 20 yrs ago, mild CAD, NIDDM type II, 2008 syncope, chronic back pain, hx. stomach ulcers Last Myocardial Infarction Date:: 05/28/15 History of Any Multi-Drug Resistant Organisms: ESBL Year Discovered:: 05/29/19 ESBL E.coli MDRO Source:: Urine Past Surgical History: Appendectomy, Cholecystectomy, Heart Catheterization, Orthopedic Surgery Additional Past Surgical History / Comment(s): tibia plateau fracture right leg with plates/screws, 05/29/15 cardiac cath with mild CAD. Past Anesthesia/Blood Transfusion Reactions: No Reported Reaction Smoking Status: Former smoker - Past Family History Mother Additional Family Medical History / Comment(s): Bowel problems and possible lung cancer. Mother in her 80's. She did not go to the doctors much. Brother(s) Family Medical History: Cancer Father Family Medical History: Cancer Additional Family Medical History / Comment(s): Father had palpitations. He at about age 78yrs. Medications and Allergies Home Medications Medication Instructions Recorded Confirmed Type Tamsulosin HCl [Flomax] 0.4 mg PO HS 09/25/14 03/24/24 History Finasteride 5 mg PO DAILY 05/28/15 03/24/24 History Atorvastatin [Lipitor] 40 mg PO DAILY 03/21/16 03/24/24 History metFORMIN HCL [metFORMIN HCL ER] 500 mg PO BID 03/21/16 03/24/24 History Warfarin [Coumadin] 7.5 mg PO MOTUWETHFRSA@2100 09/20/18 03/24/24 History Acetaminophen-Codeine 300-30mg 1 tab PO TID 07/11/19 03/24/24 History [Tylenol w/codeine #3] Flecainide [Tambocor] 50 mg PO Q12H 07/11/19 03/24/24 History Fenofibrate [Lofibra] 54 mg PO DAILY 05/19/22 03/24/24 History Warfarin [Coumadin] 5 mg PO SANDS@2100 05/19/22 03/24/24 History allopurinoL 100 mg PO DAILY 05/19/22 03/24/24 History Mv-Min/Folic/K1/Lycopen/Lutein 1 tab PO DAILY 07/15/22 03/24/24 History [Centrum Silver Men Tablet] glipiZIDE XL [Glucotrol XL] 5 mg PO DAILY 07/15/22 03/24/24 History Omeprazole 20 mg PO DAILY 03/24/24 03/24/24 History Dapagliflozin Propanediol [Farxiga] 10 mg PO DAILY #90 tab 03/26/24 Rx Furosemide [Lasix] 40 mg PO DAILY #90 tab 03/26/24 Rx Potassium Chloride ER [K-Dur 20] 20 meq PO DAILY #60 tab 03/26/24 Rx Spironolactone [Aldactone] 100 mg PO DAILY #120 tab 03/26/24 Rx Valsartan [Diovan] 320 mg PO DAILY #120 tab 03/26/24 Rx carvediloL [Coreg*] 12.5 mg PO BID-W/MEALS #120 tab 03/26/24 Rx Cefpodoxime Proxetil [Vantin] 200 mg PO Q12HR 10 Days #20 tab 08/08/24 Rx Sulfamethox-Tmp 800-160Mg [Bactrim 1 tab PO Q12HR 5 Days #10 tab 08/08/24 Rx DS 800-160 mg] Allergies Allergy/AdvReac Type Severity Reaction Status Date / Time gluten Allergy Unknown Verified 08/08/24 12:10 Iodine and Iodide Containing Allergy Rash/Hives Verified 08/08/24 12:10 Produc shellfish derived [Shellfish] Allergy Rash/Hives Verified 08/08/24 12:10 Surgical - Exam Vital Signs Temp Pulse Resp BP Pulse Ox 100.8 F H 78 20 122/62 94 L 01/01/25 14:49 01/01/25 14:49 01/01/25 14:49 01/01/25 14:49 01/01/25 14:49 - Genitourinary posterior midline scrotal fkluctuant area 3-4cm c/w scrotal abscess. Results - Labs 01/01/25 16:17 01/02/25 03:31 Abnormal Lab Results - Last 24 Hours (Table) 01/01/25 01/01/25 01/01/25 Range/Units 14:54 16:17 16:17 WBC 15.11 H (4.50-10.00) 10*3/uL RBC 4.11 L (4.40-5.60) 10*6/uL Hct 38.1 L (39.6-50.0) % MCH 32.4 H (27.0-32.0) pg Immature Gran # 0.10 H (0.00-0.04) 10*3/uL Neutrophils # 13.77 H (1.80-7.70) 10*3/uL Lymphocytes # 0.43 L (0.90-5.00) 10*3/uL Eosinophils # 0.00 L (0.04-0.35) 10*3/uL PT (10.0-12.5) sec INR (<1.2) Sodium 136 L (137-145) mmol/L Carbon Dioxide 21 L (22-30) mmol/L BUN 54 H (9-20) mg/dL Creatinine 1.51 H (0.66-1.25) mg/dL Glucose 274 H (74-99) mg/dL POC Glucose (mg/dL) (70-110) mg/dL Total Bilirubin 1.4 H (0.2-1.3) mg/dL ALT 93 H (4-49) U/L Total Protein 6.2 L (6.3-8.2) g/dL Urine Protein 1+ H (Negative) Urine Glucose (UA) 4+ H (Negative) Urine Blood Moderate H (Negative) Ur Leukocyte Esterase Large H (Negative) Urine RBC 21 H (0-5) /hpf Urine WBC >182 H (0-5) /hpf Urine WBC Clumps Many H (None) /hpf 01/01/25 01/02/25 01/02/25 Range/Units 22:42 03:31 03:31 WBC (4.50-10.00) 10*3/uL RBC (4.40-5.60) 10*6/uL Hct (39.6-50.0) % MCH (27.0-32.0) pg Immature Gran # (0.00-0.04) 10*3/uL Neutrophils # (1.80-7.70) 10*3/uL Lymphocytes # (0.90-5.00) 10*3/uL Eosinophils # (0.04-0.35) 10*3/uL PT 33.4 H (10.0-12.5) sec INR 3.4 H (<1.2) Sodium 134 L (137-145) mmol/L Carbon Dioxide 19 L (22-30) mmol/L BUN 53 H (9-20) mg/dL Creatinine 1.37 H (0.66-1.25) mg/dL Glucose 180 H (74-99) mg/dL POC Glucose (mg/dL) 193 H (70-110) mg/dL Total Bilirubin (0.2-1.3) mg/dL ALT (4-49) U/L Total Protein (6.3-8.2) g/dL Urine Protein (Negative) Urine Glucose (UA) (Negative) Urine Blood (Negative) Ur Leukocyte Esterase (Negative) Urine RBC (0-5) /hpf Urine WBC (0-5) /hpf Urine WBC Clumps (None) /hpf Diabetes panel 01/01/25 01/02/25 Range/Units 16:17 03:31 Sodium 136 L 134 L (137-145) mmol/L Potassium 5.1 4.2 (3.5-5.1) mmol/L Chloride 101 104 (98-107) mmol/L Carbon Dioxide 21 L 19 L (22-30) mmol/L BUN 54 H 53 H (9-20) mg/dL Creatinine 1.51 H 1.37 H (0.66-1.25) mg/dL Glucose 274 H 180 H (74-99) mg/dL Calcium 9.4 8.9 (8.4-10.2) mg/dL AST 30 (17-59) U/L ALT 93 H (4-49) U/L Alkaline Phosphatase 109 (38-126) U/L Total Protein 6.2 L (6.3-8.2) g/dL Albumin 3.8 (3.5-5.0) g/dL Calcium panel 01/01/25 01/02/25 Range/Units 16:17 03:31 Calcium 9.4 8.9 (8.4-10.2) mg/dL Albumin 3.8 (3.5-5.0) g/dL Pituitary panel 01/01/25 01/02/25 Range/Units 16:17 03:31 Sodium 136 L 134 L (137-145) mmol/L Potassium 5.1 4.2 (3.5-5.1) mmol/L Chloride 101 104 (98-107) mmol/L Carbon Dioxide 21 L 19 L (22-30) mmol/L BUN 54 H 53 H (9-20) mg/dL Creatinine 1.51 H 1.37 H (0.66-1.25) mg/dL Glucose 274 H 180 H (74-99) mg/dL Calcium 9.4 8.9 (8.4-10.2) mg/dL Adrenal panel 01/01/25 01/02/25 Range/Units 16:17 03:31 Sodium 136 L 134 L (137-145) mmol/L Potassium 5.1 4.2 (3.5-5.1) mmol/L Chloride 101 104 (98-107) mmol/L Carbon Dioxide 21 L 19 L (22-30) mmol/L BUN 54 H 53 H (9-20) mg/dL Creatinine 1.51 H 1.37 H (0.66-1.25) mg/dL Glucose 274 H 180 H (74-99) mg/dL Calcium 9.4 8.9 (8.4-10.2) mg/dL Total Bilirubin 1.4 H (0.2-1.3) mg/dL AST 30 (17-59) U/L ALT 93 H (4-49) U/L Alkaline Phosphatase 109 (38-126) U/L Total Protein 6.2 L (6.3-8.2) g/dL Albumin 3.8 (3.5-5.0) g/dL - Imaging Additional studies: scrotal us reviewed. Assessment and Plan Assessment: Impression: scrotal abscess.anticoagulation Recommendations. The patient needs and I&d of this scrotal abscess This will be set up for today. I will give him some vitamin k and hold his coumadin
[2025-01-02 08:08] LABS: Basophils # (A) 0.04 X 10*3/uL (0.00-0.10); Basophils % (A) 0.4 %; Eosinophils # (A) 0.01 X 10*3/uL (0.04-0.35); Eosinophils % (A) 0.1 %; HCT 35.6 % (39.6-50.0); Lymphocytes # (A) 0.41 X 10*3/uL (0.90-5.00); Lymphocytes % (A) 4.1 %; MCHC 33.7 g/dL (32.0-37.0); MCV 94.9 FL (80.0-97.0); Mean Platelet Volume 12.1 FL (9.5-12.2); Monocytes # (A) 0.79 X 10*3/uL (0.20-1.00); Monocytes % (A) 7.9 %; NRBC Per 100 WBC 0 X 10*3/uL (0.00-0.01); Neutrophils # (A) 8.72 X 10*3/uL (1.80-7.70); Neutrophils % (A) 87.2 %; Platelet Count 167 X 10*3/uL (140-440); RBC 3.75 X 10*6/uL (4.40-5.60); RDW 14.3 % (11.5-14.5)
[2025-01-02] MEDS: PHYTONADIONE 10 MG in SODIUM CHLORIDE 0.9% 50 ML IVPB STA (09:28)
[2025-01-02 11:32] LABS: Glucose,Whole Blood 182 mg/dL (70-110)
[2025-01-02 12:51] LABS: Glucose,Whole Blood 183 mg/dL (70-110)
--- NOTE | 2025-01-02 13:08 | P.PN ---
Subjective Progress Note Date: 01/02/25 79-year-old man with PMH of hypertension, atrial fibrillation maintained on Coumadin, CAD, type 2 diabetes mellitus, HFpEF (most recent echocardiogram on 03/23/2024 showed EF 55-60%), hyperlipidemia, BPH who presents to the emergency department with multiple complaints. Stating that he had a fall earlier this morning was having difficulty sitting up due to weakness in his bilateral legs. Additionally concerned that he may have epididymitis due to persistent scrotal pain he has been having, as well as concern for possible urinary tract infection as he has had a worsening dysuria and cloudy urine. In the ED he underwent extensive evaluation. Temperature 100.8 F, blood pressure 120/62, heart rate 7 8, respiratory 20, SpO2 94% on room air. WBCs 15.1, hemoglobin 13.3, hematocrit 38.1, platelet 179; sodium 136, potassium 5.1, bicarb 21, BUN 54, creatinine 1.51, lactic acid 1.6, calcium 9.4, magnesium 2.0, total bilirubin 1.4, AST 30, ALT 93, alkaline phosphatase 109. Urinalysis showed 1+ protein, 4+ glucose, moderate blood, positive urine nitrites, large amount of leukocyte esterase, > 182 urine WBCs. Scrotal ultrasound showed a redemonstration of heterogeneous tissue around the scrotum, with appropriate arterial and venous spectral waveforms of the testes; redemonstration of right intratesticular hyperechoic mass which appears to be present dating back to 10/22/2021. Patient was started on Vancomycin and Zosyn and admitted for Urology evaluation. 01/02 Patient was seen and examined. Urology recommends I&D of scrotal abscess. CBC, Coag panel, CMP significant for RBC 3.75, Hg 12, Hct 35.6, PT 33.4, INR 3.4, Na 134, bicarb 19, BUN 53, Cr 1.37, glu 180. General: no distress, appears at stated age Derm: warm, dry Head: atraumatic, normocephalic, symmetric Mouth: no lip lesion, mucus membranes moist Cardiovascular: S1 S2 reg. No murmur. Lungs: Decreased BS bilaterally, no accessory muscle use Ext: no gross muscle atrophy, no edema, no contractures Neuro: No focal neurologic deficits. Psych: Alert and oriented. Based on my assessment of this patient, this patient meets a high complexity level of care. Sepsis secondary to scrotal abscess: Continue Vancomycin dosed per pharmacy and Zosyn 3.75g IV TID. Continue LR at 125 cc/hr. Plans for scrotal abscess I&D today with Urology. Follow UCx, BCx. Dilaudid 0.5 mg IV Q3H PRN pain. Tylenol 650 mg PO Q6H PRN fever. Urology on board. MARIE on CKD with hyponatremia and metabolic acidosis: IV hydration as above. Hold Valsartan and Farxiga today. Monitor daily BMP. Hypertension: Coreg as below. A-Fib: Coreg 6.25 mg PO BID. Flecanide 50 mg PO BID. Coumadin dosed per pharmacy. DM: ISS + Accuchecks ACHS along with hypoglycemic precautions. HDL: Lipitor 40 mg PO QD. BPH: Flomax 0.4 mg PO QD. Finasteride 5 mg PO QD. Generalized weakness: Likely due to above. PT and OT consulted. Fall precautions. CODE STATUS: FULL CODE DVT Prophylaxis: Coumadin GI Prophylaxis: Designated medical POA if patient is not able to make medical decisions for themselves: . I have reviewed the following technical marketing consultant notes: Urology note. I have reviewed the results of the following tests: CBC, Coag panel, BMP. I have ordered the following tests: CBC and BMP in the AM. I have discussed the care of this patient with the following independent his favio: . I have independently interpreted the following test below: I have discussed the management of this patient with the following physician: Objective - Vital Signs Vital signs: Vital Signs Temp 98.8 F 01/02/25 12:52 Pulse 83 01/02/25 12:52 Resp 16 01/02/25 12:52 BP 167/64 01/02/25 12:52 Pulse Ox 98 01/02/25 12:52 FiO2 Intake & Output 01/01/25 01/02/25 01/02/25 18:59 06:59 18:59 Weight 105.687 kg 105.687 kg Other: Voiding Method Toilet Toilet # Voids 4 - Labs CBC & Chem 7: 01/02/25 03:31 01/02/25 03:31 Labs: Abnormal Lab Results - Last 24 Hours (Table) 01/01/25 01/01/25 01/01/25 Range/Units 14:54 16:17 16:17 WBC 15.11 H (4.50-10.00) 10*3/uL RBC 4.11 L (4.40-5.60) 10*6/uL Hgb (13.0-17.0) g/dL Hct 38.1 L (39.6-50.0) % MCH 32.4 H (27.0-32.0) pg Immature Gran # 0.10 H (0.00-0.04) 10*3/uL Neutrophils # 13.77 H (1.80-7.70) 10*3/uL Lymphocytes # 0.43 L (0.90-5.00) 10*3/uL Eosinophils # 0.00 L (0.04-0.35) 10*3/uL PT (10.0-12.5) sec INR (<1.2) Sodium 136 L (137-145) mmol/L Carbon Dioxide 21 L (22-30) mmol/L BUN 54 H (9-20) mg/dL Creatinine 1.51 H (0.66-1.25) mg/dL Glucose 274 H (74-99) mg/dL POC Glucose (mg/dL) (70-110) mg/dL Hemoglobin A1c (<=6.0) % Total Bilirubin 1.4 H (0.2-1.3) mg/dL ALT 93 H (4-49) U/L Total Protein 6.2 L (6.3-8.2) g/dL Urine Protein 1+ H (Negative) Urine Glucose (UA) 4+ H (Negative) Urine Blood Moderate H (Negative) Ur Leukocyte Esterase Large H (Negative) Urine RBC 21 H (0-5) /hpf Urine WBC >182 H (0-5) /hpf Urine WBC Clumps Many H (None) /hpf 01/01/25 01/02/25 01/02/25 Range/Units 22:42 03:31 03:31 WBC (4.50-10.00) 10*3/uL RBC (4.40-5.60) 10*6/uL Hgb (13.0-17.0) g/dL Hct (39.6-50.0) % MCH (27.0-32.0) pg Immature Gran # (0.00-0.04) 10*3/uL Neutrophils # (1.80-7.70) 10*3/uL Lymphocytes # (0.90-5.00) 10*3/uL Eosinophils # (0.04-0.35) 10*3/uL PT (10.0-12.5) sec INR (<1.2) Sodium 134 L (137-145) mmol/L Carbon Dioxide 19 L (22-30) mmol/L BUN 53 H (9-20) mg/dL Creatinine 1.37 H (0.66-1.25) mg/dL Glucose 180 H (74-99) mg/dL POC Glucose (mg/dL) 193 H (70-110) mg/dL Hemoglobin A1c 7.3 H (<=6.0) % Total Bilirubin (0.2-1.3) mg/dL ALT (4-49) U/L Total Protein (6.3-8.2) g/dL Urine Protein (Negative) Urine Glucose (UA) (Negative) Urine Blood (Negative) Ur Leukocyte Esterase (Negative) Urine RBC (0-5) /hpf Urine WBC (0-5) /hpf Urine WBC Clumps (None) /hpf 01/02/25 01/02/25 01/02/25 Range/Units 03:31 03:31 06:07 WBC (4.50-10.00) 10*3/uL RBC 3.75 L (4.40-5.60) 10*6/uL Hgb 12.0 L (13.0-17.0) g/dL Hct 35.6 L (39.6-50.0) % MCH (27.0-32.0) pg Immature Gran # (0.00-0.04) 10*3/uL Neutrophils # 8.72 H (1.80-7.70) 10*3/uL Lymphocytes # 0.41 L (0.90-5.00) 10*3/uL Eosinophils # 0.01 L (0.04-0.35) 10*3/uL PT 33.4 H (10.0-12.5) sec INR 3.4 H (<1.2) Sodium (137-145) mmol/L Carbon Dioxide (22-30) mmol/L BUN (9-20) mg/dL Creatinine (0.66-1.25) mg/dL Glucose (74-99) mg/dL POC Glucose (mg/dL) 182 H (70-110) mg/dL Hemoglobin A1c (<=6.0) % Total Bilirubin (0.2-1.3) mg/dL ALT (4-49) U/L Total Protein (6.3-8.2) g/dL Urine Protein (Negative) Urine Glucose (UA) (Negative) Urine Blood (Negative) Ur Leukocyte Esterase (Negative) Urine RBC (0-5) /hpf Urine WBC (0-5) /hpf Urine WBC Clumps (None) /hpf 01/02/25 01/02/25 Range/Units 11:31 12:49 WBC (4.50-10.00) 10*3/uL RBC (4.40-5.60) 10*6/uL Hgb (13.0-17.0) g/dL Hct (39.6-50.0) % MCH (27.0-32.0) pg Immature Gran # (0.00-0.04) 10*3/uL Neutrophils # (1.80-7.70) 10*3/uL Lymphocytes # (0.90-5.00) 10*3/uL Eosinophils # (0.04-0.35) 10*3/uL PT (10.0-12.5) sec INR (<1.2) Sodium (137-145) mmol/L Carbon Dioxide (22-30) mmol/L BUN (9-20) mg/dL Creatinine (0.66-1.25) mg/dL Glucose (74-99) mg/dL POC Glucose (mg/dL) 182 H 183 H (70-110) mg/dL Hemoglobin A1c (<=6.0) % Total Bilirubin (0.2-1.3) mg/dL ALT (4-49) U/L Total Protein (6.3-8.2) g/dL Urine Protein (Negative) Urine Glucose (UA) (Negative) Urine Blood (Negative) Ur Leukocyte Esterase (Negative) Urine RBC (0-5) /hpf Urine WBC (0-5) /hpf Urine WBC Clumps (None) /hpf
[2025-01-02] MEDS ORDERED: SUCCINYLCHOLINE CHLORIDE 200 MG/10 ML VIAL IV ONE (13:18)
[2025-01-02] MEDS ORDERED: ACETAMINOPHEN IV (For NPO) 1,000 MG/100 ML VIAL ONE (13:18)
[2025-01-02] MEDS ORDERED: MIDAZOLAM 2 MG/2 ML VIAL ONE (13:18)
[2025-01-02] MEDS ORDERED: PROPOFOL 10 MG/ML 20 ML VIAL IV ONE (13:18)
[2025-01-02] MEDS ORDERED: LIDOCAINE 1% INJ 10MG/ML (20 ML MDV) ONE (13:18)
[2025-01-02] MEDS ORDERED: fentaNYL (PF) 50 MCG/ML 2 ML AMP ONE (13:18)
[2025-01-02] MEDS: IV FLUID CONTINUATION 1,000 ML IV ONE (13:21)
[2025-01-02] MEDS: BACITRACIN ZINC 500 UNIT/GM OINT 28.4 GM TUBE TOPICAL ONE (13:41)
--- NOTE | 2025-01-02 13:51 | P.OP ---
Date of Procedure: 01/02/25 Preoperative Diagnosis: Scrotal abscess Postoperative Diagnosis: Same Procedure(s) Performed: Incision and drainage, irrigation and packing of scrotal abscess Anesthesia: MIRIAN Surgeon: Darnell Mosley Estimated Blood Loss (ml): 10 Pathology: other (Abscess culture) Condition: stable Disposition: PACU Indications for Procedure: Patient is 79. He has a 3 to 4 cm posterior scrotal abscess who comes for drainage Description of Procedure: Patient brought operating suite given general anesthesia. Placed lithotomy position. The abscess had started to drain just as he came to the OR. The opening is extended. Cultures are obtained. The abscess cavity is irrigated thoroughly. It is then packed. The size of the abscess is about 4 cm. The patient is awakened returned recovery in good condition Impression successful I&D of scrotal abscess.
[2025-01-02] MEDS: HYDROmorphone 0.5 MG/0.5 ML SYRINGE IVP PRN (14:10)
[2025-01-02 14:15] LABS: Glucose,Whole Blood 185 mg/dL (70-110)
[2025-01-02 16:40] LABS: Glucose,Whole Blood 239 mg/dL (70-110)
[2025-01-02] MEDS: FLECAINIDE 50 MG TAB PO SCH (17:20)
[2025-01-02] MEDS: carvediloL 6.25 MG TAB PO SCH (17:30)
[2025-01-02] MEDS: WARFARIN 0.5 MG TAB PO ONE (17:33)
[2025-01-02] MEDS: VANCOMYCIN 1,750 MG in SODIUM CHLORIDE 0.9% 500 ML 500 ML IVPB SCH (18:31)
[2025-01-02 20:38] LABS: Glucose,Whole Blood 217 mg/dL (70-110)
[2025-01-02] MEDS ORDERED: WARFARIN 5 MG TAB PO SCH (21:00)
[2025-01-03 03:54] LABS: African American GFR (CKD) 59 (>60 ml/min/1.73 sqM); Anion Gap 12 mmol/L; Blood Urea Nitrogen 47 mg/dL (9-20); Carbon Dioxide 18 mmol/L (22-30); Chloride 110 mmol/L (98-107); Glucose 182 mg/dL (74-99); Non-African American GFR(CKD) 51 (>60 ml/min/1.73 sqM); Potassium 4.5 mmol/L (3.5-5.1); Sodium 140 mmol/L (137-145)
[2025-01-03 03:57] LABS: INR 1.2 (<1.2); Prothrombin Time 12.9 sec (10.0-12.5)
[2025-01-03 06:32] LABS: Glucose,Whole Blood 183 mg/dL (70-110)
--- NOTE | 2025-01-03 08:13 | P.PN ---
Subjective Progress Note Date: 01/03/25 The patient is in the hospital with a scrotal abscess. He underwent and I&D yesterday. He is feeling better VSS U/O is good. He will begin dressing changes today Objective - Vital Signs Vital signs: Vital Signs Temp 98.6 F 01/03/25 01:07 Pulse 91 01/03/25 01:07 Resp 18 01/03/25 01:07 BP 198/73 01/03/25 01:07 Pulse Ox 96 01/03/25 01:07 FiO2 Intake & Output 01/02/25 01/02/25 01/03/25 06:59 18:59 06:59 Intake Total 100 Output Total 10 Balance 90 Weight 105.687 kg Intake: IV 100 Output: Estimated Blood Loss 10 Other: Voiding Method Toilet Toilet # Voids 4 - Labs CBC & Chem 7: 01/02/25 03:31 01/03/25 03:03 Labs: Abnormal Lab Results - Last 24 Hours (Table) 01/02/25 01/02/25 01/02/25 Range/Units 03:31 03:31 11:31 RBC 3.75 L (4.40-5.60) X 10*6/uL Hgb 12.0 L (13.0-17.0) g/dL Hct 35.6 L (39.6-50.0) % Neutrophils # 8.72 H (1.80-7.70) X 10*3/uL Lymphocytes # 0.41 L (0.90-5.00) X 10*3/uL Eosinophils # 0.01 L (0.04-0.35) X 10*3/uL PT (10.0-12.5) sec INR (<1.2) Chloride (98-107) mmol/L Carbon Dioxide (22-30) mmol/L BUN (9-20) mg/dL Creatinine (0.66-1.25) mg/dL Glucose (74-99) mg/dL POC Glucose (mg/dL) 182 H (70-110) mg/dL Hemoglobin A1c 7.3 H (<=6.0) % 01/02/25 01/02/25 01/02/25 Range/Units 12:49 14:14 16:38 RBC (4.40-5.60) X 10*6/uL Hgb (13.0-17.0) g/dL Hct (39.6-50.0) % Neutrophils # (1.80-7.70) X 10*3/uL Lymphocytes # (0.90-5.00) X 10*3/uL Eosinophils # (0.04-0.35) X 10*3/uL PT (10.0-12.5) sec INR (<1.2) Chloride (98-107) mmol/L Carbon Dioxide (22-30) mmol/L BUN (9-20) mg/dL Creatinine (0.66-1.25) mg/dL Glucose (74-99) mg/dL POC Glucose (mg/dL) 183 H 185 H 239 H (70-110) mg/dL Hemoglobin A1c (<=6.0) % 01/02/25 01/03/25 01/03/25 Range/Units 20:36 03:03 03:03 RBC (4.40-5.60) X 10*6/uL Hgb (13.0-17.0) g/dL Hct (39.6-50.0) % Neutrophils # (1.80-7.70) X 10*3/uL Lymphocytes # (0.90-5.00) X 10*3/uL Eosinophils # (0.04-0.35) X 10*3/uL PT 12.9 H (10.0-12.5) sec INR 1.2 H (<1.2) Chloride 110 H (98-107) mmol/L Carbon Dioxide 18 L (22-30) mmol/L BUN 47 H (9-20) mg/dL Creatinine 1.34 H (0.66-1.25) mg/dL Glucose 182 H (74-99) mg/dL POC Glucose (mg/dL) 217 H (70-110) mg/dL Hemoglobin A1c (<=6.0) % 01/03/25 Range/Units 06:15 RBC (4.40-5.60) X 10*6/uL Hgb (13.0-17.0) g/dL Hct (39.6-50.0) % Neutrophils # (1.80-7.70) X 10*3/uL Lymphocytes # (0.90-5.00) X 10*3/uL Eosinophils # (0.04-0.35) X 10*3/uL PT (10.0-12.5) sec INR (<1.2) Chloride (98-107) mmol/L Carbon Dioxide (22-30) mmol/L BUN (9-20) mg/dL Creatinine (0.66-1.25) mg/dL Glucose (74-99) mg/dL POC Glucose (mg/dL) 183 H (70-110) mg/dL Hemoglobin A1c (<=6.0) % Microbiology - Last 24 Hours (Table) 01/02/25 13:45 Gram Stain - Preliminary Groin 01/01/25 14:54 Urine Culture - Preliminary Urine,Voided Gram Neg Bacilli 01/01/25 16:17 Blood Culture Gram Stain - Preliminary Blood Blood Culture - Preliminary Molecular ID Assessment and Plan Assessment: Impression: scrotal abscess treated with I&D. Positive e coli blood culture Recommendations c/w antibiotics. Begin dressing changed
[2025-01-03] MEDS: FINASTERIDE 5 MG TAB PO SCH (09:32)
[2025-01-03] MEDS: ATORVASTATIN 40 MG TAB PO SCH (09:32)
[2025-01-03] MEDS: TAMSULOSIN 0.4 MG CAP.ER.24H PO SCH (09:32)
[2025-01-03 11:11] LABS: Glucose,Whole Blood 227 mg/dL (70-110)
[2025-01-03] MEDS: HYDROmorphone 1 MG/ML 1 ML SYRINGE IVP PRN (12:32)
--- NOTE | 2025-01-03 14:04 | P.PN ---
Subjective Progress Note Date: 01/03/25 79-year-old man with PMH of hypertension, atrial fibrillation maintained on Coumadin, CAD, type 2 diabetes mellitus, HFpEF (most recent echocardiogram on 03/23/2024 showed EF 55-60%), hyperlipidemia, BPH who presents to the emergency department with multiple complaints. Stating that he had a fall earlier this morning was having difficulty sitting up due to weakness in his bilateral legs. Additionally concerned that he may have epididymitis due to persistent scrotal pain he has been having, as well as concern for possible urinary tract infection as he has had a worsening dysuria and cloudy urine. In the ED he underwent extensive evaluation. Temperature 100.8 F, blood pressure 120/62, heart rate 7 8, respiratory 20, SpO2 94% on room air. WBCs 15.1, hemoglobin 13.3, hematocrit 38.1, platelet 179; sodium 136, potassium 5.1, bicarb 21, BUN 54, creatinine 1.51, lactic acid 1.6, calcium 9.4, magnesium 2.0, total bilirubin 1.4, AST 30, ALT 93, alkaline phosphatase 109. Urinalysis showed 1+ protein, 4+ glucose, moderate blood, positive urine nitrites, large amount of leukocyte esterase, > 182 urine WBCs. Scrotal ultrasound showed a redemonstration of heterogeneous tissue around the scrotum, with appropriate arterial and venous spectral waveforms of the testes; redemonstration of right intratesticular hyperechoic mass which appears to be present dating back to 10/22/2021. Patient was started on Vancomycin and Zosyn and admitted for Urology evaluation. 01/02 Patient was seen and examined. Urology recommends I&D of scrotal abscess. CBC, Coag panel, CMP significant for RBC 3.75, Hg 12, Hct 35.6, PT 33.4, INR 3.4, Na 134, bicarb 19, BUN 53, Cr 1.37, glu 180. 01/03 Patient was seen and examined. Underwent I&D of scrotal abscess yesterday. He complains of soreness in the scrotum area. UCx + Wound Cx growing GNB. BCx growing presumed E. coli. Antibiotics include Vancomycin dosed per pharmacy and Zosyn 3.75g IV TID. Coag panel and BMP significant for PT 12.9, INR 1.2, Cl 110, bicarb 18, BUN 47, Cr 1.34, glu 182. General: no distress, appears at stated age Derm: warm, dry Head: atraumatic, normocephalic, symmetric Mouth: no lip lesion, mucus membranes moist Cardiovascular: S1 S2 reg. No murmur. Lungs: Decreased BS bilaterally, no accessory muscle use Ext: no gross muscle atrophy, no edema, no contractures Neuro: No focal neurologic deficits. Psych: Alert and oriented. Based on my assessment of this patient, this patient meets a high complexity level of care. Sepsis secondary to scrotal abscess + E. coli bacteremia: Switch Vancomycin and Zosyn to Rocephin 2g IV QD. Decrease LR from 125 to 75 cc/hr. Follow UCx, BCx + Wound Cx. Dilaudid 0.5 mg IV Q3H PRN pain. Tylenol 650 mg PO Q6H PRN fever. Urology on board. Consult ID, discussed case with Dr. Tabares. MARIE on CKD with hyponatremia and metabolic acidosis: IV hydration as above. Hold Valsartan and Farxiga today. Monitor daily BMP. Hypertension: Coreg as below. A-Fib: Coreg 6.25 mg PO BID. Flecanide 50 mg PO BID. Coumadin dosed per pharmacy. DM: ISS + Accuchecks ACHS along with hypoglycemic precautions. HDL: Lipitor 40 mg PO QD. BPH: Flomax 0.4 mg PO QD. Finasteride 5 mg PO QD. Generalized weakness: Likely due to above. PT and OT consulted. Fall precautions. CODE STATUS: FULL CODE DVT Prophylaxis: Coumadin GI Prophylaxis: Designated medical POA if patient is not able to make medical decisions for themselves: . I have reviewed the following talent acquisition consultant notes: Urology note. I have reviewed the results of the following tests: BMP, Coag panel, UCx, BCx, Wound Cx. I have ordered the following tests: CBC and BMP in the AM. I have discussed the care of this patient with the following independent historian: I have independently interpreted the following test below: I have discussed the management of this patient with the following physician: Dr Tabares Objective - Vital Signs Vital signs: Vital Signs Temp 97.7 F 01/03/25 07:25 Pulse 77 01/03/25 07:25 Resp 17 01/03/25 07:25 BP 125/65 01/03/25 07:25 Pulse Ox 95 06/13/25 07:25 FiO2 Intake & Output 01/02/25 01/03/25 01/03/25 18:59 06:59 18:59 Intake Total 100 Output Total 10 Balance 90 Intake: IV 100 Output: Estimated Blood Loss 10 Other: Voiding Method Toilet Urinal # Voids 4 1 # Bowel Movements 1 - Labs CBC & Chem 7: 01/02/25 03:31 01/03/25 03:03 Labs: Abnormal Lab Results - Last 24 Hours (Table) 01/02/25 01/02/25 01/02/25 Range/Units 14:14 16:38 20:36 PT (10.0-12.5) sec INR (<1.2) Chloride (98-107) mmol/L Carbon Dioxide (22-30) mmol/L BUN (9-20) mg/dL Creatinine (0.66-1.25) mg/dL Glucose (74-99) mg/dL POC Glucose (mg/dL) 185 H 239 H 217 H (70-110) mg/dL 01/03/25 01/03/25 01/03/25 Range/Units 03:03 03:03 06:15 PT 12.9 H (10.0-12.5) sec INR 1.2 H (<1.2) Chloride 110 H (98-107) mmol/L Carbon Dioxide 18 L (22-30) mmol/L BUN 47 H (9-20) mg/dL Creatinine 1.34 H (0.66-1.25) mg/dL Glucose 182 H (74-99) mg/dL POC Glucose (mg/dL) 183 H (70-110) mg/dL 01/03/25 Range/Units 11:09 PT (10.0-12.5) sec INR (<1.2) Chloride (98-107) mmol/L Carbon Dioxide (22-30) mmol/L BUN (9-20) mg/dL Creatinine (0.66-1.25) mg/dL Glucose (74-99) mg/dL POC Glucose (mg/dL) 227 H (70-110) mg/dL Microbiology - Last 24 Hours (Table) 01/01/25 16:17 Blood Culture Gram Stain - Preliminary Blood Blood Culture - Preliminary Escherichia coli Molecular ID 01/02/25 13:45 Gram Stain - Preliminary Groin Wound Culture - Preliminary Gram Neg Bacilli 01/01/25 14:54 Urine Culture - Preliminary Urine,Voided Gram Neg Bacilli
[2025-01-03 16:18] LABS: Glucose,Whole Blood 244 mg/dL (70-110)
[2025-01-03] MEDS: WARFARIN 7.5 MG TAB PO ONE (19:22)
[2025-01-03 20:08] LABS: Glucose,Whole Blood 230 mg/dL (70-110)
--- NOTE | 2025-01-03 22:34 | P.CONS ---
History of Present Illness - Reason for Consult Consult date: 01/03/25 Scrotal abscess, bacteremia Requesting physician: Yana Francois - Chief Complaint Weakness scrotal pain and redness x days - History of Present Illness Patient is a 79-year-old male with a past medical history significant for diabetes mellitus hypertension hyperlipidemia coronary disease atrial fibrillation presenting to the hospital 2 days ago for evaluation of weakness did have a fall with difficulty sitting up patient also complaining of scrotal pain along with urinary symptoms of dysuria and cloudy urine that the pain has been going on for the last few days before presentation to the hospital patient was complaining of pain to the scrotal area with associated swelling and redness describing pain to be sharp moderate intensity without radiation patient did have some chills on presentation in the hospital he did have low-grade fever 100.8 subsequently he did spike a fever of 102.9 F patient was not tachycardic hypotensive or hypoxic no need for supplemental oxygen patient did have a white count of 15.11 with a left shift BUN and creatinine has been mildly elevated urine was positive patient did have a scrotal ultrasound that was suggestive of heterogeneous tissue around the scrotum correlate for infection patient was evaluated by urology and taken to the OR and is status post I&D of the scrotal abscess patient did have blood cultures obtained which are now growing E. coli urine is showing gram-negative in the scrotal wound showing gram-negative patient is being treated with Rocephin infectious he was consulted today for further management of antibiotic therapy Review of Systems Positive point and negatives has been mentioned in the HPI, complete review of systems was performed and all other systems are negative Past Medical History Past Medical History: Atrial Fibrillation, Coronary Artery Disease (CAD), Diabetes Mellitus, Hyperlipidemia, Hypertension, Prostate Disorder Additional Past Medical History / Comment(s): enlarged prostate with stones, prostatitis in past and treated with Bactrim DS one half daily for suppression, episode of v-tach 20 yrs ago, mild CAD, NIDDM type II, 2008 syncope, chronic back pain, hx. stomach ulcers Last Myocardial Infarction Date:: 05/28/15 History of Any Multi-Drug Resistant Organisms: ESBL Year Discovered:: 05/29/19 ESBL E.coli MDRO Source:: Urine Past Surgical History: Appendectomy, Cholecystectomy, Heart Catheterization, Orthopedic Surgery Additional Past Surgical History / Comment(s): tibia plateau fracture right leg with plates/screws, 05/29/15 cardiac cath with mild CAD. Past Anesthesia/Blood Transfusion Reactions: No Reported Reaction Smoking Status: Former smoker - Past Family History Mother Additional Family Medical History / Comment(s): Bowel problems and possible lung cancer. Mother in her 80's. She did not go to the doctors much. Brother(s) Family Medical History: Cancer Father Family Medical History: Cancer Additional Family Medical History / Comment(s): Father had palpitations. He at about age 78yrs. Medications and Allergies Home Medications Medication Instructions Recorded Confirmed Type Tamsulosin HCl [Flomax] 0.4 mg PO DAILY 09/25/14 01/02/25 History Finasteride 5 mg PO DAILY 05/28/15 01/02/25 History Atorvastatin [Lipitor] 40 mg PO DAILY 03/21/16 01/02/25 History metFORMIN HCL [metFORMIN HCL ER] 500 mg PO DAILY 03/21/16 01/02/25 History Warfarin [Coumadin] 7.5 mg PO DAILY 09/20/18 01/02/25 History Acetaminophen-Codeine 300-30mg 1 tab PO TID PRN 07/11/19 01/02/25 History [Tylenol w/codeine #3] Flecainide [Tambocor] 50 mg PO Q12H 07/11/19 01/02/25 History Dapagliflozin Propanediol [Farxiga] 10 mg PO DAILY #90 tab 03/26/24 01/02/25 Rx Valsartan [Diovan] 320 mg PO DAILY #120 tab 03/26/24 01/02/25 Rx carvediloL [Coreg*] 6.25 mg PO BID-W/MEALS 01/02/25 01/02/25 History Allergies Allergy/AdvReac Type Severity Reaction Status Date / Time gluten Allergy Unknown Verified 01/02/25 10:52 Iodine and Iodide Containing Allergy Rash/Hives Verified 01/02/25 10:52 Produc shellfish derived [Shellfish] Allergy Rash/Hives Verified 01/02/25 10:52 Physical Exam Vitals: Vital Signs Temp Pulse Resp BP Pulse Ox 01/03/25 14:00 98.8 F 66 15 146/62 94 L 01/03/25 07:25 97.7 F 77 17 125/65 95 01/03/25 01:07 98.6 F 91 18 198/73 96 01/02/25 19:40 98.4 F 70 20 120/67 98 01/02/25 16:08 73 123/64 92 L 01/02/25 15:53 75 129/68 93 L 01/02/25 15:38 76 146/69 94 L 01/02/25 15:24 98.1 F 78 16 153/67 94 L Intake and Output 01/03/25 01/03/25 01/03/25 06:59 14:59 22:59 Other: Voiding Method Urinal # Voids 4 1 # Bowel Movements 1 GENERAL DESCRIPTION: Elderly male up in the chair, no distress. No tachypnea or accessory muscle of respiration use. HEENT: Shows Pallor , no scleral icterus. Oral mucous membrane is dry. NECK: Trachea central, no thyromegaly. LUNGS: Unlabored breathing. Clear to auscultation anteriorly. No wheeze or crackle. HEART: S1, S2, regular rate and rhythm. No loud murmur ABDOMEN: Soft, no tenderness , : Did have minimal swelling and a small wound with minimal drainage on the dressing EXTREMITIES: No edema of feet. SKIN: No rash, no masses palpable. NEUROLOGICAL: The patient is awake, alert, oriented x3, mood and affect normal. Results CBC & Chem 7: 01/02/25 03:31 01/03/25 03:03 Labs: Abnormal Lab Results - Last 24 Hours (Table) 01/02/25 01/02/25 01/03/25 Range/Units 16:38 20:36 03:03 PT (10.0-12.5) sec INR (<1.2) Chloride 110 H (98-107) mmol/L Carbon Dioxide 18 L (22-30) mmol/L BUN 47 H (9-20) mg/dL Creatinine 1.34 H (0.66-1.25) mg/dL Glucose 182 H (74-99) mg/dL POC Glucose (mg/dL) 239 H 217 H (70-110) mg/dL 01/03/25 01/03/25 01/03/25 Range/Units 03:03 06:15 11:09 PT 12.9 H (10.0-12.5) sec INR 1.2 H (<1.2) Chloride (98-107) mmol/L Carbon Dioxide (22-30) mmol/L BUN (9-20) mg/dL Creatinine (0.66-1.25) mg/dL Glucose (74-99) mg/dL POC Glucose (mg/dL) 183 H 227 H (70-110) mg/dL Microbiology - Last 24 Hours (Table) 01/01/25 16:17 Blood Culture Gram Stain - Preliminary Blood Blood Culture - Preliminary Escherichia coli Molecular ID 01/02/25 13:45 Gram Stain - Preliminary Groin Wound Culture - Preliminary Gram Neg Bacilli 01/01/25 14:54 Urine Culture - Preliminary Urine,Voided Gram Neg Bacilli Assessment and Plan (1) Scrotal abscess Current Visit: Yes Status: Acute Code(s): N49.2 - INFLAMMATORY DISORDERS OF SCROTUM SNOMED Code(s): 89496083 (2) Sepsis Current Visit: Yes Status: Acute Code(s): A41.9 - SEPSIS, UNSPECIFIED ORGANISM SNOMED Code(s): 24938469 (3) Urinary tract infection with fever Current Visit: Yes Status: Acute Code(s): N39.0 - URINARY TRACT INFECTION, SITE NOT SPECIFIED SNOMED Code(s): 48092348260328 (4) E coli bacteremia Current Visit: Yes Status: Acute Code(s): R78.81 - BACTEREMIA; B96.20 - UNSP ESCHERICHIA COLI THE CAUSE OF DISEASES CLASSD [facility] SNOMED Code(s): 578318852797 Plan: 1patient presented to hospital with sepsis in this patient noted to have fever elevated white count meeting criteria for SIRS/sepsis source is likely [place] of UTI and scrotal abscess status post surgical drainage. 2patient with E. coli bacteremia source likely scrotal abscess/UTI. 3patient will be treated with Rocephin 2 g daily while waiting for sensitivity to finalize to determine discharge antibiotics. We will follow on clinical condition and cultures to further adjust medication if needed Thank you for this consultation we will follow the patient along with you Dictation was produced using [employer] dictation software. please excuse any g rammatical, word or spelling errors. Time with Patient: Greater than 30
[2025-01-04 05:38] LABS: HCT 31.9 % (39.6-50.0); HGB 10.8 g/dL (13.0-17.0); MCH 31.9 pg (27.0-32.0); MCHC 33.9 g/dL (32.0-37.0); MCV 94.1 fL (80.0-97.0); Mean Platelet Volume 11.1 fL (9.5-12.2); Platelet Count 171 10*3/uL (140-440); RBC 3.39 10*6/uL (4.40-5.60); WBC 5.29 10*3/uL (4.50-10.00)
[2025-01-04 05:53] LABS: African American GFR (CKD) 88 (>60 ml/min/1.73 sqM); Anion Gap 10 mmol/L; Blood Urea Nitrogen 36 mg/dL (9-20); Calcium 8.6 mg/dL (8.4-10.2); Carbon Dioxide 18 mmol/L (22-30); Chloride 111 mmol/L (98-107); Glucose 168 mg/dL (74-99); Non-African American GFR(CKD) 76 (>60 ml/min/1.73 sqM); Sodium 139 mmol/L (137-145)
[2025-01-04 06:03] LABS: INR 1.1 (<1.2); Prothrombin Time 12.1 sec (10.0-12.5)
[2025-01-04 06:07] LABS: Glucose,Whole Blood 179 mg/dL (70-110)
--- NOTE | 2025-01-04 09:47 | P.PN ---
Subjective Progress Note Date: 01/04/25 Patient is in the hospital with a scrotal abscess. He is status post I&D. The wound looks good. He is ready for sitz bath's. Objective - Vital Signs Vital signs: Vital Signs Temp 98.3 F 01/04/25 07:36 Pulse 69 01/04/25 07:36 Resp 18 01/04/25 07:36 BP 147/76 01/04/25 07:36 Pulse Ox 98 01/04/25 07:36 FiO2 Intake & Output 01/03/25 01/04/25 01/04/25 18:59 06:59 18:59 Output Total 1000 Balance -1000 Output: Urine 1000 Other: Voiding Method Urinal Urinal # Voids 1 3 # Bowel Movements 1 2 - Labs CBC & Chem 7: 01/04/25 04:51 01/04/25 04:51 Labs: Abnormal Lab Results - Last 24 Hours (Table) 01/03/25 01/03/25 01/03/25 Range/Units 11:09 16:17 20:07 RBC (4.40-5.60) 10*6/uL Hgb (13.0-17.0) g/dL Hct (39.6-50.0) % Chloride (98-107) mmol/L Carbon Dioxide (22-30) mmol/L BUN (9-20) mg/dL Glucose (74-99) mg/dL POC Glucose (mg/dL) 227 H 244 H 230 H (70-110) mg/dL 01/04/25 01/04/25 01/04/25 Range/Units 04:51 04:51 06:06 RBC 3.39 L (4.40-5.60) 10*6/uL Hgb 10.8 L (13.0-17.0) g/dL Hct 31.9 L (39.6-50.0) % Chloride 111 H (98-107) mmol/L Carbon Dioxide 18 L (22-30) mmol/L BUN 36 H (9-20) mg/dL Glucose 168 H (74-99) mg/dL POC Glucose (mg/dL) 179 H (70-110) mg/dL Microbiology - Last 24 Hours (Table) 01/02/25 13:45 Gram Stain - Final Groin Wound Culture - Final Escherichia coli 01/01/25 16:17 Blood Culture Gram Stain - Final Blood Blood Culture - Final Escherichia coli Molecular ID 01/01/25 14:54 Urine Culture - Final Urine,Voided Escherichia coli Assessment and Plan Assessment: Impression: Scrotal abscess status post I&D Recommendation sitz bath's with Epsom salts twice daily with dressing changes. From urologic standpoint he can probably be discharged in 24 to 48 hours
[2025-01-04 10:57] LABS: Glucose,Whole Blood 252 mg/dL (70-110)
--- NOTE | 2025-01-04 12:07 | P.PN ---
Subjective Progress Note Date: 01/04/25 79-year-old man with PMH of hypertension, atrial fibrillation maintained on Coumadin, CAD, type 2 diabetes mellitus, HFpEF (most recent echocardiogram on 03/23/2024 showed EF 55-60%), hyperlipidemia, BPH who presents to the emergency department with multiple complaints. Stating that he had a fall earlier this morning was having difficulty sitting up due to weakness in his bilateral legs. Additionally concerned that he may have epididymitis due to persistent scrotal pain he has been having, as well as concern for possible urinary tract infection as he has had a worsening dysuria and cloudy urine. In the ED he underwent extensive evaluation. Temperature 100.8 F, blood pressure 120/62, heart rate 7 8, respiratory 20, SpO2 94% on room air. WBCs 15.1, hemoglobin 13.3, hematocrit 38.1, platelet 179; sodium 136, potassium 5.1, bicarb 21, BUN 54, creatinine 1.51, lactic acid 1.6, calcium 9.4, magnesium 2.0, total bilirubin 1.4, AST 30, ALT 93, alkaline phosphatase 109. Urinalysis showed 1+ protein, 4+ glucose, moderate blood, positive urine nitrites, large amount of leukocyte esterase, > 182 urine WBCs. Scrotal ultrasound showed a redemonstration of heterogeneous tissue around the scrotum, with appropriate arterial and venous spectral waveforms of the testes; redemonstration of right intratesticular hyperechoic mass which appears to be present dating back to 10/22/2021. Patient was started on Vancomycin and Zosyn and admitted for Urology evaluation. 01/02 Patient was seen and examined. Urology recommends I&D of scrotal abscess. CBC, Coag panel, CMP significant for RBC 3.75, Hg 12, Hct 35.6, PT 33.4, INR 3.4, Na 134, bicarb 19, BUN 53, Cr 1.37, glu 180. 01/03 Patient was seen and examined. Underwent I&D of scrotal abscess yesterday. He complains of soreness in the scrotum area. UCx + Wound Cx growing GNB. BCx growing presumed E. coli. Antibiotics include Vancomycin dosed per pharmacy and Zosyn 3.75g IV TID. Coag panel and BMP significant for PT 12.9, INR 1.2, Cl 110, bicarb 18, BUN 47, Cr 1.34, glu 182. 01/04 Patient was seen and examined. Doing well. WCx + UCx + BCx finalized as E. coli. Maintained on Rocephin 2g IV QD. CBC and BMP significant for RBC 3.39, Hg 10.8, Hct 31.9, Cl 111, bicarb 18, BUN 36, glu 168. Urology suggesting possible discharge tomorrow. General: no distress, appears at stated age Derm: warm, dry Head: atraumatic, normocephalic, symmetric Mouth: no lip lesion, mucus membranes moist Cardiovascular: good distal perfusion in all 4 extremities Lungs: breathing comfortably, no accessory muscle use Ext: no gross muscle atrophy, no edema, no contractures Neuro: No focal neurologic deficits. Psych: Alert and oriented. Based on my assessment of this patient, this patient meets a high complexity level of care. Sepsis secondary to scrotal abscess + E. coli bacteremia: Continue Rocephin 2g IV QD (D1). DC IVF. All cultures growing E. coli. Dilaudid 0.5 mg IV Q3H PRN pain. Tylenol 650 mg PO Q6H PRN fever. Urology and ID on board. MARIE on CKD with metabolic acidosis: IV hydration as above. Restart Valsartan and Farxiga today. Monitor daily BMP. Hypertension: Coreg as below. Restart Valsartan 320 mg PO QD. A-Fib: Coreg 6.25 mg PO BID. Flecanide 50 mg PO BID. Coumadin dosed per pharmacy. DM: ISS + Accuchecks ACHS along with hypoglycemic precautions. Farxiga 10 mg PO QD. HDL: Lipitor 40 mg PO QD. BPH: Flomax 0.4 mg PO QD. Finasteride 5 mg PO QD. Generalized weakness: Likely due to above. PT and OT consulted. Fall precautions. CODE STATUS: FULL CODE DVT Prophylaxis: Coumadin GI Prophylaxis: Designated medical POA if patient is not able to make medical decisions for themselves: . I have reviewed the following individual pension consultant notes: Urology, ID note. I have reviewed the results of the following tests: CBC, BMP, Coag panel, UCx, BCx, Wound Cx. I have ordered the following tests: I have discussed the care of this patient with the following independent historian: Family at bedside. I have independently interpreted the following test below: I have discussed the management of this patient with the following physician: Objective - Vital Signs Vital signs: Vital Signs Temp 98.3 F 01/04/25 07:36 Pulse 69 01/04/25 07:36 Resp 18 01/04/25 07:36 BP 147/76 01/04/25 07:36 Pulse Ox 98 01/04/25 07:36 FiO2 Intake & Output 01/03/25 01/04/25 01/04/25 18:59 06:59 18:59 Output Total 1000 Balance -1000 Output: Urine 1000 Other: Voiding Method Urinal Urinal # Voids 1 3 # Bowel Movements 1 2 - Labs CBC & Chem 7: 01/04/25 04:51 01/04/25 04:51 Labs: Abnormal Lab Results - Last 24 Hours (Table) 01/03/25 01/03/25 01/04/25 Range/Units 16:17 20:07 04:51 RBC 3.39 L (4.40-5.60) 10*6/uL Hgb 10.8 L (13.0-17.0) g/dL Hct 31.9 L (39.6-50.0) % Chloride (98-107) mmol/L Carbon Dioxide (22-30) mmol/L BUN (9-20) mg/dL Glucose (74-99) mg/dL POC Glucose (mg/dL) 244 H 230 H (70-110) mg/dL 01/04/25 01/04/25 01/04/25 Range/Units 04:51 06:06 10:55 RBC (4.40-5.60) 10*6/uL Hgb (13.0-17.0) g/dL Hct (39.6-50.0) % Chloride 111 H (98-107) mmol/L Carbon Dioxide 18 L (22-30) mmol/L BUN 36 H (9-20) mg/dL Glucose 168 H (74-99) mg/dL POC Glucose (mg/dL) 179 H 252 H (70-110) mg/dL Microbiology - Last 24 Hours (Table) 01/02/25 13:45 Gram Stain - Final Groin Wound Culture - Final Escherichia coli 01/01/25 16:17 Blood Culture Gram Stain - Final Blood Blood Culture - Final Escherichia coli Molecular ID 01/01/25 14:54 Urine Culture - Final Urine,Voided Escherichia coli
[2025-01-04] MEDS: DAPAGLIFLOZIN PROPANEDIOL 10 MG TABLET PO SCH (12:19)
[2025-01-04] MEDS: VALSARTAN 160 MG TAB PO SCH (12:46)
[2025-01-04 16:42] LABS: Glucose,Whole Blood 184 mg/dL (70-110)
[2025-01-04] MEDS ORDERED: VANCOMYCIN TROUGH DUE 1 EACH MISC MISCELLANE ONE (17:00)
[2025-01-04] MEDS: WARFARIN 7.5 MG TAB PO ONE (17:56)
--- NOTE | 2025-01-04 20:12 | P.PN ---
Subjective Progress Note Date: 01/04/25 Principal diagnosis: Reason for follow-up is E. coli UTI scrotal abscess and bacteremia Patient is a 79-year-old male with a past medical history significant for diabetes mellitus hypertension hyperlipidemia coronary disease atrial fibrillation presenting to the hospital for evaluation of scrotal pain urinary symptom has been diagnosed with a UTI and scrotal abscess status post drainage blood culture positive for E. coli. On today's evaluation negative 01/05/2024, patient did have a temperature of 98.3 F this morning and denies having any chills, patient is on room air and breathing comfortably no chest pain or cough, the patient did not have any nausea vomiting abdominal pain or any diarrhea, pain to the scrotal area is currently controlled. Patient white count 5.29, creatinine 0.96 sputum culture negative E. coli sensitive pathogen sensitivity for urinary E. coli Objective - Vital Signs Vital signs: Vital Signs Temp 98.4 F 01/04/25 14:00 Pulse 69 01/04/25 14:00 Resp 18 01/04/25 14:00 BP 165/68 01/04/25 14:00 Pulse Ox 97 01/04/25 14:00 FiO2 Intake & Output 01/03/25 01/04/25 01/04/25 18:59 06:59 18:59 Intake Total 650 Output Total 1000 Balance -1000 650 Intake: Intake, IV Titration 50 Amount cefTRIAXone 2 gm In 50 Sodium Chloride 0.9% 50 ml @ 100 mls/hr IVPB Q24H [facility] Rx#:[id number] Oral 600 Output: Urine 1000 Other: Voiding Method Urinal Urinal # Voids 1 3 4 # Bowel Movements 1 2 - Exam GENERAL DESCRIPTION: An elderly male up in a chair in no distress RESPIRATORY SYSTEM: Unlabored breathing , decreased breath sounds at bases HEART: S1 S2 regular rate and rhythm , ABDOMEN: Soft , no tenderness - Labs CBC & Chem 7: 01/04/25 04:51 01/04/25 04:51 Labs: Abnormal Lab Results - Last 24 Hours (Table) 01/03/25 01/04/25 01/04/25 Range/Units 20:07 04:51 04:51 RBC 3.39 L (4.40-5.60) 10*6/uL Hgb 10.8 L (13.0-17.0) g/dL Hct 31.9 L (39.6-50.0) % Chloride 111 H (98-107) mmol/L Carbon Dioxide 18 L (22-30) mmol/L BUN 36 H (9-20) mg/dL Glucose 168 H (74-99) mg/dL POC Glucose (mg/dL) 230 H (70-110) mg/dL 01/04/25 01/04/25 01/04/25 Range/Units 06:06 10:55 16:39 RBC (4.40-5.60) 10*6/uL Hgb (13.0-17.0) g/dL Hct (39.6-50.0) % Chloride (98-107) mmol/L Carbon Dioxide (22-30) mmol/L BUN (9-20) mg/dL Glucose (74-99) mg/dL POC Glucose (mg/dL) 179 H 252 H 184 H (70-110) mg/dL Microbiology - Last 24 Hours (Table) 01/02/25 13:45 Anaerobic Culture - Preliminary Scrotum 01/02/25 13:45 Gram Stain - Final Groin Wound Culture - Final Escherichia coli 01/01/25 16:17 Blood Culture Gram Stain - Final Blood Blood Culture - Final Escherichia coli Molecular ID 01/01/25 14:54 Urine Culture - Final Urine,Voided Escherichia coli Assessment and Plan (1) Scrotal abscess Current Visit: Yes Status: Acute Code(s): N49.2 - INFLAMMATORY DISORDERS OF SCROTUM SNOMED Code(s): 36769969 (2) Sepsis Current Visit: Yes Status: Acute Code(s): A41.9 - SEPSIS, UNSPECIFIED ORGANISM SNOMED Code(s): 19042561 (3) Urinary tract infection with fever Current Visit: Yes Status: Acute Code(s): N39.0 - URINARY TRACT INFECTION, SITE NOT SPECIFIED SNOMED Code(s): 23364835963429 (4) E coli bacteremia Current Visit: Yes Status: Acute Code(s): R78.81 - BACTEREMIA; B96.20 - UNSP ESCHERICHIA COLI THE CAUSE OF DISEASES [facility] SNOMED Code(s): 396864434294 Plan: 1patient presented to hospital with sepsis in this patient noted to have fever elevated white count meeting criteria for SIRS/sepsis source is likely combination of UTI and scrotal abscess status post surgical drainage. 2patient with E. coli bacteremia source likely scrotal abscess/UTI. 3patient Slowly clinical improving currently on Rocephin 2 g daily to continue will transition to oral Ceftin on discharge. at the bedside question answered Dictation was produced using [employer] dictation software. please excuse any grammatical, word or spelling errors. Time with Patient: Less than 30
[2025-01-04 20:27] LABS: Glucose,Whole Blood 229 mg/dL (70-110)
[2025-01-04] MEDS: cloNIDine HCL 0.1 MG TAB PO STA ×2 (22:32→23:48)
[2025-01-05 02:10] VITALS: RESP 19
[2025-01-05 03:28] LABS: INR 1.4 (<1.2); Prothrombin Time 14.4 sec (10.0-12.5)
[2025-01-05 06:30] LABS: Glucose,Whole Blood 154 mg/dL (70-110)
[2025-01-05 08:48] VITALS: BP 185/73; PULSE 66; TEMP 97.5
--- NOTE | 2025-01-05 10:43 | P.PN ---
Subjective Progress Note Date: 01/05/25 The patient is being seen for a scrotal abscess. He has had an incision and drainage. The wound is healing nicely. He in the patient's are understand packing. From urologic standpoint he can go home. He should go on sitz bath's and packing twice daily. He should be on oral antibiotics for the E. coli. I will see him in the office next week. Objective - Vital Signs Vital signs: Vital Signs Temp 97.5 F L 01/05/25 07:38 Pulse 66 01/05/25 07:38 Resp 19 01/05/25 07:38 BP 185/73 01/05/25 07:38 Pulse Ox 98 01/05/25 07:38 FiO2 Intake & Output 01/04/25 01/05/25 01/05/25 18:59 06:59 18:59 Intake Total 650 Balance 650 Intake: Intake, IV Titration 50 Amount cefTRIAXone 2 gm In 50 Sodium Chloride 0.9% 50 ml @ 100 mls/hr IVPB Q24H [facility] Rx#:[id number] Oral 600 Other: Voiding Method Toilet # Voids 1 3 # Bowel Movements 1 - Labs CBC & Chem 7: 01/04/25 04:51 01/04/25 04:51 Labs: Abnormal Lab Results - Last 24 Hours (Table) 01/04/25 01/04/25 01/04/25 Range/Units 10:55 16:39 20:25 PT (10.0-12.5) sec INR (<1.2) POC Glucose (mg/dL) 252 H 184 H 229 H (70-110) mg/dL 01/05/25 01/05/25 Range/Units 02:51 06:28 PT 14.4 H (10.0-12.5) sec INR 1.4 H (<1.2) POC Glucose (mg/dL) 154 H (70-110) mg/dL Microbiology - Last 24 Hours (Table) 01/02/25 13:45 Anaerobic Culture - Preliminary Scrotum 01/02/25 13:45 Gram Stain - Final Groin Wound Culture - Final Escherichia coli 01/01/25 16:17 Blood Culture Gram Stain - Final Blood Blood Culture - Final Escherichia coli Molecular ID
--- NOTE | 2025-01-05 13:13 | P.DS ---
Providers Date of admission: 01/01/25 19:46 Expected date of discharge: 01/05/25 Attending physician: Maranda Davis MD Consults: 01/01/25 19:38 Consult Physician Urgent Consulting Provider: Darnell Mosley Consult Reason/Comments: scrotal pain, fever, possible abscess Do you want consulting provider notified?: Already Contacted 01/03/25 13:59 Consult Physician Routine Consulting Provider: Chidi Tabares Consult Reason/Comments: e coli bacteremia Do you want consulting provider notified?: Yes Primary care physician: Gaurang [facility] Course: 79-year-old man with PMH of hypertension, atrial fibrillation maintained on Coumadin, CAD, type 2 diabetes mellitus, HFpEF (most recent echocardiogram on 03/23/2024 showed EF 55-60%), hyperlipidemia, BPH who presents to the emergency department with multiple complaints. Stating that he had a fall earlier this morning was having difficulty sitting up due to weakness in his bilateral legs. Additionally concerned that he may have epididymitis due to persistent scrotal pain he has been having, as well as concern for possible urinary tract infection as he has had a worsening dysuria and cloudy urine. In the ED he underwent extensive evaluation. Temperature 100.8 F, blood pressure 120/62, heart rate 78, respiratory 20, SpO2 94% on room air. WBCs 15.1, hemoglobin 13.3, hematocrit 38.1, platelet 179; sodium 136, potassium 5.1, bicarb 21, BUN 54, creatinine 1.51, lactic acid 1.6, calcium 9.4, magnesium 2.0, total bilirubin 1.4, AST 30, ALT 93, alkaline phosphatase 109. Urinalysis showed 1+ protein, 4+ glucose, mo derate blood, positive urine nitrites, large amount of leukocyte esterase, > 182 urine WBCs. Scrotal ultrasound showed a redemonstration of heterogeneous tissue around the scrotum, with appropriate arterial and venous spectral waveforms of the testes; redemonstration of right intratesticular hyperechoic mass which appears to be present dating back to 10/22/2021. Patient was started on Vancomycin and Zosyn and admitted for Urology evaluation. 01/02 Patient was seen and examined. Urology recommends I&D of scrotal abscess. CBC, Coag panel, CMP significant for RBC 3.75, Hg 12, Hct 35.6, PT 33.4, INR 3.4, Na 134, bicarb 19, BUN 53, Cr 1.37, glu 180. 01/03 Patient was seen and examined. Underwent I&D of scrotal abscess yesterday. He complains of soreness in the scrotum area. UCx + Wound Cx growing GNB. BCx growing presumed E. coli. Antibiotics include Vancomycin dosed per pharmacy and Zosyn 3.75g IV TID. Coag panel and BMP significant for PT 12.9, INR 1.2, Cl 110, bicarb 18, BUN 47, Cr 1.34, glu 182. 01/04 Patient was seen and examined. Doing well. WCx + UCx + BCx finalized as E. coli. Maintained on Rocephin 2g IV QD. CBC and BMP significant for RBC 3.39, Hg 10.8, Hct 31.9, Cl 111, bicarb 18, BUN 36, glu 168. Urology suggesting possible discharge tomorrow. 01/05 Patient was seen and examined. Doing well. Wanting to go home. PT 14/4, INR 1.4. Discharge Plans: Ceftin 500 mg PO BID x 10 days. Follow up with PCP within 1-2 days of discharge. Follow up with Urology within 1 week of discharge. General: no distress, appears at stated age Derm: warm, dry Head: atraumatic, normocephalic, symmetric Mouth: no lip lesion, mucus membranes moist Cardiovascular: good distal perfusion in all 4 extremities Lungs: breathing comfortably, no accessory muscle use Ext: no gross muscle atrophy, no edema, no contractures Neuro: No focal neurologic deficits. Psych: Alert and oriented. Discharge Diagnosis: Sepsis secondary to scrotal abscess + E. coli bacteremia MARIE on CKD with metabolic acidosis Hypertension A-Fib DM HDL BPH Generalized weakness This complex discharge took 35 minutes to complete. Patient Condition at Discharge: Stable Plan - Discharge Summary Discharge Rx Participant: No New Discharge Prescriptions: New cefuroxime axetiL [Ceftin] 500 mg PO AC-BID #20 tab Continue Tamsulosin HCl [Flomax] 0.4 mg PO DAILY Finasteride 5 mg PO DAILY Atorvastatin [Lipitor] 40 mg PO DAILY metFORMIN HCL [metFORMIN HCL ER] 500 mg PO DAILY Warfarin [Coumadin] 7.5 mg PO DAILY Flecainide [Tambocor] 50 mg PO Q12H Acetaminophen-Codeine 300-30mg [Tylenol w/codeine #3] 1 tab PO TID PRN PRN Reason: Pain Valsartan [Diovan] 320 mg PO DAILY #120 tab Dapagliflozin Propanediol [Farxiga] 10 mg PO DAILY #90 tab carvediloL [Coreg*] 6.25 mg PO BID-W/MEALS Discharge Medication List Tamsulosin HCl [Flomax] 0.4 mg PO DAILY 09/25/14 [History] Finasteride 5 mg PO DAILY 05/28/15 [History] Atorvastatin [Lipitor] 40 mg PO DAILY 03/21/16 [History] metFORMIN HCL [metFORMIN HCL ER] 500 mg PO DAILY 03/21/16 [History] Warfarin [Coumadin] 7.5 mg PO DAILY 09/20/18 [History] Acetaminophen-Codeine 300-30mg [Tylenol w/codeine #3] 1 tab PO TID PRN 07/11/19 [History] Flecainide [Tambocor] 50 mg PO Q12H 07/11/19 [History] Dapagliflozin Propanediol [Farxiga] 10 mg PO DAILY #90 tab 03/26/24 [Rx] Valsartan [Diovan] 320 mg PO DAILY #120 tab 03/26/24 [Rx] carvediloL [Coreg*] 6.25 mg PO BID-W/MEALS 01/02/25 [History] cefuroxime axetiL [Ceftin] 500 mg PO AC-BID #20 tab 01/05/25 [Rx] Follow up Appointment(s)/Referral(s): Gaurang Pham DO [Primary Care Provider] - 1-2 days Darnell Mosley MD [STAFF PHYSICIAN] - 1 Week Patient Instructions/Handouts: Urinary Tract Infection in Men (DC) Activity/Diet/Wound Care/Special Instructions: 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 Remove Iodoform from scrotum cleaning area with Epsom salt diluted in eve bottle, clean area and pat dry place new Iodoform in scrotum wound. Discharge Disposition: HOME SELF-CARE
[2025-01-05] MEDS ORDERED: WARFARIN 7.5 MG TAB PO ONE (18:00)
[2025-01-05] MEDS ORDERED: WARFARIN 5 MG TAB PO SCH (21:00)
== END 2025-01-05 12:18 | disposition home or self-care (01) | DRG 872 ==
LOC: EC 14:41 → 4SSUR 19:46
PROVIDERS: ADMIT Internal Medicine; ATTEND Internal Medicine
PROC: 0V953ZX Drainage of Scrotum, Percutaneous Approach, Diagnostic (ICD-10-PCS; principal; 2025-01-02 09:55)
DX: A41.51 Sepsis due to Escherichia coli [E. coli] (principal); E87.20 Acidosis, unspecified; I13.0 Hypertensive heart and chronic kidney disease with heart failure and stage 1 through stage 4 chronic kidney disease, or unspecified chronic kidney disease; I50.32 Chronic diastolic (congestive) heart failure; E11.22 Type 2 diabetes mellitus with diabetic chronic kidney disease; N18.9 Chronic kidney disease, unspecified; E87.1 Hypo-osmolality and hyponatremia; N17.9 Acute kidney failure, unspecified; N39.0 Urinary tract infection, site not specified; R17 Unspecified jaundice; I48.91 Unspecified atrial fibrillation; N49.2 Inflammatory disorders of scrotum; E78.5 Hyperlipidemia, unspecified; N40.0 Benign prostatic hyperplasia without lower urinary tract symptoms; R53.1 Weakness; I25.2 Old myocardial infarction; G89.29 Other chronic pain; R74.01 Elevation of levels of liver transaminase levels; I25.10 Atherosclerotic heart disease of native coronary artery without angina pectoris; M54.9 Dorsalgia, unspecified; Z79.01 Long term (current) use of anticoagulants; Z79.84 Long term (current) use of oral hypoglycemic drugs; Z79.899 Other long term (current) drug therapy; Z87.11 Personal history of peptic ulcer disease; Z87.891 Personal history of nicotine dependence; Z91.041 Radiographic dye allergy status; Z91.013 Allergy to seafood; Z87.19 Personal history of other diseases of the digestive system; W19.XXXA Unspecified fall, initial encounter; Y92.099 Unspecified place in other non-institutional residence as the place of occurrence of the external cause
CPT/HCPCS: 36415; 76870; 80048; 80053; 81001; 83036; 83605; 83735; 85025; 85027; 85610; 87040; 87070; 87075; 87077; 87086; 87186; 87205; 93005; 93975; 96365; 96366; 96375; 99285

== ENCOUNTER → 2025-02-21 | Outpatient (CLI) | payer MEDICARE ==
[2025-02-21 15:31] LABS: African American GFR (CKD) 64 (>60 ml/min/1.73 sqM); Blood Urea Nitrogen 38 mg/dL (9-20); Non-African American GFR(CKD) 56 (>60 ml/min/1.73 sqM)
--- NOTE | 2025-02-21 18:21 | CT ---
EXAMINATION TYPE: CT urogram wo/w con CT DLP: 5009.1 mGycm, Automated exposure control for dose reduction was used. DATE OF EXAM: 02/21/2025 4:43 PM COMPARISON: None CLINICAL INDICATION:Male, 79 years old with history of N39.0 URINARY TRACT INFECTION, SITE NOT SPECIF IED; PHH, recurrent UTI TECHNIQUE: Urogram of the abdomen and pelvis was performed before and after the administration of 100 cc of IV c ontrast Isovue 300 contrast. Delayed imaging was performed. Coronal and sagittal reformats were perfo rmed. One or more CT dose reduction strategies were utilized during this examination. 2D and 3D recon structions are performed to assist visualization of the urinary tract on a separate workstation. FINDINGS: GENITOURINARY: RIGHT KIDNEY AND URETER: Perinephric fat stranding. No calculi. Mild right hydroureteronephrosis to t he ureterovesical junction. No obstructing calculus. Contrast is demonstrated throughout the right ur eter to the ureterovesical junction on final delayed imaging. No renal mass or other lesions. No urot helial lesions: no filling defect, dilation, stricture or wall thickening. LEFT KIDNEY AND URETER: Perinephric fashioning. No calculi. Moderate hydroureteronephrosis to the ure terovesical junction. No obstructing calculus. No suspicious enhancing renal lesions. Left renal lowe r pole exophytic 1.5 cm simple cyst. Additional smaller left renal cortical cyst. Contrast is only de monstrated within the left renal collecting system extending into the renal pelvis. No contrast demon strated within the proximal to distal ureter during the course of exam. Therefore evaluation of the u reter is nondiagnostic. URINARY BLADDER: Moderately distended with some wall trabeculations. No calculi identified. Only a tr rubin amount of contrast is demonstrated within the urinary bladder on final delayed phase. This makes evaluation of the bladder for lesions significantly limited. REPRODUCTIVE: Enlarged prostate gland measuring 5.1 cm in transverse dimension. This indents upon the urinary bladder base. Central prostate coarse calcifications. ABDOMEN LIVER: Unremarkable. GALLBLADDER AND BILE DUCTS: The gallbladder is surgical absent. No significant biliary ductal dilatat ion. PANCREAS: Unremarkable. SPLEEN: Unremarkable. ADRENAL GLANDS: Unremarkable. STOMACH AND BOWEL: Scattered colonic diverticulosis without evidence for acute diverticulitis. No bow el wall thickening or surrounding inflammatory changes.. No evidence of bowel obstruction. PERITONEUM: No evidence of pneumoperitoneum, free fluid, or adenopathy. VASCULATURE: No aortic aneurysm. Moderate atherosclerotic calcification of the aorta and its branches . MUSCULOSKELETAL: No acute osseous abnormalities. Grade 1 retrolisthesis L2 on L3. Advanced multilevel degenerative disc disease of the lumbar spine. SOFT TISSUE/ABDOMINAL WALL: Fat filled bilateral inguinal hernias. Fluid within the right inguinal ri ng. LOWER CHEST: Linear scarring or atelectasis within the left lower lobe. Couple of scattered calcifica tions are granulomatous. Right midlung 3.6 mm pulmonary nodule. Moderate coronary arterial calcificat ions. Elevation of the right hemidiaphragm. Bilateral gynecomastia. IMPRESSION: 1. Moderate left and mild right hydroureteronephrosis without obstructing calculus. Distended trabecu lated urinary bladder. Enlarged prostate gland. Correlate for chronic outlet obstruction with conside ration for Sabillon catheter placement. 2. No suspicious enhancing renal lesion. Couple of small left renal simple cysts. No follow-up recomm ended. 3. No right ureteral lesion identified. Nondiagnostic evaluation of the left ureter due to lack of co ntrast from hydroureteronephrosis. Additionally there is significantly limited evaluation of the urin abdirahman bladder due to minimal contrast. 4. Right midlung 3.6 mm pulmonary nodule. According to Fleischner's criteria in a low-risk patient no follow-up is recommended. In a high-risk patient consider optional CT chest in 12 months. [facility], , 02/21/2025 6:19 PM
== END | disposition home or self-care (01) ==
LOC: RADCTMAIN 02-19 14:27
PROVIDERS: ATTEND Urology
DX: N39.0 Urinary tract infection, site not specified (principal); N28.1 Cyst of kidney, acquired; N40.0 Benign prostatic hyperplasia without lower urinary tract symptoms; N13.30 Unspecified hydronephrosis; N32.89 Other specified disorders of bladder; R91.1 Solitary pulmonary nodule
CPT/HCPCS: 82565; 84520; 74178; 74400; Q9967